=== PATIENT | male | born 1955 | race Caucasian/White ===

== ENCOUNTER → 2020-10-23 10:37 | Outpatient (BNVA) | payer MEDICARE, MEDICAID, SELFPAY | PROVIDERS: Family Provider Nurse Practitioner; PCP Nurse Practitioner; Visit Provider Internal Medicine Cardiovascular Disease | DX: I50.33 Acute on chronic diastolic (congestive) heart failure (principal); R06.00 Dyspnea, unspecified; R06.02 Shortness of breath; E78.5 Hyperlipidemia, unspecified; E78.2 Mixed hyperlipidemia | CPT/HCPCS: 80048; 80061; 80076; 83880 ==

== ENCOUNTER 2021-04-28 15:32 | Outpatient (CLI) | payer MEDICARE, MEDICAID, SELFPAY ==
--- NOTE | 2021-04-28 15:30 | CT_ITS ---
WS: [id number] CT CHEST WITHOUT INTRAVENOUS CONTRAST HISTORY: R91.1 - Solitary pulmonary nodule TECHNIQUE: Contiguous 5 mm axial imaging performed on the thorax. Coronal and sagittal reformats are submitted. All CT scans at [facility] use at least one of these dose optimization techniq ues: automated exposure control; mA and/or kV adjustment per patient size (includes targeted exams wh ere dose is matched to clinical indication); or iterative reconstruction. CONTRAST: None DLP: 1026.53 mGycm COMPARISON: 04/02/2019 Lungs and central airway: Moderate pulmonary expansion with changes of centrilobular emphysema. Stabl e tree-in-bud airspace disease in the superior segment RIGHT lower lobe posteriorly. Previously descr ibed nodule in the LEFT upper lobe is not identified today. Subsegmental atelectasis at the RIGHT barbara g base and at the lingula. Pleura: Normal. No pleural effusion. Heart and pericardium: Normal size heart. Coronary artery calcifications. No effusion. Mediastinum and chloe: No significant adenopathy identified. There is mild diffuse thickening of the e sophagus. There is fluid in the midesophagus which may be from reflux disease. Vessels: Moderate atherosclerosis thoracic aorta. Pulmonary artery size is enlarged and just greater than the aorta. Chest wall and lower neck: No soft tissue masses. Upper abdomen: Marked perinephric stranding around each kidney. Hyperdense nodules associated with th e periphery of each kidney. Cysts were seen on the prior examination these locations. These are proba victorina cysts with increased protein content or hemorrhage. No enlargement of these areas. Osseous structures: Osteopenia. No chronic compression fractures at T12 and L2. Additional mild anter ior wedging of T10, T5 and T6. Prior fixation with plate and screw proximal LEFT humerus. Advanced de generative changes at the LEFT glenohumeral joint. CT/CT chest wo con [id number] IMPRESSION: 1. Interval resolution of the previously described LEFT upper lobe nodule. 2. Stable chronic tree-in-bud airspace disease in the RIGHT lower lobe. 3. Moderate chronic emphysema. 4. Mild esophageal wall thickening with fluid probably due to reflux esophagit is. 5. Bilateral renal nodules. Some of these nodules are of decreased attenuation and some of increased attenuation. As compared to the contrast examination fro m 04/02/2019 has been no significant increase in size of these nodules. Probably proteinaceous or hemorrhagic cysts.
== END 2021-04-28 15:33 | disposition home or self-care (01) ==
PROVIDERS: PCP Nurse Practitioner; Visit Provider Nurse Practitioner
DX: R91.1 Solitary pulmonary nodule (principal); K21.00 Gastro-esophageal reflux disease with esophagitis, without bleeding; J43.9 Emphysema, unspecified
CPT/HCPCS: 71250

== ENCOUNTER → 2021-04-30 10:21 | Outpatient (BNVA) | payer MEDICARE, MEDICAID, SELFPAY | PROVIDERS: PCP Nurse Practitioner; Visit Provider Otolaryngology | DX: Z20.822 Contact with and (suspected) exposure to COVID-19 (principal) | CPT/HCPCS: 87635 ==

== ENCOUNTER 2021-05-05 06:21 | Day surgery (SDC) | payer MEDICARE, MEDICAID, SELFPAY ==
[2021-05-04 09:46] VITALS: BMI 27.3
[2021-05-05] VITALS (12 sets, daily range): BP systolic 123–174; BP diastolic 67–86; PULSE 59–83; RESP 14–22; TEMP 36.1–36.4; O2SAT 91–98
--- NOTE | 2021-05-05 06:39 | W.PM.OPSUD ---
Surgery/Procedure H&P Update DATE OF PROCEDURE: May 05, 2021 DATE H&P PERFORMED: 04/27/21 H&P UPDATE INFORMATION: I have reviewed H&P completed within last 30 days, I have examined patient prior to procedure and No changes to prior documentation PREOP DIAGNOSIS: Malignant lesion left upper lip at nostril PLANNED PROCEDURE: Operation Date: 05/05/21 07:50 Proposed Procedures p EXCISION MALIGNANT LESION LEFT UPPER LIP OR PERINASAL AREA 2.1 TO 3.0 and REPAIR LEFT UPPER LIP OR PERINASAL AREA 2.1 TO 3.0 30017 [id number] d49.0(Left) - Cecil Friend MD
[2021-05-05] MEDS: sodium chloride 0.9% 1,000 ML 30 ML IV (07:10)
--- NOTE | 2021-05-05 07:25 | ANES.PREANE2 ---
Pre-Anesthetic Assessment Pre-Anesthetic Assessment: Height/Weight: Height 1.73 m Weight 81.647 kg Temp Pulse Resp BP Pulse Ox 97.5 F L 59 L 16 131/76 93 05/05/21 06:34 05/05/21 06:34 05/05/21 06:34 05/05/21 06:34 05/05/21 06:34 Preop Diagnosis: Malignant lesion left upper lip at nostril Proposed Procedure: Operation Date: 05/05/21 07:50 Proposed Procedures p EXCISION MALIGNANT LESION LEFT UPPER LIP OR PERINASAL AREA 2.1 TO 3.0 and REPAIR LEFT UPPER LIP OR PERINASAL AREA 2.1 TO 3.0 [id number] 15828 d49.0(Left) - Cecil Friend MD Familial anesthetic complications: none Was Beta Anitha taken within 24 hours: Yes Was Clonidine taken within 24 hours: N/A Last intake: Intake Last Liquid Date 05/04/21 Last Liquid Time 21:00 Last Solid Date 05/04/21 Last Solid Time 14:00 Social: Social History: No alcohol Comment: former smoker Exam: Pre-Anes Outpt Exam: alert, oriented x 3, clear to auscultation bilaterally and regular rate & rhythm Airway: Cervical ROM: WNL MP: 3 Dentition: False Pulmonary: Pulmonary: COPD and LAU CV/HEM: CV/HEM: HTN and [place] Comments: Seen by Dr. Parra early April - nonspecific SOB thought to be related to COPD. No need for further work up at that time. Suggested follow up in 6 months ECHOCARDIOGRAPHY, COMPLETE 05/02/16 Normal left ventricular size and systolic function, EF 67 %. No regional wall motion abnormalities. I'll a dilated right atrium and right ventricle Normal right ventricular systolic function No significant stenotic or regurgitant lesions Technically difficult study because of the poor ultrasonic window There is no pericardial effusion. No previous study is available for comparison. LMM STRESS 05/02/16 1. No significant EKG changes with the LexiScan infusion 2. No LexiScan induced chest pain or cardiac arrhythmia 3. Normal blood pressure and heart rate response 4. Sestamibi/sestamibi perfusion scan pending; see separate report. 1. Myocardial perfusion imaging revealing a small area persistent decreased tracer uptake in the basal, mid and apical inferior wall region, suggestive of myocardial scarring versus attenuation artifacts. 2. Normal left ventricular ejection fraction of 78%. 3. Left ventricular wall motion analysis revealing no gross wall motion abnormality. 4. Normal left ventricular volume. 5. Slightly elevated TID ratio, may suggest endocardial ischemia; however, the positive predictive of this finding is limited. Clinical correlation is recommended. GI: GI: GERD Anesthetic Plan: ASA status: 4 Anesthesia: General Risk of > 500 ml blood loss (7ml/kg in children): No Meds/Allergies Current Medications: Current Medications Generic Name Dose Route Start Last Admin Trade Name Freq PRN Reason Stop Dose Admin Sodium Chloride 1,000 mls @ 30 ml s/hr 05/05/21 06:15 05/05/21 07:10 Sodium Chloride 0.9% IV 05/06/21 06:14 30 mls/hr .Q24H CONCEPCION Administration PFSH Anesthesia PFSH: Medical History (Updated 05/03/21 @ 11:38 by BERNARD Villa) Anemia ASHD (arteriosclerotic heart disease) Benign essential HTN Central spinal stenosis COPD (chronic obstructive pulmonary disease) LAU (dyspnea on exertion) Hx of leg amputation Right side Mixed hyperlipidemia Osteoporosis Surgical History H/O knee surgery H/O shoulder surgery History of abdominal surgery History of appendectomy History of hernia repair Family History Mother CAD (coronary artery disease) Father Cancer Family/Other Cancer Denies family history of Diabetes Clotting disorder Dementia Chronic kidney disease (CKD) Suicide Anesthesia complication Bleeding disorder Lung disease Stroke Social History Smoking and tobacco status: former smoker Quit status (tobacco): has quit using tobacco Year quit tobacco: 2020 Former quit date comment: 2 PPD X 45 YEARS Second hand smoke exposure: No Smoking risk assessment/counseling performed?: No Alcohol intake: never Desire information about alcohol rehabilitation?: No Counseling given: No Desire information about substance/drug rehabilitation?: No Counseling given: No Adopted: No Caregiver/support person: No Lives independently: Yes Household members: significant other Housing: House Marital status: Number of children: 2 service: No Current occupational status: retired Current occupational exposures/hazards: No Current gender identity: Male Data Anesthesia Cardiac Studies: No Data to Display
[2021-05-05] MEDS: neomycin-poly-bacitracin oint 28 gm 1 APPLIC TOPICAL (08:39)
--- NOTE | 2021-05-05 09:04 | P.OP_ITS ---
Operative Report Date of procedure: May 05, 2021 Pre-op Diagnosis: Malignant lesion left upper lip at nostril Post-op diagnosis: other Post-op Diagnosis: Malignant basal cell carcinoma with clear margins Post-op Findings: Used advancement flap for closure. Procedure Done: Excision of malignant basal cell carcinoma of the upper lip and repair with advancement flap reconstruction Specimens removed/disposition: Basal cell carcinoma lesion with margins to pathology for diagnosis and margins. Pathology: Lesion from left upper lip at nares. Frozen section revealed basal cell carcinoma with margins clear. Surgeon: Cecil Friend Anesthesia: General and Local Estimated blood loss (mL): 20 Complications: No complications noted. Findings: Greater than 1 cm mushroom-shaped lesion with raised edges and increased vascularity with ulcerative center consistent with basal cell carcinoma. This was raised approximately 1.3 cm off the surface of the upper lip skin. Extended just inside the nostril inferiorly. Condition: stable Disposition: PACU Brief History: 65-year-old male patient has had a lesion growing on his left upper lip for about a year. He did not seek medical attention while it was initially growing because he was stuck at home during the Covid pandemic crisis. Finally has sought attention from an ENT specialist. The lesion was highly suspicious for basal cell carcinoma or squamous cell carcinoma. He is being brought to the operating room at this time to undergo excision and repair. The repair will be attempted to be a flap advancement direct repair. The procedure its risks and complications were explained in detail to the patient and his in the office setting. These risks included bleeding infection numbness scarring swelling bruising cosmetic change recurrence need for additional treatment and more serious risk such as heart attack or stroke or not surviving the surgery. With these things understood informed consent was granted. Procedure: Description of procedure: The patient was placed on the operating table in the supine position. Adequate general endotracheal tube anesthesia was obtained. He was given Ancef IV for prophylaxis. He was repositioned into a semirecumbent position. Head was turned to his right. The area around the lesion was wiped with alcohol and then the upper lip was infiltrated around the lesion intranasally down the lip to the vermilion border and then across to the oral commissure. Injection was also carried out around the lateral alar region. Injection was also done vertically and laterally under the flap to control hemostasis. The patient was prepped and draped in usual fashion. A timeout was accomplished identifying the patient date of plan procedure allergies fire risk and medications given. With all in agreement the procedure continued. A marking pen was used to outline a circular excision approximately 5 mm in all directions around the slightly pedicled base. An incision was created following this marking pen guideline with a 15 blade carrying it down through the subcutaneous tissue and down to the layer of the vasculature of the upper lip. The specimen was resected and marked inferiorly and forwarded to pathology for frozen section. Pressure was applied during this time. Pathology returned as malignant basal cell carcinoma with margins clear. Therefore was able to proceed on with a design for closure. Bleeding was controlled with bipolar cautery. An incision was created along the alar bulb laterally in the nasolabial crease and then there was an incision created just where he wears his mustache. I did not take this down to the vermilion as I did not feel that it was necessary. The lateral incision was carried out to the nasolabial crease and dissection was carefully done to elevate the flap. Dissection was carried out lateral to that nasolabial fold as well. At this point it appeared as if t his flap was long enough to do the closure without significant tension. Therefore tacking sutures with 4-0 Vicryl suture occurred. These were then filled then along the entire edge of the flap to the surrounding normal skin. That appeared as if the flap was viable and good blood supply was occurring. The surface skin closure was then accomplished using a couple of interrupted 5-0 nylon sutures at the inner aspect of the alar region laterally. Then a running 5-0 nylon was used to close the skin. The area was then cleansed. Neosporin ointment was applied. The drapes were removed and the patient was returned to the anesthesiologist for wake-up and extubation. He tolerated the procedure well had an estimated blood loss of 20 mL and arrived in recovery in stable condition.
--- NOTE | 2021-05-05 09:26 | SUR.PHASEI ---
0924- ORAL AIRWAY REMOVED, SIMPLE MASK AT 6LPM SAT 98%
[2021-05-05] MEDS: oxyCODONE IR 30 mg Tablet PO (10:51)
--- NOTE | 2021-05-05 15:46 | ANE.PACU2 ---
Inpatient post-anesthesia follow up: Airway intact: Yes Vital signs: Temperature 97.3 F Pulse Rate 72 Respiratory Rate 18 Blood Pressure 156/70 Pulse Oximetry 92 Oxygen Delivery Me thod Room Air Oxygen Flow Rate 6 Fraction of Inspir ed Oxygen Hydration adequate: Yes Nausea and vomiting: No Pain level: 1 Mental status: Baseline
== END 2021-05-05 11:20 | disposition home or self-care (01) ==
PROVIDERS: PCP Nurse Practitioner; Visit Provider Otolaryngology
PROC: (CPT 11642; principal; 2021-05-05 07:40)
DX: C44.01 Basal cell carcinoma of skin of lip (principal); Z87.891 Personal history of nicotine dependence; J44.9 Chronic obstructive pulmonary disease, unspecified; I10 Essential (primary) hypertension; I25.2 Old myocardial infarction; E78.2 Mixed hyperlipidemia; M81.0 Age-related osteoporosis without current pathological fracture
CPT/HCPCS: 11642; 12051; 88304; 96365; J0690; J2370; J2405; J2704; J3010; J3490; J7030

== ENCOUNTER 2021-05-11 14:56 | Outpatient (CLI) | payer MEDICARE, MEDICAID, SELFPAY ==
--- NOTE | 2021-05-11 15:02 | XRR_ITS ---
PROCEDURE INFORMATION: Exam: XR Left Ankle Exam date and time: 05/11/2021 3:02 PM Age: 65 years old Clinical indication: Pain; Ankle; Left; Additional info: G89.29 - other chronic pain TECHNIQUE: Imaging protocol: XR Left ankle. Views: 3 or more views. COMPARISON: No previous relevant studies are available for comparison. FINDINGS: Bones/joints: No joint narrowing, dislocation, or effusion noted. No fracture or other acute osseous abnormality. Soft tissues: Mild soft tissue edema noted. XR/XR ankle LT min 3V* [id number] IMPRESSION: 1. Mild soft tissue edema noted. 2. No fracture or other acute osseous abnormality.
--- NOTE | 2021-05-11 15:02 | XRR_ITS ---
PROCEDURE INFORMATION: Exam: XR Left Hip Exam date and time: 05/11/2021 3:02 PM Age: 65 years old Clinical indication: Hip pain; Left hip; Additional info: G89.29 - other chronic pain TECHNIQUE: Imaging protocol: XR Left hip. Views: 2 or 3 views hip with pelvis when performed. COMPARISON: CR Hip 2-3v LEFT wwo Pelv* [id number] 01/08/2018 3:32 PM FINDINGS: Bones/joints: Mild narrowing and osteophyte formation of the left hip joint. No fracture or other acute osseous abnormality. Soft tissues: The soft tissues appear unremarkable. Vasculature: There are atherosclerotic calcifications demonstrated. XR/XR hip LT 2-3V wo/w pel* [id number] IMPRESSION: 1. Mild degenerative arthritis of the left hip. 2. No acute abnormality demonstrated. 3. There is no interval change from the prior examination.
--- NOTE | 2021-05-11 15:02 | XRR_ITS ---
PROCEDURE INFORMATION: Exam: XR Left Knee Exam date and time: 05/11/2021 3:02 PM Age: 65 years old Clinical indication: Pain; Knee; Left; Prior surgery; Additional info: G89.29 - other chronic pain TECHNIQUE: Imaging protocol: XR Left knee. Views: 3 views. COMPARISON: CR Knee 3 views, LEFT* [id number] 01/08/2018 3:32 PM FINDINGS: Bones/joints: Status post ORIF of the proximal tibia. The hardware appears intact. Old healed fracture of the proximal fibula. Distal femur and patella are unremarkable. There is mild medial and lateral joint space narrowing. No joint effusion demonstrated. No fracture or other acute osseous abnormality. Soft tissues: The soft tissues appear unremarkable. Vasculature: There are atherosclerotic calcifications demonstrated. XR/XR knee LT 3V* [id number] IMPRESSION: 1. Status post ORIF of the proximal tibia. The hardware appears intact. Old healed fracture of the proximal fibula. 2. Mild degenerative changes of the knee joint. 3. No acute abnormality demonstrated. 4. There is no interval change from the prior examination.
== END 2021-05-11 14:57 | disposition home or self-care (01) ==
PROVIDERS: PCP Nurse Practitioner; Visit Provider Nurse Practitioner
DX: M25.572 Pain in left ankle and joints of left foot (principal); M25.552 Pain in left hip; M25.562 Pain in left knee; M16.12 Unilateral primary osteoarthritis, left hip; R60.0 Localized edema
CPT/HCPCS: 73502; 73562; 73610

== ENCOUNTER → 2022-04-19 12:46 | Outpatient (BNVA) | payer MEDICARE, MEDICAID, SELFPAY | PROVIDERS: PCP Nurse Practitioner; Visit Provider Internal Medicine Cardiovascular Disease | DX: I25.10 Atherosclerotic heart disease of native coronary artery without angina pectoris (principal); Z89.619 Acquired absence of unspecified leg above knee; I10 Essential (primary) hypertension; Z87.891 Personal history of nicotine dependence | CPT/HCPCS: 99213 ==

== ENCOUNTER → 2022-07-11 10:27 | Outpatient (BNVA) | payer MEDICARE, MEDICAID, SELFPAY | PROVIDERS: PCP Nurse Practitioner; Visit Provider Nurse Practitioner | DX: I10 Essential (primary) hypertension (principal); R30.0 Dysuria; N39.0 Urinary tract infection, site not specified | CPT/HCPCS: 81000; 87086 ==

== ENCOUNTER 2022-10-21 16:39 | Emergency (ER) | payer MEDICARE, MEDICAID, SELFPAY ==
--- NOTE | 2022-10-21 17:12 | W.ED.URI ---
HPI - URI/Sore Throat General: Chief Complaint: COVID symptoms Stated Complaint: cough congestition Time Seen by Provider: 10/21/22 17:12 History of Present Illness: 67-year-old male patient comes in today with complaints of upper respiratory infection for about 1 week. Patient appears nontoxic. Patient does have a history of [id number] amputation to the right lower extremity due to infection from a surgical wound, coronary artery disease, colostomy. Patient appears nontoxic. Patient is alert and responds appropriate to questions. Patient does admit to feeling more confused than normal but is able to carry on conversation and responds appropriately. Associated symptoms: Deny chest pain or fever(s) Review of Systems Const: Denies: fever(s) Card: Denies: chest pain Resp: Reports: non-productive cough PFSH ED PFSH: Medical History Anemia ASHD (arteriosclerotic heart disease) Benign essential HTN Central spinal stenosis COPD (chronic obstructive pulmonary disease) LAU (dyspnea on exertion) Hx of leg amputation Right side Mixed hyperlipidemia Neuropathic pain Osteoarthritis of left hip Osteoporosis Surgical History H/O knee surgery H/O shoulder surgery History of abdominal surgery History of appendectomy History of hernia repair Family History Mother CAD (coronary artery disease) Father Cancer Family/Other Cancer Denies family history of Diabetes Clotting disorder Dementia Chronic kidney disease (CKD) Suicide Anesthesia complication Bleeding disorder Lung disease Stroke Social History Smoking and tobacco status: former smoker Quit status (tobacco): has quit using tobacco Year quit tobacco: 2020 Former quit date comment: 2 PPD X 45 YEARS Second hand smoke exposure: No Smoking risk assessment/counseling performed?: No Alcohol intake: never Desire information about alcohol rehabilitation?: No Counseling given: No Desire information about substance/drug rehabilitation?: No Counseling given: No Adopted: No Caregiver/support person: No Lives independently: Yes Household members: significant other Housing: House Marital status: Number of children: 2 service: No Current occupational status: retired Current occupational exposures/hazards: No Current gender identity: Male Physical Exam Const: COMMON NORMALS: alert HENMT: COMMON NORMALS: normocephalic HEAD & SCALP: normocephalic Neck/C-Spine: COMMON NORMALS: full ROM Resp: COMMON NORMALS: normal respiratory effort and clear to auscultation bilaterally AUSCULTATION: clear to auscultation bilaterally Cardio: COMMON NORMALS: regular rate and regular rhythm RATE: regular rate RHYTHM: regular rhythm GI: COMMON NORMALS: Soft to palpation and non-tender PALPATION: Yes Soft to palpation Extremity: COMMON NORMALS: normal to inspection Neuro: SENSORIUM/ORIENTATION: Yes alert Skin: COMMON NORMALS: turgor normal GENERAL SKIN EXAM: turgor normal Course Vital Signs: Vital signs: Vital Signs Temperature 97.6 F 10/21/22 17:20 Pulse Rate 52 L 10/21/22 18:23 Respiratory Rate 20 H 10/21/22 18:23 Blood Pressure 146/76 10/21/22 18:23 Pulse Oximetry 93 10/21/22 18:23 Oxygen Delivery Me thod 10/21/22 17:44 MDM - URI/Sore Throat Medical Decision Making 67-year-old male patient comes in today for concerns of cough and congestion and a positive COVID-19 test. On exam patient good air movement throughout lung boss. Abdomen soft with some scarring to the right lower quadrant with a colostomy. Patient has above-knee amputation of the right lower extremity. Vital signs are normal. Differential diagnosis includes pneumonia, COVID-19, CHF, post viral syndrome. Chest x-ray was unremarkable. No signs of severe illness was noted. Reviewed exam with patient with recommendations for treatment and follow-up. Patient and family both reported understanding. Lab Data Radiology Impressions Chest X-Ray 10/21/22 17:27 IMPRESSION: Left basilar scarring. No acute infiltrate. Discharge Plan Discharge Patient Disposition: Home Clinical Impression: COVID-19 Condition: Stable Prescriptions: No Action oxycodone 80 mg tablet extended release 12 hr PO oxycodone 30 mg tablet 30 mg PO Q6H PRN (Reason: Pain) (DME) E2622 : Skin protection wheelchair seat cushion, adjustable, width less than 22 inches, any depth. See Rx Instructions .Route .[facility] Qty: 1 0RF Rx Instructions: As directed (DME) K0822 Power wheelchair, group 2 standard, sling/solid See Rx Instructions .Route .[employer] Qty: 1 0RF Rx Instructions: As directed Lac-Hydrin Five 5 % lotion 1 applic topical BID Qty: 226 0RF tamsulosin [Flomax] 0.4 mg capsule 0.4 mg PO DAILY Qty: 90 0RF fluoxetine [Prozac] 20 mg capsule 20 mg PO BID Qty: 180 0RF Rx Instructions: administer in the morning and at noon/midday carvedilol 25 mg tablet 25 mg PO BID Qty: 180 3RF atorvastatin 80 mg tablet 80 mg PO DAILY Qty: 90 3RF amlodipine 10 mg tablet 10 mg PO DAILY Qty: 90 3RF clopidogrel 75 mg tablet 75 mg PO DAILY Qty: 90 3RF Discharge Orders: Discharge ED (Routine); Ordered 10/21/22 Ordered By: Aris Nolasco Referrals: Imtiaz Shields, [employer] [Primary Care Provider] - Discharge Diet: Usual diet Discharge Activity: Increase activity as tolerated Patient Instructions: COVID-19 (Coronavirus Disease 2019) (ED) Activity Restrictions/Additional Instructions: Home and rest. Continue routine medications. Drink plenty of fluids. Use acetaminophen or ibuprofen for discomfort or fever. Follow-up with primary care as needed. Return to ED for worsening symptoms such as increased shortness of breath, severe chest pain, or new concerns. Coding Level of Care Code ED Recruitment Director for Ephraim Badillo
[2022-10-21 17:20] VITALS: BP 141/75; PULSE 50; RESP 14; TEMP 36.4; O2SAT 90; BMI 27.8
--- NOTE | 2022-10-21 17:27 | XRR_ITS ---
PROCEDURE INFORMATION: Exam: XR Chest Exam date and time: 10/21/2022 5:37 PM Age: 67 years old Clinical indication: Cough; Additional info: Cough, congestion TECHNIQUE: Imaging protocol: Radiologic exam of the chest. Views: 1 view. COMPARISON: CT chest con [id number] 04/28/2021 3:46 PM FINDINGS: Lungs: There is some focal scarring or subsegmental atelectasis at the left lung base. This is unchanged from prior CT scan. No focal consolidation or acute appearing infiltrate is identified. Pleural spaces: Unremarkable. No pleural effusion. No pneumothorax. Heart/Mediastinum: Heart is within normal limits of size. Bones/joints: Postsurgical changes are seen in the proximal left shoulder. XR/XR chest 1V portable [id number] IMPRESSION: Left basilar scarring. No acute infiltrate.
[2022-10-21 17:44] VITALS: O2SAT 90
[2022-10-21 18:23] VITALS: BP 146/76; PULSE 52; RESP 20; O2SAT 93
[2022-10-21 20:05] LABS: Adenovirus Not Detected (NOT DETECT); Chlamydia Pneumoniae Not Detected (NOT DETECT); Coronavirus 229E,HKU1,NL63,OC4 Not Detected (NOT DETECT); Human Metapneumovirus Not Detected (NOT DETECT); Human Rhinovirus/Enterovirus Not Detected (NOT DETECT); Influenza A Not Detected (NOT DETECT); Influenza A H1 Not Detected (NOT DETECT); Influenza A H1-2009 Not Detected (NOT DETECT); Influenza A H3 Not Detected (NOT DETECT); Influenza B Not Detected (NOT DETECT); Mycoplasma Pneumoniae Not Detected (NOT DETECT); Parainfluenza Virus Type 1 Not Detected (NOT DETECT); Parainfluenza Virus Type 2 Not Detected (NOT DETECT); Parainfluenza Virus Type 3 Not Detected (NOT DETECT); Parainfluenza Virus Type 4 Not Detected (NOT DETECT); Respiratory Syncytial Virus A Not Detected (NOT DETECT); Respiratory Syncytial Virus B Not Detected (NOT DETECT); SARS-COV-2 Detected (NOT DETECT)
== END 2022-10-21 18:25 | disposition home or self-care (01) ==
PROVIDERS: Emergency Provider Nurse Practitioner Family; PCP Nurse Practitioner
DX: U07.1 COVID-19 (principal)
CPT/HCPCS: 71045; 87635; 99283

== ENCOUNTER 2023-04-04 10:00 | Outpatient (CLI) | payer MEDICARE, MEDICAID, SELFPAY ==
--- NOTE | 2023-04-04 11:00 | CT_ITS ---
WS: [id number] CT CHEST, ABDOMEN AND PELVIS WITHOUT CONTRAST HISTORY: R91.1 - Solitary pulmonary nodule TECHNIQUE: Contiguous 5 mm axial imaging performed through the chest, abdomen and pelvis with IV cont rast, oral contrast has been provided. Coronal and sagittal reformats chest. Coronal and sagittal ref ormats through the abdomen and pelvis. All CT scans at [facility] use at least one of these d ose optimization techniques: automated exposure control; mA and/or kV adjustment per patient size (in cludes targeted exams where dose is matched to clinical indication); or iterative reconstruction. CONTRAST: None DLP: 845.88 mGy.cm COMPARISON: 04/28/2021, 06/02/[address]: Mild pulmonary hyperexpansion. Very mild interstitial thickening in the RIGHT middle and RI GHT lower lobes. Near tree-in-bud airspace disease. Overall improved since the prior study. There is a small area of pneumonitis in the lingula. No pleural or pericardial effusions. Moderate atheroscler osis aorta. Normal size pulmonary artery. No adenopathy. Mild LEFT heart enlargement. Small hiatal he rnia. Abdomen CT: Normal size liver and spleen. Cholelithiasis without acute cholecystitis. Negative pancre as. No bile duct dilatation. No adrenal mass. Bilateral mixed attenuation cortical masses in each kid leslie. These were also present on prior examinations and thought to be related to proteinaceous cyst. T here is perinephric stranding. No renal obstruction. The number of high density nodules has increased . Cyst in the lower pole the RIGHT kidney has also increased in size. Moderate atherosclerosis aorta. Normal stomach. No small bowel obstruction. Subtotal colectomy. RIGHT lower quadrant ileostomy. No as cites or adenopathy. Pelvic CT: Well-distended urinary bladder. There is a fluid collection posterior to the urinary bladd er thought to be a bladder diverticulum which is similar to the prior studies. No stones within the b ladder diverticulum. RIGHT lower extremity below the hip replacement. Empty acetabulum at the RIGHT hip. Soft tissue defec t with loss of normal musculature involving the RIGHT pelvis. Prior fixation hardware proximal LEFT h umerus with LEFT humeral head deformity. Disc space narrowing and fusion thoracolumbar junction. 30% anterior compression fracture L2. CT/[place] [id number] IMPRESSION: 1. Mild interstitial thickening in the RIGHT middle and RIGHT lower lobes. Ove rall improved since 2020. No pneumonia. No mass or nodule. 2. Cholelithiasis without acute cholecystitis. 3. Subtotal colectomy. RIGHT lower quadrant ileostomy intact. No stenosis. 4. Large stable bladder diverticulum. 5. Bilateral renal masses of variable density. The number of slightly increase d since 2015. Size of one of the renal nodules in the lower pole of the RIGHT k idney has also increased in size and thought to be a cyst on the prior study. 6. 30% compression fracture at L2.
--- NOTE | 2023-04-04 11:23 | XRR_ITS ---
PROCEDURE INFORMATION: Exam: XR Pelvis Exam date and time: 04/04/2023 11:29 AM Age: 67 years old Clinical indication: Pelvic pain; Prior surgery; Surgery date: 6+ months; Surgery type: Not specified; Additional info: Vertebrogenic low back pain TECHNIQUE: Imaging protocol: Radiologic exam of the pelvis. Views: 1 or 2 view. COMPARISON: [place] [id number] 04/04/2023 11:08 AM FINDINGS: Bones/joints: A normal appearing right hip and acetabulum are not visible. This finding was seen on prior CT examination. Generalized osteopenia is seen. No acute fracture. Soft tissues: Contrast filled bowel loops seen in the lower quadrant of the abdomen. XR/XR pelvis 1-2V* [id number] IMPRESSION: 1. No acute findings. 2. Normal right hip and acetabulum are not visible 3. Contrast filled bowel loops are present in the lower quadrant
[2023-04-04] MEDS: iohexol 350 mg/mL 500 mL Btl (per mL) PO (11:32)
== END 2023-04-04 10:01 | disposition home or self-care (01) ==
PROVIDERS: PCP Nurse Practitioner; Visit Provider Nurse Practitioner
DX: M54.51 Vertebrogenic low back pain (principal); R91.1 Solitary pulmonary nodule; R19.8 Other specified symptoms and signs involving the digestive system and abdomen
CPT/HCPCS: 71250; 72170; 74176; Q9967

== ENCOUNTER → 2023-05-02 12:54 | Outpatient (BNVA) | payer MEDICARE, MEDICAID, SELFPAY | PROVIDERS: PCP Nurse Practitioner; Visit Provider Specialist | DX: E78.2 Mixed hyperlipidemia (principal); I25.10 Atherosclerotic heart disease of native coronary artery without angina pectoris; I10 Essential (primary) hypertension; Z87.891 Personal history of nicotine dependence | CPT/HCPCS: 99214 ==

== ENCOUNTER 2023-07-08 16:43 | Emergency (ER) | payer MEDICARE, MEDICAID, SELFPAY ==
[2023-07-08] VITALS (7 sets, daily range): BP systolic 142–169; BP diastolic 69–89; PULSE 57–72; RESP 15–26; TEMP 36.7; O2SAT 85–98; BMI 27.3
--- NOTE | 2023-07-08 18:03 | W.ED.EXTPRO ---
HPI - Extremity Problem General: Chief complaint: Extremity Injury, Lower Stated complaint: left leg lac Time Seen by Provider: 07/08/23 17:56 History of Present Illness: Patient presents to the ER with a left leg laceration on his left anterior head. Says working on his son's trike when he got his electric wheelchair and accidentally bumped the lever on it and it lurched forward and pinch his leg the in between the wheelchair and track. He has a large avulsion type laceration to the left anterior head bleeding is controlled with dressing. Patient is on Plavix. Review of Systems General: Reports: 10 or more systems reviewed and unremarkable except in HPI and below PFSH ED PFSH: Medical History Anemia ASHD (arteriosclerotic heart disease) Benign essential HTN Central spinal stenosis COPD (chronic obstructive pulmonary disease) LAU (dyspnea on exertion) Hx of leg amputation Right side Mixed hyperlipidemia Neuropathic pain Osteoarthritis of left hip Osteoporosis Surgical History H/O knee surgery H/O shoulder surgery History of abdominal surgery History of appendectomy History of hernia repair History of right lower limb amputation Family History Mother CAD (coronary artery disease) Father Cancer Family/Other Cancer Denies family history of Diabetes Clotting disorder Dementia Chronic kidney disease (CKD) Suicide Anesthesia complication Bleeding disorder Lung disease Stroke Social History Smoking and tobacco status: former smoker Quit status (tobacco): has quit using tobacco Year quit tobacco: 2020 Former quit date comment: 2 PPD X 45 YEARS Second hand smoke exposure: No Smoking risk assessment/counseling performed?: No Alcohol intake: never Desire information about alcohol rehabilitation?: No Counseling given: No Substance/Drug Use: never Desire information about substance/drug rehabilitation?: No Counseling given: No Adopted: No Caregiver/support person: No Lives independently: Yes Household members: significant other Housing: House Marital status: Number of children: 2 service: No Current occupational status: retired Current occupational exposures/hazards: No Do you think of yourself as: Straight/Heterosexual Current gender identity: Male Physical Exam Const: COMMON NORMALS: no acute distress, average body habitus, patient oriented x3, no limitations, healthy appearing, alert and well nourished HENMT: COMMON NORMALS: normocephalic, atraumatic, hearing grossly normal bilaterally, external ears normal, Normal external nose present and moist oral mucous membranes HEAD & SCALP: normocephalic and atraumatic NOSE: Normal external nose present EXTERNAL EAR: Yes external ears normal Neck/C-Spine: COMMON NORMALS: no JVD Chest: COMMONS NORMALS: normal inspection of the chest and normal palpation of entire chest wall Resp: COMMON NORMALS: normal respiratory effort, No retractions, No use of accessory muscles and clear to auscultation bilaterally AUSCULTATION: clear to auscultation bilaterally Cardio: COMMON NORMALS: no JVD, regular rate, regular rhythm, S1 normal heart sound present, S2 normal heart sound present, No gallops present (Cardio), No clicks present (Cardio), No murmurs present (Cardio) and No rub (Cardio) RATE: regular rate RHYTHM: regular rhythm HEART SOUNDS: S1 normal heart sound present and S2 normal heart sound present GI: COMMON NORMALS: Normal to inspection, nondistended, normoactive bowel sounds present, Soft to palpation, non-tender, No hepatosplenomegaly present and no masses PALPATION: Yes Soft to palpation and Yes No hepatosplenomegaly present Neuro: COMMON NORMALS: patient oriented x3 SENSORIUM/ORIENTATION: Yes alert Skin: NARRATIVE SKIN EXAM: Large stellate type skin avulsion laceration to left anterior head. Bleeding controlled. Course Vital Signs: Vital signs: Vital Signs Temperature 98.0 F 07/08/23 17:01 Pulse Rate 66 07/08/23 20:21 Respiratory Rate 15 07/08/23 20:21 Blood Pressure 145/69 07/08/23 19:42 Pulse Oximetry 85 L 07/08/23 21:23 Oxygen Delivery Me thod Nasal Cannula 07/08/23 20:21 Oxygen Flow Rate 3 07/08/23 21:23 MDM - Extremity (Nontraumatic) Medical Decision Making Presents to the ER with a skin laceration on his left anterior head. This is a large stellate type avulsion laceration. Will not come together very well patient's skin is superficial and will not hold sutures. Wound was closed and approximated with Tegaderm. Bleeding is controlled at this time. Patient will be referred to wound care for further evaluation and treatment as this wound will will probably take a long time to heal. Patient will be placed on Keflex antibiotics prophylactically. Patient will be discharged home. Patient desatted all the way down to 82% sitting in his bed. An ambulatory pulse ox test was performed by respiratory which he failed. Chest x-ray was done which showed coarse reticular nodular opacities in both lungs right greater than left which can be seen with infectious bronchiolitis. Patient will be prescribed home oxygen because of this and his hypoxia. Differential Diagnosis Unlikely herpes zoster, gout, cellulitis, superficial thrombophlebitis, deep venous thrombosis of upper extremity, lower extremity edema or deep vein thrombosis of lower extremity Medical Records I reviewed the patient's medical records. Lab Data I reviewed the patient's lab results. 07/08/23 21:35 07/08/23 21:35 Radiology Impressions Chest X-Ray 07/08/23 20:06 IMPRESSION: 1. Reticulonodular opacities in both lungs, right greater than left. This can be seen with infectious bronchiolitis. Laboratory Results WBC 8.46 10^3/uL (3.29-11.43) 07/08/23 21:35 RBC 4.61 10^6/uL (3.85-5.65) 07/08/23 21: Hgb 13.00 g/dL (11.27-16.99) 07/08/23 21:35 Hct 42.7 % (37-53) 07/08/23 21: MCV 92.6 fl (82-101) 07/08/23 21: MCH 28.2 pg (27-33) 07/08/23 21: MCHC 30.4 g/dL (30-55) 07/08/23 21: RDW 14.0 % (12.1-15.1) 07/08/23 21: Plt Count 148 10^3/cmm (157-399) L 07/08/23 21: MPV 8.5 fL (7.4-10.4) 07/08/23 21:35 Neut % (Auto) 64.6 % 07/08/23 21: Lymph % (Auto) 17.8 % 07/08/23 21: [place] % (Auto) 12.4 % 07/08/23 21:35 Eos % (Auto) 4.1 % 07/08/23 21:35 Baso % (Auto) 0.7 % 07/08/23 21:35 Neut # (Auto) 5.46 10^3/uL (1.8-7.7) 07/08/23 21:35 Lymph # (Auto) 1.5 10^3/uL (0.8-4.8) 07/08/23 21:35 [place] # (Auto) 1.1 10^3/uL (0.2-0.9) H 07/08/23 21:35 Eos # (Auto) 0.4 10^3/uL (0.0-0.8) 07/08/23 21:35 Baso # (Auto) 0.1 10^3/uL (0.0-0.1) 07/08/23 21:35 Nucleated RBC % (auto) 0 % 07/08/23 21:35 Nucleated RBCs # 0.0 /100WBC 07/08/23 21:35 Sodium 131 mmol/L (136-145) L 07/08/23 21:35 Potassium 4.6 mmol/L (3.5-5.1) 07/08/23 21:35 Chloride 94 mmol/L (98-107) L 07/08/23 21:35 Carbon Dioxide 34 mmol/L (22-29) H 07/08/23 21:35 Anion Gap 7.6 (5-19) 07/08/23 21:35 BUN 8 mg/dL (8-23) 07/08/23 21:35 Creatinine 1.0 mg/dL (0.7-1.2) 07/08/23 21:35 GFR Calculation 74.5 mL/min (90-130) L 07/08/23 21:35 Glucose 99 mg/dL (65-115) 07/08/23 21:35 Calculated Osmolality 270 mOsm/kg (285-295) L 07/08/23 21:35 Calcium 8.4 mg/dL (8.5-10.5) L 07/08/23 21:35 Total Bilirubin 0.5 mg/dL (0.15-1.2) 07/08/23 21:35 AST 21 U/L (0-40) 07/08/23 21:35 ALT 15 U/L (0-41) 07/08/23 21:35 Alkaline Phosphatase 89 U/L (40-130) 07/08/23 21:35 Total Protein 8.1 g/dL (6.6-8.7) 07/08/23 21:35 Albumin 2.9 g/dL (3.5-5.2) L 07/08/23 21:35 Globulin 5.2 g/dL (1.3-4.6) H 07/08/23 21:35 Discharge Plan Discharge Patient Disposition: Home Clinical Impression: Avulsion of skin of left lower leg, Hypoxia, Acute bronchiolitis due to other infectious organisms, Acute respiratory failure with hypoxia Condition: Stable Prescriptions: New cephalexin 500 mg capsule 500 mg PO Q6H 7 Days Qty: 28 0RF No Action oxycodone 80 mg tablet extended release 12 hr 80 mg PO .12 hours Patient Comments: Pain management oxycodone 30 mg tablet 30 mg PO Q6H PRN (Reason: Pain) Patient Comments: Pain Management (DME) [id number] : Skin protection wheelchair seat cushion, adjustable, width less than 22 inches, any depth. See Rx Instructions .Route .MEDSUPPLY Qty: 1 0RF Rx Instructions: As directed (DME) [id number] Power wheelchair, group 2 standard, sling/solid See Rx Instructions .Route .MEDSUPPLY Qty: 1 0RF Rx Instructions: As directed Lac-Hydrin Five 5 % lotion 1 applic topical BID Qty: 226 0RF tamsulosin [Flomax] 0.4 mg capsule 0.4 mg PO DAILY Qty: 90 1RF zonisamide 50 mg capsule 50 mg PO Q12H Qty: 60 5RF atorvastatin 80 mg tablet 80 mg PO DAILY Qty: 90 3RF amlodipine 10 mg tablet 10 mg PO DAILY Qty: 90 3RF clopidogrel 75 mg tablet 75 mg PO DAILY Qty: 90 3RF carvedilol 25 mg tablet 25 mg PO BID Qty: 180 3RF nitroglycerin 0.6 mg tablet, sublingual 0.6 mg sublingual Q5M PRN (Reason: chest pain) Qty: 30 2RF Rx Instructions: do not exceed 3 doses per episode Discharge Orders: Discharge ED (Routine); Ordered 07/08/23 Ordered By: Lenard Ramires Other Ambulatory Orders: DME: Oxygen (Order) Location: None Selected Ordered By: Lenard Ramires Referrals: Imtiaz Shields, LOG OPERATIONS COORDINATOR-C [Primary Care Provider] - 1 week Patient Instructions: Laceration (ED) Activity Restrictions/Additional Instructions: This management has been consulted they will refer you to wound care for further evaluation and treatment of your wound. Expect a call from them Monday if you have not heard from them by Monday please feel free to call us. Please keep your wound warm clean and dry. Please take antibiotics as directed. Coding Level of Care Code ED Second Helper for Ephraim Badillo
[2023-07-08] MEDS: lidocaine-epi 2% 20 mL INJ INJECTION (18:47)
[2023-07-08] MEDS: cephALEXin 500 mg Capsule PO (19:39)
--- NOTE | 2023-07-08 20:06 | XRR_ITS ---
PROCEDURE INFORMATION: Exam: XR Chest Exam date and time: 07/08/2023 8:12 PM Age: 68 years old Clinical indication: Shortness of breath; Additional info: Hypoxia TECHNIQUE: Imaging protocol: Radiologic exam of the chest. Views: 1 view. COMPARISON: [place] [id number] 04/04/2023 11:08 AM FINDINGS: Lungs: Coarse reticulonodular opacities throughout the right lung and in the left lung base. No consolidation. Changes of emphysema. Pleural spaces: Unremarkable. No pleural effusion. No pneumothorax. Heart/Mediastinum: Unremarkable. No cardiomegaly. Bones/joints: Unremarkable. XR/XR chest 1V portable [id number] IMPRESSION: 1. Reticulonodular opacities in both lungs, right greater than left. This can be seen with infectious bronchiolitis.
--- NOTE | 2023-07-08 20:17 | PC.NURSE ---
patient o2 wean attempted. start 3L at 97% spo2. 2L at 93% spo2. 1L 91% spo2. RA 80% spo2. 3L reapplied spo2 98%
[2023-07-08 21:42] LABS: Basophils # 0.1 10^3/uL (0.0-0.1); Basophils % 0.7 %; Eosinophils # 0.4 10^3/uL (0.0-0.8); Eosinophils % 4.1 %; Hematocrit 42.7 % (37-53); Lymphocytes # 1.5 10^3/uL (0.8-4.8); Lymphocytes % 17.8 %; Mean Corpuscular HGB Conc 30.4 g/dL (30-55); Mean Corpuscular Hemoglobin 28.2 pg (27-33); Mean Corpuscular Volume 92.6 fl (82-101); Mean Platelet Volume 8.5 fL (7.4-10.4); Monocytes # 1.1 10^3/uL (0.2-0.9); Monocytes % 12.4 %; Neutrophils # 5.46 10^3/uL (1.8-7.7); Neutrophils % 64.6 %; Nucleated Red Blood Cells % 0 %; Platelet Count 148 10^3/cmm (157-399); Red Blood Count 4.61 10^6/uL (3.85-5.65); White Blood Count 8.46 10^3/uL (3.29-11.43)
[2023-07-08 21:59] LABS: Alanine Aminotransferase 15 U/L (0-41); Albumin Level 2.9 g/dL (3.5-5.2); Alkaline Phosphatase 89 U/L (40-130); Anion Gap 7.6 (5-19); Aspartate Amino Transferase 21 U/L (0-40); Blood Urea Nitrogen 8 mg/dL (8-23); Calcium 8.4 mg/dL (8.5-10.5); Carbon Dioxide 34 mmol/L (22-29); Chloride 94 mmol/L (98-107); Globulin 5.2 g/dL (1.3-4.6); Glomerular Filtration Rate 74.5 mL/min (90-130); Glucose 99 mg/dL (65-115); Osmolality Calculated 270 mOsm/kg (285-295); Potassium 4.6 mmol/L (3.5-5.1); Sodium 131 mmol/L (136-145); Total Bilirubin 0.5 mg/dL (0.15-1.2); Total Protein 8.1 g/dL (6.6-8.7)
--- NOTE | 2023-07-10 10:51 | DCPLANNER ---
Addendum entered by Carolee Beckman 07/14/23 10:43: Patient did attend this appointment with wound care Addendum entered by Carolee Beckman 07/11/23 13:58: Patient has a follow up appointment scheduled for Monday, July 12, 2023 at 9:[address] Orlando at [facility]. Original Note: marketing services manager had message to schedule a follow up appointment for patient for [facility]. marketing services manager sent patients information to the front office staff at [facility]. Patients information will be printed and reviewed. Clinic will call patient with appointment information.
== END 2023-07-08 23:59 | disposition home or self-care (01) ==
PROVIDERS: Emergency Provider Emergency Medicine; PCP Nurse Practitioner
DX: S81.802A Unspecified open wound, left lower leg, initial encounter (principal); X58.XXXA Exposure to other specified factors, initial encounter; J21.8 Acute bronchiolitis due to other specified organisms; J96.01 Acute respiratory failure with hypoxia; Z87.891 Personal history of nicotine dependence
CPT/HCPCS: 36415; 71045; 80053; 85025; 99284

== ENCOUNTER → 2023-07-12 09:14 | Outpatient (BNVA) | payer MEDICARE, MEDICAID, SELFPAY | PROVIDERS: PCP Nurse Practitioner; Visit Provider Thoracic Surgery (Cardiothoracic Vascular Surgery) | DX: I96 Gangrene, not elsewhere classified (principal); S81.812A Laceration without foreign body, left lower leg, initial encounter; X58.XXXA Exposure to other specified factors, initial encounter | CPT/HCPCS: 97597; 97598; 99213; A6021 ==

== ENCOUNTER → 2023-07-19 14:36 | Outpatient (BNVA) | payer MEDICARE, MEDICAID, SELFPAY | PROVIDERS: PCP Nurse Practitioner; Visit Provider Thoracic Surgery (Cardiothoracic Vascular Surgery) | DX: I96 Gangrene, not elsewhere classified (principal); S81.812D Laceration without foreign body, left lower leg, subsequent encounter; X58.XXXD Exposure to other specified factors, subsequent encounter | CPT/HCPCS: 11042; 11045; A6252 ==

== ENCOUNTER → 2023-07-26 15:33 | Outpatient (BNVA) | payer MEDICARE, MEDICAID, SELFPAY | PROVIDERS: PCP Nurse Practitioner; Visit Provider Thoracic Surgery (Cardiothoracic Vascular Surgery) | DX: I96 Gangrene, not elsewhere classified (principal); S81.812D Laceration without foreign body, left lower leg, subsequent encounter; X58.XXXD Exposure to other specified factors, subsequent encounter | CPT/HCPCS: 97597; 97598; A6210 ==

== ENCOUNTER → 2023-08-02 15:23 | Outpatient (BNVA) | payer MEDICARE, MEDICAID, SELFPAY | PROVIDERS: PCP Nurse Practitioner; Visit Provider Nurse Practitioner Family | DX: I96 Gangrene, not elsewhere classified (principal); S81.812D Laceration without foreign body, left lower leg, subsequent encounter; X58.XXXD Exposure to other specified factors, subsequent encounter | CPT/HCPCS: 97597; A6210; A6219 ==

== ENCOUNTER → 2023-08-09 15:53 | Outpatient (BNVA) | payer MEDICARE, MEDICAID, SELFPAY | PROVIDERS: PCP Nurse Practitioner; Visit Provider Thoracic Surgery (Cardiothoracic Vascular Surgery) | DX: I96 Gangrene, not elsewhere classified (principal); L97.822 Non-pressure chronic ulcer of other part of left lower leg with fat layer exposed | CPT/HCPCS: 11042 ==

== ENCOUNTER → 2023-08-23 14:17 | Outpatient (BNVA) | payer MEDICARE, MEDICAID, SELFPAY | PROVIDERS: PCP Nurse Practitioner; Visit Provider Thoracic Surgery (Cardiothoracic Vascular Surgery) | DX: L97.822 Non-pressure chronic ulcer of other part of left lower leg with fat layer exposed (principal) | CPT/HCPCS: 97597; A6210 ==

== ENCOUNTER → 2023-08-30 13:48 | Outpatient (BNVA) | payer MEDICARE, MEDICAID, SELFPAY | PROVIDERS: PCP Nurse Practitioner; Visit Provider Thoracic Surgery (Cardiothoracic Vascular Surgery) | DX: I96 Gangrene, not elsewhere classified (principal); L97.822 Non-pressure chronic ulcer of other part of left lower leg with fat layer exposed | CPT/HCPCS: 97597; A6210 ==

== ENCOUNTER → 2023-09-06 14:51 | Outpatient (BNVA) | payer MEDICARE, MEDICAID, SELFPAY | PROVIDERS: PCP Nurse Practitioner; Visit Provider Nurse Practitioner Family | DX: L97.822 Non-pressure chronic ulcer of other part of left lower leg with fat layer exposed (principal) | CPT/HCPCS: 97597; A6210 ==

== ENCOUNTER → 2023-09-14 13:49 | Outpatient (BNVA) | payer MEDICARE, MEDICAID, SELFPAY | PROVIDERS: PCP Nurse Practitioner; Visit Provider Nurse Practitioner Family | DX: I96 Gangrene, not elsewhere classified (principal); L97.822 Non-pressure chronic ulcer of other part of left lower leg with fat layer exposed | CPT/HCPCS: 97597; A6210; A6212 ==

== ENCOUNTER → 2023-09-20 15:32 | Outpatient (BNVA) | payer MEDICARE, MEDICAID, SELFPAY | PROVIDERS: PCP Nurse Practitioner; Visit Provider Thoracic Surgery (Cardiothoracic Vascular Surgery) | DX: L97.822 Non-pressure chronic ulcer of other part of left lower leg with fat layer exposed (principal); L98.492 Non-pressure chronic ulcer of skin of other sites with fat layer exposed | CPT/HCPCS: 97597; A6210 ==

== ENCOUNTER → 2023-09-27 14:52 | Outpatient (BNVA) | payer MEDICARE, MEDICAID, SELFPAY | PROVIDERS: PCP Nurse Practitioner; Visit Provider Thoracic Surgery (Cardiothoracic Vascular Surgery) | DX: T81.31XD Disruption of external operation (surgical) wound, not elsewhere classified, subsequent encounter (principal); Y83.8 Other surgical procedures as the cause of abnormal reaction of the patient, or of later complication, without mention of misadventure at the time of the procedure; Z09 Encounter for follow-up examination after completed treatment for conditions other than malignant neoplasm | CPT/HCPCS: 97597; A6212; A6248 ==

== ENCOUNTER → 2023-10-11 14:56 | Outpatient (BNVA) | payer MEDICARE, MEDICAID, SELFPAY | PROVIDERS: PCP Nurse Practitioner; Visit Provider Nurse Practitioner Family | DX: I96 Gangrene, not elsewhere classified (principal); L98.492 Non-pressure chronic ulcer of skin of other sites with fat layer exposed | CPT/HCPCS: 97597; A6248 ==

== ENCOUNTER → 2023-10-18 15:27 | Outpatient (BNVA) | payer MEDICARE, MEDICAID, SELFPAY | PROVIDERS: PCP Nurse Practitioner; Visit Provider Thoracic Surgery (Cardiothoracic Vascular Surgery) | DX: I96 Gangrene, not elsewhere classified (principal); L89.893 Pressure ulcer of other site, stage 3 | CPT/HCPCS: 97597; A6021 ==

== ENCOUNTER → 2023-10-25 14:52 | Outpatient (BNVA) | payer MEDICARE, MEDICAID, SELFPAY | PROVIDERS: PCP Nurse Practitioner; Visit Provider Thoracic Surgery (Cardiothoracic Vascular Surgery) | DX: I96 Gangrene, not elsewhere classified (principal); T81.31XD Disruption of external operation (surgical) wound, not elsewhere classified, subsequent encounter; Y83.8 Other surgical procedures as the cause of abnormal reaction of the patient, or of later complication, without mention of misadventure at the time of the procedure | CPT/HCPCS: 97597; A6021; A6248 ==

== ENCOUNTER → 2023-11-01 15:09 | Outpatient (BNVA) | payer MEDICARE, MEDICAID, SELFPAY | PROVIDERS: PCP Nurse Practitioner; Visit Provider Thoracic Surgery (Cardiothoracic Vascular Surgery) | DX: I96 Gangrene, not elsewhere classified (principal); T81.31XD Disruption of external operation (surgical) wound, not elsewhere classified, subsequent encounter; Y83.8 Other surgical procedures as the cause of abnormal reaction of the patient, or of later complication, without mention of misadventure at the time of the procedure | CPT/HCPCS: 97597; A6021; A6219 ==

== ENCOUNTER → 2023-11-14 16:35 | Outpatient (BNVA) | payer MEDICARE, MEDICAID, SELFPAY | PROVIDERS: PCP Nurse Practitioner; Visit Provider Internal Medicine Cardiovascular Disease | DX: R06.02 Shortness of breath (principal) | CPT/HCPCS: 36415; 80048; 83880; 99214 ==

== ENCOUNTER → 2023-11-15 15:12 | Outpatient (BNVA) | payer MEDICARE, MEDICAID, SELFPAY | PROVIDERS: PCP Nurse Practitioner; Visit Provider Thoracic Surgery (Cardiothoracic Vascular Surgery) | DX: I96 Gangrene, not elsewhere classified (principal); T81.31XD Disruption of external operation (surgical) wound, not elsewhere classified, subsequent encounter; Y83.8 Other surgical procedures as the cause of abnormal reaction of the patient, or of later complication, without mention of misadventure at the time of the procedure | CPT/HCPCS: 97597 ==

== ENCOUNTER → 2023-11-22 15:28 | Outpatient (BNVA) | payer MEDICARE, MEDICAID, SELFPAY | PROVIDERS: PCP Nurse Practitioner; Visit Provider Thoracic Surgery (Cardiothoracic Vascular Surgery) | DX: I96 Gangrene, not elsewhere classified (principal); L89.893 Pressure ulcer of other site, stage 3 | CPT/HCPCS: 15271; Q4205 ==

== ENCOUNTER → 2023-12-01 13:52 | Outpatient (BNVA) | payer MEDICARE, MEDICAID, SELFPAY | PROVIDERS: PCP Nurse Practitioner; Visit Provider Thoracic Surgery (Cardiothoracic Vascular Surgery) | DX: I96 Gangrene, not elsewhere classified (principal); L89.893 Pressure ulcer of other site, stage 3 | CPT/HCPCS: 15271; A6206; A6220; A6250; Q4205 ==

== ENCOUNTER 2023-12-05 13:56 | Outpatient (CLI) | payer MEDICARE, MEDICAID, SELFPAY ==
--- NOTE | 2023-12-05 14:15 | USCV_ITS ---
Rocio Rivera Age: 68 Gender: M : 1955 Exam Date: 12/05/2023 14:17 Ordering Phys: Satish Parra MD ([email or web address]) Technologist: Exam Location: [facility] Indication: chest pain BP: 140 / 85 HR: 59 Rhythm: Sinus Technical Quality: Adequate MEASUREMENTS (Male / Female) Normal Values 2D ECHO LV Diastolic Diameter PLAX 3.8 cm 4.2 - 5.9 / 3.9 - 5.3 cm LV Systolic Diameter PLAX 2.4 cm IVS Diastolic Thickness 1.2 cm 0.6 - 1.0 / 0.6 - 0.9 cm IVS Systolic Thickness 1.5 cm LVPW Diastolic Thickness 1.4 cm 0.6 - 1.0 / 0.6 - 0.9 cm LVPW Systolic Thickness 1.7 cm LVOT Diameter 2.0 cm LV Ejection Fraction 2D Teich 66.3 % LV Ejection Fraction MOD 2C 54.9 % LV Ejection Fraction 2C AL 56.2 % LA Diameter 4.7 cm IVC Diameter 1.7 cm M-MODE Aortic Annulus Diameter 3.8 cm LA Ao Ratio MM 1.4 MV E Point Septal Separation 1.6 cm DOPPLER AV Peak Velocity 160.0 cm/s LVOT Peak Velocity 101.0 cm/s AV Area Cont Eq vti 2.1 cm squared AV Area Cont Eq pk 2.0 cm squared MV Area PHT 5.0 cm squared Mitral E to A Ratio 0.9 MV E' Velocity 37.5 cm/s Mitral E to MV E' Ratio 6.0 Mitral E to LV E' Lateral Ratio 5.7 Mitral E to LV E' Septal Ratio 6.5 TR Peak Velocity 183.0 cm/s TR Peak Gradient 13.4 mmHg FINDINGS Left Ventricle Normal left ventricular size and systolic function, EF 56 %. No regional wall motion abnormalities. Grade I/IV diastolic dysfunction (abnormal relaxation filling pattern), normal to mildly elevated filling pressures. Right Ventricle Mildly increased right ventricular size. Normal right ventricular systolic function. Right Atrium Mildly increased right atrial size. Left Atrium Normal left atrial size. Mitral Valve No gross abnormalities noted Aortic Valve No gross abnormalities noted Tricuspid Valve Trace tricuspid valve regurgitation. Pulmonic Valve Pulmonic valve not well visualized. Pericardium Normal pericardium without effusion. Aorta Normal ascending aorta dimension. IVC Normal inferior vena cava. CONCLUSIONS Normal left ventricular size and systolic function, EF 56 %. No regional wall motion abnormalities. Grade I/IV diastolic dysfunction (abnormal relaxation filling pattern), normal to mildly elevated filling . Mildly dilated right atrium and right ventricle with normal RV ejection fraction. No gross valvular abnormalities There is no pericardial effusion. There are no intracardiac masses Compared to the study from 05/02/2016, there may not be a significant change Dr Satish Parra MD FACC (Electronically Signed) Final Date: 08 December 2023 19:46 S
== END 2023-12-05 13:57 | disposition home or self-care (01) ==
LOC: RAD 13:58
PROVIDERS: PCP Nurse Practitioner; Visit Provider Internal Medicine Cardiovascular Disease
DX: R06.02 Shortness of breath; R07.9 Chest pain, unspecified; I51.89 Other ill-defined heart diseases; I51.7 Cardiomegaly; R60.9 Edema, unspecified
CPT/HCPCS: 93306

== ENCOUNTER 2023-12-07 14:58 | Outpatient (CLI) | payer MEDICARE, MEDICAID, SELFPAY ==
--- NOTE | 2023-12-07 15:05 | CT_ITS ---
WS: [id number] CT chest wo con [id number] HISTORY: SHORT OF BREATH/LUNG NODULE/COPD TECHNIQUE: Axial imaging performed through the thorax. Coronal and sagittal reformats are submitted. All CT scans at [facility] use at least one of these dose optimization techniques: automated exposure control; mA and/or kV adjustment per patient size (includes targeted exams where dose is mat ched to clinical indication); or iterative reconstruction. CONTRAST: None DLP: 543.08 mGy.cm COMPARISON: 04/04/2023 Lungs and central airway: Moderate pulmonary hyperinflation. Bilateral tree-in-bud airspace disease h as progressed slightly since the prior examination. There is tree-in-bud airspace disease in all lobe s. No focal pneumonia. No nodule. Very mild changes of bronchiectasis in the RIGHT lower lobe. Pleura: Normal. No pleural effusion. Heart and pericardium: Normal size heart with no pericardial effusion. Mediastinum and chloe: Small mediastinal and hilar lymph nodes. The lymph nodes has very slightly incr eased in size with the largest at 1.3 cm RIGHT paratracheal. Vessels: Moderate atherosclerotic plaque within the thoracic aorta extending into the great vessels. Pulmonary artery is dilated. Marked calcification throughout the coronary arteries. Chest wall and lower neck: No soft tissue masses. Upper abdomen: Small hiatal hernia. No adrenal mass. Shrunken cirrhotic appearance of the liver. The entire liver is not visualized and included on this exam. Cholelithiasis without acute cholecystitis. Reidentified are small cortical hyperdense nodules and low-attenuation masses in the superior pole o f each kidney. Suspect hemorrhagic cyst. Osseous structures: No destructive process. IMPRESSION: 1. Mild progression of tree-in-bud airspace disease since 04/04/2023. Suggesting superimposed acute b ronchiolitis on chronic emphysema. 2. No dense consolidation or pneumonia. 3. Very early changes of mild bronchiectasis in the RIGHT lower lobe. 4. Indeterminate RIGHT paratracheal lymph node. May be reactive due to the patient's acute episode o f bronchitis. 5. Extensive atherosclerosis thoracic aorta and coronary arteries. 6. Pulmonary hypertension. 7. Cholelithiasis. 8. Cirrhotic liver. 9. Hyperdense cortical nodules within each kidney are probably cysts containing increased protein co ntent.
== END 2023-12-07 14:59 | disposition home or self-care (01) ==
LOC: RAD 14:59
PROVIDERS: PCP Nurse Practitioner; Visit Provider Nurse Practitioner
DX: J44.9 Chronic obstructive pulmonary disease, unspecified (principal); R91.1 Solitary pulmonary nodule; J47.9 Bronchiectasis, uncomplicated; I25.10 Atherosclerotic heart disease of native coronary artery without angina pectoris; I70.0 Atherosclerosis of aorta; I27.20 Pulmonary hypertension, unspecified; R06.02 Shortness of breath
CPT/HCPCS: 71250; 80048; 83880

== ENCOUNTER 2023-12-07 15:00 | Outpatient (CLI) | payer MEDICARE, MEDICAID, SELFPAY ==
[2023-12-07 17:33] LABS: Anion Gap 10.8 (5-19); Blood Urea Nitrogen 17 mg/dL (8-23); Calcium 8.3 mg/dL (8.5-10.5); Carbon Dioxide 31 mmol/L (22-29); Chloride 98 mmol/L (98-107); Glomerular Filtration Rate 60.4 mL/min (90-130); Glucose 90 mg/dL (65-115); NT Pro B Type Natriuretic Pept 574 pg/mL (0-125); Osmolality Calculated 281 mOsm/kg (285-295); Potassium 4.8 mmol/L (3.5-5.1); Sodium 135 mmol/L (136-145)
== END 2023-12-07 15:01 | disposition home or self-care (01) ==
LOC: LAB 15:01
PROVIDERS: PCP Nurse Practitioner; Visit Provider Internal Medicine Cardiovascular Disease
DX: R06.02 Shortness of breath (principal)
CPT/HCPCS: 80048; 83880

== ENCOUNTER → 2023-12-08 14:48 | Outpatient (BNVA) | payer MEDICARE, MEDICAID, SELFPAY | PROVIDERS: PCP Nurse Practitioner; Visit Provider Thoracic Surgery (Cardiothoracic Vascular Surgery) | DX: I96 Gangrene, not elsewhere classified (principal); L89.893 Pressure ulcer of other site, stage 3 | CPT/HCPCS: 15271; A6206; A6219; A6250; A6446; Q4205 ==

== ENCOUNTER → 2023-12-13 15:17 | Outpatient (BNVA) | payer MEDICARE, MEDICAID, SELFPAY | PROVIDERS: PCP Nurse Practitioner; Visit Provider Thoracic Surgery (Cardiothoracic Vascular Surgery) | DX: I96 Gangrene, not elsewhere classified (principal); L89.892 Pressure ulcer of other site, stage 2 | CPT/HCPCS: 15271; A6250; Q4205 ==

== ENCOUNTER → 2023-12-20 14:13 | Outpatient (BNVA) | payer MEDICARE, MEDICAID, SELFPAY | PROVIDERS: PCP Nurse Practitioner; Visit Provider Thoracic Surgery (Cardiothoracic Vascular Surgery) | DX: I96 Gangrene, not elsewhere classified (principal); L89.893 Pressure ulcer of other site, stage 3 | CPT/HCPCS: 15271; A6206; A6250; Q4205 ==

== ENCOUNTER → 2023-12-27 13:36 | Outpatient (BNVA) | payer MEDICARE, MEDICAID, SELFPAY | PROVIDERS: PCP Nurse Practitioner; Visit Provider Thoracic Surgery (Cardiothoracic Vascular Surgery) | DX: L89.893 Pressure ulcer of other site, stage 3 (principal) | CPT/HCPCS: 99212 ==

== ENCOUNTER → 2024-01-03 13:37 | Outpatient (BNVA) | payer MEDICARE, MEDICAID, SELFPAY | PROVIDERS: PCP Nurse Practitioner; Visit Provider Thoracic Surgery (Cardiothoracic Vascular Surgery) | DX: L89.893 Pressure ulcer of other site, stage 3 (principal) | CPT/HCPCS: 15271; A6212; A6250; Q4205 ==

== ENCOUNTER → 2024-01-10 14:59 | Outpatient (BNVA) | payer MEDICARE, MEDICAID, SELFPAY | PROVIDERS: PCP Nurse Practitioner; Visit Provider Thoracic Surgery (Cardiothoracic Vascular Surgery) | DX: I96 Gangrene, not elsewhere classified (principal); L89.893 Pressure ulcer of other site, stage 3 | CPT/HCPCS: 15271; A6207; A6219; A6250; Q4205 ==

== ENCOUNTER → 2024-01-18 14:33 | Outpatient (BNVA) | payer MEDICARE, MEDICAID, SELFPAY | PROVIDERS: PCP Nurse Practitioner; Visit Provider Thoracic Surgery (Cardiothoracic Vascular Surgery) | DX: L89.893 Pressure ulcer of other site, stage 3 (principal) | CPT/HCPCS: 15271; A6206; A6250; Q4205 ==

== ENCOUNTER → 2024-01-24 13:08 | Outpatient (BNVA) | payer MEDICARE, MEDICAID, SELFPAY | PROVIDERS: PCP Nurse Practitioner; Visit Provider Thoracic Surgery (Cardiothoracic Vascular Surgery) | DX: L89.893 Pressure ulcer of other site, stage 3 (principal) | CPT/HCPCS: 15271; A6219; Q4205 ==

== ENCOUNTER → 2024-02-02 10:53 | Outpatient (BNVA) | payer MEDICARE, MEDICAID, SELFPAY | PROVIDERS: PCP Nurse Practitioner; Visit Provider Thoracic Surgery (Cardiothoracic Vascular Surgery) | DX: L89.893 Pressure ulcer of other site, stage 3 (principal) | CPT/HCPCS: 97597; A6021; A6212 ==

== ENCOUNTER → 2024-02-09 10:48 | Outpatient (BNVA) | payer MEDICARE, MEDICAID, SELFPAY | PROVIDERS: PCP Nurse Practitioner; Visit Provider Thoracic Surgery (Cardiothoracic Vascular Surgery) | DX: I96 Gangrene, not elsewhere classified (principal); L89.893 Pressure ulcer of other site, stage 3 | CPT/HCPCS: 97597; A6212 ==

== ENCOUNTER → 2024-02-15 15:29 | Outpatient (BNVA) | payer MEDICARE, MEDICAID, SELFPAY | PROVIDERS: PCP Nurse Practitioner; Visit Provider Thoracic Surgery (Cardiothoracic Vascular Surgery) | DX: I96 Gangrene, not elsewhere classified (principal); L89.893 Pressure ulcer of other site, stage 3 | CPT/HCPCS: 97597 ==

== ENCOUNTER → 2024-02-22 14:44 | Outpatient (BNVA) | payer MEDICARE, MEDICAID, SELFPAY | PROVIDERS: PCP Nurse Practitioner; Visit Provider Thoracic Surgery (Cardiothoracic Vascular Surgery) | DX: I96 Gangrene, not elsewhere classified (principal); L89.893 Pressure ulcer of other site, stage 3 | CPT/HCPCS: 97597; A6212 ==

== ENCOUNTER → 2024-03-07 14:07 | Outpatient (BNVA) | payer MEDICARE, MEDICAID, SELFPAY | PROVIDERS: PCP Nurse Practitioner; Visit Provider Thoracic Surgery (Cardiothoracic Vascular Surgery) | DX: I96 Gangrene, not elsewhere classified (principal); L89.893 Pressure ulcer of other site, stage 3 | CPT/HCPCS: 97597; A6212 ==

== ENCOUNTER → 2024-03-14 13:02 | Outpatient (BNVA) | payer MEDICARE, MEDICAID, SELFPAY | PROVIDERS: PCP Nurse Practitioner; Visit Provider Thoracic Surgery (Cardiothoracic Vascular Surgery) | DX: I96 Gangrene, not elsewhere classified (principal); L89.893 Pressure ulcer of other site, stage 3 | CPT/HCPCS: 97597; A6021; A6212; A6248 ==

== ENCOUNTER → 2024-03-19 17:02 | Outpatient (BNVA) | payer MEDICARE, MEDICAID, SELFPAY | PROVIDERS: PCP Nurse Practitioner; Visit Provider Internal Medicine Cardiovascular Disease | DX: I10 Essential (primary) hypertension (principal); I25.10 Atherosclerotic heart disease of native coronary artery without angina pectoris; R06.00 Dyspnea, unspecified; E78.2 Mixed hyperlipidemia | CPT/HCPCS: 36415; 80053; 80061; 82607; 83880; 84443; 85025; 99214 ==

== ENCOUNTER → 2024-03-21 13:39 | Outpatient (BNVA) | payer MEDICARE, MEDICAID, SELFPAY | PROVIDERS: PCP Nurse Practitioner; Visit Provider Thoracic Surgery (Cardiothoracic Vascular Surgery) | DX: I96 Gangrene, not elsewhere classified (principal); L89.893 Pressure ulcer of other site, stage 3 | CPT/HCPCS: 97597; A6021; A6248 ==

== ENCOUNTER 2024-03-25 09:05 | Outpatient (CLI) | payer MEDICARE, MEDICAID, SELFPAY ==
--- NOTE | 2024-03-25 | ECG_ITS ---
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 Interpretive Statements NAME OF STUDY: LEXISCAN SESTAMIBI STRESS TEST INDICATION: ASHD PROCEDURE: At the baseline, the EKG revealed sinus bradycardia with a normal ST Ts. The baseline heart was 48 bpm with a blood pressue of 154/73 mm of Hg Lexiscan was infused over a period of 20 seconds. A total of 0.4 milligrams of Lexiscan was infused. The stress phase was continued for a total of 5 minutes. Heart rate at the end of the stress phase was 58 bpm with a blood pressure 136/69 mm of Hg. The EKG at the peak infusion revealed frequent PVCs. Sestamibi was injected 20 seconds after the Lexiscan infusion. Heart rate at the end of the recovery phase was 51 bpm with a blood pressure of 136/69 mm of Hg. CONCLUSION: 1. No significant EKG changes with the LexiScan infusion 2. No LexiScan induced chest pain or cardiac arrhythmia 3. Normal blood pressure and heart rate response 4. Sestamibi/sestamibi perfusion scan pending; see separate report. Electronically Signed On 03-25-2024 18:13:01 CDT by Satish Parra M.D. [id number]
[2024-03-25 09:18] VITALS: BMI 28.1
--- NOTE | 2024-03-25 09:34 | NMCV_ITS ---
NM amaury perf SPECT r/s* [id number] Rocio Rivera Age: 68 Gender: M : 1955 Exam Date: 03/25/2024 10:27 Ordering Phys: Satish Parra MD ([email or web address]) Technologist: YOUSUF Moses Exam Location: [facility] Indications: CORONARY ANGIOPLASTY STATUS STRESS TEST [facility] IMAGE PROTOCOL Rest/Stress 1 Lexiscan Day Radiopharmaceutical Dose (mCi) Administration Site Administered by Rest: Tc-99m 10.7 IV YOUSUF Dobbs Sestamibi Stress:Tc-99m 33.0 IV YOUSUF Dobbs Sestamibi Rest: 25-Mar-2024 60 Discovery 630 Stress: 25-Mar-2024 30 Discovery 630 0.4mg Lexiscan. Supine position only as patient was unable to lay prone. SPECT RESULTS Technical Quality: Excellent Raw Data Analysis: Normal Image Corrections: No attenuation or motion correction applied Summed Stress Score: 5 Summed Rest Score: 9 Summed Difference Score: 1 PERFUSION FINDINGS Moderate area of moderately decreased aseptic involving the mid inferior, mid inferolateral and apical lateral regions. Some reversibility was noted in the mid inferior region. FUNCTIONAL RESULTS (calculated via Gated SPECT) Stress Image LV EF (%): 63 Stress EDV (mL):104 TID: 1 Stress ESV (mL):39 FUNCTIONAL FINDINGS: Segmental wall motion analysis revealing no gross wall motion normalities. IMPRESSIONS 1. Myocardial perfusion imaging revealing moderate area of moderately decreased tracer uptake involving the inferior, inferolateral and apical lateral regions with some reversibility, suggesting myocardial scarring in the distribution of the right coronary artery/circumflex artery with some ischemia in the right coronary artery territory. 2. Normal LV ejection fraction of 60%. 3. LV wall motion analysis revealing no gross wall motion abnormalities. 4. Normal LV volume No similar previous studies are available for comparison Dr Satish Parra MD FAC (Electronically Signed) Final Date: 26 Mar 2024 16:40 S
[2024-03-25] MEDS: regadenoson 0.4 Mg/5 ml Syringe 0.400000000000000022 MG IVP (11:10)
[2024-03-25 11:28] VITALS: BP 145/74; PULSE 74
== END 2024-03-25 09:06 | disposition home or self-care (01) ==
LOC: CDL 09:07
PROVIDERS: PCP Nurse Practitioner; Visit Provider Internal Medicine Cardiovascular Disease
DX: Z98.61 Coronary angioplasty status (principal)
CPT/HCPCS: 36415; 78452; 93017; 96374; A9500; J2785

== ENCOUNTER → 2024-03-28 12:59 | Outpatient (BNVA) | payer MEDICARE, MEDICAID, SELFPAY | PROVIDERS: PCP Nurse Practitioner; Visit Provider Thoracic Surgery (Cardiothoracic Vascular Surgery) | DX: I96 Gangrene, not elsewhere classified (principal); L98.493 Non-pressure chronic ulcer of skin of other sites with necrosis of muscle | CPT/HCPCS: 97597; A6021; A6212 ==

== ENCOUNTER → 2024-04-04 13:02 | Outpatient (BNVA) | payer MEDICARE, MEDICAID, SELFPAY | PROVIDERS: PCP Nurse Practitioner; Visit Provider Thoracic Surgery (Cardiothoracic Vascular Surgery) | DX: I96 Gangrene, not elsewhere classified (principal); L89.893 Pressure ulcer of other site, stage 3 | CPT/HCPCS: 97597 ==

== ENCOUNTER → 2024-04-11 13:06 | Outpatient (BNVA) | payer MEDICARE, MEDICAID, SELFPAY | PROVIDERS: PCP Nurse Practitioner; Visit Provider Thoracic Surgery (Cardiothoracic Vascular Surgery) | DX: I96 Gangrene, not elsewhere classified (principal); L89.893 Pressure ulcer of other site, stage 3 | CPT/HCPCS: 97597; A6021; A6212 ==

== ENCOUNTER → 2024-04-18 13:03 | Outpatient (BNVA) | payer MEDICARE, MEDICAID, SELFPAY | PROVIDERS: PCP Nurse Practitioner; Visit Provider Thoracic Surgery (Cardiothoracic Vascular Surgery) | DX: I96 Gangrene, not elsewhere classified (principal); L89.893 Pressure ulcer of other site, stage 3 | CPT/HCPCS: 97597; A6021 ==

== ENCOUNTER → 2024-04-25 13:03 | Outpatient (BNVA) | payer MEDICARE, MEDICAID, SELFPAY | PROVIDERS: PCP Nurse Practitioner; Visit Provider Thoracic Surgery (Cardiothoracic Vascular Surgery) | DX: L89.893 Pressure ulcer of other site, stage 3 (principal) | CPT/HCPCS: 97597; A6021 ==

== ENCOUNTER → 2024-05-02 13:34 | Outpatient (BNVA) | payer MEDICARE, MEDICAID, SELFPAY | PROVIDERS: PCP Nurse Practitioner; Visit Provider Thoracic Surgery (Cardiothoracic Vascular Surgery) | DX: L89.893 Pressure ulcer of other site, stage 3 (principal) | CPT/HCPCS: 97597; A6021; A6212; A6248 ==

== ENCOUNTER → 2024-05-14 15:41 | Outpatient (BNVA) | payer MEDICARE, MEDICAID, SELFPAY | PROVIDERS: PCP Nurse Practitioner; Visit Provider Thoracic Surgery (Cardiothoracic Vascular Surgery) | DX: L89.893 Pressure ulcer of other site, stage 3 (principal) | CPT/HCPCS: 97597; A6021 ==

== ENCOUNTER → 2024-05-27 10:17 | Outpatient (BNVA) | payer MEDICARE, MEDICAID, SELFPAY | PROVIDERS: PCP Nurse Practitioner; Visit Provider Nurse Practitioner Family | DX: I25.10 Atherosclerotic heart disease of native coronary artery without angina pectoris (principal); I10 Essential (primary) hypertension; Z87.891 Personal history of nicotine dependence | CPT/HCPCS: 99214 ==

== ENCOUNTER → 2024-05-29 14:26 | Outpatient (BNVA) | payer MEDICARE, MEDICAID, SELFPAY | PROVIDERS: PCP Nurse Practitioner; Visit Provider Thoracic Surgery (Cardiothoracic Vascular Surgery) | DX: L89.893 Pressure ulcer of other site, stage 3 (principal) | CPT/HCPCS: 97597 ==

== ENCOUNTER → 2024-06-06 12:53 | Outpatient (BNVA) | payer MEDICARE, MEDICAID, SELFPAY | PROVIDERS: PCP Nurse Practitioner; Visit Provider Thoracic Surgery (Cardiothoracic Vascular Surgery) | DX: L89.893 Pressure ulcer of other site, stage 3 (principal) | CPT/HCPCS: 15271 ==

== ENCOUNTER → 2024-06-18 15:20 | Outpatient (BNVA) | payer MEDICARE, MEDICAID, SELFPAY | PROVIDERS: PCP Nurse Practitioner; Visit Provider Thoracic Surgery (Cardiothoracic Vascular Surgery) | DX: L98.491 Non-pressure chronic ulcer of skin of other sites limited to breakdown of skin (principal) | CPT/HCPCS: 15271 ==

== ENCOUNTER → 2024-06-25 13:45 | Outpatient (BNVA) | payer MEDICARE, MEDICAID, SELFPAY | PROVIDERS: PCP Nurse Practitioner; Visit Provider Thoracic Surgery (Cardiothoracic Vascular Surgery) | DX: I96 Gangrene, not elsewhere classified (principal); L98.491 Non-pressure chronic ulcer of skin of other sites limited to breakdown of skin | CPT/HCPCS: 15271; A6207; A6250 ==

== ENCOUNTER → 2024-07-02 12:58 | Outpatient (BNVA) | payer MEDICARE, MEDICAID, SELFPAY | PROVIDERS: PCP Nurse Practitioner; Visit Provider Thoracic Surgery (Cardiothoracic Vascular Surgery) | DX: L98.491 Non-pressure chronic ulcer of skin of other sites limited to breakdown of skin (principal) | CPT/HCPCS: 15271; A6250 ==

== ENCOUNTER → 2024-07-09 13:00 | Outpatient (BNVA) | payer MEDICARE, MEDICAID, SELFPAY | PROVIDERS: PCP Nurse Practitioner; Visit Provider Thoracic Surgery (Cardiothoracic Vascular Surgery) | DX: I96 Gangrene, not elsewhere classified (principal); L98.491 Non-pressure chronic ulcer of skin of other sites limited to breakdown of skin | CPT/HCPCS: 97597 ==

== ENCOUNTER → 2024-07-16 14:12 | Outpatient (BNVA) | payer MEDICARE, MEDICAID, SELFPAY | PROVIDERS: PCP Nurse Practitioner; Visit Provider Thoracic Surgery (Cardiothoracic Vascular Surgery) | DX: I96 Gangrene, not elsewhere classified (principal); L98.491 Non-pressure chronic ulcer of skin of other sites limited to breakdown of skin | CPT/HCPCS: 97597 ==

== ENCOUNTER → 2024-07-30 13:03 | Outpatient (BNVA) | payer MEDICARE, MEDICAID, SELFPAY | PROVIDERS: PCP Nurse Practitioner; Visit Provider Thoracic Surgery (Cardiothoracic Vascular Surgery) | DX: Z09 Encounter for follow-up examination after completed treatment for conditions other than malignant neoplasm (principal); Z87.2 Personal history of diseases of the skin and subcutaneous tissue | CPT/HCPCS: A6248 ==

== ENCOUNTER → 2024-08-06 13:06 | Outpatient (BNVA) | payer MEDICARE, MEDICAID, SELFPAY | PROVIDERS: PCP Nurse Practitioner; Visit Provider Thoracic Surgery (Cardiothoracic Vascular Surgery) | DX: Z09 Encounter for follow-up examination after completed treatment for conditions other than malignant neoplasm (principal); Z87.2 Personal history of diseases of the skin and subcutaneous tissue | CPT/HCPCS: 99212 ==

== ENCOUNTER 2025-05-05 15:30 | Outpatient (CLI) | payer MEDICARE, MEDICAID, SELFPAY ==
--- NOTE | 2025-05-05 15:37 | CT_ITS ---
WS: [id number] CT chest wo con [id number] HISTORY: J43.1 - Panlobular emphysema TECHNIQUE: Axial imaging performed through the thorax. Coronal and sagittal reformats are submitted. All CT scans at [facility] use at least one of these dose optimization techniques: automated exposure control; mA and/or kV adjustment per patient size (includes targeted exams where dose is matched to clinical indication); or iterative reconstruction. CONTRAST: None DLP: 616.21 mGy.cm COMPARISON: 12/07/2023 Lungs and central airway: Hyperexpanded lungs. Mild soft tissue thickening along the fissures. Linear atelectasis in the RIGHT lower lobe. Mild interstitial thickening. Subsolid LEFT lower lobe opacification 2.1 cm. Mild tree-in-bud airspace disease bilateral in the lower lobes and RIGHT upper lobe. Pleura: Normal. No pleural effusion. Heart and pericardium: Mild cardiomegaly. No pericardial effusion. Coronary artery calcifications. Mediastinum and chloe: No pathologically enlarged lymph nodes. Vessels: Moderate atherosclerotic plaque within the thoracic aorta. No aneurysm. Calcification continues into the great vessels. Pulmonary artery is dilated. Chest wall and lower neck: No soft tissue masses. Upper abdomen: Small hiatal hernia. Cirrhotic liver. Small lymph nodes surround the celiac axis. These could be related to cirrhosis. No pathologically enlarged nodes are identified. Please see report of the abdomen performed on the same day. Osseous structures: Increase in thoracic kyphosis. Osteopenia. T12, T11 and T6 remote compression fractures. Prior orthopedic repair deformed LEFT shoulder. Deformity of the glenohumeral joint. CT/CT chest wo con [id number] IMPRESSION: 1. Pulmonary hyperexpanded with chronic interstitial lung disease. 2. New subsolid opacification measures 2.1 cm LEFT lower lobe. Consider follow -up CT evaluation in 6 to 12 months. 3. No mediastinal or hilar adenopathy. 4. Coronary artery calcifications and moderate atherosclerotic plaque thoracic aorta. 5. Pulmonary hypertension.
--- NOTE | 2025-05-05 15:37 | CT_ITS ---
WS: [id number] CT ABDOMEN AND PELVIS WITH CONTRAST HISTORY: R10.9 - Unspecified abdominal pain TECHNIQUE: Imaging performed of the abdomen and pelvis with IV contrast. Single phase imaging of the abdomen. Coronal and sagittal reformats are submitted. All CT scans at [facility] use at least one of these dose optimization techniques: automated exposure control; mA and/or kV adjustment per patient size (includes targeted exams where dose is matched to clinical indication); or iterative reconstruction. IV CONTRAST: Omnipaque 350; 100 mL IV. Oral contrast: Yes. DLP: 740.90 mGy.cm COMPARISON: 04/04/2023 Lower thorax: Nodule RIGHT lower lobe associated with the fissure measures 12 mm. Partial atelectasis RIGHT middle lobe. Slight atelectasis also in the lingula. Heart is normal size. No hiatal hernia. Liver/biliary system: Small liver. Liver surface appears cirrhotic. No mass. Normal portal vein. Gallbladder: Cholelithiasis without acute cholecystitis. Pancreas: Normal size pancreas and pancreatic duct. No adjacent inflammation. Spleen: Normal size spleen. No mass or infarct. Adrenal glands: Normal. Right kidney: Mild diffuse cortical thinning with numerous cystic masses throughout the kidney. These masses continue to increase in size and number as compared to 2016. Some of these cysts are hypodensities and some contain low- level echoes. They are all very similar in appearance. No renal obstruction. Mild perinephric stranding. Left kidney: Mild diffuse cortical thinning with perinephric stranding. Numerous cortical masses of low-attenuation scattered throughout the kidney. These masses continue to increase in size and number since 2016. No renal obstruction. Aorta: Moderate atherosclerosis with no aneurysm. Lymphadenopathy: Small central lymph nodes surrounding the celiac axis and isidro hepatis. Small lymph node in the pericardiac fat. No pathologically enlarged lymph nodes. Free fluid: None. GI tract: Normal stomach. No small bowel obstruction. Prior subtotal colectomy. Zachariah pouch formation and a RIGHT lower quadrant ileostomy. There is contrast extending into the ileostomy pouch. There is no stenosis or obstruction associated with the ileostomy. No colitis. Abdominal wall: There is a defect within the RIGHT lower abdominal wall musculature containing a loop of small bowel that is protruding through the defect. This hernia is closely associated with the superior most aspect of the inguinal canal. No fluid associated with the hernia sac. Pelvis: There is mild diffuse bladder wall thickening but no discrete area of thickening. There is a very large bladder diverticulum which has been previously described. Bladder diverticulum is filled with urine. This diverticulum measures 10.4 x 7.5 cm. Marked fatty atrophy RIGHT pelvic muscles and RIGHT psoas muscle. Patient is status post amputation RIGHT lower extremity. Bones: Marked osteopenia. Mild anterior wedging of T11. 50% compression fracture at T12 and L2. CT/CT abdomen pelvis w con* [id number] IMPRESSION: 1. Nodule associated with the RIGHT lower lobe fissure. This is probably fluid or atelectasis. Chest CT is being performed on the same date. Please refer to that report. 2. Cirrhotic liver. 3. Cholelithiasis without acute cholecystitis. 4. Innumerable bilateral renal masses which are increasing in size and number since 2016. Variable density within these masses. Some of these are probably a complex cyst. Renal cell neoplasm would be difficult to exclude. If further melissa luation is necessary consider follow-up MRI kidneys with and without contrast. 5. Large RIGHT lateral bladder diverticulum. 6. Cowlitz urinary bladder demonstrates diffuse wall thickening which may be du e to cystitis. There is no discrete mass. 7. RIGHT lower quadrant ileostomy with no obstruction. 8. RIGHT subtotal colectomy. 9. RIGHT inguinal hernia containing a loop of nondilated small bowel.
[2025-05-05 17:14] LABS: Basophils % 0.5 %; Eosinophils # 0.2 10^3/uL (0.0-0.8); Eosinophils % 2.9 %; Hematocrit 35.1 % (37-53); Lymphocytes # 1.5 10^3/uL (0.8-4.8); Lymphocytes % 18.4 %; Mean Corpuscular HGB Conc 30.2 g/dL (30-55); Mean Corpuscular Hemoglobin 28.2 pg (27-33); Mean Corpuscular Volume 93.4 fl (82-101); Mean Platelet Volume 9.3 fL (7.4-10.4); Monocytes # 0.9 10^3/uL (0.2-0.9); Monocytes % 10.8 %; Neutrophils # 5.41 10^3/uL (1.8-7.7); Neutrophils % 67.2 %; Nucleated Red Blood Cells % 0 %; Platelet Count 121 10^3/cmm (157-399); Red Blood Count 3.76 10^6/uL (3.85-5.65); Red Cell Distribution Width 13.3 % (12.1-15.1); White Blood Count 8.05 10^3/uL (3.29-11.43)
[2025-05-05 17:28] LABS: Blood Urea Nitrogen 14 mg/dL (8-23); Glomerular Filtration Rate 50.4 mL/min (90-130)
[2025-05-05] MEDS: iohexol 350 mg/mL 500 mL Btl (per mL) PO (17:50)
[2025-05-05] MEDS: iohexol 350 mg/mL 500 mL Btl (per mL) IV (17:51)
[2025-05-05 17:59] LABS: 25 Hydroxy Vitamin D 34 ng/mL (30-100); Alanine Aminotransferase 25 U/L (0-41); Albumin Level 3.5 g/dL (3.5-5.2); Alkaline Phosphatase 102 U/L (40-130); Anion Gap 13.7 (5-19); Aspartate Amino Transferase 32 U/L (0-40); Blood Urea Nitrogen 13 mg/dL (8-23); Calcium 8.8 mg/dL (8.5-10.5); Carbon Dioxide 28 mmol/L (22-29); Chloride 92 mmol/L (98-107); Chol HDL Ratio 1.52 mg/dL (1.0-5.00); Cholesterol 73 mg/dL (0-200); Globulin 4.6 g/dL (1.3-4.6); Glomerular Filtration Rate 54.9 mL/min (90-130); Glucose 107 mg/dL (65-115); HDL Cholesterol 48 mg/dL (60-100); LDL Cholesterol Calculated 15 mg/dL (50-129); Osmolality Calculated 269 mOsm/kg (285-295); Potassium 4.7 mmol/L (3.5-5.1); Sodium 129 mmol/L (136-145); Thyroid Stimulating Hormone 3.56 uIU/mL (0.27-4.20); Total Bilirubin 0.6 mg/dL (0.15-1.2); Total Protein 8.1 g/dL (6.6-8.7); Triglycerides 49 mg/dL (0-150); VLDL Cholestrol Calculation 10 mg/dL (0-30); Vitamin B12 1152 pg/mL (232-1245)
== END 2025-05-05 15:31 | disposition home or self-care (01) ==
LOC: RAD 15:33
PROVIDERS: PCP Nurse Practitioner; Visit Provider Nurse Practitioner
DX: R10.9 Unspecified abdominal pain (principal); J43.1 Panlobular emphysema; I10 Essential (primary) hypertension; E78.2 Mixed hyperlipidemia; E55.9 Vitamin D deficiency, unspecified; J98.4 Other disorders of lung; R91.8 Other nonspecific abnormal finding of lung field; I25.10 Atherosclerotic heart disease of native coronary artery without angina pectoris; I70.0 Atherosclerosis of aorta; I27.20 Pulmonary hypertension, unspecified; J98.11 Atelectasis; I51.7 Cardiomegaly; I70.90 Unspecified atherosclerosis; R93.89 Abnormal findings on diagnostic imaging of other specified body structures; K44.9 Diaphragmatic hernia without obstruction or gangrene; R93.2 Abnormal findings on diagnostic imaging of liver and biliary tract; R59.0 Localized enlarged lymph nodes; M40.294 Other kyphosis, thoracic region; M85.80 Other specified disorders of bone density and structure, unspecified site; M48.54XD Collapsed vertebra, not elsewhere classified, thoracic region, subsequent encounter for fracture with routine healing
CPT/HCPCS: 71250; 74177; 80053; 80061; 82306; 82565; 82607; 84443; 84520; 85025

== ENCOUNTER → 2025-05-13 12:42 | Outpatient (BNVA) | payer MEDICARE, MEDICAID, SELFPAY | PROVIDERS: PCP Nurse Practitioner; Visit Provider Nurse Practitioner | DX: N32.89 Other specified disorders of bladder (principal) | CPT/HCPCS: 81000 ==

== ENCOUNTER → 2025-06-16 14:27 | Outpatient (BNVA) | payer MEDICARE, MEDICAID, SELFPAY | PROVIDERS: PCP Nurse Practitioner; Visit Provider Internal Medicine Cardiovascular Disease | DX: I25.10 Atherosclerotic heart disease of native coronary artery without angina pectoris (principal); I10 Essential (primary) hypertension; E78.2 Mixed hyperlipidemia; R06.09 Other forms of dyspnea; Z79.02 Long term (current) use of antithrombotics/antiplatelets; Z87.891 Personal history of nicotine dependence; R07.9 Chest pain, unspecified | CPT/HCPCS: 93005; 99214 ==

== ENCOUNTER 2025-06-18 04:51 | Inpatient (IN) | payer MEDICARE, MEDICAID, SELFPAY ==
[2025-06-18] VITALS (161 sets, daily range): BP systolic 130–211; BP diastolic 69–100; PULSE 56–217; RESP 12–36; TEMP 36.1–36.8; O2SAT 91–98; BMI 30.1
--- OUTSIDE RECORDS SUMMARY | 2025-06-18 05:02 | XMS_ITS | Clinical Summary ---
Author Organization [facility] Address [address] [place] [address] Care Team Providers Care Clin Nurse Name Role Phone Unavailable Primary Care Provider Unavailabl e Allergies Active Allergy Reactions Criticality Noted Date Comments Gabapentin Other (See Comments) Medium 04/10/2015 Unable to speak Pregabalin Other (See Comments) Medium 04/10/2015 Unable to speak Nalbuphine 04/13/2015 Butorphanol Tartrate Other (See Comments) Medium 04/10 HALLUCINATIONS Ketorolac Other (See Comments) 03/26/2015 Hallucinations. Medications amLODIPine (NORVASC) 10 MG tablet Take 10 mg by mouth daily. 5 Active atorvastatin (LIPITOR) 80 MG tablet Take 80 mg by mouth daily. 5 Active carvedilol (COREG) 25 MG tablet Take 25 mg by mouth 2 (two) times a day with meals. 5 Active ciprofloxacin HCl (CIPRO) 500 MG tablet Take 500 mg by mouth 2 (two) times a day. 5 Active clonazePAM (KLONOPIN) 0.5 MG tablet Take 0.5 mg by mouth 3 (three) times a day as needed. 5 Active clopidogrel (PLAVIX) 75 mg tablet Take 75 mg by mouth daily. 5 Active LORazepam (ATIVAN) 0.5 MG tablet Take 0.5 mg by mouth 2 (two) times a day. 5 Active COLY-MYCIN S 3.3-3-10-0.5 mg/mL DrpS Apply 1 application topically daily. 5 Active triamcinolone (KENALOG) 0.1 % cream Apply 1 applicator topically 2 (two) times a day. 5 Active oxyCODONE (OXYCONTIN) 80 mg TR12 Ext. Release Take 2 tablets (160 mg total) by mouth every 12 (twelve) hours. DO NOT CRUSH OR CHEW. 30 tablet 04/22/2015 10:32 AM CDT 5 Active ondansetron (ZOFRAN-ODT) 4 MG disint tab Take 4 mg by mouth every 8 (eight) hours as needed. 5 Active Active Problems Problem Noted Date Diagnosed Date Post-op pain 04/15/2015 Chronic pain 04/15/2015 Encounter for palliative care 04/15/2015 Social History Tobacco Use Types Packs/Day Years Used Date Smoking Tobacco: Former Cigarettes Q uit: 04/13/2015 Smokeless Tobacco: Never Tobacco Cessation:Ready to Q uit: Yes Alcohol Use Standard Drinks/Week Comments No 0 (1 standard drink = 0.6 oz pur e alcohol) Sex and Gender Information Value Date Recorded Sex Assigned at Not on file Legal Sex Male 6:01 PM CDT Gender Identity Not on file Sexual Orientation Not on file Last Filed Vital Signs Vital Sign Reading Time Taken Comments Blood Pressure 91/58 04/30/2015 1:41 PM CDT Pulse 66 04/30/2015 1:41 PM CDT Temperature 36.4 C (97.6 F) 04/30/2015 1:41 PM CDT Respiratory Rate 20 04/30/2015 1:41 PM CDT Oxygen Saturation 90% 04/22/2015 11:24 AM CDT Inhaled Oxygen Concentration - - Weight 83 kg (183 lb) 04/30/2015 1:41 PM CDT Height 170.2 cm (5' 7 ) 04/30/2015 1:41 PM CDT Body Mass Index 28.66 04/30/2015 1:41 PM CDT Plan of Treatment Health Maintenance Due Date Last Done Comments Annual Wellness Exam [address] Colonography 1955 Colorectal Cancer Screening 1955 FIT DNA 1955 FIT 1955 Hepatitis C Screening 1955 SIGMOIDOSCOPY 1955 Depression Screening 1974 TDAP/DTaP/TD Vaccines (1 - Tdap) 1975 Lipid Panel 1996 Pneumococcal Vaccine 50+ (1 of 1 - PCV) 2006 Zoster Vaccine (1 of 2) 2006 Abdominal Aortic Aneurysm (A AA) Screening 2021 COVID-19 Vaccine (1 - 2023-2 5 season) 2024 Influenza Series (#1) 2025 Respiratory Syncytial Virus (RSV) Immunization - pts and pts aged 60 yrs+ (1 - 1-dose 75+ series) 2031 Hepatitis B Vaccine Aged Out No longe r eligible based on patient's age to complete this topic Meningococcal B Vaccine Aged Out No l onger eligible based on patient's age to complete this topic Medical Devices Implanted Type Area Product Development Ecologist Device Identifier Shelf Expiration Date Model / Serial / Lot Tissue Biologic Matrix [id number] [id number] - [id number] Implanted:Qty: 1 on 04/13/2015 by Schuyler Banegas MD at [facility] N/A: Abdomen [id number] (DO NOT USE) 04/12/2017 [id number] / / [id number] Insurance * Guarantor: Rocio Rivera Account Type Relation to Patient Date of Phone Billing Address Personal/Family Self 1955 [phone] x: nithya rivera (sister) (Work) [address] [place] [phone] MEDICARE PART A & B Advance Directives * Full Code (Latest Code Status on File) Date Activated Date Inactivated Comments 04/13/2015 4:01 PM 04/22/2015 10:55 PM * Full Code Date Activated Date Inactivated Comments 04/13/2015 7:16 AM 04/13/2015 4:01 PM
--- OUTSIDE RECORDS SUMMARY | 2025-06-18 05:02 | XMS_ITS | Clinical Summary ---
Author Organization [facility] Address [address] [facility] Attn: Epic Prelude ADT [place]RAHAM [address] Care Team Providers Care Instrumentation And Control Technician Name Role Phone Peter Cevallos DO Primary Care Provider Allergies Active Allergy Reactions Criticality Noted Date Comments Nalbuphine Hallucination High 05/29/2014 Active Problems Problem Noted Date Diagnosed Date Old myocardial infarction 05/20/2014 S/P exploratory laparotomy 03/16/2014 Wound dehiscence, surgical 03/16/2014 S/P laparoscopic hernia repair 03/16/2014 Hemorrhagic shock 03/05/2014 CAD (coronary artery disease) 02/26/2014 Overview (03/11/2021): 2013 - LOCATED WITHIN [facility] 03/06/2014 - ECHO: LEFT VENTRICLE: The cavity size was normal. Wall thickness was normal. Systolic function was hyperdynamic. The estimated ejection fraction was in the range of 70% to 75%. Images were inadequate for LV wall motion assessment. Cannot exclude hypokinesis of a small area of the apex. The study is not technically sufficient to allow evaluation of LV diastolic function. RIGHT VENTRICLE: The cavity size was normal. Systolic function was normal. Systolic pressure was not accurately estimated. LEFT ATRIUM: The atrium was mildly to moderately dilated. RIGHT ATRIUM: The atrium was normal in size. ATRIAL SEPTUM: Not well visualized. AORTIC VALVE: Mobility was not restricted. Doppler: There was no stenosis. No significant regurgitation. Peak velocity ratio of LVOT to aortic valve: 1.26. MITRAL VALVE: Mobility was not restricted. No echocardiographic evidence for prolapse. Doppler: There was no evidence for stenosis. No significant regurgitation. TRICUSPID VALVE: Mobility was not restricted. Doppler: There was no evidence for stenosis. Trivial regurgitation. PULMONIC VALVE: Not well visualized. Doppler: There was no evidence for stenosis. No significant regurgitation. PERICARDIUM: There was no pericardial effusion. AORTA: Aortic root: The aortic root was normal in size. SYSTEMIC VEINS: Inferior vena cava: Not well visualized. Small bowel obstruction 02/26/2014 Anxiety 02/26/2014 Hypertension 02/26/2014 Incisional hernia 02/26/2014 Resolved Problems Problem Noted Date Diagnosed Date Resolved Date Acute respiratory failure 03/05/2014 Parastomal Hernia 02/26/2014 02/26/2014 Immunizations Immunization Administration Dates Next Due Influenza Seasonal Unspecified Formulation IM Pneumococcal conjugate, unspecified formulation 08/13/2013 Family History Medical History Relation Name Comments Healthy Brother Healthy Daughter Lung Cancer Father Heart Disease Mother Healthy Sister 1 Healthy Sister 2 Healthy Sister 3 Respiratory Disease Sister 4 Healthy Sister 5 Heart Disease Son Relation Name Status Comments Brother Alive Daughter Alive Father Mother Sister 1 Alive Sister 2 Alive Sister 3 Alive Sister 4 Alive Sister 5 Alive Son Alive Social History Tobacco Use Types Packs/Day Years Used Date Smoking Tobacco: Some Days Cigarettes Smokeless Tobacco: Never Comments:Quit smoking: QUIT FOR 18 MONTHS, SMOKED 3 CIGARETTES TODAY Alcohol Use Standard Drinks/Week Comments No 0 (1 standard drink = 0.6 oz pur e alcohol) Sex and Gender Information Value Date Recorded Sex Assigned at Not on file Legal Sex Male 12:47 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 Gender Identity Not on file Sexual Orientation Not on file Plan of Treatment Health Maintenance Due Date Last Done Comments DTAP/TDAP/TD VACCINES (1 - Tdap) 1975 COLORECTAL SCREENING 2001 Colorectal Cancer Screening 2001 FIT-DNA Q 3 years 2001 FIT/FOBT Q 1 year 2001 Flex Sig/CT Colonography Q 5 years 2001 PNEUMOCOCCAL VACCINE 50+ YEARS (1 of 1 - PCV) 05/17/20 06 08/13/2013 ZOSTER VACCINE (1 of 2) 2006 INFLUENZA VACCINE (#1) 2025 08/13/2013 RSV VACCINE (60+ or ) (1 - 1-dose 75+ series) 2031 Medical Devices Implanted Type Area Chief Passenger Ship Steward/Stewardess Device Identifier Shelf Expiration Date Model / Serial / Lot Mesh Ventralight St 4x6in [id number] - Sna Implanted:Qty: 1 on 03/05/2014 by Dameon Ramírez MD Mesh N/A: Abdomen CR [employer] 01/12/2016 [id number] / [id number] / [id number] Mesh Ventralight [address] 6x8in [id number] - [id number] Implanted:Qty: 1 on 03/05/2014 by Dameon Ramírez MD Mesh N/A: Abdomen CR [employer] 01/12/2016 [id number] / / [id number] Care Teams Instrumentation And Control Technician Relationship Specialty Start Date End Date Peter Cevallos DO [address] [place] [address] PCP - General Family Practice 12/15/12
--- OUTSIDE RECORDS SUMMARY | 2025-06-18 05:02 | XMS_ITS | Patient Health Record ---
Author Organization [facility] Address [address] [place] [address] Care Team Providers Care Hunting And Fishing Guide Name Role Phone Imtiaz Shields APRN Primary Care Provider Sunnihussein Juliet Sparks [phone] Allergies No Known Allergies Reason For Referral No Information Medications Medication SIG (Take, Route, Frequency, Duration) Notes Start Date End Date Status Atorvastatin Calcium Active Citalopram Hydrobromide 20 MG Tablet Take tab(s) by mouth qd x 8 days, then one tab po qd Oral; Duration: 30 Citalopram Hydrobromide 20mg Tablet Take tab(s) by mouth qd x 8 days, then one tab po qd #30 (Thirty) tablet(s) 07/04/2008 Not-Taking Fosamax 70 MG Tablet Take 1 tablet(s) by mouth q week Oral; Duration: 30 Fosamax 70mg Tablet Take 1 tablet(s) by mouth q week #4 (Four) tablet(s) 07/04/2008 Not-Taking Tamsulosin HCl Activ e OxyCONTIN Active oxyCODONE HCl Active Clopidogrel & Aspirin Active amLODIPine-Valsarta n-HCTZ Active Social History Tobacco Use: Social History Observation Description Date Details (start date - stop date) Former Smoker NA - NA Social History Tobacco Use: Social Info Question Answer Notes xTobacco Use/Smoking Are you a former smoker Additional Details Category Social Info Options Details zzMigrated Social History Migrated Social History Occupation:Disabled Marital Status: Children: 2 children Section Notes: Smoking history from age 19- 66 Problems Problem Type SNOMED Code ICD Code Onset Dates Problem Status W/U Status Risk Notes Problem Obstructive uropathy (0997417) Other obstructive and reflux uropathy (N13.8) Active confirmed Problem Lower urinary tract symptoms due to benign prostatic hypertrophy (32958348503001 ) Benign prostatic hyperplasia with lower urinary tract symptoms (N40.1) Active confirmed Problem Disorder of kidney and/or ureter (722056056) Nodule of kidney (N28.89) Active confirmed Problem Renal mass (747232118) Renal mass (N28.89) Active confirmed Problem 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) 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) Active confirmed Problem Rheumatoid arthritis (55672921) Rheumatoid arthritis (714.0) 8 Active confirmed Epifanio-9859 11- Problem Generalized anxiety disorder (58231223) Anxiety, generalized (300.02) 8 Active confirmed Epifanio-9859 11- Problem Tobacco user (336999840) Cigarette smoking (305.1) 8 Problem resolved confirmed Epifanio-9859 11- Problem General examination of patient (876196670) Annual exam (V70.0) 8 Problem resolved confirmed Epifanio-9859 11- Plan Of Treatment Pending Test Test Name Order Date PSA Diagnostic--[id number] 04/24/2023 CT Abdomen, Pelvis w/ + w/o Contrast-741 78 04/24/2023 Insurance Providers Payer Name Payer Address Payer Phone Subscriber Number Group Number Insured Name Patient Relationship to Insured Coverage Start Date Coverage End Date [place] [address] [place] [phone] [id number] Rocio Gillespie Self - patient is the insured [place] Medicaid [address] [place] [address] [id number] Rocio Gillespie Self - patient is the insured Medical (General) History Medical History History ICD Code 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
--- OUTSIDE RECORDS SUMMARY | 2025-06-18 05:02 | XMS_ITS | Encounter Summary ---
Author Organization [facility] Address [address] [place] [address] Care Team Providers Care Straw Hat Brim Raiser Operator Name Role Phone Peter Cevallos DO Primary Care Provider [phone] Encounter Details Date Type Department Care Team (Latest Contact Info) Description 01/09/1999 Outpatient [facility] Oral and Maxillo Surgery[address] [place] [address] Jam Potter, PhD NO ADDRESS ON FILE Closed fracture of condylar process of mandible (CMS/HCC) (Primary Dx) Social History Tobacco Use Types Packs/Day Years Used Date Smoking Tobacco: Never Assessed Sex and Gender Information Value Date Recorded Sex Assigned at Not on file Legal 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
--- OUTSIDE RECORDS SUMMARY | 2025-06-18 05:02 | XMS_ITS | Encounter Summary ---
Author Organization 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
--- OUTSIDE RECORDS SUMMARY | 2025-06-18 05:02 | XMS_ITS | Clinical Summary ---
Author Organization [facility] Address [address] [place] [address] Phone Care Team Providers Care Gypsum Calciner Name Role Phone Peter Cevallos Primary Care Provider [phone] Allergies Active Allergy Reactions Criticality Noted Date Comments Nalbuphine Hallucination High 05/29/2014 Medications clopidogrel (PLAVIX) 75 mg Tablet Take 75 mg by mouth daily. Active aspirin (EDWARD CHEWABLE) 81 mg Tablet, Chewable Take 81 mg by mouth daily at bedtime. Active oxyCODONE CR (OXYCONTIN) 80 mg tablet Take 160 mg by mouth every 12 hours. Active ondansetron (ZOFRAN ODT) 4 mg Tablet, Rapid Dissolve Place 4 mg under tongue every 6 hours as needed. 12/13/2013 Active carvedilol (COREG) 12.5 mg tablet Take 1 Tab by mouth 2 times daily. 60 Tab 3 03/11/2014 Active nitroglycerin (NITROSTAT) 0.4 mg Tablet, Sublingual Place 1 Tab under tongue every 5 minutes as needed for Chest Pain. 25 Tab 2 03/11/2014 Active amLODIPine (NORVASC) 5 mg tablet Take 5 mg by mouth daily. 03/11/2014 Active ALPRAZolam (XANAX) 1 mg tablet Take 1 Tab by mouth every 6 hours. 50 Tab 0 03/17/2014 Active oxyCODONE (ROXICODONE) 30 mg tablet Take 1-2 Tabs by mouth every 4 hours as needed for Pain. 30 Tab 0 03/17/2014 Active atorvastatin (LIPITOR) 80 mg tablet Take 1 Tab by mouth daily. 30 Tab 2 04/04/2014 Active Active Problems Problem Noted Date Diagnosed Date Old myocardial infarction 05/20/2014 S/P laparoscopic hernia repair 03/16/2014 S/P exploratory laparotomy 03/16/2014 Wound dehiscence, surgical 03/16/2014 Hemorrhagic shock 03/05/2014 Small bowel obstruction 02/26/2014 Hypertension 02/26/2014 CAD (coronary artery disease) 02/26/2014 Overview (05/20/2014): 2013 - [facility] 03/06/2014 - ECHO: LEFT VENTRICLE: The cavity [...] VEINS: Inferior vena cava: Not well visualized. Anxiety 02/26/2014 Incisional hernia 02/26/2014 Resolved Problems Problem Noted Date Diagnosed Date Resolved Date Acute respiratory failure 03/05/2014 Parastomal Hernia 02/26/2014 02/26/2014 Immunizations Immunization Administration Dates Next Due Influenza Seasonal Unspecified Formulation IM Pneumococcal conjugate, unspecified formulation 08/13/2013 Family History Medical History Relation Name Comments Healthy Brother Healthy Daughter Lung Cancer Father Heart Disease Mother Healthy Sister 1 Healthy Sister 2 Healthy Sister 3 Healthy Sister 4 Respiratory Disease Sister 5 Heart Disease Son Relation Name Status Comments Brother Alive Daughter Alive Father Mother Sister 1 Alive Sister 2 Alive Sister 3 Alive Sister 4 Alive Sister 5 Alive Son Alive Social History Tobacco Use Types Packs/Day Years Used Date Smoking Tobacco: Some Days Cigarettes 0.5 30 Smokeless Tobacco: Never Comments: QUIT FOR 18 MONTHS , SMOKED 3 CIGARETTES TODAY Alcohol Use Standard Drinks/Week Comments No 0 (1 standard drink = 0.6 oz pur e alcohol) Sex and Gender Information Value Date Recorded Sex Assigned at Not on file 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 Gender Identity Not on file Sexual Orientation Not on file Occupation Industry Job Start Date Job End Date Not on file Not on file Not on file Not on file Last Filed Vital Signs Vital Sign Reading Time Taken Comments Blood Pressure 130/80 05/29/2014 10:57 AM CDT Pulse 60 05/29/2014 10:57 AM CDT Temperature 36.1 C (97 F) 03/17/2014 11:00 AM CDT Respiratory Rate 20 03/17/2014 11:00 AM CDT Oxygen Saturation 98% 03/17/2014 11:00 AM CDT Inhaled Oxygen Concentration - - Weight 80.7 kg (178 lb) 03/25/2014 10:55 AM CDT Height 170.2 cm (5' 7 ) 05/29/2014 10:57 AM CDT Body Mass Index 27.06 03/25/2014 10:55 AM CDT Plan of Treatment Health Maintenance Due Date Last Done Comments DTAP/TDAP/TD VACCINES (1 - Tdap) 1975 PNEUMOCOCCAL VACCINE 50+ YEARS (1 of 2 - PCV) 05/17/19 75 08/13/2013 COLORECTAL SCREENING 2001 Colorectal Cancer Screening 2001 FIT-DNA Q 3 years 2001 FIT/FOBT Q 1 year 2001 Flex Sig/CT Colonography Q 5 years 2001 ZOSTER VACCINE (1 of 2) 2006 RSV VACCINE (60+ or ) (1 - Risk 60-74 years 1-dose series) 2016 INFLUENZA VACCINE (#1) 2025 08/13/2013 Medical Devices Implanted Type Area Real Estate Asset Manager Device Identifier Shelf Expiration Date Model / Serial / Lot Mesh Ventralight St 6x8in [id number] - [id number] Implanted:Qty: 1 on 03/05/2014 by Dameon Ramírez MD at [facility] Mesh N/A: Abdomen CR [employer] 01/12/2016 [id number] / / [id number] 4x6in [id number] - [id number] Implanted:Qty: 1 on 03/05/2014 by Dameon Ramírez MD at [facility] Mesh N/A: Abdomen CR [employer] 01/12/2016 [id number] / NA / [id number] Insurance MEDICARE PART A AND B [place]ID [id number] Advance Directives For more information, please contact: [phone] * Full Code (Latest Code Status on File) Date Activated Date Inactivated Comments 03/05/2014 7:32 PM 03/11/2014 1:46 PM * Full Code Date Activated Date Inactivated Comments 03/05/2014 11:18 AM 03/05/2014 7:32 PM * Full Code Date Activated Date Inactivated Comments 03/04/2014 2:22 PM 03/05/2014 11:18 AM * Full Code Date Activated Date Inactivated Comments 02/26/2014 3:36 AM 02/27/2014 6:27 PM Care Teams Gypsum Calciner Relationship Specialty Start Date End Date Peter Cevallos DO [address] [place] [address] PCP - General Family Practice 12/15/12
--- OUTSIDE RECORDS SUMMARY | 2025-06-18 05:02 | XMS_ITS | Encounter Summary ---
Author Organization [facility] Address [address] [place] [address] Care Team Providers Care Pumper Head Name Role Phone Peter Cevallos DO Primary Care Provider Encounter Details Date Type Department Care Team (Latest Contact Info) Description 01/27/1999 Outpatient Historical [facility] Kirill Laguna MD NO ADDRESS ON FILE Closed fracture of lateral malleolus (Primary Dx); Orthopedic aftercare [facility] Social History Tobacco Use Types Packs/Day Years Used Date Smoking Tobacco: Never Assessed Sex and Gender Information Value Date Recorded Sex Assigned at Not on file 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
--- NOTE | 2025-06-18 05:05 | CTR_ITS ---
PROCEDURE INFORMATION: Exam: CT Abdomen And Pelvis With Contrast Exam date and time: 06/18/2025 5:51 AM Age: 70 years old Clinical indication: Abdominal pain; Acute; Prior surgery; Surgery date: 6+ months; Surgery type: Colon RT side pelvis hernia; Additional info: Concern for sbo TECHNIQUE: Imaging protocol: Computed tomography of the abdomen and pelvis with contrast. Radiation optimization: All CT scans at this facility use at least one of these dose optimization techniques: automated exposure control; mA and/or kV adjustment per patient size (includes targeted exams where dose is matched to clinical indication); or iterative reconstruction. Contrast material: OMNI 350; Contrast volume: 100 ml; Contrast route: INTRAVENOUS (IV); COMPARISON: CT abdomen pelvis w con* [id number] 05/05/2025 5:38 PM RADIATION DOSE METRICS: Total DLP (mGy-cm): 1026.75 FINDINGS: Limitations: Mild motion artifact. Streak artifact. Lungs: Chronic right basilar atelectasis or scarring. Coronary arteries: Coronary artery calcifications. Diaphragm: Minimal hiatal hernia. Liver: No acute abnormality. No mass. Gallbladder and biliary ducts: Tiny calcified gallstone or stones within nondistended gallbladder. No significant biliary ductal dilatation. Pancreas: No acute abnormality. No ductal dilation. Spleen: No acute abnormality. Adrenal glands: No significant or acute abnormality. Kidneys and ureters: Redemonstrated multiple incidental simple appearing bilateral renal cysts including 3.6 cm right renal cyst as well as multiple small hyperdense cysts. No hydronephrosis or hydroureter. Nonspecific bilateral perinephric fat stranding. 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 Small amount of fluid within relatively nondistended stomach. No disproportionate small bowel distention. Nondilated fluid-filled small bowel loops. Chronic relative narrowing of the distal ileum proximal to the ileostomy. Gas and fluid within the ileostomy bag. Appendix: No findings to suggest acute appendicitis. Intraperitoneal space: No significant fluid collection. No free air. Vasculature: Diffuse atherosclerotic vascular calcification. No aortic aneurysm. Lymph nodes: Small nonspecific periportal and upper abdominal lymph nodes. Urinary bladder: Chronically thickened urinary bladder with prominent 9.9 x 7.5 cm posterior rightward bladder Hutch diverticulum. Reproductive: Unremarkable as visualized. Bones/joints: Redemonstrated chronic T11, T12 and L2 vertebral body compression fractures. 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 Soft tissues: Anterior abdominal wall scarring. Slight bulging of small bowel into anterolateral right lower quadrant abdominal wall small Spigelian hernia. Atrophy and fatty infiltration of right gluteal and pelvic muscles. CT/CT abdomen pelvis w con* [id number] IMPRESSION: 1. Mild nonspecific ileus versus gastroenteritis versus partial small bowel obstruction. 2. 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 3. Slight bulging of small bowel into anterolateral right lower quadrant abdominal wall small Spigelian hernia. 4. Cholelithiasis. 5. Nonspecific bilateral perinephric fat stranding. Possible pyelonephritis/UTI should be considered. 6. Chronically thickened urinary bladder with prominent 9.9 x 7.5 cm posterior rightward bladder Hutch diverticulum. Consider chronic cystitis/UTI. 7. 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 8. Atherosclerotic vascular disease including coronary artery disease.
--- NOTE | 2025-06-18 05:07 | ED_ITS ---
Documented by User: Stewart Randhawa MD 06/18/25 05:34 HPI - Abdominal Pain 2 General: Chief Complaint: Abdominal Pain Stated Complaint: abdomen pain Time Seen by Provider: 06/18/25 05:02 History of Present Illness: Patient comes in with abdominal pain. States for the past 3 days he has had worsening abdominal pain which he describes as all over, cramping and sharp, associated with nausea. No vomiting. States that his ostomy has had decreased output recently. Patient was seen here for abdominal recently at which time he had a CT that showed a right inguinal hernia with nondilated loops of bowel. I am concerned for possible small bowel obstruction secondary to incarcerated hernia. On physical exam he has an ostomy in his right lower abdomen, he has generalized tenderness to palpation of his abdomen without distention. The patient received 100 mcg of fentanyl and 4 mg of IV Zofran en route by EMS. Will check labs, give IV fluids, check CT abdomen pelvis with IV contrast, and reassess. Associated Symptoms: Reports nausea Related Data Previous Rx's ?Medication ?Instructions ?Recorded E2622 : Skin protection #1 ea 04/26/21 wheelchair seat cushion, adjustable, width less than 22 inches, any depth. K0822 Power wheelchair, group 2 #1 ea 04/26/21 standard, sling/solid E0143 front wheeled walker #1 ea 04/23/24 wheelchair #1 ea 04/23/24 clopidogrel 75 mg tablet See Rx Instructions .Route 0 07/26/24 .COMPLEX #90 tabs albuterol sulfate 2.5 mg/3 mL 2.5 mg (3 mL) inhalation Q4H PRN 04/28/25 (0.083 %) solution for nebulization shortness of breat h or wheezing #300 mL budesonide 160 mcg-glycopyr 9 2 inh inhalation BID #10 .7 grams 04/28/25 mcg-formot 4.8 mcg/actuation HFA inhaler (Breztri Aerosphere) evolocumab 140 mg/mL subcutaneous 140 mg SUBCUT .every 14 days #2 mL 04/28/25 pen injector (Repatha SureClick) tamsulosin 0.4 mg capsule (Flomax) 0.4 mg PO DAILY #90 caps 04/28/25 amlodipine 5 mg tablet (Norvasc) 5 mg PO DAILY #90 tab s 05/02/25 atorvastatin 80 mg tablet See Rx Instructions .Route 0 05/02/25 .COMPLEX #90 tabs Oxygen concentrator and portable #1 ea 05/20/25 NC 2L carvedilol 12.5 mg tablet 12.5 mg PO BID #28 tabs 05/15 12/07 losartan 25 mg tablet 25 mg PO DAILY 14 days #14 t abs 06/12/25 isosorbide mononitrate 60 mg 60 mg PO DAILY #90 tabs 0 06/16/25 tablet,extended release 24 hr Allergies Allergy/AdvReac Type Severity Reaction Status Date / Time ketorolac (From Toradol) Allergy Unknown Verified 04/28/25 13:51 nalbuphine (From Nubain) Allergy Unknown Verified 04/28/25 13:51 tizanidine Allergy ADR-Halluci Verified 06/18/25 05:00 nating Review of Systems 2 GI: Reports: abdominal pain and nausea PFSH ED 2 PFSH: Medical History Supplemental oxygen dependent 3L NC since June,. Bladder distension Neuropathic pain Osteoarthritis of left hip LAU (dyspnea on exertion) Benign essential HTN Osteoporosis Anemia Central spinal stenosis Mixed hyperlipidemia COPD (chronic obstructive pulmonary disease) ASHD (arteriosclerotic heart disease) Surgical History Hx of leg amputation Right side History of right lower limb amputation History of abdominal surgery History of appendectomy History of hernia repair H/O shoulder surgery H/O knee surgery Family History Mother CAD (coronary artery disease) Father Cancer Family/Other Cancer Denies family history of Diabetes Clotting disorder Dementia Chronic kidney disease (CKD) Suicide Anesthesia complication Bleeding disorder Lung disease Stroke Social History Smoking and tobacco/nicotine status: former use of tobacco/nicotine Quit status (tobacco/nicotine): has quit using Year quit tobacco: 2020 Former quit date comment: 2 PPD X 45 YEARS Second hand smoke exposure: No Alcohol intake: never Substance/Drug Use: never Adopted: No Caregiver/support person: No Lives independently: Yes Household members: significant other Housing: House Marital status: Number of children: 2 service: No Current occupational status: retired Current occupational exposures/hazards: No Do you think of yourself as: Straight/Heterosexual Current gender identity: Male Physical Exam 2 Const: OTHER: Moderate distress from pain HENMT: COMMON NORMALS: normocephalic and atraumatic HEAD & SCALP: n ormocephalic and atraumatic Neck/C-Spine: COMMON NORMALS: full ROM and supple Resp: COMMON NORMALS: normal respiratory effort, No retractions and No use of accessory muscles Cardio: COMMON NORMALS: regular rate and regular rhythm RATE: regular rate RHYTHM: regular rhythm GI: OTHER: Abdomen is soft, nondistended, generalized tenderness to palpation worse in the right lower quadrant, ostomy in the right lower quadrant Extremity: OTHER: Complete amputation of the right lower extremity Course 2 Vital Signs: Vital signs: Vital Signs Temperature 97.9 F 06/18/25 12:00 Pulse Rate 80 06/18/25 14:00 Respiratory Rate 22 H 06/18/25 12:15 Blood Pressure 173/83 06/18/25 12:15 Pulse Oximetry 96 06/18/25 12:15 Oxygen Delivery Me thod Nasal Cannula 06/18/25 11:04 Oxygen Flow Rate 2.5 06/18/25 11:04 MDM - Abdominal Pain Medical Decision Making Awaiting test results. Will sign out to the oncoming physician. Lab Data 06/18/25 05:00 06/18/25 11:30 Labs/Radiology: Radiology Impressions Abdomen/Pelvis CT 06/18/25 05:05 IMPRESSION: 1. Mild nonspecific ileus versus gastroenteritis versus partial small bowel obstruction. 2. 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 3. Slight bulging of small bowel into anterolateral right lower quadrant abdominal wall small Spigelian hernia. 4. Cholelithiasis. 5. Nonspecific bilateral perinephric fat stranding. Possible pyelonephritis/UTI should be considered. 6. Chronically thickened urinary bladder with prominent 9.9 x 7.5 cm posterior rightward bladder Hutch diverticulum. Consider chronic cystitis/UTI. 7. 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 8. Atherosclerotic vascular disease including coronary artery disease. Laboratory Results WBC 12.14 10^3/uL (3.29-11.43) H 06/18/25 05:00 RBC 3.75 10^6/uL (3.85-5.65) L 06/18/25 05:00 Hgb 10.70 g/dL (11.27-16.99) L 06/18/25 05:00 Hct 33.1 % (37-53) L 06/18/25 05:00 MCV 88.3 fl (82-101) 06/18/25 05:00 MCH 28.5 pg (27-33) 06/18/25 05:00 MCHC 32.3 g/dL (30-55) 06/18/25 05:00 RDW 12.4 % (12.1-15.1) 06/18/25 05:00 Plt Count 162 10^3/cmm (157-399) 06/18/25 05:00 MPV 8.8 fL (7.4-10.4) 06/18/25 05:00 Neut % (Auto) 78.6 % 06/18/25 05:00 Lymph % (Auto) 12.2 % 06/18/25 05:00 [place] % (Auto) 6.8 % 06/18/25 05:00 Eos % (Auto) 1.6 % 06/18/25 05:00 Baso % (Auto) 0.3 % 06/18/25 05:00 Neut # (Auto) 9.54 10^3/uL (1.8-7.7) H 06/18/25 05:00 Lymph # (Auto) 1.5 10^3/uL (0.8-4.8) 06/18/25 05:00 [place] # (Auto) 0.8 10^3/uL (0.2-0.9) 06/18/25 05:00 Eos # (Auto) 0.2 10^3/uL (0.0-0.8) 06/18/25 05:00 Baso # (Auto) 0.0 10^3/uL (0.0-0.1) 06/18/25 05:00 Nucleated RBC % (auto) 0 % 06/18/25 05:00 Nucleated RBCs # 0.0 /100WBC 06/18/25 05:00 Sodium 119 mmol/L (136-145) L* 06/18/25 05:00 Potassium 4.3 mmol/L (3.5-5.1) 06/18/25 05:00 Chloride 85 mmol/L (98-107) L 06/18/25 05:00 Carbon Dioxide 25 mmol/L (22-29) 06/18/25 05:00 Anion Gap 13.3 (5-19) 06/18/25 05:00 BUN 11 mg/dL (8-23) 06/18/25 05:00 Creatinine 1.1 mg/dL (0.7-1.2) 06/18/25 05:00 GFR Calculation 66.4 mL/min (90-130) L 06/18/25 05:00 Glucose 115 mg/dL (65-115) 06/18/25 05:00 Calculated Osmolality 248 mOsm/kg (285-295) L 06/18/25 05:00 Lactic Acid 0.5 mmol/L (0.5-2.2) 06/18/25 05:00 Calcium 8.1 mg/dL (8.5-10.5) L 06/18/25 05:00 Magnesium 1.5 mg/dL (1.7-2.3) L 06/18/25 05:00 Total Bilirubin 0.5 mg/dL (0.15-1.2) 06/18/25 05:00 AST 21 U/L (0-40) 06/18/25 05:00 ALT 16 U/L (0-41) 06/18/25 05:00 Alkaline Phosphatase 81 U/L (40-130) 06/18/25 05:00 Total Protein 7.7 g/dL (6.6-8.7) 06/18/25 05:00 Albumin 2.8 g/dL (3.5-5.2) L 06/18/25 05:00 Globulin 4.9 g/dL (1.3-4.6) H 06/18/25 05:00 Lipase 54 U/L (13-60) 06/18/25 05:00 Urine Color Yellow (Yellow) 06/18/25 05:30 Urine Appearance Cloudy (CLEAR) A 06/18/25 05:30 Urine pH 6.5 (5-7) 06/18/25 05:30 Ur Specific [place] 1.014 (1.005-1.030) 06/18/25 05:30 Urine Protein 2+ (Negative) A 06/18/25 05:30 Urine Glucose (UA) Negative (Normal) 06/18/25 05:30 Urine Ketones Negative (Negative) 06/18/25 05:30 Urine Blood Non-haemolysed trace (Negative) 06/18/25 05:30 Urine Nitrate Positive (Negative) A 06/18/25 05:30 Urine Bilirubin Negative (Negative) 06/18/25 05:30 Urine Urobilinogen 0.2 mg/dL (Negative) 06/18/25 05:30 Ur Leukocyte Esterase 2+ (Negative) A 06/18/25 05:30 Urine RBC 11-20 /hpf (0-2) H 06/18/25 05:30 Urine WBC >100 /hpf (0-5) H 06/18/25 05:30 Ur Squamous Epith Cells 0-5 /hpf (0-5) 06/18/25 05:30 Amorphous Sediment Not Reportable 06/18/25 05:30 Urine Bacteria 4+ /hpf (NONE) H 06/18/25 05:30 Hyaline Casts 2.05 /lpf 06/18/25 05:30 Discharge Plan Discharge Patient Disposition: Admitted As Inpatient Admit Provider: Rafiq Esposito Clinical Impression: Acute pyelonephritis, Abdominal pain, Hyponatremia, Hx of leg amputation, COPD (chronic obstructive pulmonary disease), Ileus Condition: Stable Coding Level of Care Code ED Wood Filler for Chg Fwd Documented by User: Phan Layton DO 06/18/25 16:15 HPI - Abdominal Pain 2 General: Chief Complaint: Abdominal Pain Stated Complaint: abdomen pain Time Seen by Provider: 06/18/25 05:02 Related Data Previous Rx's ?Medication ?Instructions ?Recorded E2622 : Skin protection #1 ea 04/26/21 wheelchair seat cushion, adjustable, width less than 22 inches, any depth. K0822 Power wheelchair, group 2 #1 ea 04/26/21 standard, sling/solid E0143 front wheeled walker #1 ea 04/23/24 wheelchair #1 ea 04/23/24 clopidogrel 75 mg tablet See Rx Instructions .Route 0 07/26/24 .COMPLEX #90 tabs albuterol sulfate 2.5 mg/3 mL 2.5 mg (3 mL) inhalation Q4H PRN 04/28/25 (0.083 %) solution for nebulization shortness of breat h or wheezing #300 mL budesonide 160 mcg-glycopyr 9 2 inh inhalation BID #10 .7 grams 04/28/25 mcg-formot 4.8 mcg/actuation HFA inhaler (Breztri Aerosphere) evolocumab 140 mg/mL subcutaneous 140 mg SUBCUT .every 14 days #2 mL 04/28/25 pen injector (Repatha SureClick) tamsulosin 0.4 mg capsule (Flomax) 0.4 mg PO DAILY #90 caps 04/28/25 amlodipine 5 mg tablet (Norvasc) 5 mg PO DAILY #90 tab s 05/02/25 atorvastatin 80 mg tablet See Rx Instructions .Route 0 05/02/25 .COMPLEX #90 tabs Oxygen concentrator and portable #1 ea 05/20/25 NC 2L carvedilol 12.5 mg tablet 12.5 mg PO BID #28 tabs 05/15 12/07 losartan 25 mg tablet 25 mg PO DAILY 14 days #14 t abs 06/12/25 isosorbide mononitrate 60 mg 60 mg PO DAILY #90 tabs 0 06/16/25 tablet,extended release 24 hr Allergies Allergy/AdvReac Type Severity Reaction Status Date / Time ketorolac (From Toradol) Allergy Unknown Verified 04/28/25 13:51 nalbuphine (From Nubain) Allergy Unknown Verified 04/28/25 13:51 tizanidine Allergy ADR-Halluci Verified 06/18/25 05:00 karen [facility] ED 2 PFS: Medical History Supplemental oxygen dependent 3L NC since June,. Bladder distension Neuropathic pain Osteoarthritis of left hip LAU (dyspnea on exertion) Benign essential HTN Osteoporosis Anemia Central spinal stenosis Mixed hyperlipidemia COPD (chronic obstructive pulmonary disease) ASHD (arteriosclerotic heart disease) Surgical History Hx of leg amputation Right side History of right lower limb amputation History of abdominal surgery History of appendectomy History of hernia repair H/O shoulder surgery H/O knee surgery Family History Mother CAD (coronary artery disease) Father Cancer Family/Other Cancer Denies family history of Diabetes Clotting disorder Dementia Chronic kidney disease (CKD) Suicide Anesthesia complication Bleeding disorder Lung disease Stroke Social History Smoking and tobacco/nicotine status: former use of tobacco/nicotine Quit status (tobacco/nicotine): has quit using Year quit tobacco: 2020 Former quit date comment: 2 PPD X 45 YEARS Second hand smoke exposure: No Alcohol intake: never Substance/Drug Use: never Adopted: No Caregiver/support person: No Lives independently: Yes Household members: significant other Housing: House Marital status: Number of children: 2 service: No Current occupational status: retired Current occupational exposures/hazards: No Do you think of yourself as: Straight/Heterosexual Current gender identity: Male Course 2 Vital Signs: Vital signs: Vital Signs Temperature 97.9 F 06/18/25 12:00 Pulse Rate 80 06/18/25 14:00 Respiratory Rate 22 H 06/18/25 12:15 Blood Pressure 173/83 06/18/25 12:15 Pulse Oximetry 96 06/18/25 12:15 Oxygen Delivery Me thod Nasal Cannula 06/18/25 11:04 Oxygen Flow Rate 2.5 06/18/25 11:04 MDM - Abdominal Pain Medical Records I reviewed the patient's medical records. Lab Data I reviewed the patient's lab results. 06/18/25 05:00 06/18/25 11:30 Labs/Radiology: Radiology Impressions Abdomen/Pelvis CT 06/18/25 05:05 IMPRESSION: 1. Mild nonspecific ileus versus gastroenteritis versus partial small bowel obstruction. 2. 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 3. Slight bulging of small bowel into anterolateral right lower quadrant abdominal wall small Spigelian hernia. 4. Cholelithiasis. 5. Nonspecific bilateral perinephric fat stranding. Possible pyelonephritis/UTI should be considered. 6. Chronically thickened urinary bladder with prominent 9.9 x 7.5 cm posterior rightward bladder Hutch diverticulum. Consider chronic cystitis/UTI. 7. 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 8. Atherosclerotic vascular disease including coronary artery disease. Laboratory Results WBC 12.14 10^3/uL (3.29-11.43) H 06/18/25 05:00 RBC 3.75 10^6/uL (3.85-5.65) L 06/18/25 05:00 Hgb 10.70 g/dL (11.27-16.99) L 06/18/25 05:00 Hct 33.1 % (37-53) L 06/18/25 05:00 MCV 88.3 fl (82-101) 06/18/25 05:00 MCH 28.5 pg (27-33) 06/18/25 05:00 MCHC 32.3 g/dL (30-55) 06/18/25 05:00 RDW 12.4 % (12.1-15.1) 06/18/25 05:00 Plt Count 162 10^3/cmm (157-399) 06/18/25 05:00 MPV 8.8 fL (7.4-10.4) 06/18/25 05:00 Neut % (Auto) 78.6 % 06/18/25 05:00 Lymph % (Auto) 12.2 % 06/18/25 05:00 [place] % (Auto) 6.8 % 06/18/25 05:00 Eos % (Auto) 1.6 % 06/18/25 05:00 Baso % (Auto) 0.3 % 06/18/25 05:00 Neut # (Auto) 9.54 10^3/uL (1.8-7.7) H 06/18/25 05:00 Lymph # (Auto) 1.5 10^3/uL (0.8-4.8) 06/18/25 05:00 [place] # (Auto) 0.8 10^3/uL (0.2-0.9) 06/18/25 05:00 Eos # (Auto) 0.2 10^3/uL (0.0-0.8) 06/18/25 05:00 Baso # (Auto) 0.0 10^3/uL (0.0-0.1) 06/18/25 05:00 Nucleated RBC % (auto) 0 % 06/18/25 05:00 Nucleated RBCs # 0.0 /100WBC 06/18/25 05:00 Sodium 119 mmol/L (136-145) L* 06/18/25 05:00 Potassium 4.3 mmol/L (3.5-5.1) 06/18/25 05:00 Chloride 85 mmol/L (98-107) L 06/18/25 05:00 Carbon Dioxide 25 mmol/L (22-29) 06/18/25 05:00 Anion Gap 13.3 (5-19) 06/18/25 05:00 BUN 11 mg/dL (8-23) 06/18/25 05:00 Creatinine 1.1 mg/dL (0.7-1.2) 06/18/25 05:00 GFR Calculation 66.4 mL/min (90-130) L 06/18/25 05:00 Glucose 115 mg/dL (65-115) 06/18/25 05:00 Calculated Osmolality 248 mOsm/kg (285-295) L 06/18/25 05:00 Lactic Acid 0.5 mmol/L (0.5-2.2) 06/18/25 05:00 Calcium 8.1 mg/dL (8.5-10.5) L 06/18/25 05:00 Magnesium 1.5 mg/dL (1.7-2.3) L 06/18/25 05:00 Total Bilirubin 0.5 mg/dL (0.15-1.2) 06/18/25 05:00 AST 21 U/L (0-40) 06/18/25 05:00 ALT 16 U/L (0-41) 06/18/25 05:00 Alkaline Phosphatase 81 U/L (40-130) 06/18/25 05:00 Total Protein 7.7 g/dL (6.6-8.7) 06/18/25 05:00 Albumin 2.8 g/dL (3.5-5.2) L 06/18/25 05:00 Globulin 4.9 g/dL (1.3-4.6) H 06/18/25 05:00 Lipase 54 U/L (13-60) 06/18/25 05:00 Urine Color Yellow (Yellow) 06/18/25 05:30 Urine Appearance Cloudy (CLEAR) A 06/18/25 05:30 Urine pH 6.5 (5-7) 06/18/25 05:30 Ur Specific [place] 1.014 (1.005-1.030) 06/18/25 05:30 Urine Protein 2+ (Negative) A 06/18/25 05:30 Urine Glucose (UA) Negative (Normal) 06/18/25 05:30 Urine Ketones Negative (Negative) 06/18/25 05:30 Urine Blood Non-haemolysed trace (Negative) 06/18/25 05:30 Urine Nitrate Positive (Negative) A 06/18/25 05:30 Urine Bilirubin Negative (Negative) 06/18/25 05:30 Urine Urobilinogen 0.2 mg/dL (Negative) 06/18/25 05:30 Ur Leukocyte Esterase 2+ (Negative) A 06/18/25 05:30 Urine RBC 11-20 /hpf (0-2) H 06/18/25 05:30 Urine WBC >100 /hpf (0-5) H 06/18/25 05:30 Ur Squamous Epith Cells 0-5 /hpf (0-5) 06/18/25 05:30 Amorphous Sediment Not Reportable 06/18/25 05:30 Urine Bacteria 4+ /hpf (NONE) H 06/18/25 05:30 Hyaline Casts 2.05 /lpf 06/18/25 05:30 All radiology interpretation(s) finalized by discharge Discharge Plan Discharge Patient Disposition: Admitted As Inpatient Admit Provider: Rafiq Esposito Clinical Impression: Acute pyelonephritis, Abdominal pain, Hyponatremia, Hx of leg amputation, COPD (chronic obstructive pulmonary disease), Ileus Condition: Stable Coding Level of Care Code ED Wood Filler for Ephraim Badillo
[2025-06-18 05:19] LABS: Hematocrit 33.1 % (37-53); Hemoglobin 10.70 g/dL (11.27-16.99); Mean Corpuscular HGB Conc 32.3 g/dL (30-55); Mean Corpuscular Hemoglobin 28.5 pg (27-33); Mean Corpuscular Volume 88.3 fl (82-101); Nucleated Red Blood Cells % 0 %; Platelet Count 162 10^3/cmm (157-399); Red Blood Count 3.75 10^6/uL (3.85-5.65); White Blood Count 12.14 10^3/uL (3.29-11.43)
[2025-06-18] MEDS: ondansetron 2 mg/ML SDV 2 mL 4 MG IVP ×2 (05:20→11:36)
[2025-06-18 05:34] LABS: Alanine Aminotransferase 16 U/L (0-41); Albumin Level 2.8 g/dL (3.5-5.2); Alkaline Phosphatase 81 U/L (40-130); Anion Gap 13.3 (5-19); Aspartate Amino Transferase 21 U/L (0-40); Blood Urea Nitrogen 11 mg/dL (8-23); Calcium 8.1 mg/dL (8.5-10.5); Carbon Dioxide 25 mmol/L (22-29); Chloride 85 mmol/L (98-107); Creatinine Clr Calc Pharmacy 68.9959; Globulin 4.9 g/dL (1.3-4.6); Glucose 115 mg/dL (65-115); Lipase 54 U/L (13-60); Osmolality Calculated 248 mOsm/kg (285-295); Potassium 4.3 mmol/L (3.5-5.1); Total Protein 7.7 g/dL (6.6-8.7)
[2025-06-18 05:35] LABS: Lactic Sepsis W/Reflex 0.5 mmol/L (0.5-2.2)
[2025-06-18] MEDS: morphine 4 mg/mL SDV 1 mL IVP ×5 (05:38→20:01)
[2025-06-18 05:41] LABS: Sodium 119 mmol/L (136-145)
[2025-06-18 05:48] LABS: Glucose Urine UA Negative (Normal); Nitrate Urine Positive (Negative); Specific Gravity, Urine 1.014 (1.005-1.030)
[2025-06-18 05:53] LABS: Add Urine Microscopic? YES
[2025-06-18] MEDS: iohexol 350 mg/mL 500 mL Btl (per mL) IV (05:54)
--- NOTE | 2025-06-18 07:59 | PM.CONSULT ---
Providers/Reason For Consult Consulting Physician/Specialty*: Dr. Thompson general surgery Reason for Consult*: Ileus Primary Care Provider: BERNARD Villa History of Present Illness History of Present Illness Rocio Rivera is a 70 year old male who presented with a UTI. Patient has a complicated surgical history and has an end ileostomy. Also had a spigelian hernia. CT scan did not demonstrate a small bowel obstruction but rather changes consistent with an ileus. Ileostomy putting out gas and succus. Patient nauseated. Medications/Allergies Home Medications ?Medication ?Instructions ?Recorded ?Confirmed ?Last Taken ?Type E2622 : Skin protection #1 ea 04/26/21 06/18/25 Unknown Rx wheelchair seat cushion, adjustable, width less than 22 inches, any depth. K0822 Power wheelchair, group 2 #1 ea 04/26/21 06/18/25 Unknown Rx standard, sling/solid E0143 front wheeled walker #1 ea 04/23/24 06/18/25 Unknown Rx wheelchair #1 ea 04/23/24 06/18/25 Unknown Rx clopidogrel 75 mg tablet See Rx Instructions .Route 07/26/24 06/18/25 06/17/25 Rx .COMPLEX #90 tabs albuterol sulfate 2.5 mg/3 mL 2.5 mg (3 mL) inhalation Q4H PRN 04/28/25 06/18/25 06/17/25 Rx (0.083 %) solution for nebulization shortness of breath or wheezing #300 mL budesonide 160 mcg-glycopyr 9 2 inh inhalation BID #10.7 grams 04/28/25 06/18/25 Unknown Rx mcg-formot 4.8 mcg/actuation HFA inhaler (Breztri Aerosphere) evolocumab 140 mg/mL subcutaneous 140 mg SUBCUT .every 14 days #2 mL 04/28/25 06/18/25 06/13/25 Rx pen injector (Repatha SureArielick) tamsulosin 0.4 mg capsule (Flomax) 0.4 mg PO DAILY #90 caps 04/28/25 06/18/25 06/17/25 19:00 Rx amlodipine 5 mg tablet (Norvasc) 5 mg PO DAILY #90 tabs 05/02/25 06/18/25 06/17/25 Rx atorvastatin 80 mg tablet See Rx Instructions .Route 05/02/25 06/18/25 06/17/25 Rx .COMPLEX #90 tabs Oxygen concentrator and portable #1 ea 05/20/25 06/18/25 Unknown Rx [place] 2L carvedilol 12.5 mg tablet 12.5 mg PO BID #28 tabs 06/12/25 06/18/25 Unknown Rx losartan 25 mg tablet 25 mg PO DAILY 14 days #14 tabs 06/12/25 06/18/25 06/17/25 Rx isosorbide mononitrate 60 mg 60 mg PO DAILY #90 tabs 06/16/25 06/18/25 06/17/25 Rx tablet,extended release 24 hr Allergies Allergy/AdvReac Type Severity Reaction Status Date / Time ketorolac (From Toradol) Allergy Unknown Verified 04/28/25 13:51 nalbuphine (From Nubain) Allergy Unknown Verified 04/28/25 13:51 tizanidine Allergy ADR-Halluci Verified 06/18/25 05:00 nating PFSH Acute PFSH: Medical History (Updated 06/18/25 @ 16:15 by Phan Layton DO) Supplemental oxygen dependent 3L NC since June,. Bladder distension Neuropathic pain Osteoarthritis of left hip LAU (dyspnea on exertion) Benign essential HTN Osteoporosis Anemia Central spinal stenosis Mixed hyperlipidemia COPD (chronic obstructive pulmonary disease) ASHD (arteriosclerotic heart disease) Surgical History (Updated 06/18/25 @ 16:15 by Phan Layton DO) Hx of leg amputation Right side History of right lower limb amputation History of abdominal surgery History of appendectomy History of hernia repair H/O shoulder surgery H/O knee surgery Family History Mother CAD (coronary artery disease) Father Cancer Family/Other Cancer Denies family history of Diabetes Clotting disorder Dementia Chronic kidney disease (CKD) Suicide Anesthesia complication Bleeding disorder Lung disease Stroke Social History Smoking and tobacco/nicotine status: former use of tobacco/nicotine Quit status (tobacco/nicotine): has quit using Year quit tobacco: 2020 Former quit date comment: 2 PPD X 45 YEARS Second hand smoke exposure: No Alcohol intake: never Substance/Drug Use: never Adopted: No Caregiver/support person: No Lives independently: Yes Household members: significant other Housing: House Marital status: Number of children: 2 service: No Current occupational status: retired Current occupational exposures/hazards: No Do you think of yourself as: Straight/Heterosexual Current gender identity: Male Vitals/I&O/Wt Last Vital Signs Temp 97.7 F 06/18/25 04:53 Pulse 69 06/18/25 06:00 Resp 15 06/18/25 06:00 BP 146/91 06/18/25 06:00 Pulse Ox 96 06/18/25 06:00 O2 Del Method Room Air 06/18/25 06:00 Weight last 48 hrs Weight 198 lb Physical Exam Narrative: Chest: Unlabored breathing room air. No lymphadenopathy. Heart: Regular rate and rhythm. Abdomen: Soft, nontender, nondistended. No masses or lymphadenopathy. Ileostomy putting out succus and gas Data 06/19/25 02:40 06/19/25 10:41 A&P Assessment and plan 1. Ileus: Plan: 70-year-old male who presented with a UTI. Surgery consulted for complicated surgical history and due to an ileus. Keep on clears. If patient becomes nauseated transition to n.p.o. will follow. PDMP PDMP Reviewed: Not Reviewed Coding Level of Care Code 72922 Diagnoses Ileus K56.7
--- NOTE | 2025-06-18 07:59 | PM.MISC ---
Miscellaneous Note Note: Full consult note to follow up. Reviewed imaging. At this point very low suspicion for small bowel obstruction. Noted spigelian hernia which is an incidental finding. Will follow closely.
[2025-06-18] MEDS: cefTRIAXone 1,000 mg SDV 1000 MG IVP (08:02)
--- NOTE | 2025-06-18 08:08 | PC.PHAR ---
Pt states will return shortly. She can verify medications. 06/18/25 8:09am
--- NOTE | 2025-06-18 10:40 | P.HP_ITS ---
Providers/Chief Complaint 2 Admitting Physician: Rafiq Esposito Primary Care Provider: Imtiaz Shields, BERNARD Chief Complaint: abdomen pain History of Present Illness Rocio Rivera is a 70 year old gentleman with a history of hernia repair with mesh, chronic hip infection complicated by left lower-extremity amputation and hemipelvectomy, a permanent colostomy, chronic obstructive pulmonary disease (COPD) on home oxygen, prior Clostridioides difficile (C. diff) colitis, and chronic back pain who presents after several days of worsening abdominal discomfort. He reports scant, mostly liquid output from the colostomy and, overnight, an unexpected passage of a large amount of stool per rectum for the first time in 13 years. He describes associated back/flank pain and intermittent nausea with occasional vomiting; oral intake has been poor. Emergency department evaluation showed serum sodium 119 mEq/L and urinalysis with >100 white blood cells and 11?20 red blood cells per high-power field. Computed tomography (CT) of the abdomen and pelvis demonstrated no bowel obstruction but did note perinephric stranding suggestive of pyelonephritis. General surgery assessed him and found no evidence of an obstructed hernia. He performs intermittent self- catheterization at home and reports difficulty obtaining appropriately firm catheters. He denies current alcohol use and quit smoking four years ago. No medication allergies are reported. Review of Systems 2 Const: Reports: change in appetite; Denies: fever(s), chills, body aches or malaise ENMT: Denies: throat pain Card: Denies: chest pain, edema, pre-syncope or dyspnea on exertion Resp: Denies: dyspnea, productive cough, change in phlegm color or hemoptysis GI: Reports: abdominal pain, nausea, vomiting and other (Changes in output from colostomy); Denies: constipation, hematochezia or melena : Denies: flank pain, difficulty urinating, urinary frequency or hematuria Musc: Reports: back pain; Denies: joint swelling or joint redness Skin/Breast: Denies: rash or new lesions Neuro: Denies: headache(s) or confusion Medications/Allergies Home Medications ?Medication ?Instructions ?Recorded ?Confirmed ?Last Taken ?Type E2622 : Skin protection #1 ea 04/26/21 06/18/25 Unkn own Rx wheelchair seat cushion, adjustable, width less than 22 inches, any depth. K0822 Power wheelchair, group 2 #1 ea 04/26/21 5 Unknown Rx standard, sling/solid [id number] front wheeled walker #1 ea 04/23/24 06/18/25 Unk nown Rx wheelchair #1 ea 04/23/24 06/18/25 Unkn own Rx clopidogrel 75 mg tablet See Rx Instructions .Route 0 07/26/24 06/18/25 06/17/25 Rx .COMPLEX #90 tabs albuterol sulfate 2.5 mg/3 mL 2.5 mg (3 mL) inhalation Q4H PRN 04/28/25 06/18/25 06/17/25 Rx (0.083 %) solution for nebulization shortness of breat h or wheezing #300 mL budesonide 160 mcg-glycopyr 9 2 inh inhalation BID #10 .7 grams 04/28/25 06/18/25 Unknown Rx mcg-formot 4.8 mcg/actuation HFA inhaler ([employer]) evolocumab 140 mg/mL subcutaneous 140 mg SUBCUT .every 14 days #2 mL 04/28/25 06/18/25 06/13/25 Rx pen injector ([employer]) tamsulosin 0.4 mg capsule (Flomax) 0.4 mg PO DAILY #90 caps 04/28/25 06/18/25 06/17/25 19:00 Rx amlodipine 5 mg tablet (Norvasc) 5 mg PO DAILY #90 tab s 05/02/25 06/18/25 06/17/25 Rx atorvastatin 80 mg tablet See Rx Instructions .Route 0 05/02/25 06/18/25 06/17/25 Rx .COMPLEX #90 tabs Oxygen concentrator and portable #1 ea 05/20/25 Unknown Rx NC 2L carvedilol 12.5 mg tablet 12.5 mg PO BID #28 tabs 05/1506/18/25 Unknown Rx losartan 25 mg tablet 25 mg PO DAILY 14 days #14 t abs 06/12/25 06/18/25 06/17/25 Rx isosorbide mononitrate 60 mg 60 mg PO DAILY #90 tabs 0 06/16/25 06/18/25 06/17/25 Rx tablet,extended release 24 hr Allergies Allergy/AdvReac Type Severity Reaction Status Date / Time ketorolac (From Toradol) Allergy Unknown Verified 04/28/25 13:51 nalbuphine (From Nubain) Allergy Unknown Verified 04/28/25 13:51 tizanidine Allergy ADR-Halluci Verified 06/18/25 05:00 nating PFSH Acute 2 PFSH: Medical History Supplemental oxygen dependent 3L NC since June,. Bladder distension Neuropathic pain Osteoarthritis of left hip LAU (dyspnea on exertion) Benign essential HTN Osteoporosis Anemia Central spinal stenosis Mixed hyperlipidemia COPD (chronic obstructive pulmonary disease) ASHD (arteriosclerotic heart disease) Surgical History Hx of leg amputation Right side History of right lower limb amputation History of abdominal surgery History of appendectomy History of hernia repair H/O shoulder surgery H/O knee surgery Family History Mother CAD (coronary artery disease) Father Cancer Family/Other Cancer Denies family history of Diabetes Clotting disorder Dementia Chronic kidney disease (CKD) Suicide Anesthesia complication Bleeding disorder Lung disease Stroke Social History Smoking and tobacco/nicotine status: former use of tobacco/nicotine Quit status (tobacco/nicotine): has quit using Year quit tobacco: 2020 Former quit date comment: 2 PPD X 45 YEARS Second hand smoke exposure: No Alcohol intake: never Substance/Drug Use: never Adopted: No Caregiver/support person: No Lives independently: Yes Household members: significant other Housing: House Marital status: Number of children: 2 service: No Current occupational status: retired Current occupational exposures/hazards: No Do you think of yourself as: Straight/Heterosexual Current gender identity: Male Vitals/I&O/Wt Last Vital Signs Temp 97.7 F 06/18/25 04:53 Pulse 65 06/18/25 10:25 Resp 15 06/18/25 08:06 BP 191/79 06/18/25 10:25 Pulse Ox 96 06/18/25 10:25 O2 Del Method Nasal Cannula 06/18/25 08:06 O2 Flow Rate 2.5 06/18/25 08:06 Weight last 48 hrs Weight 89.811 kg Physical Exam 2 Narrative: Accompanied by his and son. Const: COMMON NORMALS: patient oriented x3 and alert GENERAL APPEARANCE: c ooperative ORIENTATION/CONSCIOUSNESS: Yes awake HENMT: COMMON NORMALS: oropharynx normal Neck/C-Spine: COMMON NORMALS: no JVD Resp: COMMON NORMALS: normal respiratory effort and clear to auscultation bilaterally AUSCULTATION: clear to auscultation bilaterally Cardio: COMMON NORMALS: no JVD, regular rhythm, S1 normal heart sound present, S2 normal heart sound present and No murmurs present (Cardio) RHYTHM: regular rhythm HEART SOUNDS: S1 normal heart sound present and S2 normal heart sound present GI: COMMON NORMALS: Normal to inspection, nondistended, normoactive bowel sounds present, Soft to palpation and non-tender PALPATION: Yes Soft to palpation OTHER: Right lower colostomy with herniation Extremity: COMMON NORMALS: no joint enlargement and no pedal edema N ARRATIVE EXTREMITY EXAM: 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 Neuro: COMMON NORMALS: patient oriented x3 and moves all extremities S ENSORIUM/ORIENTATION: Yes alert Skin: COMMON NORMALS: no rashes or lesions noted GENERAL SKIN EXAM: no rashes or lesions noted Data 06/18/25 05:00 06/18/25 05:00 A&P Assessment and plan 1. Abdominal pain: Several-day history of severe abdominal pain in the setting of complex surgical anatomy. General surgery evaluation and CT imaging revealed no bowel obstruction or incarcerated hernia; pain may be referred from concurrent pyelonephritis or related to ostomy function. He has had some changes in the stool output from the colostomy over the last several days and reports producing stool in rectally which she had not had previously. Discussed with the surgeon. Reviewed vitals CBC CMP lipase UA CT abdomen pelvis ED provider note, discussed with ED provider. He does have history of C. difficile in the past. Will check C. difficile from both colostomy colitis and rectal output. Antiemetic as needed. Trial of clear liquids. 2. Pyelonephritis: Urinalysis with >100 WBC and 11?20 RBC; CT showing perinephric stranding. Risk factors include chronic self-catheterization. - Give intravenous antibiotic for treatment of pyelonephritis - Follow up urine culture 3. HTN (hypertension): Uncontrolled hypertension blood pressure 200/79. At home normally takes losartan, Imdur, amlodipine. Carvedilol in the past. 10 mg IV hydralazine requested. Continue to monitor blood pressure. Resume oral home medications as long as he is able to tolerate oral intake. 4. Hyponatremia: Serum sodium 119 mEq/L likely multifactorial, potentially related to poor oral intake and ongoing gastrointestinal losses. Severe hyponatremia likely hypovolemic with poor oral intake. Received NS bolus in the ED. Initial admission to intensive care unit with risk of further hyponatremia and complications versus overly rapid correction. Recheck sodium level and adjust fluid depending on follow-up. 5. Change in stool: History of subtotal colectomy. Change in output from colostomy as well as anorectal output which she had not previously had. As above. Plan: Chronic bladder outlet obstruction, new bladder: He normally self catheterizes at home 3-4 times during the day and additional 3-4 times at night. Continue Flomax. Chronically thickened urinary bladder with prominent 9.9 x 7.5 cm posterior rightward bladder Hutch diverticulum. Consider chronic cystitis/UTI. 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 History of COPD on chronic oxygen at home of 2 L by nasal cannula. Does not appear in exacerbation currently. Chronic back pain has lost ability to follow-up in pain clinic after his provider moved. Incidentally noted cholelithiasis. PDMP PDMP Reviewed: Not Reviewed Attestations 2 Medical Necessity Statement*: Admission over 2 midnights anticipated for assessment management of nonobstructive pyelonephritis, severe hyponatremia, uncontrolled hypertension further assessment of abdominal pain and change in bowel pattern/colostomy output. Coding Level of Care Code Critical Care >/= 30 minutes Critical care time (in minutes): 35 The high probability of a clinically significant, sudden or life threatening deterioration, as referenced in this documentation, required my full and direct attention, intervention and personal management. The critical care time shown is in addition to time spent performing any reported separately billable procedures and includes the following: [x] Data and vital sign review and interpretation [x ] Patient assessment, examination and intervention [x] Medication orders and management [x] Patient/Family updates as able [x] Care Coordination and Documentation. Diagnoses Abdominal pain R10.9 Pyelonephritis N12 HTN (hypertension) I10 Hyponatremia E87.1 Change in stool R19.5
[2025-06-18] MEDS: hyDRALAzine 20 mg/mL INJ 1 mL 10 MG IVP (10:50)
[2025-06-18 11:09] LABS: Magnesium 1.5 mg/dL (1.7-2.3)
[2025-06-18] MEDS: magnesium sulfate premix 2 GM/50 ML PIGGYBACK IV (11:28)
[2025-06-18 11:49] LABS: C.Diff PCR (Lab) NEGATIVE (Negative)
[2025-06-18 11:53] LABS: Sodium 123 mmol/L (136-145)
[2025-06-18 16:44] LABS: Sodium 119 mmol/L (136-145)
--- NOTE | 2025-06-18 17:44 | PC.NURSE ---
patient continues to have pain 7/10 despite IV morphine. Telephone order per Dr. Esposito for oxycodone
[2025-06-18] MEDS: oxyCODONE-APAP 5-325 mg Tablet 1 TAB PO (17:49)
[2025-06-18 18:37] LABS: Sodium 125 mmol/L (136-145)
--- NOTE | 2025-06-18 20:35 | PC.NURSE ---
Sodium level Latest sodium level resulted to be 125, up from 119. Called Dr. Abbott to report these changes and received verbal order to hold Normal Saline fluid at this time; updated in JAN to reflect orders.
[2025-06-19] VITALS (77 sets, daily range): BP systolic 115–180; BP diastolic 61–107; PULSE 62–97; RESP 13–25; TEMP 36.2–36.9; O2SAT 94–97
[2025-06-19 00:07] LABS: Sodium 125 mmol/L (136-145)
[2025-06-19] MEDS: morphine 4 mg/mL SDV 1 mL IVP ×6 (00:07→20:45)
--- NOTE | 2025-06-19 01:48 | ECG_ITS ---
[facility] Test Date: 2025-06-19 Pat Name: Rocio Rivera Department: Room: [facility] Gender: Male [employer]: : 1955 Requested By: Deion Abbott Order Number: [id number] Birdie MD: Satish Parra M.D. Measurements Intervals [place] Rate: 70 P: 69 NC: 172 QRS: 68 QRSD: 84 T: 80 QT: 421 QTc: 455 Interpretive Statements SINUS RHYTHM Compared to ECG 06/16/2025 14:33:33 ST (T wave) deviation no longer present Electronically Signed On 06-20-2025 13:54:21 CDT by Satish Parra M.D. [id number]
--- NOTE | 2025-06-19 02:16 | PC.NURSE ---
Noted possible ST elevation in cardiac monitoring, EKG obtained, pt denied any chest pain, tightness, shortness of breath, etc. Dr. Abbott made aware and EKG transmitted. New order received for Trop and ekg series.
[2025-06-19 02:49] LABS: Hematocrit 33.3 % (37-53); Hemoglobin 10.60 g/dL (11.27-16.99); Mean Corpuscular HGB Conc 31.8 g/dL (30-55); Mean Corpuscular Hemoglobin 28.6 pg (27-33); Mean Corpuscular Volume 90.0 fl (82-101); Nucleated Red Blood Cells % 0 %; Platelet Count 177 10^3/cmm (157-399); Red Blood Count 3.70 10^6/uL (3.85-5.65); White Blood Count 14.07 10^3/uL (3.29-11.43)
[2025-06-19 03:08] LABS: Troponin(5th) Baseline 22 ng/L (0-15)
[2025-06-19 03:10] LABS: Anion Gap 13.7 (5-19); Blood Urea Nitrogen 9 mg/dL (8-23); Calcium 8.4 mg/dL (8.5-10.5); Carbon Dioxide 26 mmol/L (22-29); Chloride 91 mmol/L (98-107); Creatinine Clr Calc Pharmacy 86.9128; Glucose 93 mg/dL (65-115); Osmolality Calculated 260 mOsm/kg (285-295); Potassium 4.7 mmol/L (3.5-5.1); Sodium 126 mmol/L (136-145)
[2025-06-19 03:16] LABS: Sodium 126 mmol/L (136-145)
[2025-06-19] MEDS: oxyCODONE-APAP 5-325 mg Tablet 1 TAB PO ×2 (03:17→22:23)
--- NOTE | 2025-06-19 03:41 | PC.NURSE ---
updated sodium levels Called Dr Abbott with updated sodium levels, received verbal orders at this time to keep fluids paused; KATHRYN reflected to show orders.
--- NOTE | 2025-06-19 04:05 | ECG_ITS ---
[facility]: [facility] Pat Name: Rocio Rivera Department: Room: [facility] Gender: Male [employer]: : 1955 Requested By: Deion Abbott Order Number: [id number] Reading MD: MARCUS DE LA GARZA Measurements Intervals [place] Rate: 67 P: 40 AL: 192 QRS: 7 QRSD: 85 T: 48 QT: 414 QTc: 439 Interpretive Statements SINUS RHYTHM WITH OCCASIONAL VENTRICULAR PREMATURE COMPLEXES Compared to ECG 06/19/2025 01:52:17 Ventricular premature complex(es) now present Electronically Signed On 06-24-2025 20:01:18 CDT by MARCUS DE LA GARZA [id number] [id number]
[2025-06-19 05:21] LABS: Troponin 5 2HR 24.02 ng/L (0-15); Troponin 5 2HR Delta 2.02 ABS# (0-10)
[2025-06-19] MEDS: cefTRIAXone 1,000 mg SDV 1000 MG IVP (06:13)
--- NOTE | 2025-06-19 08:05 | ECG_ITS ---
[facility] Date: 2025-06-19 Pat Name: Rocio Rivera Department: Room: [facility] Gender: Male Physician Underwriter: : 1955 Requested By: Deion Abbott Order Number: [id number] Reading MD: MARCUS DE LA GARZA Measurements Intervals [place] Rate: 71 P: 76 WI: 192 QRS: 16 QRSD: 81 T: 59 QT: 411 QTc: 447 Interpretive Statements SINUS RHYTHM Compared to ECG 06/19/2025 04:24:24 Ventricular premature complex(es) no longer present Electronically Signed On 06-24-2025 19:03:38 CDT by MARCUS DE LA GARZA [id number]
--- NOTE | 2025-06-19 08:09 | P.PN_ITS ---
Subjective 2 Subjective: He got somewhat worried this morning after having some pain in the left lower quadrant. But otherwise has not had recurrence of nausea or vomiting. So far without recurrence of rectal discharge. Some gas was burped from the colostomy this morning. Vitals/I&O/Wt Last Vital Signs Temp 97.6 F 06/18/25 20:30 Pulse 90 06/19/25 07:58 Resp 20 H 06/19/25 04:23 BP 115/61 06/19/25 04:10 Pulse Ox 95 06/19/25 07:58 O2 Del Method Nasal Cannula 06/19/25 07:58 O2 Flow Rate 2.5 06/19/25 07:58 06/18/25 06/19/25 06/19/25 22:59 06:59 14:59 Intake Total 712.5 / 1262.5 Output Total 2024 475 / 2500 Balance -1312.5 / -762.5 -475 / -1237.5 Weight last 48 hrs Weight 93.894 kg Weight 95.708 kg Weight 89.811 kg Physical Exam 2 Const: COMMON NORMALS: patient oriented x3 and alert GENERAL APPEARANCE: c ooperative ORIENTATION/CONSCIOUSNESS: Yes awake HENMT: COMMON NORMALS: oropharynx normal Neck/C-Spine: COMMON NORMALS: no JVD Resp: COMMON NORMALS: normal respiratory effort and clear to auscultation bilaterally AUSCULTATION: clear to auscultation bilaterally Cardio: COMMON NORMALS: no JVD, regular rhythm, S1 normal heart sound present, S2 normal heart sound present and No murmurs present (Cardio) RHYTHM: regular rhythm HEART SOUNDS: S1 normal heart sound present and S2 normal heart sound present GI: COMMON NORMALS: Soft to palpation and non-tender AUSCULTATION: Yes Hypoactive bowel sounds present PALPATION: Yes Soft to palpation OTHER: Right lower colostomy with spigelian hernia Extremity: COMMON NORMALS: no joint enlargement and no pedal edema N ARRATIVE EXTREMITY EXAM: 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 Neuro: COMMON NORMALS: patient oriented x3 and moves all extremities S ENSORIUM/ORIENTATION: Yes alert Skin: COMMON NORMALS: no rashes or lesions noted GENERAL SKIN EXAM: no rashes or lesions noted Urinary Catheter Management: Abbasi: Cath Placed During This Visit: yes Reason for Continuing Indwelling Catheter: Other Urinary Catheter Date of Insertion: 06/18/25 Urinary Catheter Time of Insertion: 11:10 Data 06/19/25 02:40 06/19/25 10:41 A&P Assessment and plan 1. Abdominal pain: Ileus with abdominal pain, poor oral intake over the last several days, nausea vomiting at home. Discussed with him reducing opioid as much as possible with oxycodone. So far has not had sign of bennett obstruction. Had been made n.p.o. yesterday after poor tolerance of clear liquid trial. Continue n.p.o. for now. Has complained of some left lower quadrant pain today. Pending surgery reassessment. Discussed with the surgeon. Continue bowel rest for now. Avoid oxycodone unless absolutely needed. Will add lidocaine patch. Reviewed vitals, CBC, BMP. Reviewed C. difficile, noted negative. Requested C. difficile from rectal discharge, although so far has not had any more. Collect if recurs. Continue to treat pyelonephritis. Several-day history of severe abdominal pain in the setting of complex surgical anatomy. General surgery evaluation and CT imaging revealed no bowel obstruction or incarcerated hernia; pain may be referred from concurrent pyelonephritis or related to ostomy function. He has had some changes in the stool output from the colostomy over the last several days and reports producing stool in rectally which she had not had previously. Discussed with the surgeon. He does have history of C. difficile in the past. Antiemetic as needed. Discussed with nursing, case worker. 2. Pyelonephritis: Reviewed CBC, persistent leukocytosis of 14. Reviewed urine culture, noted gram-negative rods growing more than 100,000. Follow-up urine culture CT showing perinephric stranding. Risk factors include chronic self- catheterization. - Give intravenous antibiotic for treatment of pyelonephritis 3. Hyponatremia: Gradually improving. Sodium this morning noted 126. Repeat reviewed 127. Resume NS infusion. Reassess sodium. Monitor for risk of fluid overload, worsening hyponatremia or overly rapid sodium rise. Recheck sodium level. Duration unknown, possibly chronic hyponatremia. On admission for her hyponatremia serum sodium 119 mEq/L likely multifactorial, potentially related to poor oral intake and ongoing gastrointestinal losses. Severe hyponatremia likely hypovolemic with poor oral intake. Received NS bolus in the ED. Initial admission to intensive care unit with risk of further hyponatremia and complications versus overly rapid correction. Recheck sodium level and adjust fluid depending on follow-up. 4. HTN (hypertension): Blood pressure with improvement. Continue losartan, Imdur, amlodipine. Carvedilol in the past. Continue to monitor blood pressure. 5. Change in stool: History of subtotal colectomy. Change in output from colostomy as well as anorectal output which she had not previously had. As above. C. difficile from colostomy negative. Requested C. difficile from rectal discharge if produces anymore. Plan: Chronic bladder outlet obstruction, new bladder: He normally self catheterizes at home 3-4 times during the day and additional 3-4 times at night. Abbasi catheter placed for now. Continue Flomax. Chronically thickened urinary bladder with prominent 9.9 x 7.5 cm posterior rightward bladder Hutch diverticulum. Consider chronic cystitis/UTI. 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 History of COPD on chronic oxygen at home of 2 L by nasal cannula. Does not appear in exacerbation currently. Chronic back pain has lost ability to follow-up in pain clinic after his provider moved. Incidentally noted cholelithiasis. PDMP PDMP Reviewed: Not Reviewed Attestations 2 Medical Necessity Statement*: Continue admission for assessment management of complicated UTI with pyelonephritis, ileus, assessment for possible C. difficile, management of possibly chronic severe hyponatremia. and High MDM includes amount and/or complexity of data reviewed/ordered [ resulted lab(s)/test(s), ordered lab(s)/test(s) and other healthcare professional discussion] and described risk of complication, morbidity or mortality of management as documented Diagnoses Abdominal pain R10.9 Pyelonephritis N12 Hyponatremia E87.1 HTN (hypertension) I10 Change in stool R19.5
[2025-06-19 08:52] LABS: Troponin 5 6HR 22.21 ng/L (0-15); Troponin 5 6HR Delta 0.21 ng/L (0-12)
[2025-06-19 08:55] LABS: Sodium 127 mmol/L (136-145)
--- NOTE | 2025-06-19 09:22 | PC.NURSE ---
Na level 127, normal saline restarted at 75mL /hr per Dr. Jasso order.
[2025-06-19 11:07] LABS: Sodium 123 mmol/L (136-145)
[2025-06-19 15:33] LABS: Sodium 126 mmol/L (136-145)
[2025-06-20] VITALS (29 sets, daily range): BP systolic 129–181; BP diastolic 66–86; PULSE 73–100; RESP 14–29; TEMP 36.7–37.9; O2SAT 91–99
[2025-06-20] MEDS: morphine 4 mg/mL SDV 1 mL IVP ×6 (01:10→22:01)
[2025-06-20] MEDS: oxyCODONE-APAP 5-325 mg Tablet 1 TAB PO ×2 (04:25→16:06)
[2025-06-20 04:43] LABS: Hematocrit 32.7 % (37-53); Hemoglobin 10.40 g/dL (11.27-16.99); Mean Corpuscular HGB Conc 31.8 g/dL (30-55); Mean Corpuscular Hemoglobin 29.2 pg (27-33); Mean Corpuscular Volume 91.9 fl (82-101); Nucleated Red Blood Cells % 0 %; Platelet Count 149 10^3/cmm (157-399); Red Blood Count 3.56 10^6/uL (3.85-5.65); White Blood Count 12.81 10^3/uL (3.29-11.43)
[2025-06-20 05:12] LABS: Anion Gap 12.4 (5-19); Blood Urea Nitrogen 11 mg/dL (8-23); Calcium 8.3 mg/dL (8.5-10.5); Carbon Dioxide 26 mmol/L (22-29); Chloride 99 mmol/L (98-107); Creatinine Clr Calc Pharmacy 86.1177; Glucose 80 mg/dL (65-115); Osmolality Calculated 274 mOsm/kg (285-295); Potassium 4.4 mmol/L (3.5-5.1); Sodium 133 mmol/L (136-145)
[2025-06-20] MEDS: cefTRIAXone 1,000 mg SDV 1000 MG IVP (06:03)
--- NOTE | 2025-06-20 08:39 | P.PN_ITS ---
Subjective 2 Subjective: Abundant succus and gas in ileostomy bag Abdomen soft and benign Vitals/I&O/Wt Last Vital Signs Temp 98.3 F 06/20/25 08:00 Pulse 73 06/20/25 08:00 Resp 20 H 06/20/25 08:00 BP 166/73 06/20/25 08:32 Pulse Ox 95 06/20/25 08:00 O2 Del Method Nasal Cannula 06/20/25 08:00 O2 Flow Rate 3 06/20/25 08:00 06/19/25 06/20/25 06/20/25 22:59 06:59 14:59 Intake Total 120 / 466.25 1018.75 / 1485.00 Output Total 975 / 975 1000 / 1975 Balance -855 / -508.75 18.75 / -490.00 Weight last 48 hrs Weight 197 lb Weight 207 lb Weight 211 lb Physical Exam 2 Narrative: Chest: Unlabored breathing room air. No lymphadenopathy. Heart: Regular rate and rhythm. Abdomen: Soft, nontender, nondistended. No masses or lymphadenopathy. Ileostomy viable and putting out abundant succus and gas Urinary Catheter Management: Abbasi: Cath Placed During This Visit: yes Reason for Continuing Indwelling Catheter: Accurate Measurement of Urinary Output in Critically Ill Patients Urinary Catheter Date of Insertion: 06/18/25 Urinary Catheter Time of Insertion: 11:10 Data 06/20/25 04:10 06/20/25 04:10 Micro: Microbiology 06/18/25 05:30 Urine Culture - Preliminary Urine,Clean Catch Gram Negative Rods A&P Assessment and plan 1. Ileus: Plan: 70-year-old male with an ileus. Treat UTI. Okay for clears. PDMP PDMP Reviewed: Not Reviewed Attestations 2 Medical Necessity Statement*: N/A Coding Level of Care Code 74158 Diagnoses Ileus K56.7
--- NOTE | 2025-06-20 15:08 | PC.SOCIAL ---
IMM UPDATED IMM dated and initialed, copy given to patient and copy placed in chart.
--- NOTE | 2025-06-20 17:51 | P.PN_ITS ---
Vitals/I&O/Wt Last Vital Signs Temp 98.4 F 06/20/25 16:00 Pulse 85 06/20/25 16:00 Resp 17 06/20/25 16:06 BP 146/75 06/20/25 16:00 Pulse Ox 91 06/20/25 16:00 O2 Del Method Nasal Cannula 06/20/25 16:00 O2 Flow Rate 3 06/20/25 16:00 06/20/25 06/20/25 06/20/25 06:59 14:59 22:59 Intake Total 1018.75 / 1485.00 200 / 200 1390 / 1590 Output Total 999 / 1974 1250 / 1250 Balance 18.75 / -490.00 200 / 200 140 / 340 Weight last 48 hrs Weight 89.358 kg Weight 93.894 kg Physical Exam 2 Const: COMMON NORMALS: patient oriented x3 and alert GENERAL APPEARANCE: c ooperative ORIENTATION/CONSCIOUSNESS: Yes awake HENMT: COMMON NORMALS: oropharynx normal Neck/C-Spine: COMMON NORMALS: no JVD Resp: COMMON NORMALS: normal respiratory effort and clear to auscultation bilaterally AUSCULTATION: clear to auscultation bilaterally Cardio: COMMON NORMALS: no JVD, regular rhythm, S1 normal heart sound present, S2 normal heart sound present and No murmurs present (Cardio) RHYTHM: regular rhythm HEART SOUNDS: S1 normal heart sound present and S2 normal heart sound present GI: COMMON NORMALS: Normal to inspection, nondistended, normoactive bowel sounds present, Soft to palpation and non-tender AUSCULTATION: Yes Hypoactive bowel sounds present PALPATION: Yes Soft to palpation OTHER: Right lower colostomy with spigelian hernia Extremity: COMMON NORMALS: no joint enlargement and no pedal edema N ARRATIVE EXTREMITY EXAM: 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 Neuro: COMMON NORMALS: patient oriented x3 and moves all extremities S ENSORIUM/ORIENTATION: Yes alert Skin: COMMON NORMALS: no rashes or lesions noted GENERAL SKIN EXAM: no rashes or lesions noted Urinary Catheter Management: Abbasi: Cath Placed During This Visit: yes Reason for Continuing Indwelling Catheter: Accurate Measurement of Urinary Output in Critically Ill Patients Urinary Catheter Date of Insertion: 06/18/25 Urinary Catheter Time of Insertion: 11:10 Data 06/20/25 04:10 06/20/25 04:10 Micro: Microbiology 08/06/25 05:30 Urine Culture - Final Urine,Clean Catch Enterobacter aerogenes A&P Assessment and plan 1. Abdominal pain: Showing gradual improvement. Gas and stool contents in the colostomy bag today per discussion with surgery, trial of clear liquids. Reviewed vitals, CBC, BMP. IV fluids have been stopped so far. Reassess chemistry. Monitor volume status. Today he is complaining of scrotal pain, requested scrotal ultrasound. Encouraged to stay away from opioids, but he still has been requiring pain medication including IV morphine. Requested C. difficile from rectal discharge, although so far has not had any more. Collect if recurs. Continue to treat pyelonephritis. Several-day history of severe abdominal pain in the setting of complex surgical anatomy. General surgery evaluation and CT imaging revealed no bowel obstruction or incarcerated hernia; pain may be referred from concurrent pyelonephritis or related to ostomy function. He has had some changes in the stool output from the colostomy over the last several days and reports producing stool in rectally which she had not had previously. Discussed with the surgeon. He does have history of C. difficile in the past. Antiemetic as needed. Discussed with nursing, window caser. 2. Pyelonephritis: Reviewed CBC, improving leukocytosis, down to 12.8. Reviewed urine culture, noted and bacteria intermediate sensitive to ceftriaxone. Stop ceftriaxone, start ciprofloxacin. CT showing perinephric stranding. Risk factors include chronic self- catheterization. Abbasi has been placed while in the hospital. - Give intravenous antibiotic for treatment of pyelonephritis 3. Hyponatremia: Gradually improving. Reviewed 1, up to 133. NS has been discontinued. Duration unknown, possibly chronic hyponatremia. Severe hyponatremia likely hypovolemic with poor oral intake on presentation. Patient has been transferred to medical surgical floor, overflow in ICU currently. 4. HTN (hypertension): Blood pressure with improvement. Continue losartan, Imdur, amlodipine. Carvedilol in the past. Continue to monitor blood pressure. 5. Change in stool: History of subtotal colectomy. Change in output from colostomy as well as anorectal output which she had not previously had. As above. C. difficile from colostomy negative. Requested C. difficile from rectal discharge if produces anymore. Plan: Scrotal pain: Reporting scrotal pain this evening to the nurse. Requested scrotal ultrasound. Chronic bladder outlet obstruction, new bladder: He normally self catheterizes at home 3-4 times during the day and additional 3-4 times at night. Abbasi catheter placed for now. Continue Flomax. Chronically thickened urinary bladder with prominent 9.9 x 7.5 cm posterior rightward bladder Hutch diverticulum. Consider chronic cystitis/UTI. 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 History of COPD on chronic oxygen at home of 2 L by nasal cannula. Does not appear in exacerbation currently. Chronic back pain has lost ability to follow-up in pain clinic after his provider moved. Incidentally noted cholelithiasis. PDMP PDMP Reviewed: Not Reviewed Attestations 2 Medical Necessity Statement*: Continue admission for assessment management of ileus in the setting of pyelonephritis, hyponatremia. and High MDM includes amount and/or complexity of data reviewed/ordered [ resulted lab(s)/test(s), ordered lab(s)/test(s) and other healthcare professional discussion] and described risk of complication, morbidity or mortality of management as documented Diagnoses Abdominal pain R10.9 Pyelonephritis N12 Hyponatremia E87.1 HTN (hypertension) I10 Change in stool R19.5
--- NOTE | 2025-06-20 17:58 | USR_ITS ---
PROCEDURE INFORMATION: Exam: US Scrotum and US Duplex Artery and Vein, Scrotum, Complete Exam date and time: 06/20/2025 7:25 PM Age: 70 years old Clinical indication: Scrotum pain; Additional info: Scrotal pain TECHNIQUE: Imaging protocol: Real-time ultrasound of the scrotum. Real-time duplex ultrasound scan of the arterial and venous flow of the scrotum with B-mode, color Doppler flow and spectral waveform analysis. Complete exam. Duplex exam was performed to evaluate for torsion and other vascular conditions. COMPARISON: CT abdomen pelvis w con* 06/18/2025 5:51 AM FINDINGS: Right testicle: Slightly heterogeneous, but otherwise unremarkable. No mass. Normal arterial and venous waveforms on Doppler. No torsion. Measures 2.6 x 2.0 x 2.5 cm. Left testicle: Slightly heterogeneous, but otherwise unremarkable No mass. Normal arterial and venous waveforms on Doppler. No torsion. Measures 2.4 x 2.1 x 2.6 cm. Epididymides: Right epididymis appears enlarged and hypervascular. Small 5 x 3 x 8 mm cyst in the left epididymis. Left epididymis is otherwise unremarkable. Extratesticular spaces: Small right hydrocele. Scrotum/soft tissues: Normal. US/US scrotum 32221 IMPRESSION: 1. Right epididymis appears enlarged and hypervascular. Suspect epididymitis. 2. Small right hydrocele. 3. No significant testicular abnormality identified.
--- NOTE | 2025-06-20 17:58 | PC.NURSE ---
Patient reports scrotal pain and states I feel like my intestines are in my scrotum . Notified Dr. Esposito, Scrotal ultrasound ordered. Notified Dr. Wiggins.
[2025-06-21] VITALS (38 sets, daily range): BP systolic 123–177; BP diastolic 66–98; PULSE 71–103; RESP 14–26; TEMP 36.6–37.1; O2SAT 88–97
[2025-06-21] MEDS: morphine 4 mg/mL SDV 1 mL IVP ×5 (04:12→20:23)
[2025-06-21 05:56] LABS: Blood Urea Nitrogen 7 mg/dL (8-23); Calcium 8.5 mg/dL (8.5-10.5); Carbon Dioxide 25 mmol/L (22-29); Chloride 99 mmol/L (98-107); Creatinine Clr Calc Pharmacy 76.1641; Glucose 98 mg/dL (65-115); Osmolality Calculated 272 mOsm/kg (285-295); Sodium 132 mmol/L (136-145)
[2025-06-21 05:58] LABS: Anion Gap 12.3 (5-19); Potassium 4.3 mmol/L (3.5-5.1)
[2025-06-21] MEDS: oxyCODONE-APAP 5-325 mg Tablet 1 TAB PO ×2 (06:44→18:46)
[2025-06-21 08:58] LABS: Hematocrit 33.9 % (37-53); Hemoglobin 10.80 g/dL (11.27-16.99); Mean Corpuscular HGB Conc 31.9 g/dL (30-55); Mean Corpuscular Hemoglobin 29.4 pg (27-33); Mean Corpuscular Volume 92.4 fl (82-101); Nucleated Red Blood Cells % 0 %; Platelet Count 147 10^3/cmm (157-399); Red Blood Count 3.67 10^6/uL (3.85-5.65); White Blood Count 13.43 10^3/uL (3.29-11.43)
--- NOTE | 2025-06-21 10:15 | P.PN_ITS ---
Subjective 2 Subjective: Ostomy is functional Vitals/I&O/Wt Last Vital Signs Temp 98.8 F 06/21/25 04:00 Pulse 71 06/21/25 07:47 Resp 21 H 06/21/25 08:27 BP 153/67 06/21/25 04:00 Pulse Ox 92 06/21/25 08:27 O2 Del Method Nasal Cannula 06/21/25 07:47 O2 Flow Rate 2.5 06/21/25 07:47 06/20/25 06/21/25 06/21/25 22:59 06:59 14:59 Intake Total 1590 / 1790 1447.5 / 3237.5 200 / 200 Output Total 2300 / 2300 650 / 2950 Balance -710 / -510 797.5 / 287.5 200 / 200 Weight last 48 hrs Weight 199 lb 8 oz Weight 197 lb Physical Exam 2 Narrative: Chest: Unlabored breathing room air. No lymphadenopathy. Heart: Regular rate and rhythm. Abdomen: Soft, nontender, nondistended. No masses or lymphadenopathy. Ostomy bag with succus and gas Urinary Catheter Management: Abbasi: Cath Placed During This Visit: yes Reason for Continuing Indwelling Catheter: Accurate Measurement of Urinary Output in Critically Ill Patients Urinary Catheter Date of Insertion: 06/18/25 Urinary Catheter Time of Insertion: 11:10 Data 06/21/25 08:41 06/21/25 05:01 Micro: Microbiology 06/18/25 05:30 Urine Culture - Final Urine,Clean Catch Enterobacter aerogenes A&P Assessment and plan 1. Ileus: Plan: 70-year-old male with an ileus. Ileus resolved. Advance diet as tolerated. PDMP PDMP Reviewed: Not Reviewed Attestations 2 Medical Necessity Statement*: N/A Coding Level of Care Code 75704 Diagnoses Ileus K56.7
[2025-06-21] MEDS: metroNIDAZOLE IV 500 MG/100 ML PREMIX 100 MG IV ×2 (10:39→18:03)
[2025-06-21 13:39] LABS: Glucose Urine UA Negative (Normal); Nitrate Urine Negative (Negative); Specific Gravity, Urine 1.007 (1.005-1.030)
[2025-06-21 13:43] LABS: Add Urine Microscopic? YES; Universal Test for UA Present (0)
[2025-06-21] MEDS: levofloxacin-dextrose 5 % 750 MG/150 ML PREMIX 100 MG IV (14:09)
--- NOTE | 2025-06-21 17:01 | P.PN_ITS ---
Subjective 2 Subjective: Patient having right testicular pain and ultrasound showed possible right epididymitis.UA showed possibility of UTI. The patient was also having abdominal pain mild to moderate range after having fluids. The patient however not nauseous or having actively diarrhea or any blood in the stools. [facility] Colostomy bag is working adequately. Vitals/I&O/Wt Last Vital Signs Temp 97.9 F 06/21/25 12:00 Pulse 87 06/21/25 16:00 Resp 20 H 06/21/25 16:20 BP 127/77 06/21/25 16:00 Pulse Ox 93 06/21/25 16:20 O2 Del Method Nasal Cannula 06/21/25 16:00 O2 Flow Rate 3 06/21/25 16:00 06/21/25 06/21/25 06/21/25 06:59 14:59 22:59 Intake Total 1447.5 / 3237.5 900 / 900 150 / 1050 Output Total 650 / 2950 Balance 797.5 / 287.5 900 / 900 150 / 1050 Weight last 48 hrs Weight 90.492 kg Weight 89.358 kg Physical Exam 2 Narrative: General: Alert oriented x3, patient seen in mild distress due to mild abdominal pain and right testicular pain HEENT: Normocephalic, atraumatic, EOMI, breathing at room air comfortably Cardio: Regular rate rhythm, normal S1-S2, no murmurs rubs gallops, JVD normal Respiratory: Good bilateral air entry, no wheezes no rhonchi appreciated GI: Abdomen soft, mildly distended with scar hector of surgery and colostomy working. Normal active bowel sounds no organomegaly appreciated : Patient examined in the presence of production mechanic tin cans/assigned nurse Ms. echeverria. Patient having right testicular swelling tender to touch and with redness. With scrotal edema, on Abbasi's catheter Neuro: No focal deficits Behavior: Appropriate and cooperative Extremities: Pulses 2+, no edema, no cyanosis Skin: Unremarkable Urinary Catheter Management: Abbasi: Cath Placed During This Visit: yes Reason for Continuing Indwelling Catheter: Accurate Measurement of Urinary Output in Critically Ill Patients Urinary Catheter Date of Insertion: 06/18/25 Urinary Catheter Time of Insertion: 11:10 Data 06/21/25 08:41 06/21/25 05:01 Micro: Microbiology 06/18/25 05:30 Urine Culture - Final Urine,Clean Catch Enterobacter aerogenes A&P Assessment and plan 1. Colitis: 2. Acute epididymitis: 3. Acute pyelonephritis: 4. Hyponatremia: 5. HTN (hypertension): Blood pressure with improvement. Continue losartan, Imdur, amlodipine. Carvedilol in the past. Continue to monitor blood pressure. Plan: Rocio Rivera is a 70 year old gentleman with a history of hernia repair with mesh, chronic hip infection complicated by left lower-extremity amputation and hemipelvectomy, a permanent colostomy, chronic obstructive pulmonary disease (COPD) on home oxygen, prior Clostridioides difficile (C. diff) colitis, and chronic back pain who presents after several days of worsening abdominal discomfort. Patient performs self catheterization intermittently. Further workup showed UA with possibility of UTI and CT scan was done showed possibility of complicated pyelonephritis and colitis. Patient had right testicular pain and ultrasound showed features of acute epididymitis -Surgery on board for colitis and considering patient past surgical history are evaluating and to proceed with diet as tolerated -Broad-spectrum antibiotic coverage for colitis and UTI with levofloxacin admitted to the metronidazole to continue (sensitivity results available for urine cultures) -To advance diet as tolerated -Monitor for any diarrhea, if significant then stool workup with ova and parasites, fecal leukocytes and C. difficile considering the patient has past medical history of C. difficile colitis -Adequate hydration due to poor oral intake -Monitor for hyponatremia with adequate hydration -Adequate analgesia for chronic back pain -Avoid excessive use of opioids analgesics that can aggravate constipation - Continue home medication amlodipine, isosorbide nitrate and losartan for hypertension. -Atherosclerotic disease of the heart, history of chest pain continue with oral nitrates and clopidogrel as per the documentation from the cardiology in retrospective documentation. - VTE: Enoxaparin PDMP PDMP Reviewed: Not Reviewed Attestations 2 Medical Necessity Statement*: The patient will stay more than 2 midnights for his management for colitis and epididymitis Time Spent in Patient Care: Greater than 35 minutes (>than 50% of time spent in counselling and/or direct pt care on unit) . Critical Care Time: The high probability of a clinically significant, sudden or life threatening deterioration, as referenced in this documentation, required my full and direct attention, intervention and personal management. The critical care time shown is in addition to time spent performing any reported separately billable procedures and includes the following: [x] Data and vital sign review and interpretation [x ] Patient assessment, examination and intervention [x] Medication orders and management [x] Patient/Family updates as able [x] Care Coordination and Documentation. Critical Care Time (min): 40 Other Attestations: Patient condition has been discussed at length with the patient/family, I have independently reviewed the chart labs imaging and diagnostics and EKG. The patient/family has been informed about the current condition and further plan of care. Agreed with the plan of care and understood without any language barrier. This documentation was created by [employer] welding machine assembler software. Every effort was made to ensure accuracy of welding machine assembler. Any obvious errors or omissions should be clarified with the author of the document. Coding Level of Care Code Critical Care >/= 30 minutes Diagnoses Colitis K52.9 Acute epididymitis N45.1 Acute pyelonephritis N10 Hyponatremia E87.1 HTN (hypertension) I10 Time Spent (min) 40
[2025-06-21] MEDS: piperacillin-tazobactam 3.375 GM in sodium chloride 0.9% (plus) 50 ML IV (19:44)
--- NOTE | 2025-06-21 23:43 | PC.NURSE ---
Called report Liliana AIKEN RN. Gathered all patients belongings, confirmed with patient he had phone, tank charger, and all personal items.
--- NOTE | 2025-06-21 23:58 | PC.NURSE ---
Received patient from ICU. Vitals taken, assessment done, and patient inquiring about pain medication.
[2025-06-22] VITALS (19 sets, daily range): BP systolic 127–180; BP diastolic 69–79; PULSE 58–109; RESP 15–97; TEMP 36.4–37.1; O2SAT 24–97
[2025-06-22] MEDS: morphine 4 mg/mL SDV 1 mL IVP ×5 (00:41→21:23)
[2025-06-22] MEDS: piperacillin-tazobactam 3.375 GM in sodium chloride 0.9% (plus) 50 ML IV ×3 (02:01→18:06)
[2025-06-22 02:34] LABS: Hematocrit 35.2 % (37-53); Hemoglobin 11.00 g/dL (11.27-16.99); Mean Corpuscular HGB Conc 31.3 g/dL (30-55); Mean Corpuscular Hemoglobin 28.8 pg (27-33); Mean Corpuscular Volume 92.1 fl (82-101); Nucleated Red Blood Cells % 0 %; Platelet Count 135 10^3/cmm (157-399); Red Blood Count 3.82 10^6/uL (3.85-5.65); White Blood Count 13.29 10^3/uL (3.29-11.43)
[2025-06-22] MEDS: oxyCODONE-APAP 5-325 mg Tablet 1 TAB PO ×4 (02:52→18:08)
[2025-06-22 02:55] LABS: Alanine Aminotransferase 16 U/L (0-41); Albumin Level 3.1 g/dL (3.5-5.2); Alkaline Phosphatase 82 U/L (40-130); Anion Gap 13.1 (5-19); Aspartate Amino Transferase 19 U/L (0-40); Blood Urea Nitrogen 5 mg/dL (8-23); Calcium 7.9 mg/dL (8.5-10.5); Carbon Dioxide 26 mmol/L (22-29); Chloride 103 mmol/L (98-107); Creatinine Clr Calc Pharmacy 84.6267; Globulin 4.0 g/dL (1.3-4.6); Glucose 100 mg/dL (65-115); Osmolality Calculated 283 mOsm/kg (285-295); Potassium 4.1 mmol/L (3.5-5.1); Sodium 138 mmol/L (136-145); Total Protein 7.1 g/dL (6.6-8.7)
--- NOTE | 2025-06-22 07:40 | PC.NURSE ---
Around 0200 patient BP was in the 170 systolic, Received orders from Dr. Abbott to recheck BP in 30 minutes. BP after 30 mins was 180/79. Received orders for hydralazine 10mg PO once.
--- NOTE | 2025-06-22 08:00 | PC.NURSE ---
Pain Pt is frustrated because he could not get his pain medications on time this morning. Nurse explained to him that he could have Morphine at 9-9:30 Am, upon rounding, pt was asleep. Pt called around 10 AM and stated to nurse that I did not came in to bring his pain medication. Nurse was apologetic and explained to pt that their is a patient who is having an active chest pain on the floor. Nurse did bring his morphine and gave to pt. Pt stated to nurse that he does not want to be addictive to pain medications, he tell me that he takes pain med at home, upon talking to his Elma, stated he has been seeing a pain doctor in [facility] for palliative care pain mgt and prescribed pt 20 mg of Oxycodone 3 and 1/tabs a day. Med rec updated.
--- NOTE | 2025-06-22 08:17 | PM.PN ---
Subjective Subjective: Patient seen in the morning, was having abdominal pain on and off however better than yesterday. He is on chronic pain medications therefore due to pain he could not sleep overnight. Osteotomy site is working, right testicle is relatively less painful and the patient feels better He is able to tolerate cleared liquid diet and no nausea or vomiting. He is alert and oriented no lethargy or no fatigability. Vitals/I&O/Wt Last Vital Signs Temp 98.7 F 06/22/25 07:42 Pulse 82 06/22/25 07:42 Resp 18 06/22/25 07:42 BP 178/76 06/22/25 07:42 Pulse Ox 96 06/22/25 07:42 O2 Del Method Nasal Cannula 06/22/25 07:42 O2 Flow Rate 2 06/22/25 07:42 06/21/25 06/22/25 06/22/25 22:59 06:59 14:59 Intake Total 1610 / 2510 200 / 2710 Output Total 1850 / 1850 1600 / 3450 Balance -240 / 660 -1400 / -740 Weight last 48 hrs Weight 70.67 kg Weight 90.492 kg Physical Exam Narrative: General: Alert oriented x3, patient seen in mild distress due to generalized chronic pain, right testicular pain has improved HEENT: Normocephalic, atraumatic, EOMI, breathing at room air comfortably Cardio: Regular rate rhythm, normal S1-S2, no murmurs rubs gallops, JVD normal Respiratory: Good bilateral air entry, no wheezes no rhonchi appreciated GI: Abdomen soft, mildly distended with scar hector of surgery and colostomy working. Normal active bowel sounds no organomegaly appreciated : Patient examined in the presence of suppository molding machine operator/assigned nurse Ms. Ventura. Patient having right testicular swelling with redness and tenderness has subsided, the size has reduced relative to yesterday. Scrotal edema is improving, on Abbasi's catheter Neuro: No focal deficits Behavior: Appropriate and cooperative Extremities: Pulses 2+, no edema, no cyanosis Skin: Unremarkable Urinary Catheter Management: Abbasi: Cath Placed During This Visit: yes Reason for Continuing Indwelling Catheter: Accurate Measurement of Urinary Output in Critically Ill Patients Urinary Catheter Date of Insertion: 06/18/25 Urinary Catheter Time of Insertion: 11:10 Data 06/22/25 02:01 06/22/25 02:01 A&P Assessment and plan 1. Colitis: 2. Acute epididymitis: 3. Acute pyelonephritis: 4. Hyponatremia: 5. HTN (hypertension): Blood pressure with improvement. Continue losartan, Imdur, amlodipine. Carvedilol in the past. Continue to monitor blood pressure. 6. Neuropathic pain: 7. Malnourished: Plan: Rocio Rivera is a 70 year old gentleman with a history of hernia repair with mesh, chronic hip infection complicated by left lower-extremity amputation and hemipelvectomy, a permanent colostomy, chronic obstructive pulmonary disease (COPD) on home oxygen, prior Clostridioides difficile (C. diff) colitis, and chronic back pain who presents after several days of worsening abdominal discomfort. Patient performs self catheterization intermittently. Further workup showed UA with possibility of UTI and CT scan was done showed possibility of complicated pyelonephritis and colitis. Patient had right testicular pain and ultrasound showed features of acute epididymitis -Surgery on board for management of ileus, resolved and to proceed with diet as tolerated -Broad-spectrum antibiotic coverage for colitis, acute epidydimitis, with zosyn,( urine culture shows Enterobacter erogenous sensitive to Zosyn) - Currently with no diarrheal episodes or increase stool output from the ostomy ,monitor for any diarrhea, if significant then stool workup with ova and parasites, fecal leukocytes and C. difficile considering the patient has past medical history of C. difficile colitis -Continue on Oxygen through nasal cannula 2 to 3 L/min and saturation in the normal range -Monitor for hyponatremia currently resolved with adequate hydration -Adequate analgesia for chronic back pain with regular tylenol, oxycodein ( pt preference and to hold if constipation), gabapentin added 100mg at nightly for neuropathic pain. - Continue home medication amlodipine, isosorbide nitrate and losartan for hypertension. -Atherosclerotic disease of the heart, history of chest pain continue with oral nitrates, statins and clopidogrel as per the documentation from the cardiology in retrospective documentation. - ot/pt evaluation and bed to chair mobility since the patient ambulates using walker and wheelchair at home. -Avoid excessive use of opioids analgesics that can aggravate constipation. - dietitian consult considering low alb, physical deconditioning and concerns of malnourishment - VTE: Enoxaparin PDMP PDMP Reviewed: Not Reviewed Attestations Medical Necessity Statement*: Rocio Rivera's hospital stay will require greater than 2 midnights for management of colitis, acute epidydimitis and UTI Time Spent in Patient Care: Greater than 35 minutes (>than 50% of time spent in counselling and/or direct pt care on unit). 40 Critical Care Time: The high probability of a clinically significant, sudden or life threatening deterioration, as referenced in this documentation, required my full and direct attention, intervention and personal management. The critical care time shown is in addition to time spent performing any reported separately billable procedures and includes the following: [x] Data and vital sign review and interpretation [x] Patient assessment, examination and intervention [x] Medication orders and management [x] Patient/Family updates as able [x] Care Coordination and Documentation. Critical Care Time (min): 45 Other Attestations: Patient condition has been discussed at length with the patient/family, I have independently reviewed the chart labs imaging and diagnostics and EKG. The patient/family has been informed about the current condition and further plan of care. Agreed with the plan of care and understood without any language barrier. This documentation was created by [employer] centrifugal casting machine tender software. Every effort was made to ensure accuracy of centrifugal casting machine tender. Any obvious errors or omissions should be clarified with the author of the document. Coding Level of Care Code 84988 Diagnoses Colitis K52.9 Acute epididymitis N45.1 Acute pyelonephritis N10 Hyponatremia E87.1 HTN (hypertension) I10 Neuropathic pain M79.2 Malnourished E46
--- NOTE | 2025-06-22 11:58 | PC.NURSE ---
noted pt has intermittent coughing non productive. Observe that he started to have pain when he push down to cough. Educated pt to place pillow and gold belly to help splint the area when he coughs. Pt stated, it does not help. Educated pt on side effects of Morphine and other pain medication.
--- NOTE | 2025-06-22 17:26 | P.PN_ITS ---
Subjective 2 Subjective: Tolerating clears Ostomy functional Vitals/I&O/Wt Last Vital Signs Temp 97.5 F L 06/22/25 16:00 Pulse 109 H 06/22/25 16:00 Resp 16 06/22/25 17:05 BP 145/70 06/22/25 16:00 Pulse Ox 92 06/22/25 17:05 O2 Del Method Nasal Cannula 06/22/25 16:00 O2 Flow Rate 2 06/22/25 16:00 06/22/25 06/22/25 06/22/25 06:59 14:59 22:59 Intake Total 200 / 2710 1890 / 1890 Output Total 1600 / 3450 Balance -1400 / -740 1890 / 1890 Weight last 48 hrs Weight 155 lb 12.8 oz Weight 199 lb 8 oz Physical Exam 2 Narrative: Chest: Unlabored breathing room air. No lymphadenopathy. Heart: Regular rate and rhythm. Abdomen: Soft, nontender, nondistended. No masses or lymphadenopathy. Ostomy functional Urinary Catheter Management: Abbasi: Cath Placed During This Visit: yes Reason for Continuing Indwelling Catheter: Accurate Measurement of Urinary Output in Critically Ill Patients Urinary Catheter Date of Insertion: 06/18/25 Urinary Catheter Time of Insertion: 11:10 Data 06/22/25 02:01 06/22/25 02:01 Micro: Microbiology 06/21/25 13:20 Urine Culture - Preliminary Urine,Clean Catch 06/22/25 07:35 Occult Blood (FIT) - Final Stool - Stool Aspirate A&P Assessment and plan 1. Ileus: Plan: 70-year-old male admitted with an ileus. Tolerating clears. Advance diet as tolerated. Rest of care per hospitalist PDMP PDMP Reviewed: Not Reviewed Attestations 2 Medical Necessity Statement*: N/A Coding Level of Care Code 23480 Diagnoses Ileus K56.7
[2025-06-23] VITALS (19 sets, daily range): BP systolic 100–156; BP diastolic 59–77; PULSE 58–80; RESP 16–23; TEMP 36.5–36.8; O2SAT 92–97; BMI 29.9
[2025-06-23] MEDS: oxyCODONE-APAP 5-325 mg Tablet 1 TAB PO ×4 (01:34→19:40)
[2025-06-23] MEDS: piperacillin-tazobactam 3.375 GM in sodium chloride 0.9% (plus) 50 ML IV ×3 (01:35→17:53)
[2025-06-23 03:10] LABS: Hematocrit 34.5 % (37-53); Hemoglobin 10.60 g/dL (11.27-16.99); Mean Corpuscular HGB Conc 30.7 g/dL (30-55); Mean Corpuscular Hemoglobin 28.3 pg (27-33); Mean Corpuscular Volume 92.2 fl (82-101); Nucleated Red Blood Cells % 0 %; Platelet Count 136 10^3/cmm (157-399); Red Blood Count 3.74 10^6/uL (3.85-5.65); White Blood Count 9.12 10^3/uL (3.29-11.43)
[2025-06-23 03:36] LABS: Alanine Aminotransferase 13 U/L (0-41); Albumin Level 2.9 g/dL (3.5-5.2); Alkaline Phosphatase 80 U/L (40-130); Anion Gap 12.2 (5-19); Aspartate Amino Transferase 19 U/L (0-40); Blood Urea Nitrogen 4 mg/dL (8-23); Calcium 8.1 mg/dL (8.5-10.5); Carbon Dioxide 25 mmol/L (22-29); Chloride 102 mmol/L (98-107); Creatinine Clr Calc Pharmacy 75.9393; Globulin 4.0 g/dL (1.3-4.6); Glucose 94 mg/dL (65-115); Osmolality Calculated 277 mOsm/kg (285-295); Potassium 4.2 mmol/L (3.5-5.1); Sodium 135 mmol/L (136-145); Total Protein 6.9 g/dL (6.6-8.7)
--- NOTE | 2025-06-23 07:56 | PC.NURSE ---
This FARE ENFORCEMENT OFFICER asked pt if he was hurting and where. pt stated i am but it doesnt matter. No one cares, you dont care. this FARE ENFORCEMENT OFFICER said i care i need to know so i can tell my nurse. he stated the nurses dont care they never give me pain meds or cared. This servicing rep reported it to pts nurse about his pain.
--- NOTE | 2025-06-23 09:13 | P.DS_ITS ---
Discharge Providers Date of Admission: 06/18/25 07:56 Date of Discharge: June 23, 2025 Attending Provider at Admission: Rafiq Esposito Attending Provider at Discharge: Faith Biswas MD Primary Care Provider: BERNARD Villa Diagnoses at Discharge Discharge Diagnosis 1. Ileus: Reason for Visit Reason for Visit: abdomen pain Brief History: Rocio Rivera is a 70 year old gentleman with a history of hernia repair with mesh, chronic hip infection complicated by left lower-extremity amputation and hemipelvectomy, a permanent colostomy, chronic obstructive pulmonary disease (COPD) on home oxygen, prior Clostridioides difficile (C. diff) colitis, and chronic back pain who presents after several days of worsening abdominal discomfort. He reports scant, mostly liquid output from the colostomy and, overnight, an unexpected passage of a large amount of stool per rectum for the first time in 13 years. He describes associated back/flank pain and intermittent nausea with occasional vomiting; oral intake has been poor. Emergency department evaluation showed serum sodium 119 mEq/L and urinalysis with >100 white blood cells and 11?20 red blood cells per high-power field. Computed tomography (CT) of the abdomen and pelvis demonstrated no bowel obstruction but did note perinephric stranding suggestive of pyelonephritis. General surgery assessed him and found no evidence of an obstructed hernia. He performs intermittent self- catheterization at home and reports difficulty obtaining appropriately firm catheters. He denies current alcohol use and quit smoking four years ago. No medication allergies are reported. Hospital Course Hospital Course The patient was found to have leukocytosis and investigation of workup showed possibility of acute pyelonephritis, colitis. Urine cultures were sent and were remarkable for Enterobacter erogenous. The patient was started on adequate antibiotic according to sensitivity. The patient also had right testicular pain ultrasound showed features of acute epididymitis. The patient antibiotics were escalated to piperacillin tazobactam and his WBCs improved significantly. He was managed with adequate analgesia for his neuropathic pain. He was also provided OT PT evaluation. The patient diet was proceeded as per surgery evaluation and he was able to tolerate diet as advanced from clear fluids to pur?e. The patient had at baseline neuropathic pain for which he takes strong analgesics requiring codeine and morphine. And adequate analgesia was provided after discussing with the patient of benefits and also counseled that excessive use of opiate analgesics can lead us to constipation and obstruction which she understood. His hospital course was uncomplicated. The patient condition was stabilized and he was back to his baseline before discharge. All the management throughout has been discussed with the patient with the risk and benefit without any language barrier and he agreed with the plan of care. Physical Exam Narrative: General: Alert oriented x3, patient seen comfortably in the bed without any distress HEENT: Normocephalic, atraumatic, EOMI, breathing at room air comfortably Cardio: Regular rate rhythm, normal S1-S2, no murmurs rubs gallops, JVD normal Respiratory: Good bilateral air entry, no wheezes no rhonchi appreciated GI: Abdomen soft, mildly distended with scar hector of surgery and colostomy working. Normal active bowel sounds no organomegaly appreciated : Patient examined in the presence of janitorial supervisor/assigned nurse Iza Pamelashandra. With mild redness and tenderness has been subsided. the size has reduced relative to yesterday. Scrotal edema is improving, on Abbasi's catheter Neuro: No focal deficits Behavior: Appropriate and cooperative Extremities: Pulses 2+, no edema, no cyanosis Skin: Unremarkable Urinary Catheter Management: Abbasi: Cath Placed During This Visit: yes Reason for Continuing Indwelling Catheter: Accurate Measurement of Urinary Output in Critically Ill Patients Urinary Catheter Date of Insertion: 06/18/25 Urinary Catheter Time of Insertion: 11:10 Discharge Data Studies Completed and Pending Completed Studies During Hospitalization Category Date Time Status CT abdomen pelvis w con* [id number] Stat Cat Scan 06/18/25 05:05 Completed US scrotum [id number] Routine Ultrasound 06/20/25 17:58 Completed Pending at discharge Category Date Time Status C.Diff PCR (Lab) Routine Lab 06/19/25 07:20 Uncollected Urine Culture Stat Lab 06/21/25 13:20 Results Radiology Impressions Abdomen/Pelvis CT 06/18/25 05:05 IMPRESSION: 1. Mild nonspecific ileus versus gastroenteritis versus partial small bowel obstruction. 2. 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 3. Slight bulging of small bowel into anterolateral right lower quadrant abdominal wall small Spigelian hernia. 4. Cholelithiasis. 5. Nonspecific bilateral perinephric fat stranding. Possible pyelonephritis/UTI should be considered. 6. Chronically thickened urinary bladder with prominent 9.9 x 7.5 cm posterior rightward bladder Hutch diverticulum. Consider chronic cystitis/UTI. 7. 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 8. Atherosclerotic vascular disease including coronary artery disease. Scrotum Ultrasound 06/20/25 17:58 IMPRESSION: 1. Right epididymis appears enlarged and hypervascular. Suspect epididymitis. 2. Small right hydrocele. 3. No significant testicular abnormality identified. Laboratory Results WBC 9.12 10^3/uL (3.29-11.43) 06/23/25 02:14 Corrected WBC Cancelled 06/21/25 07:39 RBC 3.74 10^6/uL (3.85-5.65) L 06/23/25 02:14 Hgb 10.60 g/dL (11.27-16.99) L 06/23/25 02:14 Hct 34.5 % (37-53) L 06/23/25 02:14 MCV 92.2 fl (82-101) 06/23/25 02:14 MCH 28.3 pg (27-33) 06/23/25 02:14 MCHC 30.7 g/dL (30-55) 06/23/25 02:14 RDW 13.5 % (12.1-15.1) 06/23/25 02:14 Plt Count 136 10^3/cmm (157-399) L 06/23/25 02:14 MPV 9.0 fL (7.4-10.4) 06/23/25 02:14 Gran % Cancelled 06/21/25 07:39 Neut % (Auto) 75.0 % 06/23/25 02:14 Lymph % (Auto) 11.4 % 06/23/25 02:14 [place] % (Auto) 9.3 % 06/23/25 02:14 Eos % (Auto) 3.7 % 06/23/25 02:14 Baso % (Auto) 0.4 % 06/23/25 02:14 Neut # (Auto) 6.83 10^3/uL (1.8-7.7) 06/23/25 02:14 Lymph # (Auto) 1.0 10^3/uL (0.8-4.8) 06/23/25 02:14 [place] # (Auto) 0.9 10^3/uL (0.2-0.9) 06/23/25 02:14 Eos # (Auto) 0.3 10^3/uL (0.0-0.8) 06/23/25 02:14 Baso # (Auto) 0.0 10^3/uL (0.0-0.1) 06/23/25 02:14 Absolute Gran (auto) Cancelled 06/21/25 07:39 Nucleated RBC % (auto) 0 % 06/23/25 02:14 Nucleated RBCs # 0.0 /100WBC 06/23/25 02:14 Sodium 135 mmol/L (136-145) L 06/23/25 02:14 Potassium 4.2 mmol/L (3.5-5.1) 06/23/25 02:14 Chloride 102 mmol/L (98-107) 06/23/25 02:14 Carbon Dioxide 25 mmol/L (22-29) 06/23/25 02:14 Anion Gap 12.2 (5-19) 06/23/25 02:14 BUN 4 mg/dL (8-23) L 06/23/25 02:14 Creatinine 0.9 mg/dL (0.7-1.2) 06/23/25 02:14 GFR Calculation 83.7 mL/min (90-130) L 06/23/25 02:14 Glucose 94 mg/dL (65-115) 06/23/25 02:14 Calculated Osmolality 277 mOsm/kg (285-295) L 06/23/25 02:14 Lactic Acid 0.5 mmol/L (0.5-2.2) 06/18/25 05:00 Calcium 8.1 mg/dL (8.5-10.5) L 06/23/25 02:14 Magnesium 1.5 mg/dL (1.7-2.3) L 06/18/25 05:00 Total Bilirubin 0.4 mg/dL (0.15-1.2) 06/23/25 02:14 AST 19 U/L (0-40) 06/23/25 02:14 ALT 13 U/L (0-41) 06/23/25 02:14 Alkaline Phosphatase 80 U/L (40-130) 06/23/25 02:14 Troponin T Baseline 22 ng/L (0-15) H 06/19/25 02:40 Troponin T 120 Minute 24.02 ng/L (0-15) H 06/19/25 04:45 Delta Troponin T 2.02 ABS# (0-10) 06/19/25 04:45 Troponin T Hi Sens 6Hr 22.21 ng/L (0-15) H 06/19/25 08:28 Troponin T Hi Sens 6Hr Delta 0.21 ng/L (0-12) 06/19/25 08:28 Total Protein 6.9 g/dL (6.6-8.7) 06/23/25 02:14 Albumin 2.9 g/dL (3.5-5.2) L 06/23/25 02:14 Globulin 4.0 g/dL (1.3-4.6) 06/23/25 02:14 Lipase 54 U/L (13-60) 06/18/25 05:00 Urine Color Yellow (Yellow) 06/21/25 13:20 Urine Appearance Clear (CLEAR) 06/21/25 13:20 Urine pH 7.5 (5-7) 06/21/25 13:20 Ur Specific Baxter 1.007 (1.005-1.030) 06/21/25 13:20 Urine Protein 1+ (Negative) A 06/21/25 13:20 Urine Glucose (UA) Negative (Normal) 06/21/25 13:20 Urine Ketones Negative (Negative) 06/21/25 13:20 Urine Blood Trace (Negative) A 06/21/25 13:20 Urine Nitrate Negative (Negative) 06/21/25 13:20 Urine Bilirubin Negative (Negative) 06/21/25 13:20 Urine Urobilinogen 0.2 mg/dL (Negative) 06/21/25 13:20 Ur Leukocyte Esterase 2+ (Negative) A 06/21/25 13:20 Urine RBC 0-2 /hpf (0-2) 06/21/25 13:20 Urine WBC 21-50 /hpf (0-5) H 06/21/25 13:20 Ur Squamous Epith Cells 0-5 /hpf (0-5) 06/21/25 13:20 Amorphous Sediment Not Reportable 06/21/25 13:20 Urine Bacteria None seen /hpf (NONE) 06/21/25 13:20 Hyaline Casts 14.06 /lpf 06/21/25 13:20 C. difficile (PCR) Negative (Negative) 06/18/25 10:45 Vitals Last Vital Signs Temp 98.1 F 06/23/25 07:53 Pulse 69 06/23/25 08:51 Resp 18 06/23/25 08:51 BP 156/77 06/23/25 07:53 Pulse Ox 94 06/23/25 08:51 O2 Del Method Nasal Cannula 06/23/25 08:51 O2 Flow Rate 3 06/23/25 08:51 Discharge Plan Discharge Patient Disposition: Home Health Service Condition: Stable Prescriptions: New ciprofloxacin HCl [Cipro] 500 mg tablet 500 mg PO BID Qty: 12 0RF metronidazole 500 mg tablet 500 mg PO Q8H 12 Days Qty: 36 0RF Continued (DME) [id number] : Skin protection wheelchair seat cushion, adjustable, width less than 22 inches, any depth. See Rx Instructions .Route .MEDSUPPLY Qty: 1 0RF Rx Instructions: As directed (DME) [id number] Power wheelchair, group 2 standard, sling/solid See Rx Instructions .Route .MEDSUPPLY Qty: 1 0RF Rx Instructions: As directed (DME) wheelchair See Rx Instructions .Route .MEDSUPPLY Qty: 1 0RF Rx Instructions: As directed (DME) [id number] front wheeled walker See Rx Instructions .Route .MEDSUPPLY Qty: 1 0RF Rx Instructions: As directed Nanoference 160-9-4.8 mcg/actuation HFA aerosol inhaler 2 inh inhalation BID Qty: 10.7 5RF Repatha SureClick 140 mg/mL pen injector 140 mg SUBCUT .every 14 days Qty: 2 5RF tamsulosin [Flomax] 0.4 mg capsule 0.4 mg PO DAILY Qty: 90 1RF albuterol sulfate 2.5 mg /3 mL (0.083 %) solution for nebulization 2.5 mg inhalation Q4H PRN (Reason: shortness of breath or wheezing) Qty: 300 5RF isosorbide mononitrate 60 mg tablet extended release 24 hr 60 mg PO DAILY Qty: 90 3RF clopidogrel 75 mg tablet See Rx Instructions .ROUTE .COMPLEX Qty: 90 3RF Dose Instruction: TAKE ONE TABLET BY MOUTH DAILY Rx Instructions: TAKE ONE TABLET BY MOUTH DAILY atorvastatin 80 mg tablet See Rx Instructions .ROUTE .COMPLEX Qty: 90 3RF Dose Instruction: TAKE ONE TABLET BY MOUTH ONCE DAILY Rx Instructions: TAKE ONE TABLET BY MOUTH ONCE DAILY amlodipine [Norvasc] 5 mg tablet 5 mg PO DAILY Qty: 90 3RF (DME) Oxygen concentrator and portable NC 2L See Rx Instructions .ROUTE .MEDSUPPLY Qty: 1 0RF Rx Instructions: Use 3L NC 24 hours for 99 months losartan 25 mg tablet 25 mg PO DAILY 14 Days Qty: 14 0RF Rx Instructions: FOR 14 DAYS carvedilol 12.5 mg tablet 12.5 mg PO BID Qty: 28 0RF Rx Instructions: Decrease due to heart rate in 50's oxycodone 20 mg Tablet 20 mg PO Q6H PRN (Reason: Pain) Rx Instructions: Take 3 and a half tablets a day. Referrals: [facility] [Outside] Imtiaz Shields FNP-C [Primary Care Provider, Family Practice] - 06/30/25 2:00 pm Discharge Diet: Advance as tolerated Discharge Activity: Resume usual activity, Limit activity as instructed and Use walker/crutches as instructed Patient Instructions: Opioid Safety, Patient Portal & Agnes Instructions Discharge Attestations Time Spent in Discharge Care*: greater than 30 min Specific Discharge Activities: educating patient, educating and/or supporting family/caregiver, discussing with pcp/other providers, discussing with case management assistant/social workers/dc planners, documenting/other paperwork and evaluating patient/reviewing data Status at Discharge: Cognitive status at discharge: cognitively intact , Behavioral status at discharge: cooperative , Functional status at discharge: other assisted ambulation , Overall status at discharge: patient is back to baseline Quality Metrics Clinical Quality Measures [ No reported AMI, CVA or VTE this stay] Coding Level of Care Code 34383 Diagnoses Ileus K56.7
[2025-06-23] MEDS: morphine 4 mg/mL SDV 1 mL IVP ×2 (09:15→20:22)
--- NOTE | 2025-06-23 09:42 | PC.SOCIAL ---
IMM Update Updated pt on IMM. No questions voiced. Provided pt a copy. Initialed, dated, & timed copy in chart.
--- NOTE | 2025-06-23 11:17 | PC.NURSE ---
pt stated he is still in pain but more mild. Pt stated, I will have pain all the time forever. Pt requested to speak again to hospitalist Dr Biswas before plan on discharge.
--- NOTE | 2025-06-23 13:43 | PM.PN ---
Subjective Subjective: Tolerating clears and advance to pur?ed diet, tolerating without any abdominal discomfort Ostomy functional Vitals/I&O/Wt Last Vital Signs Temp 98.1 F 06/23/25 07:53 Pulse 80 06/23/25 12:00 Resp 23 H 06/23/25 12:00 BP 141/61 06/23/25 12:00 Pulse Ox 95 06/23/25 12:00 O2 Del Method Nasal Cannula 06/23/25 11:24 O2 Flow Rate 3 06/23/25 11:24 06/22/25 06/23/25 06/23/25 22:59 06:59 14:59 Intake Total 360 / 2250 778.75 / 3028.75 600 / 600 Output Total 800 / 1750 2400 / 4150 450 / 450 Balance -440 / 500 -1621.25 / -1121.25 150 / 150 Weight last 48 hrs Weight 89.443 kg Weight 70.67 kg Physical Exam Narrative: General: Alert oriented x3, patient seen comfortably in the bed without any distress HEENT: Normocephalic, atraumatic, EOMI, breathing at room air comfortably Cardio: Regular rate rhythm, normal S1-S2, no murmurs rubs gallops, JVD normal Respiratory: Good bilateral air entry, no wheezes no rhonchi appreciated GI: Abdomen soft, mildly distended with scar hector of surgery and colostomy working. Normal active bowel sounds no organomegaly appreciated : Patient examined in the presence of tacking machine operator/assigned nurse Ms. Ventura. With mild redness and tenderness has been subsided. the size has reduced relative to yesterday. Scrotal edema is improving, on Abbasi's catheter Neuro: No focal deficits Behavior: Appropriate and cooperative Extremities: Pulses 2+, no edema, no cyanosis Skin: Unremarkable Urinary Catheter Management: Abbasi: Cath Placed During This Visit: yes Reason for Continuing Indwelling Catheter: Accurate Measurement of Urinary Output in Critically Ill Patients Urinary Catheter Date of Insertion: 06/18/25 Urinary Catheter Time of Insertion: 11:10 Data 06/23/25 02:14 06/23/25 02:14 Micro: Microbiology 06/21/25 13:20 Urine Culture - Final Urine,Clean Catch A&P Assessment and plan 1. Ileus: Plan: Rocio Rivera is a 70 year old gentleman with a history of hernia repair with mesh, chronic hip infection complicated by left lower-extremity amputation and hemipelvectomy, a permanent colostomy, chronic obstructive pulmonary disease (COPD) on home oxygen, prior Clostridioides difficile (C. diff) colitis, and chronic back pain who presents after several days of worsening abdominal discomfort. Patient performs self catheterization intermittently. Further workup showed UA with possibility of UTI and CT scan was done showed possibility of complicated pyelonephritis and colitis. Patient had right testicular pain and ultrasound showed features of acute epididymitis -Surgery on board for management of ileus, resolved and to proceed with diet as tolerated -Broad-spectrum antibiotic coverage for colitis, acute epidydimitis, with zosyn,( urine culture shows Enterobacter erogenous sensitive to Zosyn) and to discharge on ciprofloxacin and metronidazole for total 10 to 14 days at home - No diarrhea episodes and no abdominal bloating or distention or any blood in the output -Continue on Oxygen through nasal cannula 2 to 3 L/min and saturation in the normal range which is patient's baseline -Adequate analgesia for chronic back pain with regular tylenol, oxycodein ( pt preference and to hold if constipation), gabapentin added 100mg at nightly for neuropathic pain. - Continue home medication amlodipine, isosorbide nitrate and losartan for hypertension. -Atherosclerotic disease of the heart, history of chest pain continue with oral nitrates, statins and clopidogrel as per the documentation from the cardiology in retrospective documentation. - ot/pt evaluation and bed to chair mobility since the patient ambulates using walker and wheelchair at home. -Avoid excessive use of opioids analgesics that can aggravate constipation. - dietitian consult considering low alb, physical deconditioning and concerns of malnourishment - VTE: Enoxaparin PDMP PDMP Reviewed: Not Reviewed Attestations Medical Necessity Statement*: Rocio Rivera's hospital stay will be less than 2 midnights for management of colitis/UTI and epididymitis Time Spent in Patient Care: 16 - 35 minutes (>than 50% of time spent in counselling and/or direct pt care on unit). Other Attestations: Patient condition has been discussed at length with the patient/family, I have independently reviewed the chart labs imaging and diagnostics and EKG. I have discussed the goals of care and code status with the patient/family/NOK/legal field support representative, and documented accordingly. The patient/family has been informed about the current condition and further plan of care. Agreed with the plan of care and understood without any language barrier. This documentation was created by [employer] senior integration architect software. Every effort was made to ensure accuracy of senior integration architect. Any obvious errors or omissions should be clarified with the author of the document. Coding Level of Care Code 79805 Diagnoses Ileus K56.7
--- NOTE | 2025-06-23 13:43 | PC.NURSE ---
pt stated he is tolerating the pureed diet. no nausea or vomiting, emptied his ostomy bag w/450 mls stool amt. pt still has pain but he said this is chronic for him.
--- NOTE | 2025-06-23 13:44 | PC.NURSE ---
received order from dr Biswas to advance diet to gi soft. notified that he is tolerating his pureed diet for lunch.
--- NOTE | 2025-06-23 14:00 | PC.NURSE ---
Patient was checked in his room, talking on the phone. looked comfortable. Pt moved in the bed and he started to complain of pain. he said it is hard to move in this bed. He stated he removed his lidocaine patch himself and put it is on his knee due to pain he said.
--- NOTE | 2025-06-23 20:24 | PC.NURSE ---
Patient was notified that he is going to be transferred up to [facility] after he received his pain medication. Patient became very aggravated stating I am not leaving this room. If I had my other leg I would walk out of here. I feel like a piece of trash getting tossed around. Educated patient that he had [facility] orders originally but do to staffing and lack of beds he came to [facility]. Per APPRENTICE PAINTER HAND patient mentioned that he had a medical scientific officer and would hector for us moving him. Again educated patient he would received the same care and treatment just on a different floor. Report given to Taylor CUNNINGHAM.
[2025-06-24] VITALS (11 sets, daily range): BP systolic 154–180; BP diastolic 70–80; PULSE 63–77; RESP 16–18; TEMP 36.6–36.8; O2SAT 3–95
[2025-06-24] MEDS: morphine 4 mg/mL SDV 1 mL IVP ×2 (00:40→11:30)
[2025-06-24] MEDS: oxyCODONE-APAP 5-325 mg Tablet 1 TAB PO ×2 (01:04→06:54)
[2025-06-24] MEDS: piperacillin-tazobactam 3.375 GM in sodium chloride 0.9% (plus) 50 ML IV ×2 (02:49→10:56)
[2025-06-24 05:04] LABS: Hematocrit 33.7 % (37-53); Hemoglobin 10.30 g/dL (11.27-16.99); Mean Corpuscular HGB Conc 30.6 g/dL (30-55); Mean Corpuscular Hemoglobin 28.2 pg (27-33); Mean Corpuscular Volume 92.3 fl (82-101); Nucleated Red Blood Cells % 0 %; Platelet Count 150 10^3/cmm (157-399); Red Blood Count 3.65 10^6/uL (3.85-5.65); White Blood Count 7.76 10^3/uL (3.29-11.43)
[2025-06-24 05:24] LABS: Alanine Aminotransferase 13 U/L (0-41); Albumin Level 2.7 g/dL (3.5-5.2); Alkaline Phosphatase 79 U/L (40-130); Anion Gap 11.0 (5-19); Aspartate Amino Transferase 20 U/L (0-40); Blood Urea Nitrogen 8 mg/dL (8-23); Calcium 8.1 mg/dL (8.5-10.5); Carbon Dioxide 24 mmol/L (22-29); Chloride 101 mmol/L (98-107); Creatinine Clr Calc Pharmacy 75.3768; Globulin 4.7 g/dL (1.3-4.6); Glucose 127 mg/dL (65-115); Osmolality Calculated 274 mOsm/kg (285-295); Potassium 4.0 mmol/L (3.5-5.1); Sodium 132 mmol/L (136-145); Total Protein 7.4 g/dL (6.6-8.7)
--- NOTE | 2025-06-24 12:42 | PM.DCS ---
Discharge Providers Date of Admission: 06/18/25 07:56 Date of Discharge: June 24, 2025 Attending Provider at Admission: Rafiq Esposito Attending Provider at Discharge: Michelle Kwong MD Primary Care Provider: BERNARD Villa Diagnoses at Discharge Discharge Diagnosis 1. Ileus: Details from hospital stay: Other discharge diagnosis 2 pyelonephritis 3 acute colitis Reason for Visit Reason for Visit: abdomen pain Hospital Course Hospital Course The patient was found to have leukocytosis and investigation of workup showed possibility of acute pyelonephritis, colitis. Urine cultures were sent and were remarkable for Enterobacter erogenous. The patient was started on adequate antibiotic according to sensitivity. The patient also had right testicular pain ultrasound showed features of acute epididymitis. The patient antibiotics were escalated to piperacillin tazobactam and his WBCs improved significantly. He was managed with adequate analgesia for his neuropathic pain. He was also provided OT PT evaluation. The patient diet was proceeded as per surgery evaluation and he was able to tolerate diet as advanced from clear fluids to pur?e. The patient had at baseline neuropathic pain for which he takes strong analgesics requiring codeine and morphine. And adequate analgesia was provided after discussing with the patient of benefits and also counseled that excessive use of opiate analgesics can lead us to constipation and obstruction which she understood. His hospital course was uncomplicated. The patient condition was stabilized and he was back to his baseline before discharge. All the management throughout has been discussed with the patient with the risk and benefit without any language barrier and he agreed with the plan of care. Patient was treated for pyelonephritis and acute colitis on antibiotics going home following IV antibiotics in house. Physical Exam Narrative: Generally patient looks good and feels good and ready to go home. is coming to slat pickler the patient to go today. HEENT normocephalic atraumatic neck neck is supple cardiovascular heart rate is regular lungs are pretty much clear abdomen soft nontender nondistended unremarkable extremities are intact no edema has good pulses neurology has no focality lab studies lab studies reviewed and noted. Urinary Catheter Management: Abbasi: Cath Placed During This Visit: yes Reason for Continuing Indwelling Catheter: Acute Urinary Retention or Obstruction Urinary Catheter Date of Insertion: 06/18/25 Urinary Catheter Time of Insertion: 11:10 Discharge Data Studies Completed and Pending Completed Studies During Hospitalization Category Date Time Status CT abdomen pelvis w con* [id number] Stat Cat Scan 06/18/25 05:05 Completed US scrotum [id number] Routine Ultrasound 06/20/25 17:58 Completed Pending at discharge Category Date Time Status C.Diff PCR (Lab) Routine Lab 06/19/25 07:20 Uncollected Radiology Impressions Abdomen/Pelvis CT 06/18/25 05:05 IMPRESSION: 1. Mild nonspecific ileus versus gastroenteritis versus partial small bowel obstruction. 2. 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 3. Slight bulging of small bowel into anterolateral right lower quadrant abdominal wall small Spigelian hernia. 4. Cholelithiasis. 5. Nonspecific bilateral perinephric fat stranding. Possible pyelonephritis/UTI should be considered. 6. Chronically thickened urinary bladder with prominent 9.9 x 7.5 cm posterior rightward bladder Hutch diverticulum. Consider chronic cystitis/UTI. 7. 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 8. Atherosclerotic vascular disease including coronary artery disease. Scrotum Ultrasound 06/20/25 17:58 IMPRESSION: 1. Right epididymis appears enlarged and hypervascular. Suspect epididymitis. 2. Small right hydrocele. 3. No significant testicular abnormality identified. Laboratory Results WBC 7.76 10^3/uL (3.29-11.43) 06/24/25 04:20 Corrected WBC Cancelled 06/21/25 07:39 RBC 3.65 10^6/uL (3.85-5.65) L 06/24/25 04:20 Hgb 10.30 g/dL (11.27-16.99) L 06/24/25 04:20 Hct 33.7 % (37-53) L 06/24/25 04:20 MCV 92.3 fl (82-101) 06/24/25 04:20 MCH 28.2 pg (27-33) 06/24/25 04:20 MCHC 30.6 g/dL (30-55) 06/24/25 04:20 RDW 13.3 % (12.1-15.1) 06/24/25 04:20 Plt Count 150 10^3/cmm (157-399) L 06/24/25 04:20 MPV 9.1 fL (7.4-10.4) 06/24/25 04:20 Gran % Cancelled 06/21/25 07:39 Neut % (Auto) 76.5 % 06/24/25 04:20 Lymph % (Auto) 12.0 % 06/24/25 04:20 [place] % (Auto) 8.1 % 06/24/25 04:20 Eos % (Auto) 2.6 % 06/24/25 04:20 Baso % (Auto) 0.5 % 06/24/25 04:20 Neut # (Auto) 5.94 10^3/uL (1.8-7.7) 06/24/25 04:20 Lymph # (Auto) 0.9 10^3/uL (0.8-4.8) 06/24/25 04:20 [place] # (Auto) 0.6 10^3/uL (0.2-0.9) 06/24/25 04:20 Eos # (Auto) 0.2 10^3/uL (0.0-0.8) 06/24/25 04:20 Baso # (Auto) 0.0 10^3/uL (0.0-0.1) 06/24/25 04:20 Absolute Gran (auto) Cancelled 06/21/25 07:39 Nucleated RBC % (auto) 0 % 06/24/25 04:20 Nucleated RBCs # 0.0 /100WBC 06/24/25 04:20 Sodium 132 mmol/L (136-145) L 06/24/25 04:20 Potassium 4.0 mmol/L (3.5-5.1) 06/24/25 04:20 Chloride 101 mmol/L (98-107) 06/24/25 04:20 Carbon Dioxide 24 mmol/L (22-29) 06/24/25 04:20 Anion Gap 11.0 (5-19) 06/24/25 04:20 BUN 8 mg/dL (8-23) 06/24/25 04:20 Creatinine 1.0 mg/dL (0.7-1.2) 06/24/25 04:20 GFR Calculation 74.1 mL/min (90-130) L 06/24/25 04:20 Glucose 127 mg/dL (65-115) H 06/24/25 04:20 Calculated Osmolality 274 mOsm/kg (285-295) L 06/24/25 04:20 Lactic Acid 0.5 mmol/L (0.5-2.2) 06/18/25 05:00 Calcium 8.1 mg/dL (8.5-10.5) L 06/24/25 04:20 Magnesium 1.5 mg/dL (1.7-2.3) L 06/18/25 05:00 Total Bilirubin 0.3 mg/dL (0.15-1.2) 06/24/25 04:20 AST 20 U/L (0-40) 06/24/25 04:20 ALT 13 U/L (0-41) 06/24/25 04:20 Alkaline Phosphatase 79 U/L (40-130) 06/24/25 04:20 Troponin T Baseline 22 ng/L (0-15) H 06/19/25 02:40 Troponin T 120 Minute 24.02 ng/L (0-15) H 06/19/25 04:45 Delta Troponin T 2.02 ABS# (0-10) 06/19/25 04:45 Troponin T Hi Sens 6Hr 22.21 ng/L (0-15) H 06/19/25 08:28 Troponin T Hi Sens 6Hr Delta 0.21 ng/L (0-12) 06/19/25 08:28 Total Protein 7.4 g/dL (6.6-8.7) 06/24/25 04:20 Albumin 2.7 g/dL (3.5-5.2) L 06/24/25 04:20 Globulin 4.7 g/dL (1.3-4.6) H 06/24/25 04:20 Lipase 54 U/L (13-60) 06/18/25 05:00 Urine Color Yellow (Yellow) 06/21/25 13:20 Urine Appearance Clear (CLEAR) 06/21/25 13:20 Urine pH 7.5 (5-7) 06/21/25 13:20 Ur Specific [place] 1.007 (1.005-1.030) 06/21/25 13:20 Urine Protein 1+ (Negative) A 06/21/25 13:20 Urine Glucose (UA) Negative (Normal) 06/21/25 13:20 Urine Ketones Negative (Negative) 06/21/25 13:20 Urine Blood Trace (Negative) A 06/21/25 13:20 Urine Nitrate Negative (Negative) 06/21/25 13:20 Urine Bilirubin Negative (Negative) 06/21/25 13:20 Urine Urobilinogen 0.2 mg/dL (Negative) 06/21/25 13:20 Ur Leukocyte Esterase 2+ (Negative) A 06/21/25 13:20 Urine RBC 0-2 /hpf (0-2) 06/21/25 13:20 Urine WBC 21-50 /hpf (0-5) H 06/21/25 13:20 Ur Squamous Epith Cells 0-5 /hpf (0-5) 06/21/25 13:20 Amorphous Sediment Not Reportable 06/21/25 13:20 Urine Bacteria None seen /hpf (NONE) 06/21/25 13:20 Hyaline Casts 14.06 /lpf 06/21/25 13:20 C. difficile (PCR) Negative (Negative) 06/18/25 10:45 Vitals Last Vital Signs Temp 98.0 F 06/24/25 11:08 Pulse 77 06/24/25 11:08 Resp 18 06/24/25 11:30 BP 180/70 06/24/25 11:08 Pulse Ox 94 06/24/25 11:30 O2 Del Method Nasal Cannula 06/24/25 11:08 O2 Flow Rate 3 06/24/25 11:08 Discharge Plan Discharge Patient Disposition: Home Health Service Condition: Stable Prescriptions: New ciprofloxacin HCl [Cipro] 500 mg tablet 500 mg PO BID Qty: 12 0RF metronidazole 500 mg tablet 500 mg PO Q8H 12 Days Qty: 36 0RF Continued (DME) E2622 : Skin protection wheelchair seat cushion, adjustable, width less than 22 inches, any depth. See Rx Instructions .Route .MEDSUPPLY Qty: 1 0RF Rx Instructions: As directed (DME) K0822 Power wheelchair, group 2 standard, sling/solid See Rx Instructions .Route .MEDSUPPLY Qty: 1 0RF Rx Instructions: As directed (DME) wheelchair See Rx Instructions .Route .MEDSUPPLY Qty: 1 0RF Rx Instructions: As directed (DME) E0143 front wheeled walker See Rx Instructions .Route .MEDSUPPLY Qty: 1 0RF Rx Instructions: As directed [employer] 160-9-4.8 mcg/actuation HFA aerosol inhaler 2 inh inhalation BID Qty: 10.7 5RF Repatha SureClick 140 mg/mL pen injector 140 mg SUBCUT .every 14 days Qty: 2 5RF tamsulosin [Flomax] 0.4 mg capsule 0.4 mg PO DAILY Qty: 90 1RF albuterol sulfate 2.5 mg /3 mL (0.083 %) solution for nebulization 2.5 mg inhalation Q4H PRN (Reason: shortness of breath or wheezing) Qty: 300 5RF isosorbide mononitrate 60 mg tablet extended release 24 hr 60 mg PO DAILY Qty: 90 3RF clopidogrel 75 mg tablet See Rx Instructions .ROUTE .COMPLEX Qty: 90 3RF Dose Instruction: TAKE ONE TABLET BY MOUTH DAILY Rx Instructions: TAKE ONE TABLET BY MOUTH DAILY atorvastatin 80 mg tablet See Rx Instructions .ROUTE .COMPLEX Qty: 90 3RF Dose Instruction: TAKE ONE TABLET BY MOUTH ONCE DAILY Rx Instructions: TAKE ONE TABLET BY MOUTH ONCE DAILY amlodipine [Norvasc] 5 mg tablet 5 mg PO DAILY Qty: 90 3RF (DME) Oxygen concentrator and portable NC 2L See Rx Instructions .ROUTE .MEDSUPPLY Qty: 1 0RF Rx Instructions: Use 3L NC 24 hours for 99 months losartan 25 mg tablet 25 mg PO DAILY 14 Days Qty: 14 0RF Rx Instructions: FOR 14 DAYS carvedilol 12.5 mg tablet 12.5 mg PO BID Qty: 28 0RF Rx Instructions: Decrease due to heart rate in 50's oxycodone 20 mg Tablet 20 mg PO Q6H PRN (Reason: Pain) Rx Instructions: Take 3 and a half tablets a day. Shop Lead OK for DC: Hospitalist Discharge Order = DC NOW: Discharge Order (Routine); Ordered 06/24/25 Ordered By: Michelle Kwong Referrals: [facility] [Outside] Imtiaz Shields, INTERNAL MEDICINE VETERINARY TECHNICIAN-C [Primary Care Provider, Family Practice] - 06/30/25 2:00 pm Discharge Diet: Advance as tolerated Discharge Activity: Resume usual activity, Limit activity as instructed and Use walker/crutches as instructed Patient Instructions: Ciprofloxacin (By mouth), Metronidazole (By mouth), Colitis (ED), Opioid Safety, Patient Portal & Agnes Instructions Discharge Attestations Time Spent in Discharge Care*: less than 30 min Status at Discharge: Cognitive status at discharge: cognitively intact, Behavioral status at discharge: cooperative, Functional status at discharge: other assisted ambulation, Overall status at discharge: patient is back to baseline Quality Metrics Clinical Quality Measures [ No reported AMI, CVA or VTE this stay] Coding Level of Care Code 04979 Diagnoses Ileus K56.7 Time Spent (min) 30
--- NOTE | 2025-06-24 14:51 | PC.NURSE ---
Discussed discharge with patinet and spouse. went over all medications, with discharge instructions. All questions answered. Patient verbalized understanding.
== END 2025-06-24 13:18 | disposition home health service (06) | DRG 389 ==
LOC: ER 06:19 → MEDSURG 09:15 → ICU 09:36 → CSU 06-21 23:37 → MEDSURG 06-23 20:46
PROVIDERS: Emergency Medicine; Family Medicine; Student in an Organized Health Care Education/Training Program; Admitting Provider Internal Medicine; Emergency Provider Family Medicine; PCP Nurse Practitioner; Visit Provider Internal Medicine
DX: K56.7 Ileus, unspecified (principal); E87.1 Hypo-osmolality and hyponatremia; N10 Acute pyelonephritis; N13.8 Other obstructive and reflux uropathy; K52.9 Noninfective gastroenteritis and colitis, unspecified; N45.1 Epididymitis; B96.89 Other specified bacterial agents as the cause of diseases classified elsewhere; G62.9 Polyneuropathy, unspecified; J44.9 Chronic obstructive pulmonary disease, unspecified; G89.29 Other chronic pain; M54.9 Dorsalgia, unspecified; I10 Essential (primary) hypertension; I25.10 Atherosclerotic heart disease of native coronary artery without angina pectoris; K43.9 Ventral hernia without obstruction or gangrene; Z93.3 Colostomy status; Z89.622 Acquired absence of left hip joint; Z99.81 Dependence on supplemental oxygen; Z86.19 Personal history of other infectious and parasitic diseases; Z87.891 Personal history of nicotine dependence; Z79.02 Long term (current) use of antithrombotics/antiplatelets
CPT/HCPCS: 36415; 51702; 74177; 76870; 80048; 80053; 81001; 82274; 83605; 83690; 83735; 84295; 84484; 85025; 87077; 87086; 87186; 87493; 93005; 94640; 96372; 96374; 96375; 96376; 97161; 97530; 99214; 99285; J0360; J0696; J0744; J1650; J1956; J2270; J2405; J2543; J3475; J3490; J7030; J7040; J7626; J9999

== ENCOUNTER 2025-07-09 17:39 | Inpatient (IN) | payer MEDICARE, MEDICAID, SELFPAY ==
[2025-07-09] VITALS (11 sets, daily range): BP systolic 88–141; BP diastolic 52–94; PULSE 113–150; RESP 18–25; TEMP 36.5; O2SAT 93–98; BMI 28.2
--- OUTSIDE RECORDS SUMMARY | 2025-07-09 17:44 | XMS_ITS | Patient Health Record ---
Author Organization [facility] Address [address] [place] [address] Care Team Providers Care Motivational Speaker Name Role Phone Imtiaz Shields APRN Primary Care Provider Sunnihussein Juliet Sparks [phone] Allergies No Known Allergies Reason For Referral [...] W/U Status Risk Notes Problem Obstructive uropathy (7043274) Other obstructive and reflux uropathy (N13.8) Active confirmed Problem Lower urinary tract symptoms due to benign prostatic hypertrophy (00591439046247 ) Benign prostatic hyperplasia with lower urinary tract symptoms (N40.1) Active confirmed Problem Disorder of kidney and/or ureter (123175686) Nodule of kidney (N28.89) Active confirmed Problem Renal mass (203176852) Renal mass (N28.89) Active confirmed Problem 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 confirmed Problem Rheumatoid arthritis (69321938) Rheumatoid arthritis (714.0) 8 Active confirmed Epifanio-9859 11- Problem Generalized anxiety disorder (97241023) Anxiety, generalized (300.02) 8 Active confirmed Epifanio-9859 11- Problem Tobacco user (007579398) Cigarette smoking (305.1) 8 Problem resolved confirmed Epifanio-9859 11- Problem General examination of patient (590453144) Annual exam (V70.0) 8 Problem resolved confirmed Epifanio-9859 11- Plan Of Treatment Pending Test Test Name Order Date PSA Diagnostic--[id number] 04/24/2023 CT Abdomen, Pelvis w/ + w/o Contrast-[id number] 78 04/24/2023 Insurance Providers Payer Name Payer Address Payer Phone Subscriber Number Group Number Insured Name Patient Relationship to Insured Coverage Start Date Coverage End Date [place] Medicare [address] [facility] [phone] [id number] Rocio Gillespie Self - patient is the insured [place] Medicaid [address] [place] [address] [id number] Rocio Gillespie Self - patient is the insured Medical (General) History Medical History History ICD Code Juvenile Rheumatoid Arthritis: since 12 + year; BPH w/LUTS HBP high cholesterol chronic back pain Neurogenic bladder Surgical History Surgery Date(Month/Year) excision of the large intestine colostomy hernia repair R leg amputation due to infection from h ip replacement broken Back 2003;; Hip Replacement: [id number]; Joint Replacement: ,Fracture(s):Fracture(s) Positive forCataract Removal, broken Dannie k 2003;; Hospitalization History Reason Date(Month/Year) sepsis above surgeries
--- OUTSIDE RECORDS SUMMARY | 2025-07-09 17:45 | XMS_ITS | Patient Health Record ---
Author Organization [facility] Address [address] [place] [address] Care Team Providers Care Scullion Chief Name Role Phone Imtiaz Shields APRN Primary Care Provider Unav ROSE MARIE Elliott Unavailable [phone] Allergies No Known Allergies Reason For Referral No Information Medications Medication SIG (Take, Route, Frequency, Duration) Notes Start Date End Date Status OxyCONTIN *Pick strength-form from Medispan for eRX* Active Clopidogrel & Aspirin *Reorder from Medispan for eRx and Interaction Alerts* Active oxyCODONE HCl *Pick strength-form from Medispan for eRX* Active Citalopram Hydrobromide 20 MG Take tab(s) by mouth qd x 8 days, then one tab po qd Oral; Duration: 30 Citalopram Hydrobromide 20mg Tablet Take tab(s) by mouth qd x 8 days, then one tab po qd #30 (Thirty) tablet(s) 07/04/2008 Not-Taking amLODIPine-Valsarta n-HCTZ *Reorder from Medispan for eRx and Interaction Alerts* Active Tamsulosin HCl *Pick strength-form from Medispan for eRX* Active Fosamax 70 MG Take 1 tablet(s) by mouth q week Oral; Duration: 30 Fosamax 70mg Tablet Take 1 tablet(s) by mouth q week #4 (Four) tablet(s) 07/04/2008 Not-Taking Atorvastatin Calcium *Pick strength-form from Medispan for eRX* Active Problems Problem Type SNOMED Code ICD Code Onset Dates Problem Status W/U Status Risk Notes Problem Obstructive uropathy (6284498) Other obstructive and reflux uropathy (N13.8) Active confirmed Problem Lower urinary tract symptoms due to benign prostatic hypertrophy (89786316689665 ) Benign prostatic hyperplasia with lower urinary tract symptoms (N40.1) Active confirmed Problem Disorder of kidney and/or ureter (956843257) Nodule of kidney (N28.89) Active confirmed Problem Renal mass (210307241) Renal mass (N28.89) Active confirmed Problem Hypotonic bladder (809153455) 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) Active confirmed Problem Rheumatoid arthritis (00295017) Rheumatoid arthritis (714.0) 8 Active confirmed Epifanio-9859 11- Problem Generalized anxiety disorder (65506216) Anxiety, generalized (300.02) 8 Active confirmed Epifanio-9859 11- Problem Tobacco user (934622732) Cigarette smoking (305.1) 8 Problem resolved confirmed Epifanio-9859 11- Problem General examination of patient (776826253) Annual exam (V70.0) 8 Problem resolved confirmed Epifanio-9859 11- Plan Of Treatment Pending Test Test Name Order Date UA Without Micro-Auto [id number] 04/24/2023 PSA Diagnostic--[id number] 04/24/2023 CT Abdomen, Pelvis w/ + w/o Contrast-741 78 04/24/2023 Insurance Providers Payer Name Payer Address Payer Phone Subscriber Number Group Number Insured Name Patient Relationship to Insured Coverage Start Date Coverage End Date [place] Medicare [address] [place] [id number] [phone] [id number] Rocio Gillespie Self - patient is the insured [place] Medicaid [address] [place], [place] [id number] Rocio Gillespie Self - patient is the [...]
--- OUTSIDE RECORDS SUMMARY | 2025-07-09 17:45 | XMS_ITS | Clinical Summary ---
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 Gender Identity Not on file Sexual Orientation [...] 2025 08/13/2013 Medical Devices Implanted Type Area Cadd Drafter Device Identifier Shelf Expiration Date Model / Serial / Lot Mesh Ventralight St 6x8in [id number] - [id number] Implanted:Qty: 1 on 03/05/2014 by Dameon Ramírez MD at [facility] Mesh N/A: Abdomen CR [employer]ARD[employer] 01/12/2016 [id number] / / [id number] 4x6in [id number] - Sna Implanted:Qty: 1 on 03/05/2014 by Dameon Ramírez MD at [facility] Mesh N/A: Abdomen CR [employer] 01/12/2016 [id number] / NA / [id number] Insurance MEDICARE PART A AND B MEDICAID [place] Advance Directives For more information, please contact: [phone] * Full Code (Latest Code Status on File) Date Activated Date Inactivated Comments 03/05/2014 7:32 PM 03/11/2014 1:46 PM * Full Code Date Activated Date Inactivated Comments 03/05/2014 11:18 AM 03/05/2014 7:32 PM * Full Code Date Activated Date Inactivated Comments 03/04/2014 2:22 PM 03/05/2014 11:18 AM * Full Code Date Activated Date Inactivated Comments 02/26/2014 3:36 AM 02/27/2014 6:27 PM Care Teams High School Agriculture Teacher Relationship Specialty Start Date End Date Peter Cevallos DO [address] [place] [address] PCP - General Family Practice 12/15/12
--- OUTSIDE RECORDS SUMMARY | 2025-07-09 17:45 | XMS_ITS | Encounter Summary ---
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
--- OUTSIDE RECORDS SUMMARY | 2025-07-09 17:45 | XMS_ITS | Encounter Summary ---
Author Organization [facility] Address [address] [place] [address] Care Team Providers Care Contact Center Professional Name Role Phone Peter Cevallos DO Primary Care Provider [phone] Encounter Details Date Type Department Care Team (Latest Contact Info) Description 01/09/1999 Outpatient [facility] Oral and Maxillo Surgery[address] [place] [address] Jam Potter, PhD NO ADDRESS ON FILE Closed fracture of condylar process of mandible (CMS/HCC) (Primary Dx) Social History Tobacco Use Types Packs/Day Years Used Date Smoking Tobacco: Never Assessed Sex and Gender Information Value Date Recorded Sex Assigned at Not on file 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
--- OUTSIDE RECORDS SUMMARY | 2025-07-09 17:45 | XMS_ITS | Encounter Summary ---
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
--- OUTSIDE RECORDS SUMMARY | 2025-07-09 17:45 | XMS_ITS | Clinical Summary ---
Author Organization [facility] Address [address] [facility] Attn: Epic Prelude ADT [place] [address] Care Team Providers Care Benefit Specialist Name Role Phone Peter Cevallos DO Primary Care Provider Allergies Active Allergy Reactions Criticality Noted Date Comments Nalbuphine Hallucination High 05/29/2014 Active Problems Problem Noted Date Diagnosed Date Old myocardial infarction 05/20/2014 S/P exploratory laparotomy 03/16/2014 Wound dehiscence, surgical 03/16/2014 S/P laparoscopic hernia repair 03/16/2014 Hemorrhagic shock 03/05/2014 CAD (coronary artery disease) 02/26/2014 Overview (03/11/2021): 2013 - [facility] 03/06/2014 - ECHO: LEFT VENTRICLE: The [...] on file 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 Gender Identity Not on file Sexual Orientation [...] series) 2031 Medical Devices Implanted Type Area Director Of Database Marketing Device Identifier Shelf Expiration Date Model / Serial / Lot Mesh Ventralight St 4x6in [id number] - Sna Implanted:Qty: 1 on 03/05/2014 by Dameon Ramírez MD Mesh N/A: Abdomen CR [employer] 01/12/2016 [id number] / NA / [id number] 6x8in [id number] - [id number] Implanted:Qty: 1 on 03/05/2014 by Dameon Ramírez MD Mesh N/A: Abdomen CR [employer] 01/12/2016 [id number] / / [id number] Care Teams Benefit Specialist Relationship Specialty Start Date End Date Peter Cevallos DO [address] [place] [address] PCP - General Family Practice 12/15/12
--- OUTSIDE RECORDS SUMMARY | 2025-07-09 17:45 | XMS_ITS | Clinical Summary ---
Author Organization [facility] Address [address] [place] [address] Care Team Providers Care Associate Brand Manager Name Role Phone Unavailable Primary Care Provider [...] this topic Medical Devices Implanted Type Area Plant Controls Specialist Device Identifier Shelf Expiration Date Model / Serial / Lot Tissue Biologic Matrix Xcm 48x70ac - [id number] Implanted:Qty: 1 on 04/13/2015 by Schuyler Banegas MD at [facility] N/A: Abdomen [id number] (DO NOT USE) 04/12/2017 [id number] / / [id number] Insurance * Guarantor: Rocio Rivera Account Type Relation to Patient Date of Phone Billing Address Personal/Family Self 1955 [phone] x: nithya rivera (sister) (Work) [address] [place] [id number] MEDICARE PART A & B Advance Directives * Full Code (Latest Code Status on File) Date Activated Date Inactivated Comments 04/13/2015 4:01 PM 04/22/2015 10:55 PM * Full Code Date Activated Date Inactivated Comments 04/13/2015 7:16 AM 04/13/2015 4:01 PM
--- NOTE | 2025-07-09 17:51 | ECG_ITS ---
[facility] Test Date: 2025-07-09 Pat Name: Rocio Rivera Department: Room: Gender: Male Education Nurse: : 1955 Requested By: Liza Torres Order Number: [id number] Birdie MD: Jm Adam M.D. Measurements Intervals [place] Rate: 129 P: 0 [place]: 0 QRS: 32 QRSD: 97 T: 69 QT: 307 QTc: 450 Interpretive Statements ATRIAL FIBRILLATION WITH RAPID VENTRICULAR RESPONSE ABNORMAL RHYTHM ECG Compared to ECG 06/19/2025 07:35:17 Sinus rhythm no longer present Electronically Signed On 07-09-2025 22:08:13 CDT by Jm Adam M.D. [email or web address] [id number]
--- NOTE | 2025-07-09 18:11 | XRR_ITS ---
PROCEDURE INFORMATION: Exam: XR Chest Exam date and time: 07/09/2025 6:30 PM Age: 70 years old Clinical indication: Shortness of breath TECHNIQUE: Imaging protocol: Radiologic exam of the chest. Views: 1 view. COMPARISON: CT chest [facility] [id number] 05/05/2025 5:34 PM FINDINGS: Lungs: Unremarkable. No consolidation. Pleural spaces: Unremarkable. No pleural effusion. No pneumothorax. Heart/Mediastinum: Aortic atherosclerosis. Otherwise Unremarkable. No cardiomegaly. Bones/joints: Mild degenerative changes of the AC joint. Postsurgical changes of the left humerus. Otherwise Unremarkable. XR/XR chest 1V portable [id number] IMPRESSION: No acute findings.
--- NOTE | 2025-07-09 18:12 | ED_ITS ---
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 Congestion. Sore throat. He said some mild abdominal pain. Related Data Home Medications ?Medication ?Instructions ?Recorded ?Confirmed oxycodone 20 mg tablet 20 mg PO Q6H PRN Pain 07/01/25 Previous Rx's ?Medication ?Instructions ?Recorded E2622 : Skin protection #1 ea 04/26/21 wheelchair seat cushion, adjustable, width less than 22 inches, any depth. K0822 Power wheelchair, group 2 #1 ea 04/26/21 standard, sling/solid E0143 front wheeled walker #1 ea 04/23/24 wheelchair #1 ea 04/23/24 albuterol sulfate 2.5 mg/3 mL 2.5 mg (3 mL) inhalation Q4H PRN 04/28/25 (0.083 %) solution for nebulization shortness of breat h or wheezing #300 mL budesonide 160 mcg-glycopyr 9 2 inh inhalation BID #10 .7 grams 04/28/25 mcg-formot 4.8 mcg/actuation HFA inhaler (Breztri Aerosphere) evolocumab 140 mg/mL subcutaneous 140 mg SUBCUT .every 14 days #2 mL 04/28/25 pen injector (Repatha [employer]Click) tamsulosin 0.4 mg capsule (Flomax) 0.4 mg PO DAILY #90 caps 04/28/25 Oxygen concentrator and portable #1 ea 05/20/25 NC 2L isosorbide mononitrate 60 mg 60 mg PO DAILY #90 tabs 0 06/16/25 tablet,extended release 24 hr ciprofloxacin HCl 500 mg tablet 500 mg PO BID #12 tabs 06/23/25 (Cipro) amlodipine 5 mg tablet (Norvasc) 5 mg PO DAILY #90 tab s 08/15/25 atorvastatin 80 mg tablet See Rx Instructions .Route 0 06/27/25 .COMPLEX #90 tabs carvedilol 12.5 mg tablet 12.5 mg PO BID #90 tabs 06/13 04/06 clopidogrel 75 mg tablet See Rx Instructions .Route 0 06/27/25 .COMPLEX #90 tabs losartan 25 mg tablet 25 mg PO DAILY #90 tabs 06/13 04/06 Allergies Allergy/AdvReac Type Severity Reaction Status Date / Time ketorolac (From Toradol) Allergy Unknown Verified 07/01/25 10:11 nalbuphine (From Nubain) Allergy Unknown Verified 07/01/25 10:11 tizanidine Allergy ADR-Halluci Verified 07/01/25 10:11 nating Review of Systems 2 Narrative: Constitutional symptoms: Negative except as documented in HPI. Skin symptoms: Negative except as documented in HPI. Eye symptoms: Negative except as documented in HPI. ENMT symptoms: Negative except as documented in HPI. Respiratory symptoms: Negative except as documented in HPI. Cardiovascular symptoms: Negative except as documented in HPI. Gastrointestinal symptoms: Negative except as documented in HPI. Genitourinary symptoms: Negative except as documented in HPI. Musculoskeletal symptoms: Negative except as documented in HPI. Neurologic symptoms: Negative except as documented in HPI. Psychiatric symptoms: Negative except as documented in HPI. Endocrine symptoms: Negative except as documented in HPI. PFSH ED 2 PFSH: Medical History (Updated 07/09/25 @ 20:54 by Liza Mahmood MD) Supplemental oxygen dependent 3L NC since June,. Bladder distension Neuropathic pain Osteoarthritis of left hip LAU (dyspnea on exertion) Benign essential HTN Osteoporosis Anemia Central spinal stenosis Mixed hyperlipidemia COPD (chronic obstructive pulmonary disease) ASHD (arteriosclerotic heart disease) Surgical History Hx of leg amputation Right side History of right lower limb amputation History of abdominal surgery History of appendectomy History of hernia repair H/O shoulder surgery H/O knee surgery Family History Mother CAD (coronary artery disease) Father Cancer Family/Other Cancer Denies family history of Diabetes Clotting disorder Dementia Chronic kidney disease (CKD) Suicide Anesthesia complication Bleeding disorder Lung disease Stroke Social History Smoking and tobacco/nicotine status: former use of tobacco/nicotine Quit status (tobacco/nicotine): has quit using Year quit tobacco: 2020 Former quit date comment: 2 PPD X 45 YEARS Second hand smoke exposure: No Alcohol intake: never Substance/Drug Use: never Adopted: No Caregiver/support person: No Lives independently: Yes Household members: significant other Housing: House Marital status: Number of children: 2 service: No Current occupational status: retired Current occupational exposures/hazards: No Do you think of yourself as: Straight/Heterosexual Current gender identity: Male Course 2 Vital Signs: Vital signs: Vital Signs Temperature 97.7 F 07/09/25 17:42 Pulse Rate 120 H 07/09/25 18:43 Respiratory Rate 18 07/09/25 18:20 Blood Pressure 123/56 07/09/25 18:43 Pulse Oximetry 96 07/09/25 18:43 Oxygen Delivery Me thod Nasal Cannula 07/09/25 18:43 Oxygen Flow Rate 3 07/09/25 18:43 MDM - Weakness Medical Decision Making Differential diagnosis for patient with shortness of breath includes but is not limited to and based on the above HPI, review of systems and physical exam: Pneumonia. Bronchitis. Asthma or COPD with acute exacerbation. Acute coronary syndrome / [place]. Pulmonary embolism. Anxiety. Congestive heart failure. Viral infections including influenza and Covid-19. Atrial fibrillation. Anxiety. Pleural effusion. Pneumothorax. Orders placed to evaluate differential diagnosis based on the above differential, HPI and physical exam EKG: Time 2027. Rate 124. Atrial fibrillation with rapid ventricular response, No ST-T changes, no ectopy, This was reviewed and interpreted by myself the ER physician at 2031. Lab Review: Laboratory results were reviewed and interpreted by myself the emergency room physician. No leukocytosis. No anemia. Slight increase in renal function from around 1- 1.3. Urinalysis is nitrate +6-10 whites. No bacteria seen. Chest x-ray: No acute process. No infiltrate. No pneumothorax. This was reviewed and interpreted by myself the emergency room physician. I also reviewed the radiology report. I reviewed the patient's medical record. 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 Patient has mild tenderness in his testicle. May have some recurrent epididymitis. No evidence of torsion or any pathology such as that. Minimally painful. Stable oxygen requirement from his home oxygen at 3 L nasal cannula. Consultation: I spoke with Dr. Kwong who is on-call for the hospitalist service who agrees to admission. Assessment and plan: New onset A-fib with RVR Upper respiratory infection Possible recurrent epididymitis Acute renal insufficiency Chronic hypoxemic respiratory failure ?proBNP is quite elevated over patient's baseline but his blood pressure has been fairly labile and he has some infectious sources so I am giving 1 L of fluid at this point. Perhaps his worsening proBNP is from his A-fib and so hopefully some fluids will help slow this down. ?Amiodarone push and drip. Patient's blood pressure has been quite soft. I do not want to do something that we will lower his blood pressure. So no beta- jose and no calcium channel jose. ?Cipro and Flagyl should cover urinary source and epididymitis as well as if he has some respiratory infections will cover this some. Will I think he likely has something viral ?Patient is stable on his home 2 L nasal cannula. -I discussed the patient with the hospitalist on-call who is admitting the patient. - Discussed findings and plan with patient. Answered any questions. - All laboratory values were reviewed and interpreted personally by myself, the ER physician - All imaging was reviewed and interpreted personally by myself, the ER physician. - Evaluation and treatment of this problem were appropriate in the emergency setting Critical Care: -I spent a total of >35 minutes of critical care time managing the patient, independent of any other practitioner. -The time involved in the performance of separately reportable procedures was not counted towards critical care time. Lab Data 07/09/25 18:11 07/09/25 18:11 Radiology Impressions Chest X-Ray 07/09/25 18:11 IMPRESSION: No acute findings. Laboratory Results WBC 5.16 10^3/uL (3.29-11.43) 07/09/25 18:11 RBC 4.53 10^6/uL (3.85-5.65) 07/09/25 18:11 Hgb 12.80 g/dL (11.27-16.99) 07/09/25 18:11 Hct 42.3 % (37-53) 07/09/25 18:11 MCV 93.4 fl (82-101) 07/09/25 18:11 MCH 28.3 pg (27-33) 07/09/25 18:11 MCHC 30.3 g/dL (30-55) 07/09/25 18:11 RDW 14.4 % (12.1-15.1) 07/09/25 18:11 Plt Count 146 10^3/cmm (157-399) L 07/09/25 18:11 MPV 9.3 fL (7.4-10.4) 07/09/25 18:11 Neut % (Auto) 71.1 % 07/09/25 18:11 Lymph % (Auto) 15.7 % 07/09/25 18:11 [place] % (Auto) 11.8 % 07/09/25 18:11 Eos % (Auto) 0.4 % 07/09/25 18:11 Baso % (Auto) 0.6 % 07/09/25 18:11 Neut # (Auto) 3.67 10^3/uL (1.8-7.7) 07/09/25 18:11 Lymph # (Auto) 0.8 10^3/uL (0.8-4.8) 07/09/25 18:11 [place] # (Auto) 0.6 10^3/uL (0.2-0.9) 07/09/25 18:11 Eos # (Auto) 0.0 10^3/uL (0.0-0.8) 07/09/25 18:11 Baso # (Auto) 0.0 10^3/uL (0.0-0.1) 07/09/25 18:11 Nucleated RBC % (auto) 0 % 07/09/25 18:11 Nucleated RBCs # 0.0 /100WBC 07/09/25 18:11 Specimen Type Arterial 07/09/25 18:19 Sample Site Brachial, right 07/09/25 18:19 ABG pH 7.35 (7.35-7.45) 07/09/25 18:19 ABG pCO2 46.9 mmHg (35-45) H 07/09/25 18:19 ABG pO2 90.1 mmHg (80.0-100.0) 07/09/25 18:19 ABG PO2/FiO2 Ratio 281 07/09/25 18:19 ABG HCO3 25.9 mmol/L (22-26) 07/09/25 18:19 ABG O2 Saturation 97.7 07/09/25 18:19 ABG Base Excess -0.2 mmol/L (-2.0-2.0) 07/09/25 18:19 Robin Test N/a 07/09/25 18:19 A-a O2 Gradient 10.5 mmHg (5-10) H 07/09/25 18:19 Hematocrit 38.0 % (42-52) L 07/09/25 18:19 Hgb O2 Saturation 95.7 % (95-100) 07/09/25 18:19 Carboxyhemoglobin 1.3 %THgb (0.4-20.1) 07/09/25 18:19 Methemoglobin 0.8 % (0.4-1.5) 07/09/25 18:19 Total Hemoglobin 12.4 g/dL (14-18) L 07/09/25 18:19 Sodium 131.0 mmol/L (131-143) 07/09/25 18:19 Potassium 4.2 mmol/L (3.5-5.0) 07/09/25 18:19 Glucose 150.0 mg/dL (70-115) H 07/09/25 18:19 Ionized Calcium 1.2 mmol/L (1.1-1.4) 07/09/25 18:19 O2 Delivery Device Nc 07/09/25 18:19 O2 Liters/Min 3.0 % 07/09/25 18:19 FiO2 32.0 % 07/09/25 18:19 Sanitary Landfill Supervisor ID Amh 07/09/25 18:19 Sodium 129 mmol/L (136-145) L 07/09/25 18:11 Potassium 4.0 mmol/L (3.5-5.1) 07/09/25 18:11 Chloride 96 mmol/L (98-107) L 07/09/25 18:11 Carbon Dioxide 25 mmol/L (22-29) 07/09/25 18:11 Anion Gap 12.0 (5-19) 07/09/25 18:11 BUN 11 mg/dL (8-23) 07/09/25 18:11 Creatinine 1.3 mg/dL (0.7-1.2) H 07/09/25 18:11 GFR Calculation 54.7 mL/min (90-130) L 07/09/25 18:11 Glucose 156 mg/dL (65-115) H 07/09/25 18:11 Calculated Osmolality 271 mOsm/kg (285-295) L 07/09/25 18:11 Lactic Acid 2.2 mmol/L (0.5-2.2) 07/09/25 18:11 Calcium 8.6 mg/dL (8.5-10.5) 07/09/25 18:11 Total Bilirubin 0.4 mg/dL (0.15-1.2) 07/09/25 18:11 AST 30 U/L (0-40) 07/09/25 18:11 ALT 17 U/L (0-41) 07/09/25 18:11 Alkaline Phosphatase 68 U/L (40-130) 07/09/25 18:11 Troponin T Baseline 31 ng/L (0-15) H 07/09/25 18:11 Troponin T 120 Minute 31.73 ng/L (0-15) H 07/09/25 20:09 Delta Troponin T 0.73 ABS# (0-10) 07/09/25 20:09 C-Reactive Protein 3.3 mg/L (0.0-4.9) 07/09/25 18:11 NT-Pro-B Natriuret Pep 2367 pg/mL (0-125) H 07/09/25 18:11 Total Protein 8.2 g/dL (6.6-8.7) 07/09/25 18:11 Albumin 3.4 g/dL (3.5-5.2) L 07/09/25 18:11 Globulin 4.8 g/dL (1.3-4.6) H 07/09/25 18:11 Urine Color Dark yellow (Yellow) A 07/09/25 20:04 Urine Appearance Clear (CLEAR) 07/09/25 20:04 Urine pH 6.0 (5-7) 07/09/25 20:04 Ur Specific [place] 1.017 (1.005-1.030) 07/09/25 20:04 Urine Protein 2+ (Negative) A 07/09/25 20:04 Urine Glucose (UA) Negative (Normal) 07/09/25 20:04 Urine Ketones Trace (Negative) 07/09/25 20:04 Urine Blood Negative (Negative) 07/09/25 20:04 Urine Nitrate Positive (Negative) A 07/09/25 20:04 Urine Bilirubin 1+ (Negative) H 07/09/25 20:04 Urine Urobilinogen 1.0 mg/dL (Negative) 07/09/25 20:04 Ur Leukocyte Esterase 1+ (Negative) A 07/09/25 20:04 Urine RBC 0-2 /hpf (0-2) 07/09/25 20:04 Urine WBC 6-10 /hpf (0-5) 07/09/25 20:04 Ur Squamous Epith Cells 6-10 /hpf (0-5) 07/09/25 20:04 Amorphous Sediment Not Reportable 07/09/25 20:04 Urine Bacteria None seen /hpf (NONE) 07/09/25 20:04 Hyaline Casts 15.28 /lpf 07/09/25 20:04 Influenza A (PCR) Negative (Negative) 07/09/25 18:14 Influenza Type B (PCR) Negative (Negative) 07/09/25 18:14 RSV (PCR) Negative (Negative) 07/09/25 18:14 SARS-CoV-2 (PCR) Negative (Negative) 07/09/25 18:14 All radiology interpretation(s) finalized by discharge Discharge Plan Discharge Patient Disposition: Admitted As Inpatient Clinical Impression: Atrial fibrillation with rapid ventricular response, Acute upper respiratory infection, Epididymitis Condition: Stable Coding Level of Care Code ED Battery Tester Field for Ephraim Badillo
[2025-07-09 18:30] LABS: ABG PCO2 46.9 mmHg (35-45); ABG PH Result 7.35 (7.35-7.45); Alveolar-Arterial Oxygen Gradi 10.5 mmHg (5-10); Arterial Blood Gas Hematocrit 38.0 % (42-52); Blood Gas LPM 3.0 %; Blood Gas Operator Identificat AMH; Blood Gas Sample Site Brachial, right; Blood Gas Sample Type Arterial; Carboxyhemoglobin 1.3 %THgb (0.4-20.1); Glucose Level-ABG 150.0 mg/dL (70-115); HCO3 ABG 25.9 mmol/L (22-26); Ionized Calcium Level - ABG 1.2 mmol/L (1.1-1.4); Methemoglobin 0.8 % (0.4-1.5); Oxygen Saturation ABG 97.7; PO2 ABG 90.1 mmHg (80.0-100.0); PO2 FiO2 Ratio Arterial Blood 281; Potassium Level - ABG 4.2 mmol/L (3.5-5.0); Sodium Level - ABG 131.0 mmol/L (131-143)
[2025-07-09 18:40] LABS: Hematocrit 42.3 % (37-53); Hemoglobin 12.80 g/dL (11.27-16.99); Mean Corpuscular HGB Conc 30.3 g/dL (30-55); Mean Corpuscular Hemoglobin 28.3 pg (27-33); Mean Corpuscular Volume 93.4 fl (82-101); Nucleated Red Blood Cells % 0 %; Platelet Count 146 10^3/cmm (157-399); Red Blood Count 4.53 10^6/uL (3.85-5.65); White Blood Count 5.16 10^3/uL (3.29-11.43)
[2025-07-09 19:01] LABS: Lactic Sepsis W/Reflex 2.2 mmol/L (0.5-2.2)
[2025-07-09 19:10] LABS: Alanine Aminotransferase 17 U/L (0-41); Albumin Level 3.4 g/dL (3.5-5.2); Alkaline Phosphatase 68 U/L (40-130); Anion Gap 12.0 (5-19); Aspartate Amino Transferase 30 U/L (0-40); Blood Urea Nitrogen 11 mg/dL (8-23); Calcium 8.6 mg/dL (8.5-10.5); Carbon Dioxide 25 mmol/L (22-29); Chloride 96 mmol/L (98-107); Globulin 4.8 g/dL (1.3-4.6); Glucose 156 mg/dL (65-115); NT Pro B Type Natriuretic Pept 2367 pg/mL (0-125); Osmolality Calculated 271 mOsm/kg (285-295); Potassium 4.0 mmol/L (3.5-5.1); Sodium 129 mmol/L (136-145); Total Protein 8.2 g/dL (6.6-8.7)
[2025-07-09 19:19] LABS: Respiratory Syncytial Virus Ce NEGATIVE (Negative); SARS-CoV-2 PCR NEGATIVE (Negative)
[2025-07-09 19:55] LABS: Troponin(5th) Baseline 31 ng/L (0-15)
[2025-07-09 20:15] LABS: Glucose Urine UA Negative (Normal); Nitrate Urine Positive (Negative); Specific Gravity, Urine 1.017 (1.005-1.030)
[2025-07-09 20:23] LABS: Reflex Lactate Order REFLEX LACTIC ORDERD
--- NOTE | 2025-07-09 20:30 | PC.NURSE ---
DR VILLATORO CONSULTED REGARDING AMIODARONE IVP. VERBAL ORDER GIVEN TO CHANGE TO AMIODARONE BOLUS OVER 15 MINUTES.
[2025-07-09 20:32] LABS: UA Slide Review UA Slide Review Perf
[2025-07-09 20:36] LABS: Troponin 5 2HR 31.73 ng/L (0-15); Troponin 5 2HR Delta 0.73 ABS# (0-10)
[2025-07-09] MEDS: amiodarone 150 MG/100 ML PREMIX 400 MG IV (20:41)
--- NOTE | 2025-07-09 21:18 | ECG_ITS ---
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 Measurements Intervals [place] Rate: 124 P: 0 MT: 0 QRS: 33 QRSD: 92 T: 70 QT: 304 QTc: 438 Interpretive Statements ATRIAL FIBRILLATION WITH RAPID VENTRICULAR RESPONSE ABNORMAL RHYTHM ECG Compared to ECG 07/09/2025 17:51:41 No significant changes Electronically Signed On 07-09-2025 22:33:12 CDT by Jm Adam M.D. [email or web address] [id number]
[2025-07-09] MEDS: metroNIDAZOLE IV 500 MG/100 ML PREMIX 100 MG IV (21:50)
[2025-07-09 22:10] LABS: Lactic Acid level (Lactate) 0.9 mmol/L (0.5-2.2)
[2025-07-09] MEDS: heparin 5,000 unit/mL INJ 1 mL 5000 UNIT SUBCUT (23:13)
--- NOTE | 2025-07-09 23:15 | PM.HP ---
Providers/Chief Complaint Admitting Physician: Michelle Kwong MD--seen and evaluated before midnight Primary Care Provider: BERNARD Villa Chief Complaint: Weakness Cold Sweats Dizzy Coughing History of Present Illness Rocio Rivera is a 70 year old male with medical history significant for diabetes type 2, hypertension, hyperlipidemia presented with cough that have very intractable and reactive that deep breathing stimulates coughing fits. Aside from this patient had been having pain in the scrotal area area same right and mildly tender and this started within 24 hours. Patient had had this before and got treated for it. In the emergency room patient received Cipro and Flagyl. This patient was treated and discharged 10 days ago after being treated for colitis. Patient is with hemipelvectomy that had been done years ago. With these underlining infection patient had now presented with a new onset of atrial fibrillation in the 130s with soft blood pressure. Patient also had acute renal failure baseline creatinine had been 1 today it was 1.3. Patient denies any chest pain denies any shortness of breath patient was initiated on amiodarone and was admitted to stepdown unit. As infection is being treated I believe patient will convert back to normal sinus. It does not warrant anticoagulation at this time but again I will leave this in the hands of the attending physician for the day. C-reactive protein is elevated at 3.3 normal is 0-4.9 Patient at this morning had a faulty IV that will require patient getting a PICC line this morning. Patient needs IV antibiotics as ordered with the Cipro and amiodarone. I have at this time start giving patient oral Cardizem 60 mg orally Q6 as we wait to get a PICC line in place. Review of Systems Narrative: Patient is not ill-appearing but seem to be in more pain for the scrotal region patient had had this issue before and got treated. System review is significant for the system and respiratory system of congested cough with no pneumonia Medications/Allergies Home Medications ?Medication ?Instructions ?Recorded ?Confirmed ?Last Taken ?Type E2622 : Skin protection #1 04/26/21 07/10/25 Unknown Rx wheelchair seat cushion, adjustable, width less than 22 inches, any depth. K0822 Power wheelchair, group 2 #1 04/26/21 07/10/25 Unknown Rx standard, sling/solid E0143 front wheeled walker #1 ea 04/23/24 07/10/25 Unknown Rx wheelchair #1 ea 04/23/24 07/10/25 Unknown Rx albuterol sulfate 2.5 mg/3 mL 2.5 mg (3 mL) inhalation Q4H PRN 04/28/25 07/10/25 06/17/25 Rx (0.083 %) solution for nebulization shortness of breath or wheezing #300 mL budesonide 160 mcg-glycopyr 9 2 inh inhalation BID #10.7 grams 04/28/25 07/10/25 Unknown Rx mcg-formot 4.8 mcg/actuation HFA inhaler ([employer]ns[employer]ventsphere) evolocumab 140 mg/mL subcutaneous 140 mg SUBCUT .every 14 days #2 mL 04/28/25 07/10/25 06/08/25 15:03 Rx pen injector (Repatha [employer]) tamsulosin 0.4 mg capsule (Flomax) 0.4 mg PO DAILY #90 caps 04/28/25 07/10/25 07/09/25 Rx Oxygen concentrator and portable #1 ea 05/20/25 07/10/25 Unknown Rx NC 2L isosorbide mononitrate 60 mg 60 mg PO DAILY #90 tabs 06/16/25 07/09/25 07/09/25 08:00 Rx tablet,extended release 24 hr ciprofloxacin HCl 500 mg tablet 500 mg PO BID #12 tabs 06/23/25 07/10/25 Unknown Rx (Cipro) oxycodone 20 mg tablet 20 mg PO Q8H PRN Pain 06/23/25 07/09/25 Unknown History amlodipine 5 mg tablet (Norvasc) 5 mg PO DAILY #90 tabs 06/27/25 07/10/25 07/09/25 08:00 Rx atorvastatin 80 mg tablet See Rx Instructions .Route 06/27/25 07/10/25 Unknown Rx .COMPLEX #90 tabs carvedilol 12.5 mg tablet 12.5 mg PO BID #90 tabs 06/27/25 07/10/25 Unknown Rx clopidogrel 75 mg tablet See Rx Instructions .Route 06/27/25 07/10/25 07/09/25 Rx .COMPLEX #90 tabs losartan 25 mg tablet 25 mg PO DAILY #90 tabs 06/27/25 07/10/25 07/09/25 Rx Allergies Allergy/AdvReac Type Severity Reaction Status Date / Time ketorolac (From Toradol) Allergy Unknown Verified 07/01/25 10:11 nalbuphine (From Nubain) Allergy Unknown Verified 07/01/25 10:11 tizanidine Allergy ADR-Halluci Verified 07/01/25 10:11 nating PFSH Acute PFSH: Medical History Supplemental oxygen dependent 3L NC since June,. Bladder distension Neuropathic pain Osteoarthritis of left hip LAU (dyspnea on exertion) Benign essential HTN Osteoporosis Anemia Central spinal stenosis Mixed hyperlipidemia COPD (chronic obstructive pulmonary disease) ASHD (arteriosclerotic heart disease) Surgical History Hx of leg amputation Right side History of right lower limb amputation History of abdominal surgery History of appendectomy History of hernia repair H/O shoulder surgery H/O knee surgery Family History Mother CAD (coronary artery disease) Father Cancer Family/Other Cancer Denies family history of Diabetes Clotting disorder Dementia Chronic kidney disease (CKD) Suicide Anesthesia complication Bleeding disorder Lung disease Stroke Social History Smoking and tobacco/nicotine status: former use of tobacco/nicotine Quit status (tobacco/nicotine): has quit using Year quit tobacco: 2020 Former quit date comment: 2 PPD X 45 YEARS Second hand smoke exposure: No Alcohol intake: never Substance/Drug Use: never Adopted: No Caregiver/support person: No Lives independently: Yes Household members: significant other Housing: House Marital status: Number of children: 2 service: No Current occupational status: retired Current occupational exposures/hazards: No Do you think of yourself as: Straight/Heterosexual Current gender identity: Male Vitals/I&O/Wt Last Vital Signs Temp 97.7 F 07/09/25 17:42 Pulse 118 H 07/09/25 22:42 Resp 25 H 07/09/25 22:42 BP 132/69 07/09/25 22:42 Pulse Ox 95 07/09/25 22:25 O2 Del Method Room Air 08/27/25 22:42 O2 Flow Rate 3 07/09/25 18:43 07/09/25 07/09/25 07/10/25 14:59 22:59 06:59 Intake Total 1100 / 1100 300 / 1400 Balance 1100 / 1100 300 / 1400 Weight last 48 hrs Weight 86.636 kg Physical Exam Narrative: Generally patient is doing well in no much apparent distress complains of back pain at the time of my evaluation in the ED and verbalized that this is because of the bed in the ED aggravating the back otherwise doing okay aside for scrotal area with pain due to epididymitis. Patient had no white count no fever. HEENT normocephalic/atraumatic neck neck is supple cardiovascular heart rate is regular lungs are clear abdomen soft nontender nondistended unremarkable extremities are intact no edema has good pulses neurology has no focality lab studies lab studies reviewed and noted. Data 07/10/25 00:49 07/10/25 00:49 Micro: Microbiology 07/09/25 18:32 Blood Culture - Preliminary Blood SPECIMEN COLLECTED 07/09/25 18:24 Blood Culture - Preliminary Blood SPECIMEN COLLECTED A&P Assessment and plan 1. Atrial fibrillation with rapid ventricular response: 2. Acute upper respiratory infection: 3. Acute epididymitis: 4. Dehydration: 5. Acute renal failure: Plan: New onset atrial fibrillation - Secondary to underlining infection such as epididymitis, patient had no white count no elevated lactate - Amiodarone IV with protocol was initiated patient lost the IV, difficult attempts to get 1 in - Oral Cardizem of 60 mg every [address] a plan to get PICC line on this patient. - Must continue to monitor and treat Epididymitis - IV ciprofloxacin and Flagyl initiated - Continue with this once IV site is established with PICC line at this time. Upper respiratory tract infection - He has no pneumonia and he has no white count patient is with cough and reactive airway - Initiate Tessalon Perle - May have Levaquin and Flagyl to be inclusive and treated and respiratory infection meaning Levaquin for Respiratory infection Dehydration - Gentle hydration in place Acute renal failure - Mental hydration and treating the infection we will optimize care GI and DVT prophylaxis in place PDMP PDMP Reviewed: Not Reviewed Attestations Medical Necessity Statement*: Patient with upper respiratory tract infection, acute renal failure, epididymitis requiring IV antibiotics misticriteria of if patient for at least 2 midnight stay for optimization of care Coding Level of Care Code 87093 Diagnoses Atrial fibrillation with rapid ventricular response I48.91 Acute upper respiratory infection J06.9 Acute epididymitis N45.1 Dehydration E86.0 Acute renal failure N17.9 Time Spent (min) 70
[2025-07-10] VITALS (14 sets, daily range): BP systolic 108–153; BP diastolic 69–94; PULSE 75–125; RESP 18–25; TEMP 35.8–36.8; O2SAT 93–97
[2025-07-10 01:13] LABS: Hematocrit 39.9 % (37-53); Hemoglobin 11.80 g/dL (11.27-16.99); Mean Corpuscular HGB Conc 29.6 g/dL (30-55); Mean Corpuscular Hemoglobin 28.6 pg (27-33); Mean Corpuscular Volume 96.6 fl (82-101); Nucleated Red Blood Cells % 0 %; Platelet Count 128 10^3/cmm (157-399); Red Blood Count 4.13 10^6/uL (3.85-5.65); White Blood Count 5.58 10^3/uL (3.29-11.43)
--- NOTE | 2025-07-10 01:18 | ECG_ITS ---
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 Measurements Intervals [place] Rate: 110 P: 0 IA: 0 QRS: 53 QRSD: 104 T: 72 QT: 332 QTc: 450 Interpretive Statements ATRIAL FIBRILLATION WITH RAPID VENTRICULAR RESPONSE Compared to ECG 07/09/2025 20:28:04 No significant changes Electronically Signed On 07-11-2025 22:56:02 CDT by Mayo Ortega M.D. [id number]
[2025-07-10 01:34] LABS: Troponin 5 6HR 28.48 ng/L (0-15)
[2025-07-10 01:39] LABS: Alanine Aminotransferase 18 U/L (0-41); Albumin Level 3.0 g/dL (3.5-5.2); Alkaline Phosphatase 75 U/L (40-130); Aspartate Amino Transferase 35 U/L (0-40); Blood Urea Nitrogen 10 mg/dL (8-23); Calcium 8.1 mg/dL (8.5-10.5); Carbon Dioxide 20 mmol/L (22-29); Chloride 100 mmol/L (98-107); Creatinine Clr Calc Pharmacy 69.0945; Globulin 4.7 g/dL (1.3-4.6); Glucose 110 mg/dL (65-115); Magnesium 1.8 mg/dL (1.7-2.3); Osmolality Calculated 270 mOsm/kg (285-295); Sodium 130 mmol/L (136-145); Total Protein 7.7 g/dL (6.6-8.7)
[2025-07-10 01:46] LABS: Troponin 5 6HR Delta -2.52 ng/L (0-12)
[2025-07-10 01:47] LABS: Anion Gap 14.2 (5-19); Potassium 4.2 mmol/L (3.5-5.1)
--- NOTE | 2025-07-10 05:00 | PC.NURSE ---
Patient arrived from the ED with a ultrasound guided right AC IV that appeared to be infiltrated, after he got settled I removed the IV, the patient also had a ALEM ultrasound guided IV that was still good. The site was swollen and red around the size of a baseball when I removed the AC IV, and the swelling reached the bottom of the good IV. Those were all ER could get and at that point the patient has been stuck numerous times in ER with the ultrasound machine. The infiltrated IV had Normal saline and Amiodarone running through it. I asked household appliance assembler Ayla to come and look for another ultrasound guided IV to run antibiotics through, she made multiple at least 4-5 attempts to insert an IV with the ultrasound with no luck. This was at around 2330. I changed J-loops and the dressing on the right upper arm IV at around 0230 because the pumps kept beeping saying that just the amiodarone was occluded and not the fluids. The IV once readjusted flushed beautifully with no pain and the medications were re-attached to the new j-loop. This was done around 0315, and I had Jennifer CUNNINGHAM come look ath the IV with me to make sure it looked okay. The patient stated soon after that his arm was becoming more swollen where the RAC IV had went bad, and it was a little more puffy, Jennifer CUNNINGHAM came with me to check patency, the ALEM IV still flushed easily with no pain, the site was marked for additional swelling, patient was still worried that the IV was infiltrated. I monitored frequently until around 0345 am when the patient hit his call light and asked for me. I entered the patients room to find that the swelling had increased, I shut off the amiodarone and fluids and contacted Dr. Jimenez and told her about the situation. She ordered oral cardizem 60mg PO q6, and for an order for a PICC line to attempt to be made. Oral Cardizem was given, and the PICC order was placed and education was given to the patient.
--- NOTE | 2025-07-10 09:30 | PC.NURSE ---
Provider is updated that patient lost IV access overnight and waiting to have a PICC line placed. Also, showed provider is shown patients right upper arm where the old IV was.
[2025-07-10] MEDS: heparin 5,000 unit/mL INJ 1 mL 5000 UNIT SUBCUT ×2 (10:30→23:48)
--- NOTE | 2025-07-10 12:25 | PC.NURSE ---
Provider is called and updated that a PICC line will not advance, asked if a midline would be okay. Provider okay'd the mid-line. Provider also confirmed that she wanted the amio drip restarted when the mid-line is in.
--- NOTE | 2025-07-10 13:51 | P.PN_ITS ---
Subjective 2 Subjective: Patient does not have IV access therefore IV amiodarone not running at this time. IV infiltrated left upper arm does have area of redness tenderness. States he felt weak when he first came in however now is feeling slightly better. Reports intermittent dizziness nausea shortness of breath pain in her left chest area. Takes Flomax at home Vitals/I&O/Wt Last Vital Signs Temp 98.3 F 07/10/25 07:52 Pulse 125 H 07/10/25 11:48 Resp 23 H 07/10/25 11:48 BP 117/69 07/10/25 11:48 Pulse Ox 97 07/10/25 11:48 O2 Del Method Nasal Cannula 07/10/25 04:00 O2 Flow Rate 3 07/10/25 04:00 07/09/25 07/10/25 07/10/25 22:59 06:59 14:59 Intake Total 1100 / 1100 2014 240 / 240 Output Total 75 / 75 Balance 1100 / 1100 2014 165 / 165 Weight last 48 hrs Weight 88.314 kg Weight 88.314 kg Weight 86.636 kg Physical Exam 2 Narrative: General: Alert oriented x3, patient seen at sitting up in bed. On 3 L nasal cannula at this time. HEENT: Normocephalic, atraumatic, EOMI, breathing comfortably Cardio: Irregularly irregular, tachycardic normal S1-S2, Respiratory: Clear to auscultation bilaterally no wheezes or rhonchi GI: Abdomen soft, nontender, bowel sounds + Behavior: Appropriate and cooperative Extremities: No edema bilateral lower extremities Data 07/10/25 00:49 07/10/25 00:49 Micro: Microbiology 07/09/25 18:32 Blood Culture - Preliminary Blood SPECIMEN COLLECTED 07/09/25 18:24 Blood Culture - Preliminary Blood SPECIMEN COLLECTED A&P Assessment and plan 1. Atrial fibrillation with rapid ventricular response: 2. Acute upper respiratory infection: 3. Acute epididymitis: 4. Dehydration: 5. Acute renal failure: Plan: New onset atrial fibrillation - Secondary to underlining infection such as epididymitis, patient had no white count no elevated lactate - Amiodarone IV with protocol was initiated patient lost the IV, difficult attempts to get 1 in - Oral Cardizem of 60 mg every [address] a plan to get PICC line on this patient. - Must continue to monitor and treat Epididymitis - IV ciprofloxacin and Flagyl initiated - Continue with this once IV site is established with PICC line at this time. Upper respiratory tract infection - He has no pneumonia and he has no white count patient is with cough and reactive airway - Initiate Tessalon Perle - May have Levaquin and Flagyl to be inclusive and treated and respiratory infection meaning Levaquin for Respiratory infection Dehydration - Gentle hydration in place Acute renal failure - Mental hydration and treating the infection we will optimize care GI and DVT prophylaxis in place 07/10/2025 Patient was recently treated for epididymitis at previous hospitalization however he complained of scrotal pain to overnight physician. He was started on ciprofloxacin and Flagyl. I will repeat scrotal ultrasound to evaluate this. Continue IV amiodarone for atrial fibrillation. Consult cardiology to assist with management of atrial fibrillation. Continue on Coreg 12.5 twice daily. Continue on Imdur [address] patient on Zosyn to treat for epididymitis. Patient has a history of COPD and may be having a COPD exacerbation at this time. I will place on Solu-Medrol 40 IV daily and add azithromycin for anti- inflammatory effect. There is no evidence of pneumonia on chest x-ray. Check respiratory viral panel Continue on tamsulosin 0.4 daily. Continue Plavix PDMP PDMP Reviewed: Not Reviewed Attestations 2 Medical Necessity Statement*: COPD flare, atrial fibrillation with RVR, possible epididymitis Diagnoses Atrial fibrillation with rapid ventricular response I48.91 Acute upper respiratory infection J06.9 Acute epididymitis N45.1 Dehydration E86.0 Acute renal failure N17.9
[2025-07-10] MEDS: metroNIDAZOLE IV 250 MG in empty flexible container 1 EACH 50 MG IV (13:57)
--- NOTE | 2025-07-10 14:07 | P.CONIM_ITS ---
<Statement entered by Remedios Prado MD - 07/10/25 20:01> Patient was evaluated and cared for in conjunction with an advanced practice practitioner. I personally examined the patient and reviewed the chart and all pertinent data including imaging, telemetry, and laboratory results. I discussed the patient in detail with the advanced practice practitioner. Please see their note for complete H&P testing result and agreed upon plan of care for the patient. Providers/Reason For Consult 2 Consulting Physician/Specialty*: Dr Dave Prado, interventional cardiology Reason for Consult*: Chest pain, atrial fibrillation with RVR Requesting Physician: Olimpia Phelps MD Attending Physician: Olimpia Phelps MD Primary Care Provider: BERNARD Villa History of Present Illness History of Present Illness Rocio Rivera is a 70 year old male with past medical history of CAD, hypertension, dyslipidemia, right leg mdvkg-kmj-ogah amputation, COPD, history of subtotal colectomy with ileostomy, recent treatment for epididymitis presented to the emergency room yesterday with complaints of weakness, dizziness, chills, shortness of breath, cough. He was found to be in atrial fibrillation with RVR which is new onset. He was felt to be dehydrated, sepsis screen negative, provided gentle IV hydration. BNP at that time 2367, higher than his usual 400s range. Liver enzymes normal, CBC unremarkable, hyponatremic at 129, creatinine initially 1.3, improved to normal 1.1 with hydration. Troponin series: 31-> 31-> 28. Chest x-ray normal with no signs of vascular congestion. Found to have a UTI as well, being treated with antibiotics for UTI/epididymitis/URI. He was started on amiodarone infusion after bolus for the atrial fibrillation, rate control inadequate with ventricular rates consistently between 100 and 140 bpm yesterday, intermittently in the 70s to 80s a few times since midnight. IV access was lost during the night last night. Amiodarone infusion was interrupted, restarted around 1PM this afternoon when PICC line placed. Most recent echocardiogram last year revealed LVEF 56% with no significant valvular abnormalities, mild right atrium dilation. Consult requested for management of atrial fibrillation with RVR, report of chest pain. He had seen Dr. Parra in the office 06/16/2025 to evaluate chest pain, Lexiscan stress test was abnormal with moderate area of moderately decreased tracer uptake with some reversibility suggesting ischemia in the distribution of the RCA/circumflex territory. However at that time it was felt due to the risk of contrast-induced nephropathy, shared decision making was to defer coronary angiogram. Now he has an additional location of chest pain, previously just the left side, now the right side as well at the midclavicular line under the breast. It is described as an ache, nonexertional. He has just self cathed for 850mL urine. Review of Systems 2 Card: Reports: chest pain (aching, left side and now right, under the breast) and irregular heart rhythm; Denies: lightheadedness, syncope, pre-syncope, orthopnea or leg pain with exertion Resp: Reports: dyspnea; Denies: productive cough or wheezing GI: Denies: hematochezia : Denies: hematuria Logan/Lymph: Denies: easy bleeding Medications/Allergies Home Medications ?Medication ?Instructions ?Recorded ?Confirmed ?Last Taken ?Type E2622 : Skin protection #1 04/26/21 07/10/25 Unkn own Rx wheelchair seat cushion, adjustable, width less than 22 inches, any depth. [id number] Power wheelchair, group 2 #1 ea 04/26/21 5 Unknown Rx standard, sling/solid [id number] front wheeled walker #1 ea 04/23/24 07/10/25 Unk nown Rx wheelchair #1 04/23/24 07/10/25 Unkn own Rx albuterol sulfate 2.5 mg/3 mL 2.5 mg (3 mL) inhalation Q4H PRN 04/28/25 07/10/25 06/17/25 Rx (0.083 %) solution for nebulization shortness of breat h or wheezing #300 mL budesonide 160 mcg-glycopyr 9 2 inh inhalation BID #10 .7 grams 04/28/25 07/10/25 Unknown Rx mcg-formot 4.8 mcg/actuation HFA inhaler (Breztri Aerosphere) evolocumab 140 mg/mL subcutaneous 140 mg SUBCUT .every 14 days #2 mL 04/28/25 07/10/25 06/08/25 15:03 Rx pen injector (Repatha SureClick) tamsulosin 0.4 mg capsule (Flomax) 0.4 mg PO DAILY #90 caps 04/28/25 07/10/25 07/09/25 Rx Oxygen concentrator and portable #1 ea 05/20/25 Unknown Rx NC 2L isosorbide mononitrate 60 mg 60 mg PO DAILY #90 tabs 0 06/16/25 07/09/25 07/09/25 08:00 Rx tablet,extended release 24 hr ciprofloxacin HCl 500 mg tablet 500 mg PO BID #12 tabs 06/23/25 07/10/25 Unknown Rx (Cipro) oxycodone 20 mg tablet 20 mg PO Q8H PRN Pain 07/09/25 Unknown History amlodipine 5 mg tablet (Norvasc) 5 mg PO DAILY #90 tab s 06/27/25 07/10/25 07/09/25 08:00 Rx atorvastatin 80 mg tablet See Rx Instructions .Route 0 06/27/25 07/10/25 Unknown Rx .COMPLEX #90 tabs carvedilol 12.5 mg tablet 12.5 mg PO BID #90 tabs 06/1307/10/25 Unknown Rx clopidogrel 75 mg tablet See Rx Instructions .Route 0 06/27/25 07/10/25 07/09/25 Rx .COMPLEX #90 tabs losartan 25 mg tablet 25 mg PO DAILY #90 tabs 06/1307/10/25 07/09/25 Rx Allergies Allergy/AdvReac Type Severity Reaction Status Date / Time ketorolac (From Toradol) Allergy Unknown Verified 07/01/25 10:11 nalbuphine (From Nubain) Allergy Unknown Verified 07/01/25 10:11 tizanidine Allergy ADR-Halluci Verified 07/01/25 10:11 nating Current Medications Generic Name Dose Route Start Last Admin Trade Name Freq PRN Reason Stop Dose Admin Diltiazem HCl 60 mg 07/10/25 04:15 07/10/25 10:30 Diltiazem 60 Mg Tablet PO 60 mg Q6H CONCEPCION Administration Docusate Sodium 100 mg 07/10/25 09:00 07/10/25 09:07 Docusate Sodium 100 Mg Capsule PO 100 mg BID CONCEPCION Administration Heparin Sodium (Porcine) 5,000 unit 07/09/25 23:00 07/10/25 10:30 Heparin 5,000 Unit/Ml Inj 1 Ml SUBCUT 5,000 unit Q12H CONCEPCION Administration Amiodarone HCl/Dextrose 360 mg in 200 mls @ 0 mls/hr 07/09/25 20:23 07/10/25 12:38 Nexterone IV 0.01 mg/min .Q0M CONCEPCION 0.5 mls/hr Protocol Administration Per Protocol Oxycodone HCl 20 mg 07/09/25 22:23 07/10/25 09:07 Oxycodone Ir 30 Mg Tablet PO 20 mg Q8H PRN Administration SEVERE PAIN Pantoprazole Sodium 40 mg 07/10/25 09:00 07/10/25 09:[address] 40 Mg Tablet PO 40 mg DAILY CONCEPCION Administration PFSH Acute 2 PFSH: Medical History Supplemental oxygen dependent 3L NC since June,. Bladder distension Neuropathic pain Osteoarthritis of left hip LAU (dyspnea on exertion) Benign essential HTN Osteoporosis Anemia Central spinal stenosis Mixed hyperlipidemia COPD (chronic obstructive pulmonary disease) ASHD (arteriosclerotic heart disease) Surgical History Hx of leg amputation Right side History of right lower limb amputation History of abdominal surgery History of appendectomy History of hernia repair H/O shoulder surgery H/O knee surgery Family History Mother CAD (coronary artery disease) Father Cancer Family/Other Cancer Denies family history of Diabetes Clotting disorder Dementia Chronic kidney disease (CKD) Suicide Anesthesia complication Bleeding disorder Lung disease Stroke Social History Smoking and tobacco/nicotine status: former use of tobacco/nicotine Quit status (tobacco/nicotine): has quit using Year quit tobacco: 2020 Former quit date comment: 2 PPD X 45 YEARS Second hand smoke exposure: No Alcohol intake: never Substance/Drug Use: never Adopted: No Caregiver/support person: No Lives independently: Yes Household members: significant other Housing: House Marital status: Number of children: 2 service: No Current occupational status: retired Current occupational exposures/hazards: No Do you think of yourself as: Straight/Heterosexual Current gender identity: Male Vitals/I&O/Wt Last Vital Signs Temp 98.3 F 07/10/25 07:52 Pulse 125 H 07/10/25 11:48 Resp 23 H 07/10/25 11:48 BP 117/69 07/10/25 11:48 Pulse Ox 97 07/10/25 11:48 O2 Del Method Nasal Cannula 07/10/25 04:00 O2 Flow Rate 3 07/10/25 04:00 07/09/25 07/10/25 07/10/25 22:59 06:59 14:59 Intake Total 1099 690 / 690 Output Total 75 / 75 Balance 1099 615 / 615 Weight last 48 hrs Weight 194 lb 11.2 oz Weight 194 lb 11.2 oz Weight 191 lb Physical Exam 2 Const: COMMON NORMALS: no acute distress and patient oriented x3 Chest: COMMONS NORMALS: normal inspection of the chest and normal palpation of entire chest wall CHEST: Yes Symmetrical chest wall rise Resp: COMMON NORMALS: normal respiratory effort, No retractions, No use of accessory muscles and clear to auscultation bilaterally (coarse but no crackles) EFFORT & INSPECTION: Yes symmetric chest movement AUSCULTATION: clear to auscultation bilaterally (coarse but no crackles) Cardio: COMMON NORMALS: regular rate, S1 normal heart sound present, S2 normal heart sound present, No gallops present (Cardio), No clicks present (Cardio), No murmurs present (Cardio) and No rub (Cardio) RATE: regular rate RHYTHM: a bnormal rhythm (some sinus beats occasionally) irregularly irregular HEART SOUNDS: S1 normal heart sound present and S2 normal heart sound present P ERIPHERAL PULSES: radial pulses present, posterior tibial pulses present and dorsalis pedis present Extremity: GENERAL: No edema (left leg, right AKA) Neuro: COMMON NORMALS: patient oriented x3 and moves all extremities Psych: COMMON NORMALS: mental status grossly normal and cooperative Data 07/10/25 00:49 07/10/25 00:49 Micro: Microbiology 07/09/25 18:32 Blood Culture - Preliminary Blood SPECIMEN COLLECTED 07/09/25 18:24 Blood Culture - Preliminary Blood SPECIMEN COLLECTED A&P Assessment and plan 1. ASHD (arteriosclerotic heart disease): 2. Atrial fibrillation with rapid ventricular response: 3. HTN (hypertension): 4. Benign essential HTN: 5. Mixed hyperlipidemia: 6. Dehydration: 7. Epididymitis: Plan: He lost IV access for period of time during the night at which amiodarone infusion was interrupted. During my exam he had several sinus beats and rate control is much improved, in the 70 to 80/min range. He may cardiovert on his own with amiodarone. If not we can consider FABIAN guided cardioversion tomorrow, with the input of anesthesia in regards to his COPD condition. In respect to the chest pain and abnormal stress test, will wait to see if he cardioverts with amiodarone, and reassess the chest pain symptoms. If it is still present, will plan on coronary angiogram given the abnormal stress test finding. PDMP PDMP Reviewed: Not Reviewed Coding Level of Care Code Acute Code for g Fwd Diagnoses ASHD (arteriosclerotic heart disease) I25.10 Atrial fibrillation with rapid ventricular response I48.91 HTN (hypertension) I10 Benign essential HTN I10 Mixed hyperlipidemia E78.2 Dehydration E86.0 Epididymitis N45.1
--- NOTE | 2025-07-10 14:07 | US_ITS ---
WS: [id number] TESTICULAR ULTRASOUND HISTORY: epididymitis COMPARISON: 06/20/2025 TECHNIQUE: Real-time and color Doppler imaging utilized to perform a testicular ultrasound. Right testicle: 3.6 cm x 1.9 cm x 2.1 cm. Heterogeneous appearance of the RIGHT testicle. Normal vascularity within the RIGHT testicle. Color Doppler has improved in the RIGHT testicle. No significant hydrocele. Right epididymis: Enlarged heterogeneous hypervascular epididymis. There continues to be acute RIGHT epididymitis. Scrotal wall thickening. Left testicle: 2.0 cm x 2.7 cm x 1.9 cm. Normal size and echogenicity. No mass or torsion. Normal color Doppler is present throughout. Systolic and diastolic velocities are both present. No significant hydrocele. Left epididymis: Normal epididymis with no increased vascularity. US/US scrotum [id number] IMPRESSION: 1. Persistent acute RIGHT epididymitis. New mild scrotal wall thickening. 2. Resolved RIGHT orchitis. 3. No left-sided epididymitis or orchitis.
--- NOTE | 2025-07-10 14:32 | ECG_ITS ---
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 Measurements Intervals [place] Rate: 73 P: 0 ID: 0 QRS: 49 QRSD: 91 T: 64 QT: 381 QTc: 421 Interpretive Statements ATRIAL FIBRILLATION WITH ABERRANT CONDUCTION OR VENTRICULAR PREMATURE COMPLEXES Compared to ECG 07/10/2025 01:16:41 Ventricular premature complex(es) now present Aberrant conduction of supraventricular beat(s) now present Electronically Signed On 07-11-2025 22:41:55 CDT by Mayo Ortega M.D. [id number] [id number]
[2025-07-10] MEDS: methylPREDNISolone sod succ 40 mg/mL INJ IVP (14:49)
[2025-07-10] MEDS: morphine 4 mg/mL SDV 1 mL IVP ×2 (14:55→21:58)
[2025-07-10 16:06] LABS: Troponin(5th) Baseline 24 ng/L (0-15)
--- NOTE | 2025-07-10 16:08 | ECG_ITS ---
[facility] Date: 2025-07-10 Pat Name: Rocio Rivera Department: Room: 101 Gender: Male Progress Man: : 1955 Requested By: Olimpia Phelps Order Number: [id number] Birdie MD: Mayo Ortega M.D. Measurements Intervals [place] Rate: 93 P: 0 RI: 0 QRS: 47 QRSD: 82 T: 73 QT: 334 QTc: 416 Interpretive Statements ATRIAL FIBRILLATION Compared to ECG 07/10/2025 14:32:41 Ventricular premature complex(es) no longer present Aberrant conduction of supraventricular beat(s) no longer present Electronically Signed On 07-11-2025 22:53:39 CDT by Mayo Ortega M.D. [id number]
--- NOTE | 2025-07-10 16:42 | PC.NURSE ---
Provider is notified that patient just urinated.
[2025-07-10 17:31] LABS: Coronavirus 229E,HKU1,NL63,OC4 Not Detected (NOT DETECT); Parainfluenza Virus Type 1 Not Detected (NOT DETECT); Parainfluenza Virus Type 2 Not Detected (NOT DETECT); Parainfluenza Virus Type 3 Not Detected (NOT DETECT); Parainfluenza Virus Type 4 Not Detected (NOT DETECT); SARS-COV-2 Not Detected (NOT DETECT)
[2025-07-10 18:32] LABS: Troponin 5 2HR 20.90 ng/L (0-15)
[2025-07-10 18:37] LABS: Troponin 5 2HR Delta -3.10 ABS# (0-10)
--- NOTE | 2025-07-10 21:13 | ECG_ITS ---
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 Measurements Intervals [place] Rate: 94 P: 0 CA: 0 QRS: 40 QRSD: 90 T: 73 QT: 357 QTc: 448 Interpretive Statements ATRIAL FIBRILLATION LOW QRS VOLTAGE IN PRECORDIAL LEADS [QRS DEFLECTION < 1.0 mV IN CHEST LEADS] Compared to ECG 07/10/2025 16:03:11 Low QRS voltage now present Atrial flutter no longer present Electronically Signed On 07-11-2025 22:52:06 CDT by Mayo Ortega M.D. [id number]
[2025-07-10 22:23] LABS: Troponin 5 6HR 18.42 ng/L (0-15)
[2025-07-10 22:34] LABS: Troponin 5 6HR Delta -5.58 ng/L (0-12)
[2025-07-11] VITALS (18 sets, daily range): BP systolic 116–163; BP diastolic 56–101; PULSE 57–110; RESP 13–24; TEMP 36.3–37.1; O2SAT 91–98; BMI 29.0
[2025-07-11] MEDS: methylPREDNISolone sod succ 40 mg/mL INJ IVP ×2 (03:02→15:34)
[2025-07-11 04:18] LABS: Hematocrit 37.4 % (37-53); Hemoglobin 11.30 g/dL (11.27-16.99); Mean Corpuscular HGB Conc 30.2 g/dL (30-55); Mean Corpuscular Hemoglobin 28.5 pg (27-33); Mean Corpuscular Volume 94.2 fl (82-101); Nucleated Red Blood Cells % 0 %; Platelet Count 111 10^3/cmm (157-399); Red Blood Count 3.97 10^6/uL (3.85-5.65); White Blood Count 3.30 10^3/uL (3.29-11.43)
[2025-07-11 04:54] LABS: Blood Urea Nitrogen 11 mg/dL (8-23); Calcium 8.3 mg/dL (8.5-10.5); Carbon Dioxide 22 mmol/L (22-29); Chloride 100 mmol/L (98-107); Creatinine Clr Calc Pharmacy 63.8882; Glucose 149 mg/dL (65-115); Magnesium 1.8 mg/dL (1.7-2.3); Osmolality Calculated 276 mOsm/kg (285-295); Sodium 132 mmol/L (136-145)
[2025-07-11 04:58] LABS: Anion Gap 14.6 (5-19); Potassium 4.6 mmol/L (3.5-5.1)
--- NOTE | 2025-07-11 09:14 | PM.PN ---
Vitals/I&O/Wt Last Vital Signs Temp 97.4 F L 07/11/25 07:46 Pulse 101 H 07/11/25 08:15 Resp 18 07/11/25 08:15 BP 128/101 07/11/25 07:46 Pulse Ox 95 07/11/25 08:15 O2 Del Method Nasal Cannula 07/11/25 08:15 O2 Flow Rate 3 07/11/25 08:15 07/10/25 07/11/25 07/11/25 22:59 06:59 14:59 Intake Total 452.5 / 1148.6 6.1 / 1148.6 120 / 120 Output Total 850 / 1925 1000 / 1925 1999 / 1999 Balance -397.5 / -776.4 -993.9 / -776.4 -1880 / -1880 Weight last 48 hrs Weight 196 lb 3 oz Weight 194 lb 11.2 oz Weight 194 lb 11.2 oz Weight 191 lb Data 07/11/25 03:34 07/11/25 03:34 Micro: Microbiology 07/09/25 18:32 Blood Culture - Preliminary Blood NEGATIVE TO DATE 07/09/25 18:24 Blood Culture - Preliminary Blood NEGATIVE TO DATE A&P PDMP PDMP Reviewed: Not Reviewed Coding Level of Care Code Acute Code for Chg Fwd
--- NOTE | 2025-07-11 09:33 | P.PN_ITS ---
<Statement entered by Remedios Prado MD - 07/11/25 19:05> Patient was evaluated and cared for in conjunction with an advanced practice practitioner. I personally examined the patient and reviewed the chart and all pertinent data including imaging, telemetry, and laboratory results. I discussed the patient in detail with the advanced practice practitioner. Please see their note for complete H&P testing result and agreed upon plan of care for the patient. Status post FABIAN guided cardioversion no thrombus was noted in the left atrium. Patient converted back to sinus rhythm GENERAL: Patient is alert, awake and oriented x3. HEART: Regular S1 and S2. No murmur, rub or gallop. LUNGS: Clear to auscultate bilaterally. CENTRAL NERVOUS SYSTEM: Grossly nonfocal. Assessment and plan Atrial fibrillation COPD hypertension Hyperlipidemia Patient converted back to sinus rhythm after FABIAN guided cardioversion Add amiodarone 400 mg twice daily Continue beta-jose Switch patient to Xarelto or Eliquis Subjective 2 Subjective: He remains in atrial fibrillation with better rate control. No significant chest pain this morning. Vitals/I&O/Wt Last Vital Signs Temp 97.4 F L 07/11/25 07:46 Pulse 101 H 07/11/25 08:15 Resp 18 07/11/25 08:15 BP 128/101 07/11/25 07:46 Pulse Ox 95 07/11/25 08:15 O2 Del Method Nasal Cannula 07/11/25 08:15 O2 Flow Rate 3 07/11/25 08:15 07/10/25 07/11/25 07/11/25 22:59 06:59 14:59 Intake Total 452.5 / 1148.6 6.1 / 1148.6 120 / 120 Output Total 850 / 1925 1000 / 1925 1999 / 1999 Balance -397.5 / -776.4 -993.9 / -776.4 -1880 / -1880 Weight last 48 hrs Weight 196 lb 3 oz Weight 194 lb 11.2 oz Weight 194 lb 11.2 oz Weight 191 lb Physical Exam 2 Const: COMMON NORMALS: no acute distress and patient oriented x3 Chest: COMMONS NORMALS: normal inspection of the chest and normal palpation of entire chest wall CHEST: Yes Symmetrical chest wall rise Resp: COMMON NORMALS: normal respiratory effort, No retractions, No use of accessory muscles and clear to auscultation bilaterally EFFORT & INSPECTION: Yes symmetric chest movement AUSCULTATION: clear to auscultation bilaterally Cardio: COMMON NORMALS: S1 normal heart sound present, S2 normal heart sound present, No gallops present (Cardio), No clicks present (Cardio), No murmurs present (Cardio) and No rub (Cardio) RHYTHM: abnormal rhythm irregularly irregular HEART SOUNDS: S1 normal heart sound present and S2 normal heart sound present PERIPHERAL PULSES: radial pulses present, posterior tibial pulses present and dorsalis pedis present Neuro: COMMON NORMALS: patient oriented x3 Psych: COMMON NORMALS: mental status grossly normal and cooperative Data 07/11/25 03:34 07/11/25 03:34 Micro: Microbiology 07/09/25 20:04 Urine Culture - Final Urine,Clean Catch 07/09/25 18:32 Blood Culture - Preliminary Blood NEGATIVE TO DATE 07/09/25 18:24 Blood Culture - Preliminary Blood NEGATIVE TO DATE A&P Assessment and plan 1. Atrial fibrillation with rapid ventricular response: 2. HTN (hypertension): 3. ASHD (arteriosclerotic heart disease): 4. Other chest pain: 5. Benign essential HTN: 6. COPD (chronic obstructive pulmonary disease): 7. Supplemental oxygen dependent: Plan: Since the atrial fibrillation is new onset and he does not have significant valvular abnormality or atrial dilation, he would be best served attempting to restore sinus rhythm. Will plan for FABIAN guided cardioversion at noon today. He will also be started on heparin infusion since he has not previously been anticoagulated. Remain NPO. This has been discussed with the patient in detail and questions answered. After cardioversion we can reassess for presence of chest pain. Continue amiodarone infusion, carvedilol, atorvastatin, Imdur. Blood pressure controlled without hypotension. PDMP PDMP Reviewed: Not Reviewed Attestations 2 Medical Necessity Statement*: Cardioversion Coding Level of Care Code Acute Code for [facility] Fwd Diagnoses Atrial fibrillation with rapid ventricular response I48.91 HTN (hypertension) I10 ASHD (arteriosclerotic heart disease) I25.10 Other chest pain R07.89 Chest pain type: other chest pain Benign essential HTN I10 COPD (chronic obstructive pulmonary disease) J44.9 Supplemental oxygen dependent Z99.81
--- NOTE | 2025-07-11 09:35 | USCV_ITS ---
Rocio Rivera Age: 70 Gender: M : 1955 Exam Date: 07/11/2025 12:08 Ordering Phys: Yoli Garcia Technologist: Exam Location: [facility] [place] Indication: card conversion BP: / HR: Rhythm: Sinus Technical Quality: Adequate MEASUREMENTS (Male / Female) Normal Values Medications Patient given IV sedation by anesthesia service, for details please refer to the anesthesia report. Complications None. Proc. Components The patient was brought to the FABIAN examination room in a fasting state after obtaining an informed consent. The FABIAN probe was passed into the posterior pharynx , mid-esophagus, distal esophagus, and gastric fundus. FABIAN was performed at multiple levels. The patient tolerated the procedure well and there were no complications. FINDINGS Left Ventricle Normal left ventricular size, systolic function and wall thickness, with no regional wall motion abnormalities. Left ventricular ejection fraction is estimated at 55 %. Right Ventricle The right ventricle is normal in size and function. Right Atrium The right atrium is normal in size. Left Atrium The left atrium is normal in size. LA Appendage The LA appendage is normal. No thrombus visualized in the left atrial appendage. Normal flow velocities in the left atrial appendage. IA Septum The interatrial septum is normal. Mitral Valve Mildly thickened mitral valve. No mitral valve stenosis. Trace mitral valve regurgitation. Aortic Valve Mild aortic valve calcification. Aortic valve sclerosis. Trace aortic valve regurgitation. Tricuspid Valve Structurally normal tricuspid valve without significant stenosis or regurgitation. Pulmonary artery systolic pressure is normal. Pulmonic Valve Structurally normal pulmonic valve without significant stenosis. There is no pulmonic regurgitation. Pericardium Normal pericardium without effusion. Aorta Normal ascending aorta dimension. CONCLUSIONS Normal left ventricular size, systolic function and wall thickness, with no regional wall motion abnormalities. Left ventricular ejection fraction is estimated at 55 %. The LA appendage is normal. No thrombus visualized in the left atrial appendage. Normal flow velocities in the left atrial appendage. Mild aortic valve calcification. Aortic valve sclerosis. Trace aortic valve regurgitation. There is no pericardial effusion. Remedios Prado MD (Electronically Signed) Final Date: 13 July 2025 17:58 S
[2025-07-11] MEDS: heparin 5,000 unit/mL INJ 1 mL 5000 UNIT SUBCUT (10:35)
--- NOTE | 2025-07-11 10:51 | ANES.PREANE2 ---
Pre-Anesthetic Assessment Height/Weight: Height 5 ft 9 in Weight 196 lb 3 oz Temp Pulse Resp BP Pulse Ox O2 Del Method O2 Flow Rate 97.4 F L 101 H 18 128/101 95 Nasal Cannula 3 07/11/25 07:46 07/11/25 08:15 07/11/25 08:15 07/11/25 07:46 07/11/25 08:15 07/11/25 08:15 07/11/25 08:15 Preop Diagnosis: A fib with RVR Was Beta Anitha taken within 24 hours: Yes Was Clonidine taken within 24 hours: N/A Social No alcohol and No tobacco Exam alert, oriented x 3 and clear to auscultation bilaterally Airway Submandibular: within normal limits Cervical ROM: within normal limits Mallampati: Class III Anesthetic Plan ASA status: 3 Anesthesia: MAC Other: No prior issues with anesthesia Patient admitted on 07/09/2025 for new onset A-fib with RVR Patient has been receiving antibiotics for acute epididymitis History of COPD Hypertension on carvedilol and losartan at home EKG showing A-fib Plan for MAC anesthesia Medications/Allergies Home Medications ?Medication ?Instructions ?Recorded ?Confirmed ?Last Taken ?Type [id number] : Skin protection #1 ea 04/26/21 07/10/25 Unknown Rx wheelchair seat cushion, adjustable, width less than 22 inches, any depth. [id number] Power wheelchair, group 2 #1 ea 04/26/21 07/10/25 Unknown Rx standard, sling/solid [id number] front wheeled walker #1 ea 04/23/24 07/10/25 Unknown Rx wheelchair #1 ea 04/23/24 07/10/25 Unknown Rx albuterol sulfate 2.5 mg/3 mL 2.5 mg (3 mL) inhalation Q4H PRN 04/28/25 07/10/25 06/17/25 Rx (0.083 %) solution for nebulization shortness of breath or wheezing #300 mL budesonide 160 mcg-glycopyr 9 2 inh inhalation BID #10.7 grams 04/28/25 07/10/25 Unknown Rx mcg-formot 4.8 mcg/actuation HFA inhaler (Breztri Aerosphere) evolocumab 140 mg/mL subcutaneous 140 mg SUBCUT .every 14 days #2 mL 04/28/25 07/10/25 06/08/25 15:03 Rx pen injector (Miguel Brown) tamsulosin 0.4 mg capsule (Flomax) 0.4 mg PO DAILY #90 caps 04/28/25 07/10/25 07/09/25 Rx Oxygen concentrator and portable #1 ea 05/20/25 07/10/25 Unknown Rx NC 2L isosorbide mononitrate 60 mg 60 mg PO DAILY #90 tabs 06/16/25 07/09/25 07/09/25 08:00 Rx tablet,extended release 24 hr ciprofloxacin HCl 500 mg tablet 500 mg PO BID #12 tabs 06/23/25 07/10/25 Unknown Rx (Cipro) oxycodone 20 mg tablet 20 mg PO Q8H PRN Pain 06/23/25 07/09/25 Unknown History amlodipine 5 mg tablet (Norvasc) 5 mg PO DAILY #90 tabs 06/27/25 07/10/25 07/09/25 08:00 Rx atorvastatin 80 mg tablet See Rx Instructions .Route 06/27/25 07/10/25 Unknown Rx .COMPLEX #90 tabs carvedilol 12.5 mg tablet 12.5 mg PO BID #90 tabs 06/27/25 07/10/25 Unknown Rx clopidogrel 75 mg tablet See Rx Instructions .Route 06/27/25 07/10/25 07/09/25 Rx .COMPLEX #90 tabs losartan 25 mg tablet 25 mg PO DAILY #90 tabs 06/27/25 07/10/25 07/09/25 Rx Allergies Allergy/AdvReac Type Severity Reaction Status Date / Time ketorolac (From Toradol) Allergy Unknown Verified 07/01/25 10:11 nalbuphine (From Nubain) Allergy Unknown Verified 07/01/25 10:11 tizanidine Allergy ADR-Halluci Verified 07/01/25 10:11 nating Current Medications Generic Name Dose Route Start Last Admin Trade Name Freq PRN Reason Stop Dose Admin Albuterol/Ipratropium 3 ml 07/10/25 20:00 07/11/25 08:15 Ipratropium-Albuterol 3 Ml Neb INHALATION 3 ml Q6H.RESP CONCEPCION Administration Atorvastatin Calcium 80 mg 07/11/25 09:00 07/11/25 07:27 Atorvastatin 40 Mg Tablet PO 80 mg DAILY CONCEPCION Administration Azithromycin 500 mg 07/11/25 09:00 07/11/25 07:28 Azithromycin 250 Mg Tablet PO 500 mg DAILY CONCEPCION Administration Protocol Carvedilol 12.5 mg 07/10/25 18:00 07/11/25 07:28 Carvedilol 12.5 Mg Tablet PO 12.5 mg BID CONCEPCION Administration Clopidogrel Bisulfate 75 mg 07/11/25 09:00 07/11/25 07:29 Clopidogrel 75 Mg Tablet PO 75 mg DAILY CONCEPCION Administration Docusate Sodium 100 mg 07/10/25 09:00 07/11/25 07:28 Docusate Sodium 100 Mg Capsule PO 100 mg BID CONCEPCION Administration Guaifenesin 600 mg 07/11/25 09:00 07/11/25 07:28 Guaifenesin 600 Mg Tablet PO 600 mg BID CONCEPCION Administration Heparin Sodium (Porcine) 5,000 unit 07/09/25 23:00 07/11/25 10:35 Heparin 5,000 Unit/Ml Inj 1 Ml SUBCUT 5,000 unit Q12H CONCEPCION Administration Amiodarone HCl/Dextrose 360 mg in 200 mls @ 0 mls/hr 07/09/25 20:23 07/11/25 00:50 Nexterone IV 0.01 mg/min .Q0M CONCEPCION 0.5 mls/hr Protocol Administration Per Protocol Isosorbide Mononitrate 60 mg 07/11/25 09:00 07/11/25 07:28 Isosorbide Mononitrate Er 60 Mg Tablet PO 60 mg DAILY CONCEPCION Administration Methylprednisolone Sodium Succinate 40 mg 07/10/25 14:15 07/11/25 03:02 Methylprednisolone Sod Succ 40 Mg/Ml Inj IVP 40 mg Q12H CONCEPCION Administration Morphine Sulfate 4 mg 07/09/25 22:47 07/10/25 21:58 Morphine 4 Mg/Ml Sdv 1 Ml IVP 4 mg Q4H PRN Administration SEVERE PAIN Oxycodone HCl 20 mg 07/09/25 22:23 07/11/25 07:06 Oxycodone Ir 30 Mg Tablet PO 20 mg Q8H PRN Administration SEVERE PAIN Pantoprazole Sodium 40 mg 07/10/25 09:00 07/11/25 07:[address] 40 Mg Tablet PO 40 mg DAILY CONCEPCION Administration Tamsulosin HCl 0.4 mg 07/11/25 09:00 07/11/25 07:28 Tamsulosin 0.4 Mg Capsule PO 0.4 mg DAILY CONCEPCION Administration PFSH Anesthesia Medical History Supplemental oxygen dependent 3L NC since June,. Bladder distension Neuropathic pain Osteoarthritis of left hip LAU (dyspnea on exertion) Benign essential HTN Osteoporosis Anemia Central spinal stenosis Mixed hyperlipidemia COPD (chronic obstructive pulmonary disease) ASHD (arteriosclerotic heart disease) Surgical History Hx of leg amputation Right side History of right lower limb amputation History of abdominal surgery History of appendectomy History of hernia repair H/O shoulder surgery H/O knee surgery Family History Mother CAD (coronary artery disease) Father Cancer Family/Other Cancer Denies family history of Diabetes Clotting disorder Dementia Chronic kidney disease (CKD) Suicide Anesthesia complication Bleeding disorder Lung disease Stroke Social History Smoking and tobacco/nicotine status: former use of tobacco/nicotine Quit status (tobacco/nicotine): has quit using Year quit tobacco: 2020 Former quit date comment: 2 PPD X 45 YEARS Second hand smoke exposure: No Alcohol intake: never Substance/Drug Use: never Adopted: No Caregiver/support person: No Lives independently: Yes Household members: significant other Housing: House Marital status: Number of children: 2 service: No Current occupational status: retired Current occupational exposures/hazards: No Do you think of yourself as: Straight/Heterosexual Current gender identity: Male Data Anesthesia 07/11/25 03:34 07/11/25 03:34 Short CBC 07/09/25 07/10/25 07/11/25 Range/Units 18:11 00:49 03:34 WBC 5.16 5.58 3.30 (3.29-11.43) 10^3/uL Hgb 12.80 11.80 11.30 (11.27-16.99) g/dL Hct 42.3 39.9 37.4 (37-53) % MCV 93.4 96.6 94.2 (82-101) fl Plt Count 146 L 128 L 111 L (157-399) 10^3/cmm Neut % (Auto) 71.1 66.6 70.6 % Neut # (Auto) 3.67 3.72 2.33 (1.8-7.7) 10^3/uL BMP 07/09/25 07/10/25 07/11/25 18:11 00:49 03:34 Sodium 129 L 130 L 132 L Potassium 4.0 4.2 4.6 Chloride 96 L 100 100 Carbon Dioxide 25 20 L 22 BUN 11 10 11 Creatinine 1.3 H 1.1 1.2 Glucose 156 H 110 149 H Calcium 8.6 8.1 L 8.3 L Cardiac Enzymes 07/09/25 07/09/25 07/10/25 Range/Units 18:11 20:09 00:49 Troponin T Baseline 31 H (0-15) ng/L Troponin T 120 Minute 31.73 H (0-15) ng/L Delta Troponin T 0.73 (0-10) ABS# Troponin T Hi Sens 6Hr 28.48 H (0-15) ng/L Troponin T Hi Sens 6Hr Delta -2.52 L (0-12) ng/L NT-Pro-B Natriuret Pep 2367 H (0-125) pg/mL 07/10/25 07/10/25 07/10/25 Range/Units 15:05 17:59 21:25 Troponin T Baseline 24 H (0-15) ng/L Troponin T 120 Minute 20.90 H (0-15) ng/L Delta Troponin T -3.10 L (0-10) ABS# Troponin T Hi Sens 6Hr 18.42 H (0-15) ng/L Troponin T Hi Sens 6Hr Delta -5.58 L (0-12) ng/L NT-Pro-B Natriuret Pep (0-125) pg/mL Liver Function 07/09/25 07/10/25 Range/Units 18:11 00:49 Total Bilirubin 0.4 0.4 (0.15-1.2) mg/dL AST 30 35 (0-40) U/L ALT 17 18 (0-41) U/L Alkaline Phosphatase 68 75 (40-130) U/L Albumin 3.4 L 3.0 L (3.5-5.2) g/dL Urine 07/09/25 Range/Units 20:04 Urine Color Dark yellow A (Yellow) Urine Appearance Clear (CLEAR) Urine pH 6.0 (5-7) Ur Specific [place] 1.017 (1.005-1.030) Urine Protein 2+ A (Negative) Urine Glucose (UA) Negative (Normal) Urine Ketones Trace (Negative) Urine Nitrate Positive A (Negative) Urine Bilirubin 1+ H (Negative) Ur Leukocyte Esterase 1+ A (Negative) Urine RBC 0-2 (0-2) /hpf Urine WBC 6-10 (0-5) /hpf COVID Results 07/09/25 07/10/25 18:14 14:45 Coronavirus 229E (PCR) Not detected SARS-CoV-2 (PCR) Negative Not detected Coags 07/09/25 18:11 C-Reactive Protein 3.3 ABG 07/09/25 18:19 Specimen Type Arterial Sample Site Brachial, right ABG pH 7.35 ABG pCO2 46.9 H ABG pO2 90.1 ABG PO2/FiO2 Ratio 281 ABG HCO3 25.9 ABG O2 Saturation 97.7 ABG Base Excess -0.2 A-a O2 Gradient 10.5 H O2 Delivery Device Nc O2 Liters/Min 3.0 FiO2 32.0 Microbiology 07/09/25 20:04 Urine Culture - Final Urine,Clean Catch 07/09/25 18:32 Blood Culture - Preliminary Blood NEGATIVE TO DATE 07/09/25 18:24 Blood Culture - Preliminary Blood NEGATIVE TO DATE Cardiac Studies: Echocardiogram 12/05/23 Sestamibi Stress Test (Cardiology) 03/25/24
[2025-07-11] MEDS: heparin drip 25,000 UNIT/500 ML PREMIX 25 UNIT IV (11:32)
[2025-07-11] MEDS: morphine 4 mg/mL SDV 1 mL IVP ×2 (11:38→18:51)
--- NOTE | 2025-07-11 12:00 | PC.NURSE ---
Informed Yoli Garcia NP about patient receiving subq heparin. Received instruction to not give initial bolus and to start heparin drip per protocol.
--- NOTE | 2025-07-11 12:06 | P.PN_ITS ---
Vitals/I&O/Wt Last Vital Signs Temp 97.8 F 07/11/25 11:47 Pulse 81 07/11/25 11:47 Resp 13 07/11/25 11:47 BP 116/63 07/11/25 11:47 Pulse Ox 95 07/11/25 08:15 O2 Del Method Nasal Cannula 07/11/25 08:15 O2 Flow Rate 3 07/11/25 08:15 07/10/25 07/11/25 07/11/25 22:59 06:59 14:59 Intake Total 452.5 / 1142.5 6.1 / 1148.6 320 / 320 Output Total 850 / 925 1000 / 1925 1999 / 1999 Balance -397.5 / 217.5 -993.9 / -776.4 -1680 / -1680 Weight last 48 hrs Weight 88.989 kg Weight 88.314 kg Weight 88.314 kg Weight 86.636 kg Physical Exam 2 Narrative: General: Alert oriented x3, patient seen at sitting up in bed. On 3 L nasal cannula at this time. HEENT: Normocephalic, atraumatic, EOMI, Cardio: Irregularly irregular, tachycardic normal S1-S2, Respiratory: Clear to auscultation bilaterally no wheezes or rhonchi GI: Abdomen soft, nontender, bowel sounds + Behavior: Appropriate and cooperative Extremities: No edema bilateral lower extremities Data 07/11/25 03:34 07/11/25 03:34 Micro: Microbiology 07/09/25 20:04 Urine Culture - Final Urine,Clean Catch 07/09/25 18:32 Blood Culture - Preliminary Blood NEGATIVE TO DATE 07/09/25 18:24 Blood Culture - Preliminary Blood NEGATIVE TO DATE A&P Assessment and plan 1. Atrial fibrillation with rapid ventricular response: 2. Acute upper respiratory infection: 3. Acute epididymitis: 4. Dehydration: 5. Acute renal failure: Plan: New onset atrial fibrillation - Secondary to underlining infection such as epididymitis, patient had no white count no elevated lactate - Amiodarone IV with protocol was initiated patient lost the IV, difficult attempts to get 1 in - Oral Cardizem of 60 mg every [address] a plan to get PICC line on this patient. - Must continue to monitor and treat Epididymitis - IV ciprofloxacin and Flagyl initiated - Continue with this once IV site is established with PICC line at this time. Upper respiratory tract infection - He has no pneumonia and he has no white count patient is with cough and reactive airway - Initiate Tessalon Perle - May have Levaquin and Flagyl to be inclusive and treated and respiratory infection meaning Levaquin for Respiratory infection Dehydration - Gentle hydration in place Acute renal failure - Mental hydration and treating the infection we will optimize care GI and DVT prophylaxis in place 07/10/2025 Patient was recently treated for epididymitis at previous hospitalization however he complained of scrotal pain to overnight physician. He was started on ciprofloxacin and Flagyl. I will repeat scrotal ultrasound to evaluate this. Continue IV amiodarone for atrial fibrillation. Consult cardiology to assist with management of atrial fibrillation. Continue on Coreg 12.5 twice daily. Continue on Imdur [address] patient on Zosyn to treat for epididymitis. Patient has a history of COPD and may be having a COPD exacerbation at this time. I will place on Solu-Medrol 40 IV daily and add azithromycin for anti- inflammatory effect. There is no evidence of pneumonia on chest x-ray. Check respiratory viral panel Continue on tamsulosin 0.4 daily. Continue Plavix 07/11/2025 continue iv zosyn, scrotal swelling improving, redness improving continue on IV amiodarone cardiology plans on cardioversion today, pt npo since midnight switch solumedrol to 40 IV daily for COPD exacerbation continue azithromycin viral panel neg continue plavix and tamsulosin daily continue home coreg, imdur, losartan PDMP PDMP Reviewed: Not Reviewed Attestations 2 Medical Necessity Statement*: afib rvr, on amio gtt, plan for cardioversion today epididymitis Diagnoses Atrial fibrillation with rapid ventricular response I48.91 Acute upper respiratory infection J06.9 Acute epididymitis N45.1 Dehydration E86.0 Acute renal failure N17.9
--- NOTE | 2025-07-11 13:42 | PC.NURSE ---
At ~1215, patient prepped for FABIAN with cardioversion. Suction available. US Stacey and Dr Prado present. Patient sedated and FABIAN performed. No abnormalities observed. Proceeded with cardioverision. Patient shocked once with 120j and did convert to normal sinus rythym. Patient currently aaox4. Patient c/o only of being starving . Meal ordered.
[2025-07-11 22:13] LABS: Partial Thromboplastin Time 190.5 SECONDS (23.9-36.7)
[2025-07-12] VITALS (10 sets, daily range): BP systolic 130–148; BP diastolic 67–70; PULSE 54–60; RESP 18–21; TEMP 36.6; O2SAT 92–98
[2025-07-12] MEDS: morphine 4 mg/mL SDV 1 mL IVP (00:39)
[2025-07-12] MEDS: methylPREDNISolone sod succ 40 mg/mL INJ IVP (02:04)
[2025-07-12 02:25] LABS: Hematocrit 31.8 % (37-53); Hemoglobin 9.70 g/dL (11.27-16.99); Mean Corpuscular HGB Conc 30.5 g/dL (30-55); Mean Corpuscular Hemoglobin 28.6 pg (27-33); Mean Corpuscular Volume 93.8 fl (82-101); Nucleated Red Blood Cells % 0 %; Platelet Count 99 10^3/cmm (157-399); Red Blood Count 3.39 10^6/uL (3.85-5.65); White Blood Count 8.92 10^3/uL (3.29-11.43)
[2025-07-12 03:02] LABS: Partial Thromboplastin Time 27.2 SECONDS (23.9-36.7)
[2025-07-12 03:11] LABS: Anion Gap 12.2 (5-19); Blood Urea Nitrogen 20 mg/dL (8-23); Calcium 8.2 mg/dL (8.5-10.5); Carbon Dioxide 24 mmol/L (22-29); Chloride 100 mmol/L (98-107); Creatinine Clr Calc Pharmacy 59.1785; Glucose 172 mg/dL (65-115); Magnesium 1.8 mg/dL (1.7-2.3); Osmolality Calculated 281 mOsm/kg (285-295); Potassium 4.2 mmol/L (3.5-5.1); Sodium 132 mmol/L (136-145)
[2025-07-12 09:45] LABS: Partial Thromboplastin Time 112.4 SECONDS (23.9-36.7)
--- NOTE | 2025-07-12 09:59 | PM.DCS ---
Discharge Providers Date of Admission: 07/09/25 20:52 Date of Discharge: July 12, 2025 Attending Provider at Admission: Michelle Kwong MD Attending Provider at Discharge: Olimpia Phelps MD Primary Care Provider: BERNARD Villa Diagnoses at Discharge Discharge Diagnosis 1. Atrial fibrillation with rapid ventricular response: 2. Acute upper respiratory infection: 3. Acute epididymitis: 4. Dehydration: 5. Acute renal failure: Reason for Visit Reason for Visit: Weakness Cold Sweats Dizzy Coughing Hospital Course Hospital Course Patient admitted for A-fib with RVR and also noted to have a COPD exacerbation along with epididymitis. Previous hospitalization he was treated for orchitis and epididymitis. Orchitis has resolved however epididymitis is still present. He complained of scrotal pain and swelling. He was treated with IV Zosyn and transition to oral ciprofloxacin at time of discharge for an additional 7 days. He will be referred to urology at discharge. He was cardioverted during hospitalization and placed on amiodarone and Eliquis. Patient remained in sinus rhythm thereafter. He was treated for COPD exacerbation with steroids and azithromycin. Patient will be sent in stable condition at this time. He is on baseline oxygen. Patient feeling better and doing well. Event monitor requested at discharge. Physical Exam Narrative: General: Alert oriented x3, patient seen at sitting up in bed. On 3 L nasal cannula at this time. HEENT: Normocephalic, atraumatic, EOMI, Cardio: Irregularly irregular, tachycardic normal S1-S2, Respiratory: Clear to auscultation bilaterally no wheezes or rhonchi GI: Abdomen soft, nontender, bowel sounds + Behavior: Appropriate and cooperative Extremities: No edema bilateral lower extremities Discharge Data Studies Completed and Pending Completed Studies During Hospitalization Category Date Time Status XR chest 1V portable [id number] Stat Exams 07/09/25 18:11 Completed US scrotum [id number] Stat Ultrasound 07/10/25 14:07 Completed Pending at discharge Category Date Time Status Blood Culture Stat Lab 07/09/25 18:32 Results Platelet Count Q2D Lab 07/13/25 04:00 Ordered Platelet Count Q2D Lab 07/15/25 04:00 [place] [id number] Routine Ultrasound 07/11/25 09:35 Taken Radiology Impressions Chest X-Ray 07/09/25 18:11 IMPRESSION: No acute findings. Scrotum Ultrasound 07/10/25 14:07 IMPRESSION: 1. Persistent acute RIGHT epididymitis. New mild scrotal wall thickening. 2. Resolved RIGHT orchitis. 3. No left-sided epididymitis or orchitis. Laboratory Results WBC 8.92 10^3/uL (3.29-11.43) 07/12/25 02:01 RBC 3.39 10^6/uL (3.85-5.65) L 07/12/25 02:01 Hgb 9.70 g/dL (11.27-16.99) L 07/12/25 02:01 Hct 31.8 % (37-53) L 07/12/25 02:01 MCV 93.8 fl (82-101) 07/12/25 02:01 MCH 28.6 pg (27-33) 07/12/25 02:01 MCHC 30.5 g/dL (30-55) 07/12/25 02:01 RDW 14.2 % (12.1-15.1) 07/12/25 02:01 Plt Count 99 10^3/cmm (157-399) L 07/12/25 02:01 MPV 9.9 fL (7.4-10.4) 07/12/25 02:01 Neut % (Auto) 84.3 % 07/12/25 02:01 Lymph % (Auto) 9.1 % 07/12/25 02:01 [place] % (Auto) 6.2 % 07/12/25 02:01 Eos % (Auto) 0.0 % 07/12/25 02:01 Baso % (Auto) 0.1 % 07/12/25 02:01 Neut # (Auto) 7.52 10^3/uL (1.8-7.7) 07/12/25 02:01 Lymph # (Auto) 0.8 10^3/uL (0.8-4.8) 07/12/25 02:01 [place] # (Auto) 0.6 10^3/uL (0.2-0.9) 07/12/25 02:01 Eos # (Auto) 0.0 10^3/uL (0.0-0.8) 07/12/25 02:01 Baso # (Auto) 0.0 10^3/uL (0.0-0.1) 07/12/25 02:01 Nucleated RBC % (auto) 0 % 07/12/25 02:01 Nucleated RBCs # 0.0 /100WBC 07/12/25 02:01 APTT 112.4 SECONDS (23.9-36.7) H D 07/12/25 09:18 Specimen Type Arterial 07/09/25 18:19 Sample Site Brachial, right 07/09/25 18:19 ABG pH 7.35 (7.35-7.45) 07/09/25 18:19 ABG pCO2 46.9 mmHg (35-45) H 07/09/25 18:19 ABG pO2 90.1 mmHg (80.0-100.0) 07/09/25 18:19 ABG PO2/FiO2 Ratio 281 07/09/25 18:19 ABG HCO3 25.9 mmol/L (22-26) 07/09/25 18:19 ABG O2 Saturation 97.7 07/09/25 18:19 ABG Base Excess -0.2 mmol/L (-2.0-2.0) 07/09/25 18:19 Robin Test N/a 07/09/25 18:19 A-a O2 Gradient 10.5 mmHg (5-10) H 07/09/25 18:19 Hematocrit 38.0 % (42-52) L 07/09/25 18:19 Hgb O2 Saturation 95.7 % (95-100) 07/09/25 18:19 Carboxyhemoglobin 1.3 %THgb (0.4-20.1) 07/09/25 18:19 Methemoglobin 0.8 % (0.4-1.5) 07/09/25 18:19 Total Hemoglobin 12.4 g/dL (14-18) L 07/09/25 18:19 Sodium 131.0 mmol/L (131-143) 07/09/25 18:19 Potassium 4.2 mmol/L (3.5-5.0) 07/09/25 18:19 Glucose 150.0 mg/dL (70-115) H 07/09/25 18:19 Ionized Calcium 1.2 mmol/L (1.1-1.4) 07/09/25 18:19 O2 Delivery Device Nc 07/09/25 18:19 O2 Liters/Min 3.0 % 07/09/25 18:19 FiO2 32.0 % 07/09/25 18:19 Application Development Liaison ID [facility] 07/09/25 18:19 Sodium 132 mmol/L (136-145) L 07/12/25 02:01 Potassium 4.2 mmol/L (3.5-5.1) 07/12/25 02:01 Chloride 100 mmol/L (98-107) 07/12/25 02:01 Carbon Dioxide 24 mmol/L (22-29) 07/12/25 02:01 Anion Gap 12.2 (5-19) 07/12/25 02:01 BUN 20 mg/dL (8-23) 07/12/25 02:01 Creatinine 1.3 mg/dL (0.7-1.2) H 07/12/25 02:01 GFR Calculation 54.7 mL/min (90-130) L 07/12/25 02:01 Glucose 172 mg/dL (65-115) H 07/12/25 02:01 Calculated Osmolality 281 mOsm/kg (285-295) L 07/12/25 02:01 Lactic Acid 2.2 mmol/L (0.5-2.2) 07/09/25 18:11 Lactic Acid (Sepsis) 0.9 mmol/L (0.5-2.2) 07/09/25 21:45 Calcium 8.2 mg/dL (8.5-10.5) L 07/12/25 02:01 Phosphorus 2.1 mg/dL (2.5-4.5) L 07/10/25 00:49 Magnesium 1.8 mg/dL (1.7-2.3) 07/12/25 02:01 Total Bilirubin 0.4 mg/dL (0.15-1.2) 07/10/25 00:49 AST 35 U/L (0-40) 07/10/25 00:49 ALT 18 U/L (0-41) 07/10/25 00:49 Alkaline Phosphatase 75 U/L (40-130) 07/10/25 00:49 Troponin T Baseline 24 ng/L (0-15) H 07/10/25 15:05 Troponin T 120 Minute 20.90 ng/L (0-15) H 07/10/25 17:59 Delta Troponin T -3.10 ABS# (0-10) L 07/10/25 17:59 Troponin T Hi Sens 6Hr 18.42 ng/L (0-15) H 07/10/25 21:25 Troponin T Hi Sens 6Hr Delta -5.58 ng/L (0-12) L 07/10/25 21:25 C-Reactive Protein 3.3 mg/L (0.0-4.9) 07/09/25 18:11 NT-Pro-B Natriuret Pep 2367 pg/mL (0-125) H 07/09/25 18:11 Total Protein 7.7 g/dL (6.6-8.7) 07/10/25 00:49 Albumin 3.0 g/dL (3.5-5.2) L 07/10/25 00:49 Globulin 4.7 g/dL (1.3-4.6) H 07/10/25 00:49 Urine Color Dark yellow (Yellow) A 07/09/25 20:04 Urine Appearance Clear (CLEAR) 07/09/25 20:04 Urine pH 6.0 (5-7) 07/09/25 20:04 Ur Specific [place] 1.017 (1.005-1.030) 07/09/25 20:04 Urine Protein 2+ (Negative) A 07/09/25 20: Urine Glucose (UA) Negative (Normal) 07/09/25 20:04 Urine Ketones Trace (Negative) 07/09/25 20:04 Urine Blood Negative (Negative) 07/09/25 20: Urine Nitrate Positive (Negative) A 07/09/25 20: Urine Bilirubin 1+ (Negative) H 07/09/25 20:04 Urine Urobilinogen 1.0 mg/dL (Negative) 07/09/25 20:04 Ur Leukocyte Esterase 1+ (Negative) A 07/09/25 20:04 Urine RBC 0-2 /hpf (0-2) 07/09/25 20:04 Urine WBC 6-10 /hpf (0-5) 07/09/25 20:04 Ur Squamous Epith Cells 6-10 /hpf (0-5) 07/09/25 20:04 Amorphous Sediment Not Reportable 07/09/25 20:04 Urine Bacteria None seen /hpf (NONE) 07/09/25 20:04 Hyaline Casts 15.28 /lpf 07/09/25 20:04 Adenovirus (PCR) Not detected (NOT DETECT) 07/10/25 14:45 C. pneumoniae DNA (PCR) Not detected (NOT DETECT) 07/10/25 14:45 Coronavirus 229E (PCR) Not detected (NOT DETECT) 07/10/25 14:45 Human Metapneumovir PCR Not detected (NOT DETECT) 07/10/25 14:45 Influenza A (H1) PCR Not detected (NOT DETECT) 07/10/25 14:45 Influenza A (PCR) Negative (Negative) 07/09/25 18:14 Influ A (H1/09) PCR Not detected (NOT DETECT) 07/10/25 14:45 Influenza A (H3) PCR Not detected (NOT DETECT) 07/10/25 14:45 Influenza Type A (PCR) Not detected (NOT DETECT) 07/10/25 14:45 Influenza Type B (PCR) Not detected (NOT DETECT) 07/10/25 14:45 M. pneumoniae (PCR) Not detected (NOT DETECT) 07/10/25 14:45 Parainfluenza 1 (PCR) Not detected (NOT DETECT) 07/10/25 14:45 Parainfluenza 2 (PCR) Not detected (NOT DETECT) 07/10/25 14:45 Parainfluenza 3 (PCR) Not detected (NOT DETECT) 07/10/25 14:45 Parainfluenza 4 (PCR) Not detected (NOT DETECT) 07/10/25 14:45 RSV (PCR) Negative (Negative) 07/09/25 18:14 RSV Type A (PCR) Not detected (NOT DETECT) 07/10/25 14:45 RSV Type B (PCR) Not detected (NOT DETECT) 07/10/25 14:45 Entero/Rhino (PCR) Not detected (NOT DETECT) 07/10/25 14:45 SARS-CoV-2 (PCR) Not detected (NOT DETECT) 07/10/25 14:45 Vitals Last Vital Signs Temp 97.9 F 07/12/25 07:21 Pulse 55 L 07/12/25 08:54 Resp 20 H 07/12/25 08:47 BP 148/70 07/12/25 07:21 Pulse Ox 95 07/12/25 08:47 O2 Del Method Nasal Cannula 07/12/25 08:47 O2 Flow Rate 3 07/12/25 08:47 Discharge Plan Discharge Patient Disposition: Home Condition: Stable Prescriptions: New azithromycin 250 mg Tablet 500 mg PO DAILY Qty: 6 0RF amiodarone [Pacerone] 200 mg Tablet See Rx Instructions .ROUTE .COMPLEX Qty: 60 0RF Rx Instructions: 200 mg BID x 7 days then 200 mg daily thereafter prednisone 20 mg tablet 20 mg PO BID Qty: 6 0RF Eliquis 5 mg tablet 5 mg PO BID Qty: 60 0RF Continued (DME) [id number] : Skin protection wheelchair seat cushion, adjustable, width less than 22 inches, any depth. See Rx Instructions .Route .MEDSUPPLY Qty: 1 0RF Rx Instructions: [place] [place], group 2 standard, sling/solid See Rx Instructions .Route .MEDSUPPLY Qty: 1 0RF Rx Instructions: As directed (DME) wheelchair See Rx Instructions .Route .MEDSUPPLY Qty: 1 0RF Rx Instructions: [place] [place] E0143 front wheeled walker See Rx Instructions .Route .MEDSUPPLY Qty: 1 0RF Rx Instructions: As directed [employer] Aerosphere 160-9-4.8 mcg/actuation HFA aerosol inhaler 2 inh inhalation BID Qty: 10.7 5RF Repatha SureClick 140 mg/mL pen injector 140 mg SUBCUT .every 14 days Qty: 2 5RF tamsulosin [Flomax] 0.4 mg capsule 0.4 mg PO DAILY Qty: 90 1RF albuterol sulfate 2.5 mg /3 mL (0.083 %) solution for nebulization 2.5 mg inhalation Q4H PRN (Reason: shortness of breath or wheezing) Qty: 300 5RF isosorbide mononitrate 60 mg tablet extended release 24 hr 60 mg PO DAILY Qty: 90 3RF (DME) Oxygen concentrator and portable NC 2L See Rx Instructions .ROUTE .MEDSUPPLY Qty: 1 0RF Rx Instructions: Use 3L NC 24 hours for 99 months losartan 25 mg tablet 25 mg PO DAILY Qty: 90 3RF Rx Instructions: FOR 14 DAYS carvedilol 12.5 mg tablet 12.5 mg PO BID Qty: 90 0RF Rx Instructions: Decrease due to heart rate in 50's atorvastatin 80 mg tablet See Rx Instructions .ROUTE .COMPLEX Qty: 90 3RF Dose Instruction: TAKE ONE TABLET BY MOUTH ONCE DAILY Rx Instructions: TAKE ONE TABLET BY MOUTH ONCE DAILY clopidogrel 75 mg tablet See Rx Instructions .ROUTE .COMPLEX Qty: 90 3RF Dose Instruction: TAKE ONE TABLET BY MOUTH DAILY Rx Instructions: TAKE ONE TABLET BY MOUTH DAILY oxycodone 20 mg Tablet 20 mg PO Q8H PRN (Reason: Pain) Rx Instructions: Take 3 and a half tablets a day. ciprofloxacin HCl [Cipro] 500 mg tablet 500 mg PO BID 7 Days Qty: 14 0RF Discontinued amlodipine [Norvasc] 5 mg tablet 5 mg PO DAILY Qty: 90 3RF Discharge Order = DC NOW: Discharge Order (Routine); Ordered 07/12/25 Ordered By: Olimpia Phelps Other Ambulatory Orders: MCT/Event Monitor 21 Days (Routine) Timeframe: 1 Day Facility: [facility] - Location: Radiology Ordered By: Olimpia Phelps Referrals: Constantin Fang [Referring, Urology] - 1 week Referral Note: Primary care will have to refer to urology Imtiaz Shields FNP-C [Primary Care Provider, Family Practice] - 07/21/25 2:20 pm Remedios Prado MD [Physician, Cardiology] - 1 month Referral Note: We have notified your physician's clinic of the need for a follow-up appointment to be scheduled. If you have not heard from them within the next 2 business days, please call them directly. Yoli Garcia FNP [Nurse Practitioner, Cardiology] - 7-10 days Referral Note: We have notified your physician's clinic of the need for a follow-up appointment to be scheduled. If you have not heard from them within the next 2 business days, please call them directly. PT will also get 21 day event monitor at this appt Discharge Diet: Cardiac Discharge Activity: Resume usual activity Patient Instructions: Dehydration - Adult, Prednisone (By mouth), Amiodarone (By mouth), Azithromycin (By mouth), Apixaban (By mouth), Epididymitis, Acute Kidney Injury (DC), Opioid Safety, Patient Portal & Agnes Instructions Discharge Attestations Time Spent in Discharge Care*: greater than 30 min Status at Discharge: Cognitive status at discharge: cognitively intact, Behavioral status at discharge: cooperative, Quality Metrics Clinical Quality Measures [ No reported AMI, CVA or VTE this stay] Coding Level of Care Code Acute Code for Chg Fwd Diagnoses Atrial fibrillation with rapid ventricular response I48.91 Acute upper respiratory infection J06.9 Acute epididymitis N45.1 Dehydration E86.0 Acute renal failure N17.9
--- NOTE | 2025-07-12 13:36 | PC.NURSE ---
patient discharged to home. Instruction provided regarding follow up appointments, new medications with changes and need for 21 day event monitor. Patient and family all verbalized complete understanding. Midline IV removed. Held pressure to site for 10min. Patient remains in NSR. Patient denies pain and feels ready to go home. Patient's Inogen at bedside. patient taken by wheelchair to private vehicle. No distress observed.
--- OUTSIDE RECORDS SUMMARY | 2025-08-24 19:00 | XMS_ITS | Clinical Summary ---
Author Organization Unknown Care Team Providers Care Business Area Director Name Role Phone NALINI HOU APRN Unavailable Unavailnabeel WORTHINGTON RN, JUAN J Unavailable Unavailable Payers Payer Name Policy Type Policy Number Effective Date Expira tion Date MEDICARE - S - PD [id number] Problems Condition Name Condition Details Condition Category Status Onset Date Resolution Date Last Treatment Date Treating Clinician Comments TUBULO-INTER STITIAL NEPHRITIS, NOT SPCF ACUTE OR CHRONIC Active 06-27 00:00: 00 CHRONIC OBSTRUCTIVE PULMONARY DISEASE, UNSPECIFIED Active 11-13 00:00: 00 ATHSCL HEART DISEASE OF [place] CORONARY ARTERY W/O ANG PCTRS Active 11-13 00:00: 00 ESSENTIAL (PRIMARY) HYPERTENSION Active 11-13 00:00: 00 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 Active 11-13 00:00: 00 HYPO-OSMOLAL ITY AND HYPONATREMIA Active 11-13 00:00: 00 OTHER CHRONIC PAIN Active 11-13 00:00: 00 DORSALGIA, UNSPECIFIED Active 11-13 00:00: 00 DEPENDENCE ON SUPPLEMENTAL OXYGEN Active 11-13 00:00: 00 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 Active 11-13 00:00: 00 LONGTERM (CURRENT) USE OF ANTITHROMBOT ICS/ANTIPLAT ELETS Active 11-13 00:00: 00 LONGTERM (CURRENT) USE OF OPIATE ANALGESIC Active 11-13 00:00: 00 ENCOUNTER FOR FITTING AND ADJUSTMENT OF URINARY DEVICE Active 11-13 00:00: 00 PERSONAL HISTORY OF NICOTINE DEPENDENCE Active 11-13 00:00: 00 Allergies, Adverse Reactions, Alerts Allergy Name Allergy Type Status Severity Reaction(s) Onset Date Inactive Date Treating Clinician Comments KETOROLAC Propensity to adverse reactions Active 06-30 08:03: 51 NALBUPHINE Propensity to adverse reactions Active 06-30 08:04: 00 TIZANIDINE Propensity to adverse reactions Active 06-30 08:04: 15 Medications Ordered Medication Name Filled Medication Name Start Date Stop Date Current Medication? Ordering Clinician Indication Dosage Frequency Signature (SIG) Comments Components acetaminoph en 500 mg tablet 06-27 00:00: 00 Yes [id number] 2 tablet DAILY 2 tablet DAILY (route: oral) Med Classific ation: Analgesic , Anti-infl ammatory or Antipyret ic amlodipine 5 mg tablet 06-27 00:00: 00 Yes [id number] 1 tablet DAILY 1 tablet DAILY (route: oral) Med Classific ation: Cardiovas cular Therapy Agents atorvastati n 80 mg tablet 06-27 00:00: 00 Yes [id number] 1 tablet DAILY 1 tablet DAILY (route: oral) Med Classific ation: Cardiovas cular Therapy Agents carvedilol 12.5 mg tablet 06-27 00:00: 00 Yes [id number] 1 tablet 2 TIMES DAILY 1 tablet 2 TIMES DAILY (route: oral) Med Classific ation: Cardiovas cular Therapy Agents ciprofloxac in 500 mg tablet 06-27 00:00: 00 07-03 23:59 :00 No [id number] 1 tablet 2 TIMES DAILY 1 tablet 2 TIMES DAILY (route: oral) Med Classific ation: Anti-Infe ctive Agents clopidogrel 75 mg tablet 06-27 00:00: 00 Yes [id number] 1 tablet DAILY 1 tablet DAILY (route: oral) Med Classific ation: Hematolog ical Agents isosorbide mononitrate ER 60 mg tablet,exte nded release 24 hr 06-27 00:00: 00 Yes [id number] 1 tablet DAILY 1 tablet DAILY (route: oral) Med Classific ation: Cardiovas cular Therapy Agents losartan 25 mg tablet 06-27 00:00: 00 Yes [id number] 1 tablet DAILY 1 tablet DAILY (route: oral) Med Classific ation: Cardiovas cular Therapy Agents metronidazo le 500 mg tablet 06-27 00:00: 00 07-07 23:59 :00 No [id number] 1 tablet EVERY 8 HOURS 1 tablet EVERY 8 HOURS (route: oral) Med Classific ation: Anti-Infe ctive Agents oxycodone 20 mg tablet 06-27 00:00: 00 Yes [id number] 1 tablet 3 TIMES DAILY 1 tablet 3 TIMES DAILY (route: oral) Med Classific ation: Analgesic , Anti-infl ammatory or Antipyret ic tamsulosin 0.4 mg capsule 06-27 00:00: 00 Yes [id number] 1 capsule DAILY 1 capsule DAILY (route: oral) Med Classific ation: Genitouri nary Therapy albuterol sulfate 2.5 mg/3 mL (0.083 %) solution for nebulizatio n 06-27 00:00: 00 Yes [id number] 3 mL DAILY 3 mL CHELLY Y (route: inhalation ) Med Classific ation: Respirato ry Therapy Agents Breztri Aerosphere 160 mcg-9mcg-4. 8mcg/actuat ion HFA aerosol inhaler 06-27 00:00: 00 Yes [id number] 2 puff 2 TIMES DAILY 2 puff 2 TIMES DAILY (route: inhalation ) Med Classific ation: Respirato ry Therapy Agents budesonide 0.5 mg/2 mL suspension for nebulizatio n 06-27 00:00: 00 Yes [id number] 2 mL DAILY 2 mL CHELLY Y (route: inhalation ) Med Classific ation: Respirato ry Therapy Agents formoterol fumarate 20 mcg/2 mL solution for nebulizatio n 06-27 00:00: 00 Yes [id number] 2 mL 2 TIMES DAILY 2 mL 2 TIMES DAILY (route: inhalation ) Med Classific ation: Respirato ry Therapy Agents Repatha SureClick 140 mg/mL subcutaneou s pen injector 06-27 00:00: 00 Yes [id number] 140 mg DIRECTED 140 mg DIRECTED (route: subcutaneo us) Med Classific ation: Cardiovas cular Therapy Agents Yupelri 175 mcg/3 mL solution for nebulizatio n 06-27 00:00: 00 Yes [id number] 3 mL DAILY 3 mL CHELLY Y (route: inhalation ) Med Classific ation: Respirato ry Therapy Agents oxygen gas for inhalation 07-01 00:00: 00 Yes [id number] 3 Liter O2 - CONTINUOUS 3 Liter O2 - CONTINUOUS (route: inhalation ) Med Classific ation: Medical Supplies and Durable Medical Equipment (DME) Vital Signs Vital Name Observation Time Observation Value Commen ts Temperature 2025-07-03 14:48:00.000 97.4 [degF] Temperature 2025-07-02 17:35:00.000 97.5 [degF] Temperature 2025-06-27 13:02:00.000 97.6 [degF] BMI (%) 2025-06-27 13:02:00.000 25 kg/m2 Height 2025-06-27 13:02:00.000 69 [in_us] Pulse 2025-07-03 14:48:00.000 65 /min Pulse 2025-07-02 17:35:00.000 63 /min Pulse 2025-06-27 13:02:00.000 78 /min O2 Saturation (%) 2025-07-03 14:48:00.000 96 % O2 Saturation (%) 2025-07-02 17:35:00.000 93 % O2 Saturation (%) 2025-06-27 13:02:00.000 98 % Respirations 2025-07-03 14:48:00.000 18 /min Respirations 2025-07-02 17:35:00.000 16 /min Respirations 2025-06-27 13:02:00.000 18 /min Weight (lbs) 2025-06-27 13:02:00.000 175 [lb_av] Systolic Blood Pressure 2025-07-03 14:48:00.000 146 mm [Hg] Systolic Blood Pressure 2025-07-02 17:35:00.000 119 mm [Hg] Systolic Blood Pressure 2025-06-27 13:02:00.000 160 mm [Hg] Diastolic Blood Pressure 2025-07-03 14:48:00.000 62 mm [Hg] Diastolic Blood Pressure 2025-07-02 17:35:00.000 85 mm [Hg] Diastolic Blood Pressure 2025-06-27 13:02:00.000 82 mm [Hg] Plan of Treatment Planned Activity Planned Date Details Comments Future Scheduled Test SKILLED NU RSE TO EVALUATE PATIENT, IDENTIFY PRIMARY AND CO-MORBID CONDITIONS CODED PER CODING GUIDELINES INCLUDING TUBULO-INTERSTITIAL NEPHRITIS, NOT SPCF ACUTE OR CHRONIC, CHRONIC OBSTRUCTIVE PULMONARY DISEASE, UNSPECIFIED, ATHSCL HEART DISEASE OF [place] CORONARY ARTERY W/O ANG PCTRS, ESSENTIAL (PRIMARY) HYPERTENSION, OTHER ALLERGIC AND DIETETIC GASTROENTERITIS AND COLITIS, HYPO-OSMOLALITY AND HYPONATREMIA, AND DEVELOP PATIENT SPECIFIC PLAN OF CARE THAT INCLUDES PATIENT GOAL FOR HOME HEALTH. [code = SKILLED NURSE TO EVALUATE PATIENT, IDENTIFY PRIMARY AND CO-MORBID CONDITIONS CODED PER CODING GUIDELINES INCLUDING TUBULO-INTERSTITIAL NEPHRITIS, NOT SPCF ACUTE OR CHRONIC, CHRONIC OBSTRUCTIVE PULMONARY DISEASE, UNSPECIFIED, ATHSCL HEART DISEASE OF [place] CORONARY ARTERY W/O ANG PCTRS, ESSENTIAL (PRIMARY) HYPERTENSION, OTHER ALLERGIC AND DIETETIC GASTROENTERITIS AND COLITIS, HYPO-OSMOLALITY AND HYPONATREMIA, AND DEVELOP PATIENT SPECIFIC PLAN OF CARE THAT INCLUDES PATIENT GOAL FOR HOME HEALTH.] Future Scheduled Test [facility] MAY ACCEPT ORDERS FROM THE FOLLOWING PHYSICIANS: ALL PROVIDERS INVOLVED IN CARE [code = HOME HEALTH AGENCY MAY ACCEPT ORDERS FROM THE FOLLOWING PHYSICIANS: ALL PROVIDERS INVOLVED IN CARE ] Future Scheduled Test OXYGEN VIA NASAL CANNULA @ 3 LITERS CONTINUOUS. SKILLED NURSE FOR O/A AND SKILLED TEACHING OF SAFE OXYGEN USE IN THE HOME. [code = OXYGEN VIA NASAL CANNULA @ 3 LITERS CONTINUOUS. SKILLED NURSE FOR O/A AND SKILLED TEACHING OF SAFE OXYGEN USE IN THE HOME.] Future Scheduled Test SKILLED NU RSE FOR O/A AND SKILLED TEACHING RELATED TO SIGNS AND SYMPTOMS OF INFECTION AND INFECTION CONTROL MEASURES. [code = SKILLED NURSE FOR O/A AND SKILLED TEACHING RELATED TO SIGNS AND SYMPTOMS OF INFECTION AND INFECTION CONTROL MEASURES.] Future Scheduled Test SKILLED NU RSE TO INSTRUCT PATIENT/CAREGIVER ON COPD TO INCLUDE TEACHING AND SELF-MANAGEMENT RELATED TO COPD DISEASE PROCESS, SIGNS AND SYMPTOMS, AND COMPLICATIONS. [code = SKILLED NURSE TO INSTRUCT PATIENT/CAREGIVER ON COPD TO INCLUDE TEACHING AND SELF-MANAGEMENT RELATED TO COPD DISEASE PROCESS, SIGNS AND SYMPTOMS, AND COMPLICATIONS.] Future Scheduled Test VIRTUAL SIT FREQUENCY: 12 PRN VIRTUAL VISITS MAY BE PERFORMED UTILIZING [employer] SYSTEM TO OPTIMIZE SKILLED SERVICES FURNISHED ON THE PLAN OF CARE. SKILLED NURSE TO ESTABLISH SUPPORT MEASURES TO MINIMIZE RISK OF REHOSPITALIZATION, AND INSTRUCT PATIENT/CAREGIVER ON METHODS TO REDUCE AVOIDABLE HOSPITALIZATION. [code = VIRTUAL VISIT FREQUENCY: 12 PRN VIRTUAL VISITS MAY BE PERFORMED UTILIZING [employer] SYSTEM TO OPTIMIZE SKILLED SERVICES FURNISHED ON THE PLAN OF CARE. SKILLED NURSE TO ESTABLISH SUPPORT MEASURES TO MINIMIZE RISK OF REHOSPITALIZATION, AND INSTRUCT PATIENT/CAREGIVER ON METHODS TO REDUCE AVOIDABLE HOSPITALIZATION.] Future Scheduled Test PATIENT SHARPE S A RISK OF HOSPITALIZATION AND ED USE. SKILLED NURSE TO ESTABLISH SUPPORT MEASURES TO MINIMIZE RISK OF HOSPITALIZATION AND ED USE, AND INSTRUCT PATIENT/CAREGIVER ON METHODS TO REDUCE AVOIDABLE HOSPITALIZATION AND ED USE. [code = PATIENT HAS A RISK OF HOSPITALIZATION AND ED USE. SKILLED NURSE TO ESTABLISH SUPPORT MEASURES TO MINIMIZE RISK OF HOSPITALIZATION AND ED USE, AND INSTRUCT PATIENT/CAREGIVER ON METHODS TO REDUCE AVOIDABLE HOSPITALIZATION AND ED USE.] Future Scheduled Test SKILLED NU RSE TO PROVIDE INSTRUCTION TO PATIENT/CAREGIVER RELATED TO DISCHARGE PLANNING. [code = SKILLED NURSE TO PROVIDE INSTRUCTION TO PATIENT/CAREGIVER RELATED TO DISCHARGE PLANNING.] Future Scheduled Test SKILLED NU RSE TO PERFORM ENVIRONMENTAL SAFETY RISK ASSESSMENT AND FALL RISK ASSESSMENT AND PROVIDE INSTRUCTION TO IMPLEMENT ENVIRONMENTAL SAFETY AND FALL PREVENTION STRATEGIES THROUGHOUT THE CERTIFICATION PERIOD. SKILLED NURSE WILL MAINTAIN SITUATIONAL AWARENESS AND WILL NOTIFY CLINICAL HEALTH INFORMATION MANAGER AND PHYSICIAN/PROVIDER WITH ANY CHANGE IN CONDITION. [code = SKILLED NURSE TO PERFORM ENVIRONMENTAL SAFETY RISK ASSESSMENT AND FALL RISK ASSESSMENT AND PROVIDE INSTRUCTION TO IMPLEMENT ENVIRONMENTAL SAFETY AND FALL PREVENTION STRATEGIES THROUGHOUT THE CERTIFICATION PERIOD. SKILLED NURSE WILL MAINTAIN SITUATIONAL AWARENESS AND WILL NOTIFY CLINICAL HEALTH INFORMATION MANAGER AND PHYSICIAN/PROVIDER WITH ANY CHANGE IN CONDITION.] Future Scheduled Test SKILLED NU RSE FOR OBSERVATION AND ASSESSMENT OF PATIENTS PAIN LEVEL AND EFFECTIVENESS OF PAIN MANAGEMENT REGIMEN. SKILLED NURSE TO INSTRUCT PATIENT/CAREGIVER REGARDING PHARMACOLOGIC AND NON-PHARMACOLOGIC PAIN CONTROL MEASURES. SKILLED NURSE TO REPORT TO PHYSICIAN IF PAIN LEVEL IS OUTSIDE OF ESTABLISHED PARAMETERS. [code = SKILLED NURSE FOR OBSERVATION AND ASSESSMENT OF PATIENTS PAIN LEVEL AND EFFECTIVENESS OF PAIN MANAGEMENT REGIMEN. SKILLED NURSE TO INSTRUCT PATIENT/CAREGIVER REGARDING PHARMACOLOGIC AND NON-PHARMACOLOGIC PAIN CONTROL MEASURES. SKILLED NURSE TO REPORT TO PHYSICIAN IF PAIN LEVEL IS OUTSIDE OF ESTABLISHED PARAMETERS.] Future Scheduled Test SKILLED NU RSE TO ASSESS PATIENT'S SKIN INTEGRITY AND INSTRUCT PATIENT/CAREGIVER ON MEASURES TO PREVENT PRESSURE ULCERS. [code = SKILLED NURSE TO ASSESS PATIENT'S SKIN INTEGRITY AND INSTRUCT PATIENT/CAREGIVER ON MEASURES TO PREVENT PRESSURE ULCERS.] Future Scheduled Test SN TO INST RUCT PATIENT/CAREGIVER ON SEPSIS MANAGEMENT UTILIZING THE SEPSIS SPECIALTY PROGRAM. [code = SN TO INSTRUCT PATIENT/CAREGIVER ON SEPSIS MANAGEMENT UTILIZING THE SEPSIS SPECIALTY PROGRAM.] Future Scheduled Test SKILLED NU RSE TO INSTRUCT PATIENT/CAREGIVER ON INTERMITTENT/STRAIGHT CATHETER PROCEDURE. SKILLED NURSE OR TRAINED PATIENT/CAREGIVER TO PERFORM INTERMITTENT/STRAIGHT CATHETERIZATION VIA STERILE TECHNIQUE NEEDED DAILY [code = SKILLED NURSE TO INSTRUCT PATIENT/CAREGIVER ON INTERMITTENT/STRAIGHT CATHETER PROCEDURE. SKILLED NURSE OR TRAINED PATIENT/CAREGIVER TO PERFORM INTERMITTENT/STRAIGHT CATHETERIZATION VIA STERILE TECHNIQUE NEEDED DAILY] Future Scheduled Test SKILLED NU RSE TO REVIEW PATIENT MEDICATIONS (PRESCRIPTION/OTC). INSTRUCT PATIENT/CAREGIVER ON ALL MEDICATIONS INCLUDING PURPOSE, WHEN TO TAKE, IMPORTANCE OF MEDICATION ADHERENCE, MONITORING OF EFFECTIVENESS, ADVERSE DRUG REACTIONS, POSSIBLE SIDE EFFECTS, AND WHEN TO NOTIFY AGENCY OR PHYSICIAN/PROVIDER OF ANY CONCERNS. [code = SKILLED NURSE TO REVIEW PATIENT MEDICATIONS (PRESCRIPTION/OTC). INSTRUCT PATIENT/CAREGIVER ON ALL MEDICATIONS INCLUDING PURPOSE, WHEN TO TAKE, IMPORTANCE OF MEDICATION ADHERENCE, MONITORING OF EFFECTIVENESS, ADVERSE DRUG REACTIONS, POSSIBLE SIDE EFFECTS, AND WHEN TO NOTIFY AGENCY OR PHYSICIAN/PROVIDER OF ANY CONCERNS.] Future Scheduled Test SKILLED NU RSE FOR O/A, TEACHING AND MANAGEMENT OF URINARY TRACT INFECTION. [code = SKILLED NURSE FOR O/A, TEACHING AND MANAGEMENT OF URINARY TRACT INFECTION.] Future Scheduled Test PHYSICAL T HERAPIST TO EVALUATE PATIENT SECONDARY TO FUNCTIONAL DEFICITS/SAFETY CONCERNS. PHYSICAL THERAPY TO ESTABLISH /UPGRADE/DOWNGRADE THERAPEUTIC EXERCISE PROGRAM AND INSTRUCT PATIENT/CAREGIVER ON EXERCISE PRECAUTIONS WITH WRITTEN HOME PROGRAM. MAY INCLUDE PROM, AAROM, AROM, RROM APPROPRIATE TO IMPROVE FUNCTIONAL STRENGTH AND RANGE OF MOTION. PHYSICAL THERAPY TO INSTRUCT PATIENT/CAREGIVER ON SAFE TRANSFER TECHNIQUES USING PROPER BODY MECHANICS AND EQUIPMENT. PHYSICAL THERAPY TO INSTRUCT PATIENT/CAREGIVER ON GAIT TRAINING TECHNIQUES USING APPROPRIATE ASSISTIVE DEVICE, PROPER BODY MECHANICS TO IMPROVE MOBILITY, AND PREVENT INJURY OF PATIENT AND/OR CAREGIVER. PHYSICAL THERAPY TO INSTRUCT PATIENT/CAREGIVER ON BALANCE AND BALANCE STRATEGIES TO IMPROVE SAFE MOBILITY AND REDUCE RISK FOR FALL AND INJURY [code = PHYSICAL THERAPIST TO EVALUATE PATIENT SECONDARY TO FUNCTIONAL DEFICITS/SAFETY CONCERNS. PHYSICAL THERAPY TO ESTABLISH /UPGRADE/DOWNGRADE THERAPEUTIC EXERCISE PROGRAM AND INSTRUCT PATIENT/CAREGIVER ON EXERCISE PRECAUTIONS WITH WRITTEN HOME PROGRAM. MAY INCLUDE PROM, AAROM, AROM, RROM APPROPRIATE TO IMPROVE FUNCTIONAL STRENGTH AND RANGE OF MOTION. PHYSICAL THERAPY TO INSTRUCT PATIENT/CAREGIVER ON SAFE TRANSFER TECHNIQUES USING PROPER BODY MECHANICS AND EQUIPMENT. PHYSICAL THERAPY TO INSTRUCT PATIENT/CAREGIVER ON GAIT TRAINING TECHNIQUES USING APPROPRIATE ASSISTIVE DEVICE, PROPER BODY MECHANICS TO IMPROVE MOBILITY, AND PREVENT INJURY OF PATIENT AND/OR CAREGIVER. PHYSICAL THERAPY TO INSTRUCT PATIENT/CAREGIVER ON BALANCE AND BALANCE STRATEGIES TO IMPROVE SAFE MOBILITY AND REDUCE RISK FOR FALL AND INJURY] Goal Patient Goal - GET STRONGER Goal Provider Goal - A PLAN OF CARE WILL BE ESTABLISHED THAT MEETS PATIENT'S NURSING HOME NEEDS AND INCLUDES PATIENT GOAL FOR HOME HEALTH. Goal Provider Goal - ADDITIONAL ORDERS WILL BE RECEIVED FROM ALTERNATE PHYSICIAN IN A TIMELY MANNER THROUGHOUT THE CERTIFICATION PERIOD. Goal Provider Goal - PATIENT/CAREGIVER WILL VERBALIZE/DEMONSTRATE UNDERSTANDING OF SAFE OXYGEN USE IN THE HOME THROUGHOUT THE EPISODE. Goal Provider Goal - PATIENT/CAREGIVER WILL VERBALIZE/DEMONSTRATE UNDERSTANDING OF S/S OF INFECTION AND INFECTION CONTROL MEASURES. SIGNS AND SYMPTOMS OF INFECTION WILL BE IDENTIFIED AND PHYSICIAN NOTIFIED FOR PROMPT INTERVENTION THROUGHOUT THE CERTIFICATION PERIOD. Goal Provider Goal - PATIENT/CAREGIVER WILL VERBALIZE/DEMONSTRATE KNOWLEDGE AND MANAGEMENT OF COPD BY END OF EPISODE. Goal Provider Goal - PATIENT/CAREGIVER WILL UTILIZE VIRTUAL VISITS TO ACHIEVE GOALS OUTLINED ON THE PLAN OF CARE. PATIENT WILL HAVE SUPPORT MEASURES ESTABLISHED TO PREVENT HOSPITALIZATION AND PATIENT/CAREGIVER WILL VERBALIZE/DEMONSTRATE METHODS TO REDUCE AVOIDABLE HOSPITALIZATION THROUGHOUT THE CERTIFICATION PERIOD. Goal Provider Goal - PATIENT WILL HAVE SUPPORT MEASURES ESTABLISHED TO PREVENT HOSPITALIZATION AND ED USE AND PATIENT/CAREGIVER WILL VERBALIZE/DEMONSTRATE METHODS TO REDUCE AVOIDABLE HOSPITALIZATION AND ED USE BY END OF EPISODE. Goal Provider Goal - PATIENT/CAREGIVER WILL VERBALIZE UNDERSTANDING OF DISCHARGE PLANNING INSTRUCTIONS BY DATE OF DISCHARGE. Goal Provider Goal - PATIENT/CAREGIVER WILL VERBALIZE/DEMONSTRATE EFFECTIVE ENVIRONMENTAL SAFETY AND FALL PREVENTION STRATEGIES, WILL REMAIN SAFE IN THE COMMUNITY, AND WILL BE FREE OF DANGER TO SELF AND OTHERS THROUGHOUT THE CERTIFICATION PERIOD. Goal Provider Goal - PATIENT/CAREGIVER WILL DEMONSTRATE UNDERSTANDING OF PHARMACOLOGIC AND NONPHARMACOLOGIC PAIN CONTROL MEASURES AND PATIENT WILL HAVE IMPROVEMENT IN PAIN INTERFERING WITH ACTIVITY EVIDENCED BY PAIN AT A LEVEL THAT IS ACCEPTABLE TO THE PATIENT AND PAIN LEVEL WITHIN ESTABLISHED PARAMETERS BY END OF CERTIFICATION PERIOD. Goal Provider Goal - PATIENT/CAREGIVER WILL VERBALIZE UNDERSTANDING OF PRESSURE ULCER PREVENTION BY END OF THE EPISODE. Goal Provider Goal - PATIENT/CAREGIVER WILL DEMONSTRATE MANAGEMENT OF SEPSIS A RESULT OF PARTICIPATION IN SEPSIS SPECIALTY PROGRAM. Goal Provider Goal - PATIENT/CAREGIVER WILL VERBALIZE TOLERANCE TO AND DEMONSTRATE KNOWLEDGE/UNDERSTANDING OF INTERMITTENT/STRAIGHT CATHETER PROCEDURE THROUGHOUT THE CERTIFICATION PERIOD. Goal Provider Goal - PATIENT/CAREGIVER WILL VERBALIZE UNDERSTANDING OF EDUCATION PROVIDED ON MEDICATIONS BY THE END OF THE CERTIFICATION PERIOD. Goal Provider Goal - PATIENT/CAREGIVER WILL VERBALIZE UNDERSTANDING OF URINARY TRACT INFECTION DISEASE PROCESS AND MANAGEMENT. PATIENT WILL BE FREE OF S/S OF UTI UPON COMPLETION OF TREATMENT OF UTI. Goal Provider Goal - PHYSICAL THERAPY EVALUATION TO BE COMPLETED WITH RECOMMENDATIONS AND/OR WRITTEN TREATMENT PLAN OF CARE ESTABLISHED FOR THE PHYSICIANS SIGNATURE PATIENT/CAREGIVER WILL PERFORM THERAPEUTIC EXERCISE/S AND DEMONSTRATE PARTICIPATION IN A HOME PROGRAM. PATIENT/CAREGIVER WILL DEMONSTRATE SAFE TRANSFERS USING APPROPRIATE ASSISTIVE DEVICE, BODY MECHANICS AND EQUIPMENT. PATIENT/CAREGIVER WILL DEMONSTRATE IMPROVED GAIT TECHNIQUES TO MINIMIZE RISK OF INJURY. PATIENT/CAREGIVER WILL DEMONSTRATE IMPROVED BALANCE AND REDUCE THE RISK OF FALLS AND INJURY. Progress Notes Progress Notes <paragraph>[Visit Date: 2024 by JUAN J WORTHINGTON RN]:</paragraph><paragraph>PATIENT HAS A MEDICAL HISTORY SIGNIFICANT FOR NEPHRITIS, CHRONIC OBSTRUCTIVE PULMONARY DISEASE, HEART DISEASE, HYPERTENSION, AND CHRONIC PAIN. ON TODAY'S VISIT, PATIENT DENIES COMPLICATIONS AT THIS TIME. PATIENT REPORTS VOIDING WITHOUT DIFFICULTY AND DESCRIBES URINE CLEAR IN APPEARANCE, WITH NO SEDIMENT OR SIGNS OF INFECTION NOTED. PATIENT WAS PROVIDED EDUCATION ON PROPER TECHNIQUE FOR SELF CATHETERIZATION, WITH EMPHASIS ON MAINTAINING CLEANLINESS TO REDUCE RISK OF URINARY TRACT INFECTION. PATIENT DEMONSTRATED UNDERSTANDING THROUGH VERBAL FEEDBACK. NO ADDITIONAL NEEDS IDENTIFIED AT THIS TIME. PATIENT LEFT IN SELF-CARE. ...</paragraph> Encounters Start Date/Time End Date/Time Encounter Type Admission Type Attending [facility] Care Facility Care Department Encounter ID Discharge Date Discharge Status Discharge Condition Discharge Reason Percent Goals Met 2025-06-27 00:00:00 2025-08-25 00:00:00 Outpatient NEW ADMISSION [facility] [id number]
--- OUTSIDE RECORDS SUMMARY | 2025-08-24 19:00 | XMS_ITS | Clinical Summary ---
Author Organization Unknown Care Team Providers Care Mammography Tech Name Role Phone NALINI HOU APRN Unavailable Unavailnabeel WORTHINGTON RN, JUAN J Unavailable Unavailable Payers Payer Name Policy Type Policy Number Effective Date Expira tion Date MEDICARE - S - PD [id number] Problems Condition Name Condition Details Condition Category Status Onset Date Resolution Date Last Treatment Date Treating Clinician Comments TUBULO-INTER STITIAL NEPHRITIS, NOT SPCF ACUTE OR CHRONIC Active 06-27 00:00: 00 CHRONIC OBSTRUCTIVE PULMONARY DISEASE, UNSPECIFIED Active 11-13 00:00: 00 ATHSCL HEART DISEASE OF [place] CORONARY ARTERY W/O ANG PCTRS Active 11-13 00:00: 00 ESSENTIAL (PRIMARY) HYPERTENSION Active 11-13 00:00: 00 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 Active 11-13 00:00: 00 HYPO-OSMOLAL ITY AND HYPONATREMIA Active 11-13 00:00: 00 OTHER CHRONIC PAIN Active 11-13 00:00: 00 DORSALGIA, UNSPECIFIED Active 11-13 00:00: 00 DEPENDENCE ON SUPPLEMENTAL OXYGEN Active 11-13 00:00: 00 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 Active 11-13 00:00: 00 PENITENTIARY (CURRENT) USE OF ANTITHROMBOT ICS/ANTIPLAT ELETS Active 11-13 00:00: 00 PENITENTIARY (CURRENT) USE OF OPIATE ANALGESIC Active 11-13 [...] 500 mg tablet 06-27 00:00: 00 Yes [id number] 2 tablet DAILY 2 tablet DAILY (route: oral) Med Classific ation: Analgesic , Anti-infl ammatory or Antipyret ic amlodipine 5 mg tablet 06-27 00:00: 00 Yes [id number] 1 tablet DAILY 1 tablet DAILY (route: oral) Med Classific ation: Cardiovas cular Therapy Agents atorvastati n 80 mg tablet 06-27 00:00: 00 Yes [id number] 1 tablet DAILY 1 tablet DAILY (route: oral) Med Classific ation: Cardiovas cular Therapy Agents carvedilol 12.5 mg tablet 06-27 00:00: 00 Yes [id number] 1 tablet 2 TIMES DAILY 1 tablet 2 TIMES DAILY (route: oral) Med Classific ation: Cardiovas cular Therapy Agents ciprofloxac in 500 mg tablet 06-27 00:00: 00 07-03 23:59 :00 No [id number] 1 tablet 2 TIMES DAILY 1 tablet 2 TIMES DAILY (route: oral) Med Classific ation: Anti-Infe ctive Agents clopidogrel 75 mg tablet 06-27 00:00: 00 Yes [id number] 1 tablet DAILY 1 tablet DAILY (route: oral) Med Classific ation: Hematolog ical Agents isosorbide mononitrate ER 60 mg tablet,exte nded release 24 hr 06-27 00:00: 00 Yes [id number] 1 tablet DAILY 1 tablet DAILY (route: oral) Med Classific ation: Cardiovas cular Therapy Agents losartan 25 mg tablet 06-27 00:00: 00 Yes [id number] 1 tablet DAILY 1 tablet DAILY (route: oral) Med Classific ation: Cardiovas cular Therapy Agents metronidazo le 500 mg tablet 06-27 00:00: 00 07-07 23:59 :00 No [id number] 1 tablet EVERY 8 HOURS 1 tablet EVERY 8 HOURS (route: oral) Med Classific ation: Anti-Infe ctive Agents oxycodone 20 mg tablet 06-27 00:00: 00 Yes [id number] 1 tablet 3 TIMES DAILY 1 tablet 3 TIMES DAILY (route: oral) Med Classific ation: Analgesic , Anti-infl ammatory or Antipyret ic tamsulosin 0.4 mg capsule 06-27 00:00: 00 Yes [id number] 1 capsule DAILY 1 capsule DAILY (route: oral) Med Classific ation: Genitouri nary Therapy albuterol sulfate 2.5 mg/3 mL (0.083 %) solution for nebulizatio n 06-27 00:00: 00 Yes [id number] 3 mL DAILY 3 mL CHELLY Y (route: inhalation ) Med Classific ation: Respirato ry Therapy Agents Breztri Aerosphere 160 mcg-9mcg-4. 8mcg/actuat ion HFA aerosol inhaler 06-27 00:00: 00 Yes [id number] 2 puff 2 TIMES DAILY 2 puff 2 TIMES DAILY (route: inhalation ) Med Classific ation: Respirato ry Therapy Agents budesonide 0.5 mg/2 mL suspension for nebulizatio n 06-27 00:00: 00 Yes [id number] 2 mL DAILY 2 mL CHELLY Y (route: inhalation ) Med Classific ation: Respirato ry Therapy Agents formoterol fumarate 20 mcg/2 mL solution for nebulizatio n 06-27 00:00: 00 Yes [id number] 2 mL 2 TIMES DAILY 2 mL 2 TIMES DAILY (route: inhalation ) Med Classific ation: Respirato ry Therapy Agents Repatha SureClick 140 mg/mL subcutaneou s pen injector 06-27 00:00: 00 Yes [id number] 140 mg DIRECTED 140 mg DIRECTED (route: subcutaneo us) Med Classific ation: Cardiovas cular Therapy Agents Yupelri 175 mcg/3 mL solution for nebulizatio n 06-27 00:00: 00 Yes [id number] 3 mL DAILY 3 mL CHELLY Y (route: inhalation ) Med Classific ation: Respirato ry Therapy Agents oxygen gas for inhalation 07-01 00:00: 00 Yes [id number] 3 Liter O2 - CONTINUOUS 3 Liter [...] PULMONARY DISEASE, UNSPECIFIED, ATHSCL HEART DISEASE OF [place] CORONARY ARTERY W/O ANG PCTRS, ESSENTIAL (PRIMARY) [...] PULMONARY DISEASE, UNSPECIFIED, ATHSCL HEART DISEASE OF [place] CORONARY ARTERY W/O ANG PCTRS, ESSENTIAL (PRIMARY) [...] PRN VIRTUAL VISITS MAY BE PERFORMED UTILIZING [employer] SYSTEM TO OPTIMIZE SKILLED SERVICES FURNISHED ON [...] MAINTAIN SITUATIONAL AWARENESS AND WILL NOTIFY CLINICAL ETHNIC STUDIES PROFESSOR AND PHYSICIAN/PROVIDER WITH ANY CHANGE IN CONDITION. [code = SKILLED NURSE TO PERFORM ENVIRONMENTAL SAFETY RISK ASSESSMENT AND FALL RISK ASSESSMENT AND PROVIDE INSTRUCTION TO IMPLEMENT ENVIRONMENTAL SAFETY AND FALL PREVENTION STRATEGIES THROUGHOUT THE CERTIFICATION PERIOD. SKILLED NURSE WILL MAINTAIN SITUATIONAL AWARENESS AND WILL NOTIFY CLINICAL ETHNIC STUDIES PROFESSOR AND PHYSICIAN/PROVIDER WITH ANY CHANGE IN CONDITION.] [...] CARE WILL BE ESTABLISHED THAT MEETS PATIENT'S SNF NEEDS AND INCLUDES PATIENT GOAL FOR HOME [...] End Date/Time Encounter Type Admission Type Attending [facility] Care Facility Care Department Encounter ID Discharge Date Discharge Status Discharge Condition Discharge Reason Percent Goals Met 2025-06-27 00:00:00 2025-08-25 00:00:00 Outpatient NEW ADMISSION [facility] [id number] 29.03
== END 2025-07-12 13:00 | disposition home or self-care (01) | DRG 309 ==
LOC: ER 20:54 → CSU 21:26
PROVIDERS: Internal Medicine Cardiovascular Disease; Admitting Provider Internal Medicine; Emergency Provider Emergency Medicine; PCP Nurse Practitioner; Visit Provider Internal Medicine
DX: I48.91 Unspecified atrial fibrillation (principal); J44.1 Chronic obstructive pulmonary disease with (acute) exacerbation; N17.9 Acute kidney failure, unspecified; J06.9 Acute upper respiratory infection, unspecified; N45.1 Epididymitis; E86.0 Dehydration; I25.10 Atherosclerotic heart disease of native coronary artery without angina pectoris; E78.2 Mixed hyperlipidemia; I10 Essential (primary) hypertension; Z87.891 Personal history of nicotine dependence; Z79.02 Long term (current) use of antithrombotics/antiplatelets; Z89.611 Acquired absence of right leg above knee; Z90.49 Acquired absence of other specified parts of digestive tract
CPT/HCPCS: 36415; 36569; 36600; 71045; 76870; 80048; 80051; 80053; 81001; 82330; 82805; 83605; 83735; 83880; 84100; 84484; 85025; 85730; 86140; 87040; 87086; 87486; 87581; 87633; 87637; 93005; 93312; 93320; 93325; 94640; 94664; 96365; 96366; 96367; 96372; 99285; A4222; C1751; J0283; J0744; J1644; J2270; J2704; J2919; J3490; J7030; J9999; Q0144

== ENCOUNTER 2025-07-21 18:11 | Emergency (ER) | payer MEDICARE, MEDICAID, SELFPAY ==
[2025-07-21 18:18] VITALS: BP 149/92; PULSE 63; RESP 18; TEMP 36.7; O2SAT 92
--- NOTE | 2025-07-21 18:22 | CTR_ITS ---
PROCEDURE INFORMATION: Exam: CT Lumbar Spine Without Contrast Exam date and time: 07/21/2025 6:37 PM Age: 70 years old Clinical indication: Injury or trauma; Blunt trauma (contusions or hematomas); Additional info: Fall, on eliquis TECHNIQUE: Imaging protocol: Computed tomography of the lumbar spine without contrast. Radiation optimization: All CT scans at this facility use at least one of these dose optimization techniques: automated exposure control; mA and/or kV adjustment per patient size (includes targeted exams where dose is matched to clinical indication); or iterative reconstruction. COMPARISON: CT abdomen pelvis w con* [id number] 06/18/2025 5:51 AM RADIATION DOSE METRICS: Total DLP (mGy-cm): 1256.5 FINDINGS: Bones/joints: Diffuse demineralization of the bones. Chronic compression fracture of L1 vertebra. No retropulsion. L1-L2: No significant disc bulge or herniation. No severe spinal canal stenosis. No significant neural foraminal narrowing. L2-L3: No significant disc bulge or herniation. No severe spinal canal stenosis. No significant neural foraminal narrowing. L3-L4: No significant disc bulge or herniation. No severe spinal canal stenosis. No significant neural foraminal narrowing. L4-L5: No significant disc bulge or herniation. No severe spinal canal stenosis. No significant neural foraminal narrowing. L5-S1: No significant disc bulge or herniation. No severe spinal canal stenosis. No significant neural foraminal narrowing. Soft tissues: Unremarkable. CT/CT lumbar spine wo con* [id number] IMPRESSION: No acute lumbar spine fracture.
--- NOTE | 2025-07-21 18:22 | XRR_ITS ---
PROCEDURE INFORMATION: Exam: XR Left Knee Exam date and time: 07/21/2025 6:50 PM Age: 70 years old Clinical indication: Injury or trauma; Fall; Blunt trauma; Knee; Left; Additional info: Fall, on eliquis, please do lateral view TECHNIQUE: Imaging protocol: Radiologic exam of the left knee. Views: 1 or 2 views. COMPARISON: CR XR knee LT 3V* [id number] 05/11/2021 3:09 PM FINDINGS: Bones/joints: Diffuse demineralization of the bones. Plate and pin fixation of the tibia . Acute fracture of the patella. Moderate-sized suprapatellar effusion. Soft tissues: Normal. Vasculature: Vascular calcifications. XR/XR knee LT 1-2V [id number] IMPRESSION: Acute fracture of the patella. Moderate-sized suprapatellar effusion.
--- NOTE | 2025-07-21 18:22 | CTR_ITS ---
PROCEDURE INFORMATION: Exam: CT Cervical Spine Without Contrast Exam date and time: 07/21/2025 6:37 PM Age: 70 years old Clinical indication: Injury or trauma; Fall; Blunt trauma; Additional info: Fall, on eliquis TECHNIQUE: Imaging protocol: Computed tomography of the cervical spine without contrast. Radiation optimization: All CT scans at this facility use at least one of these dose optimization techniques: automated exposure control; mA and/or kV adjustment per patient size (includes targeted exams where dose is matched to clinical indication); or iterative reconstruction. COMPARISON: CT chest wo con [id number] 05/05/2025 5:34 PM RADIATION DOSE METRICS: Total DLP (mGy-cm): 233.9 FINDINGS: Bones: Moderate to severe multilevel spine degenerative changes including degenerative disc disease, spondylosis and facet degenerative changes. Lungs: Lung apices are normal. Soft tissues: Unremarkable. Other findings: Ligamentum nuchae ossification/calcification. CT/CT cervical spin wo con* [id number] IMPRESSION: No acute cervical spine fracture.
--- NOTE | 2025-07-21 18:22 | XRR_ITS ---
PROCEDURE INFORMATION: Exam: XR Left Tibia and Fibula Exam date and time: 07/21/2025 6:52 PM Age: 70 years old Clinical indication: Injury or trauma; Fall; Blunt trauma; Lower leg; Left; Additional info: Fall, on eliquis TECHNIQUE: Imaging protocol: Radiologic exam of the left tibia and fibula. Views: 2 views. COMPARISON: CR XR ankle LT min 3V* [id number] 05/11/2021 3:09 PM FINDINGS: Bones/joints: Acute fracture of the patella. Hardware in the proximal tibia. Degenerative changes of the ankle joint. Soft tissues: Normal. XR/XR tibia fibula LT 2V [id number] IMPRESSION: Acute fracture of the patella.
--- NOTE | 2025-07-21 18:22 | XRR_ITS ---
PROCEDURE INFORMATION: Exam: XR Left Femur Exam date and time: 07/21/2025 6:45 PM Age: 70 years old Clinical indication: Injury or trauma; Fall; Blunt trauma; Thigh or upper leg; Left; Additional info: Fall, on eliquis TECHNIQUE: Imaging protocol: Radiologic exam of the left femur. Views: 2 views. COMPARISON: CT abdomen pelvis w con* [id number] 06/18/2025 5:51 AM FINDINGS: Bones/joints: Diffuse demineralization of the bones. Moderate to severe degenerative changes of the left hip joint. No acute fracture. No dislocation. Soft tissues: Unremarkable. Vasculature: Vascular calcifications. XR/XR femur LT min 2V* [id number] IMPRESSION: No acute findings.
--- NOTE | 2025-07-21 18:22 | CTR_ITS ---
PROCEDURE INFORMATION: Exam: CT Head Without Contrast Exam date and time: 07/21/2025 6:37 PM Age: 70 years old Clinical indication: Injury or trauma; Fall; Blunt trauma (contusions or hematomas); Without loss of consciousness; Additional info: Fall, on eliquis TECHNIQUE: Imaging protocol: Computed tomography of the head without contrast. Radiation optimization: All CT scans at this facility use at least one of these dose optimization techniques: automated exposure control; mA and/or kV adjustment per patient size (includes targeted exams where dose is matched to clinical indication); or iterative reconstruction. COMPARISON: CT cervical spin wo con* [id number] 07/21/2025 6:37 PM RADIATION DOSE METRICS: Total DLP (mGy-cm): 998.6 FINDINGS: Brain: Normal. No hemorrhage. Unremarkable white matter. No mass effect. Cerebral ventricles: No ventriculomegaly. Paranasal sinuses: Severe right maxillary paranasal sinus disease. Lytic bone destruction in portions of the anterior wall and lateral wall the right maxillary sinus consistent with infectious process versus neoplasm versus previous trauma/surgery. Nonemergent ENT consultation may be helpful. Mastoid air cells: Visualized mastoid air cells are well aerated. Bones: See Paranasal sinuses finding. Soft tissues: Unremarkable. CT/CT head wo con* [id number] IMPRESSION: 1. Severe right maxillary paranasal sinus disease. 2. Lytic bone destruction in portions of the anterior wall and lateral wall right maxillary sinus consistent with infectious process versus neoplasm versus previous trauma/surgery. Nonemergent ENT consultation may be helpful. 3. No acute intracranial findings.
--- NOTE | 2025-07-21 18:22 | CTR_ITS ---
PROCEDURE INFORMATION: Exam: CT Thoracic Spine Without Contrast Exam date and time: 07/21/2025 6:37 PM Age: 70 years old Clinical indication: Injury or trauma; Fall; Blunt trauma (contusions or hematomas); Additional info: Fall, on eliquis TECHNIQUE: Imaging protocol: Computed tomography of the thoracic spine without contrast. Radiation optimization: All CT scans at this facility use at least one of these dose optimization techniques: automated exposure control; mA and/or kV adjustment per patient size (includes targeted exams where dose is matched to clinical indication); or iterative reconstruction. COMPARISON: CT abdomen pelvis w con* [id number] 06/18/2025 5:51 AM RADIATION DOSE METRICS: Total DLP (mGy-cm): 1079.2 FINDINGS: Bones/joints: Chronic compression fracture of T12 vertebra with approximately 50% vertebral height loss. Diffuse demineralization of the bones. Chronic compression of T6 vertebra. T1-T2: No significant disc bulge or herniation. No severe spinal canal stenosis. No significant neural foraminal narrowing. T2-T3: No significant disc bulge or herniation. No severe spinal canal stenosis. No significant neural foraminal narrowing. T3-T4: No significant disc bulge or herniation. No severe spinal canal stenosis. No significant neural foraminal narrowing. T4-T5: No significant disc bulge or herniation. No severe spinal canal stenosis. No significant neural foraminal narrowing. T5-T6: No significant disc bulge or herniation. No severe spinal canal stenosis. No significant neural foraminal narrowing. T6-T7: No significant disc bulge or herniation. No severe spinal canal stenosis. No significant neural foraminal narrowing. T7-T8: No significant disc bulge or herniation. No severe spinal canal stenosis. No significant neural foraminal narrowing. T8-T9: No significant disc bulge or herniation. No severe spinal canal stenosis. No significant neural foraminal narrowing. T9-T10: No significant disc bulge or herniation. No severe spinal canal stenosis. No significant neural foraminal narrowing. T10-T11: No significant disc bulge or herniation. No severe spinal canal stenosis. No significant neural foraminal narrowing. T11-T12: No significant disc bulge or herniation. No severe spinal canal stenosis. No significant neural foraminal narrowing. T12-L1: No significant disc bulge or herniation. No severe spinal canal stenosis. No significant neural foraminal narrowing. Lungs: Emphysematous changes. Soft tissues: Unremarkable. CT/CT thoracic spin wo con* [id number] IMPRESSION: No acute thoracic spine fracture.
--- NOTE | 2025-07-21 18:24 | W.ED.BACK ---
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 He complains of severe back, left leg pain. EMS gave him fentanyl 150 mg IM. They were unable to place saline lock. Patient is moaning in pain. He points to his left knee, distal femur, proximal tib-fib, low back which is thoracic, and lumbar. Denies any flank pain, abdominal pain, chest discomfort. No shortness of breath. Denies hitting his head or neck. Associated symptoms: Deny abdominal pain, chills, fever(s), nausea or vomiting Related Data Home Medications ?Medication ?Instructions ?Recorded ?Confirmed oxycodone 20 mg tablet 20 mg PO Q8H PRN Pain 06/23/25 07/21/25 Previous Rx's ?Medication ?Instructions ?Recorded E2622 : Skin protection #1 ea 04/26/21 wheelchair seat cushion, adjustable, width less than 22 inches, any depth. K0822 Power wheelchair, group 2 #1 ea 04/26/21 standard, sling/solid E0143 front wheeled walker #1 ea 04/23/24 wheelchair #1 ea 04/23/24 albuterol sulfate 2.5 mg/3 mL 2.5 mg (3 mL) inhalation Q4H PRN 04/28/25 (0.083 %) solution for nebulization shortness of breath or wheezing #300 mL evolocumab 140 mg/mL subcutaneous 140 mg SUBCUT .every 14 days #2 mL 04/28/25 pen injector (Repatha SureClick) tamsulosin 0.4 mg capsule (Flomax) 0.4 mg PO DAILY #90 caps 04/28/25 Oxygen concentrator and portable #1 ea 05/20/25 NC 2L isosorbide mononitrate 60 mg 60 mg PO DAILY #90 tabs 06/16/25 tablet,extended release 24 hr atorvastatin 80 mg tablet See Rx Instructions .Route 06/27/25 .COMPLEX #90 tabs carvedilol 12.5 mg tablet 12.5 mg PO BID #90 tabs 06/27/25 clopidogrel 75 mg tablet See Rx Instructions .Route 06/27/25 .COMPLEX #90 tabs losartan 25 mg tablet 25 mg PO DAILY #90 tabs 06/27/25 amiodarone 200 mg tablet (Pacerone) See Rx Instructions .Route 07/12/25 .COMPLEX #60 tabs apixaban 5 mg tablet (Eliquis) 5 mg PO BID #60 tabs 07/12/25 Ostomy Belt 4 XL #1 ea 07/21/25 Allergies Allergy/AdvReac Type Severity Reaction Status Date / Time ketorolac (From Toradol) Allergy Unknown Verified 07/21/25 14:23 nalbuphine (From Nubain) Allergy Unknown Verified 07/21/25 14:23 tizanidine Allergy ADR-Halluci Verified 07/21/25 14:23 nating Review of Systems General: Reports: 10 or more systems reviewed and unremarkable except in HPI and below Const: Denies: fever(s) or chills Eyes: Denies: change in vision or blurry vision ENMT: Denies: throat pain or odynophagia Card: Denies: chest pain or palpitations Resp: Denies: dyspnea or non-productive cough GI: Denies: abdominal pain, nausea or vomiting : Denies: flank pain or difficulty urinating Musc: Reports: back pain, extremity pain, extremity swelling, joint pain, joint swelling, joint stiffness, limited range of motion, muscle cramps and muscle weakness; Denies: neck pain, joint redness or joint warmth Skin/Breast: Denies: rash or pruritus Neuro: Denies: headache(s) or numbness in extremities Psych: Denies: anxiety or depression Endo: Denies: polyuria or polydipsia Logan/Lymph: Denies: easy bruising or easy bleeding [facility] ED PFSH: Medical History (Updated 07/21/25 @ 19:18 by GEORGE Flores) Supplemental oxygen dependent 3L NC since June,. Bladder distension Neuropathic pain Osteoarthritis of left hip LAU (dyspnea on exertion) Benign essential HTN Osteoporosis Anemia Central spinal stenosis Mixed hyperlipidemia COPD (chronic obstructive pulmonary disease) ASHD (arteriosclerotic heart disease) Surgical History Hx of leg amputation Right side History of right lower limb amputation History of abdominal surgery History of appendectomy History of hernia repair H/O shoulder surgery H/O knee surgery Family History Mother CAD (coronary artery disease) Father Cancer Family/Other Cancer Denies family history of Diabetes Clotting disorder Dementia Chronic kidney disease (CKD) Suicide Anesthesia complication Bleeding disorder Lung disease Stroke Social History Smoking and tobacco/nicotine status: former use of tobacco/nicotine Quit status (tobacco/nicotine): has quit using Year quit tobacco: 2020 Former quit date comment: 2 PPD X 45 YEARS Second hand smoke exposure: No Alcohol intake: never Substance/Drug Use: never Adopted: No Caregiver/support person: No Lives independently: Yes Household members: significant other Housing: House Marital status: Number of children: 2 service: No Current occupational status: retired Current occupational exposures/hazards: No Do you think of yourself as: Straight/Heterosexual Current gender identity: Male Physical Exam Const: COMMON NORMALS: patient oriented x3 and alert GENERAL APPEARANCE: anxious and other (in pain) ORIENTATION/CONSCIOUSNESS: Yes awake HENMT: COMMON NORMALS: normocephalic and atraumatic HEAD & SCALP: normocephalic and atraumatic Eye: COMMON NORMALS: Equal, round and reactive pupils present, EOMs intact bilaterally and conjunctivae normal CONJUNCTIVA: Yes conjunctivae normal PUPIL: Yes Equal, round and reactive pupils present Neck/C-Spine: COMMON NORMALS: full ROM, no lymphadenopathy, supple and no meningeal signs Lymph: LYMPHATIC: no lymphadenopathy noted Chest: COMMONS NORMALS: normal inspection of the chest and normal palpation of entire chest wall Resp: COMMON NORMALS: normal respiratory effort, No retractions and No use of accessory muscles Cardio: COMMON NORMALS: regular rate and regular rhythm RATE: regular rate RHYTHM: regular rhythm GI: COMMON NORMALS: Normal to inspection, nondistended, normoactive bowel sounds present and Soft to palpation PALPATION: Yes Soft to palpation : COMMON NORMALS: Yes no CVA tenderness BLADDER/KIDNEY EXAM: Yes no CVA tenderness Back/Pelvis: COMMON NORMALS: no CVA tenderness and thoracic and lumbar spine normal to inspection Neuro: COMMON NORMALS: patient oriented x3 SENSORIUM/ORIENTATION: Yes alert MENINGEAL SIGNS: Yes no meningeal signs Course Vital Signs: Vital signs: Vital Signs Temperature 98.1 F 07/21/25 18:18 Pulse Rate 57 L 07/21/25 23:14 Respiratory Rate 18 07/21/25 20:20 Blood Pressure 169/79 07/21/25 23:14 Pulse Oximetry 96 07/21/25 23:14 Oxygen Delivery Me thod Nasal Cannula 07/21/25 20:21 Oxygen Flow Rate 2 07/21/25 20:21 MDM - Back Pain/Injury Medical Decision Making Patient is a 70-year-old male with history of A-fib on amiodarone, and Eliquis that reports after his foot was stuck in the rail of his truck getting out, twisted, fell forward into his back. He does not have any acute compression fractures, however he does have a patella fracture that is dislocated slightly, and a horizontal fracture formation. He will follow-up with orthopedist. This is a nonweightbearing fracture. Labs 07/21/25 19:25 07/21/25 19:25 Radiology Impressions Cervical Spine CT 07/21/25 18:22 IMPRESSION: No acute cervical spine fracture. Femur X-Ray 07/21/25 18:22 IMPRESSION: No acute findings. Head CT 07/21/25 18:22 IMPRESSION: 1. Severe right maxillary paranasal sinus disease. 2. Lytic bone destruction in portions of the anterior wall and lateral wall right maxillary sinus consistent with infectious process versus neoplasm versus previous trauma/surgery. Nonemergent ENT consultation may be helpful. 3. No acute intracranial findings. Knee X-Ray 07/21/25 18:22 IMPRESSION: Acute fracture of the patella. Moderate-sized suprapatellar effusion. Lumbar Spine CT 07/21/25 18:22 IMPRESSION: No acute lumbar spine fracture. Thoracic Spine CT 07/21/25 18:22 IMPRESSION: No acute thoracic spine fracture. Tibia/Fibula X-Ray 07/21/25 18:22 IMPRESSION: Acute fracture of the patella. Laboratory Results WBC 10.16 10^3/uL (3.29-11.43) 07/21/25 19:25 RBC 3.79 10^6/uL (3.85-5.65) L 07/21/25: Hgb 10.90 g/dL (11.27-16.99) L 07/21/25: Hct 36.1 % (37-53) L 07/21/25: MCV 95.3 fl (82-101) 07/21/25: MCH 28.8 pg (27-33) 07/21/25: MCHC 30.2 g/dL (30-55) 07/21/25: RDW 14.3 % (12.1-15.1) 07/21/25: Plt Count 122 10^3/cmm (157-399) L 07/21/25: MPV 9.3 fL (7.4-10.4) 07/21/25 19: Neut % (Auto) 70.2 % 07/21/25: Lymph % (Auto) 17.8 % 07/21/25: Desha % (Auto) 9.7 % 07/21/25: Eos % (Auto) 1.5 % 07/21/25: Baso % (Auto) 0.3 % 07/21/25: Neut # (Auto) 7.13 10^3/uL (1.8-7.7) 07/21/25: Lymph # (Auto) 1.8 10^3/uL (0.8-4.8) 07/21/25: Desha # (Auto) 1.0 10^3/uL (0.2-0.9) H 07/21/25: Eos # (Auto) 0.2 10^3/uL (0.0-0.8) 07/21/25: Baso # (Auto) 0.0 10^3/uL (0.0-0.1) 07/21/25: Nucleated RBC % (auto) 0 % 07/21/25: Nucleated RBCs # 0.0 /100WBC 07/21/25: Sodium 130 mmol/L (136-145) L 07/21/25: Potassium 4.8 mmol/L (3.5-5.1) 07/21/25 19:25 Chloride 97 mmol/L (98-107) L 07/21/25 19:25 Carbon Dioxide 27 mmol/L (22-29) 07/21/25 19:25 Anion Gap 10.8 (5-19) 07/21/25 19:25 BUN 13 mg/dL (8-23) 07/21/25 19:25 Creatinine 1.1 mg/dL (0.7-1.2) 07/21/25 19:25 GFR Calculation 66.4 mL/min (90-130) L 07/21/25 19:25 Glucose 103 mg/dL (65-115) 07/21/25 19:25 Calculated Osmolality 270 mOsm/kg (285-295) L 07/21/25 19:25 Calcium 8.5 mg/dL (8.5-10.5) 07/21/25 19:25 Total Bilirubin 0.6 mg/dL (0.15-1.2) 07/21/25 19:25 AST 20 U/L (0-40) 07/21/25 19:25 ALT 16 U/L (0-41) 07/21/25 19:25 Alkaline Phosphatase 66 U/L (40-130) 07/21/25 19:25 Total Protein 6.7 g/dL (6.6-8.7) 07/21/25 19:25 Albumin 3.1 g/dL (3.5-5.2) L 07/21/25 19:25 Globulin 3.6 g/dL (1.3-4.6) 07/21/25 19:25 XR interpretation done by ED provider, pending radiology final review EKG Data EKG 1: Interpretation: Normal sinus rhythm, normal axis, QTc 441, rate 60 Discharge Plan Discharge Patient Disposition: Home Clinical Impression: Closed fracture of left patella Condition: Stable Prescriptions: No Action (DME) E2622 : Skin protection wheelchair seat cushion, adjustable, width less than 22 inches, any depth. See Rx Instructions .Route .MEDSUPPLY Qty: 1 0RF Rx Instructions: As directed (DME) K0822 Power wheelchair, group 2 standard, sling/solid See Rx Instructions .Route .MEDSUPPLY Qty: 1 0RF Rx Instructions: As directed (DME) wheelchair See Rx Instructions .Route .MEDSUPPLY Qty: 1 0RF Rx Instructions: As directed ([facility]) E0143 front wheeled walker See Rx Instructions .Route .MEDSUPPLY Qty: 1 0RF Rx Instructions: As directed ([facility]) Ostomy Belt 4 XL See Rx Instructions .Route .MEDSUPPLY Qty: 1 0RF Rx Instructions: For support abdomen hernia at ostomy Repatha SureClick 140 mg/mL pen injector 140 mg SUBCUT .every 14 days Qty: 2 5RF tamsulosin [Flomax] 0.4 mg capsule 0.4 mg PO DAILY Qty: 90 1RF albuterol sulfate 2.5 mg /3 mL (0.083 %) solution for nebulization 2.5 mg inhalation Q4H PRN (Reason: shortness of breath or wheezing) Qty: 300 5RF isosorbide mononitrate 60 mg tablet extended release 24 hr 60 mg PO DAILY Qty: 90 3RF (DME) Oxygen concentrator and portable NC 2L See Rx Instructions .ROUTE .MEDSUPPLY Qty: 1 0RF Rx Instructions: Use 3L NC 24 hours for 99 months losartan 25 mg tablet 25 mg PO DAILY Qty: 90 3RF Rx Instructions: FOR 14 DAYS carvedilol 12.5 mg tablet 12.5 mg PO BID Qty: 90 0RF Rx Instructions: Decrease due to heart rate in 50's atorvastatin 80 mg tablet See Rx Instructions .ROUTE .COMPLEX Qty: 90 3RF Dose Instruction: TAKE ONE TABLET BY MOUTH ONCE DAILY Rx Instructions: TAKE ONE TABLET BY MOUTH ONCE DAILY clopidogrel 75 mg tablet See Rx Instructions .ROUTE .COMPLEX Qty: 90 3RF Dose Instruction: TAKE ONE TABLET BY MOUTH DAILY Rx Instructions: TAKE ONE TABLET BY MOUTH DAILY oxycodone 20 mg Tablet 20 mg PO Q8H PRN (Reason: Pain) Rx Instructions: Take 3 and a half tablets a day. amiodarone [Pacerone] 200 mg Tablet See Rx Instructions .ROUTE .COMPLEX Qty: 60 0RF Rx Instructions: 200 mg BID x 7 days then 200 mg daily thereafter Eliquis 5 mg tablet 5 mg PO BID Qty: 60 0RF Discharge Orders: Discharge ED (Routine); Ordered 07/21/25 Ordered By: Cecy Terrazas Referrals: Cornelius,Glennette R, WORM SORTER-C [Primary Care Provider, Family Practice] Tj Aguirre DO [Physician, Orthopedics] - 4-7 days Discharge Diet: Low Salt Discharge Activity: Wheelchair as instructed Patient Instructions: Patellar Fracture (ED), Patient Portal & Agnes Instructions, Opioid Safety, Pain Management Activity Restrictions/Additional Instructions: You will need to use a wheelchair. This is a nonweightbearing fracture. Caution on opioids due to sedation. Utilize your brace for pain control. This does not mean you utilize it to walk. Again, this is a nonweightbearing fracture. Icing the knee Will help with the pain. No other fractures were noted. Continue your oxycodone for pain. Return to ED with redness, fever greater than 100.4 ?F Call orthopedist tomorrow that you have been referred to for follow-up and possible repair. Print Language: Estonian Coding Level of Care Code ED Ssis Ssrs Developer for Ephraim Badillo
--- OUTSIDE RECORDS SUMMARY | 2025-07-21 18:34 | XMS_ITS | Clinical Summary ---
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 Gender Identity Not on file Sexual Orientation [...] 2025 08/13/2013 Medical Devices Implanted Type Area Senior Oracle Soa Developer Device Identifier Shelf Expiration Date Model / Serial / Lot Mesh Ventralight St 6x8in [id number] - [id number] Implanted:Qty: 1 on 03/05/2014 by Dameon Ramírez MD at [facility] Mesh N/A: Abdomen CR [employer]ARD[employer] 01/12/2016 [id number] / / [id number] 4x6in [id number] - Sna Implanted:Qty: 1 on 03/05/2014 by Dameon Ramírez MD at [facility] Mesh N/A: Abdomen CR [employer]ARD[employer] 01/12/2016 [id number] / NA / [id number] Insurance MEDICARE PART A AND B MEDICAID [place] Advance Directives For more information, please contact: [phone] * Full Code (Latest Code Status on File) Date Activated Date Inactivated Comments 03/05/2014 7:32 PM 03/11/2014 1:46 PM * Full Code Date Activated Date Inactivated Comments 03/05/2014 11:18 AM 03/05/2014 7:32 PM * Full Code Date Activated Date Inactivated Comments 03/04/2014 2:22 PM 03/05/2014 11:18 AM * Full Code Date Activated Date Inactivated Comments 02/26/2014 3:36 AM 02/27/2014 6:27 PM Care Teams Paradi Operator Relationship Specialty Start Date End Date Peter Cevallos DO [address] [place] [address] PCP - General Family Practice 12/15/12
--- OUTSIDE RECORDS SUMMARY | 2025-07-21 18:34 | XMS_ITS | Encounter Summary ---
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
--- OUTSIDE RECORDS SUMMARY | 2025-07-21 18:34 | XMS_ITS | Clinical Summary ---
Author Organization [facility] Address [address] [place] [address] Care Team Providers Care Telephone Sterilizer Name Role Phone Unavailable Primary Care Provider [...] COVID-19 Vaccine (1 - 2023-2 5 season) 2025 Influenza Series (#1) 2025 Respiratory Syncytial Virus (RSV) Immunization - pts and pts aged 60 yrs+ (1 - 1-dose 75+ series) 2031 Hepatitis B Vaccine Aged Out No longe r eligible based on patient's age to complete this topic Meningococcal B Vaccine Aged Out No l onger eligible based on patient's age to complete this topic Medical Devices Implanted Type Area Procedural Nurse Device Identifier Shelf Expiration Date Model / Serial / Lot Tissue Biologic Matrix Xcm [id number] - [id number] Implanted:Qty: 1 on 04/13/2015 by Schuyler Banegas MD at [facility] N/A: Abdomen [id number] (DO NOT USE) 04/12/2017 [id number] / / [id number] Insurance * Guarantor: Rocio Rivera Account Type Relation to Patient Date of Phone Billing Address Personal/Family Self 1955 [phone] x: nithya rivera (sister) (Work) [address] [place] [id number] MEDICARE PART A & B Advance Directives * Full Code (Latest Code Status on File) Date Activated Date Inactivated Comments 04/13/2015 4:01 PM 04/22/2015 10:55 PM * Full Code Date Activated Date Inactivated Comments 04/13/2015 7:16 AM 04/13/2015 4:01 PM
--- OUTSIDE RECORDS SUMMARY | 2025-07-21 18:34 | XMS_ITS | Encounter Summary ---
Author Organization [facility] Address [address] [place] [address] Care Team Providers Care Pattern Perforating Machine Operator Name Role Phone Peter Cevallos DO Primary Care Provider [phone] Encounter Details Date Type Department Care Team (Late st Contact Info) Description 01/15/1999 Outpatient Historical [facility] General and Trauma Surgery-[address] [place] [id number] Social History Tobacco Use Types Packs/Day Years Used Date Smoking Tobacco: Never Assessed Sex and Gender Information Value Date Recorded Sex Assigned at Not on file 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
--- OUTSIDE RECORDS SUMMARY | 2025-07-21 18:34 | XMS_ITS | Clinical Summary ---
Author Organization [facility] Address [address] Attn: Epic Prelude ADT [place] [address] Care Team Providers Care Fuse Cutter Name Role Phone Peter Cevallos DO Primary Care Provider Allergies Active Allergy Reactions Criticality Noted Date Comments Nalbuphine Hallucination High 05/29/2014 Active Problems Problem Noted Date Diagnosed Date Old myocardial infarction 05/20/2014 S/P exploratory laparotomy 03/16/2014 Wound dehiscence, surgical 03/16/2014 S/P laparoscopic hernia repair 03/16/2014 Hemorrhagic shock 03/05/2014 CAD (coronary artery disease) 02/26/2014 Overview (03/11/2021): 2013 - [facility] 03/06/2014 - ECHO: LEFT VENTRICLE: [...] on file 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 Gender Identity Not on file Sexual Orientation [...] series) 2031 Medical Devices Implanted Type Area Sheet Heater Helper Device Identifier Shelf Expiration Date Model / Serial / Lot Mesh Ventralight St 4x6in [id number] - Sna Implanted:Qty: 1 on 03/05/2014 by Dameon Ramírez MD Mesh N/A: Abdomen CR [employer]ARD[employer] 01/12/2016 [id number] / NA / [id number] Mesh [address]ralight [address] 6x8in [id number] - [id number] Implanted:Qty: 1 on 03/05/2014 by Dameon Ramírez MD Mesh N/A: Abdomen CR [employer] 01/12/2016 [id number] / / [id number] Care Teams Fuse Cutter Relationship Specialty Start Date End Date Peter Cevallos DO [address] [place] [address] PCP - General Family Practice 12/15/12
--- OUTSIDE RECORDS SUMMARY | 2025-07-21 18:34 | XMS_ITS | Encounter Summary ---
Author Organization [facility] Address [address] [place] [address] Care Team Providers Care Recovery Unit Operator Name Role Phone Peter Cevallos DO Primary Care Provider Encounter Details Date Type Department Care Team (Latest Contact Info) Description 01/09/1999 Outpatient [facility] Oral and Maxillo Surgery[address] [place] [address] Jam Potter, PhD NO ADDRESS ON FILE Closed fracture of condylar process of mandible (CMS/HCC) (Primary Dx) Social History Tobacco Use Types Packs/Day Years Used Date Smoking Tobacco: Never Assessed Sex and Gender Information Value Date Recorded Sex Assigned at Not on file 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
[2025-07-21 19:00] VITALS: BP 165/84; PULSE 60; O2SAT 93
--- NOTE | 2025-07-21 19:06 | ECG_ITS ---
[facility] Test Date: 2025-07-21 Pat Name: Rocio Rivera Department: Room: Gender: Male Eight Section Blower: : 1955 Requested By: Cecy Terrazas Order Number: [id number] Birdie MD: Jm Adam M.D. Measurements Intervals [place] Rate: 60 P: 89 FL: 192 QRS: 42 QRSD: 81 T: 70 QT: 440 QTc: 442 Interpretive Statements SINUS RHYTHM Compared to ECG 07/10/2025 21:13:00 Atrial fibrillation no longer present MINIMAL ST ELEVATION IN THE INFERIOR AND ANTEROLATERAL LEADS HAS DECREASED Electronically Signed On 07-23-2025 23:13:59 CDT by Jm Adam M.D. [email or web address]
[2025-07-21 19:37] LABS: Hematocrit 36.1 % (37-53); Hemoglobin 10.90 g/dL (11.27-16.99); Mean Corpuscular HGB Conc 30.2 g/dL (30-55); Mean Corpuscular Hemoglobin 28.8 pg (27-33); Mean Corpuscular Volume 95.3 fl (82-101); Nucleated Red Blood Cells % 0 %; Platelet Count 122 10^3/cmm (157-399); Red Blood Count 3.79 10^6/uL (3.85-5.65); White Blood Count 10.16 10^3/uL (3.29-11.43)
[2025-07-21 19:58] LABS: Alanine Aminotransferase 16 U/L (0-41); Albumin Level 3.1 g/dL (3.5-5.2); Alkaline Phosphatase 66 U/L (40-130); Blood Urea Nitrogen 13 mg/dL (8-23); Calcium 8.5 mg/dL (8.5-10.5); Carbon Dioxide 27 mmol/L (22-29); Chloride 97 mmol/L (98-107); Globulin 3.6 g/dL (1.3-4.6); Glucose 103 mg/dL (65-115); Osmolality Calculated 270 mOsm/kg (285-295); Sodium 130 mmol/L (136-145); Total Protein 6.7 g/dL (6.6-8.7)
[2025-07-21 20:02] LABS: Anion Gap 10.8 (5-19); Aspartate Amino Transferase 20 U/L (0-40); Potassium 4.8 mmol/L (3.5-5.1)
[2025-07-21 20:20] VITALS: RESP 18
[2025-07-21] MEDS: oxyCODONE 5 mg IR Tab/Cap 15 MG PO (20:20)
[2025-07-21 20:21] VITALS: BP 178/78; PULSE 59; O2SAT 95
[2025-07-21 23:14] VITALS: BP 169/79; PULSE 57; O2SAT 96
--- OUTSIDE RECORDS SUMMARY | 2025-08-24 19:00 | XMS_ITS | Clinical Summary ---
Author Organization Unknown Care Team Providers Care Rn Advice Name Role Phone NALINI HOU APRN Unavailable Unavailnabeel WORTHINGTON RN, JUAN J Unavailable Unavailable Payers Payer Name Policy Type Policy Number Effective Date Expira tion Date MEDICARE - S - PD [id number] Problems Condition Name Condition Details Condition Category Status Onset Date Resolution Date Last Treatment Date Treating Clinician Comments TUBULO-INTER STITIAL NEPHRITIS, NOT SPCF ACUTE OR CHRONIC Active 9 00:00: 00 CHRONIC OBSTRUCTIVE PULMONARY DISEASE, UNSPECIFIED Active 11-13 00:00: 00 ACQUIRED ABSENCE OF RIGHT LEG BELOW KNEE Active 11-13 00:00: 00 ATHSCL HEART DISEASE OF [place] CORONARY ARTERY W/O ANG PCTRS Active 11-13 00:00: 00 ESSENTIAL (PRIMARY) HYPERTENSION Active 11-13 00:00: 00 HYPO-OSMOLAL ITY AND HYPONATREMIA Active 11-13 00:00: 00 OTHER CHRONIC PAIN Active 11-13 00:00: 00 DORSALGIA, UNSPECIFIED Active 11-13 00:00: 00 DEPENDENCE ON SUPPLEMENTAL OXYGEN Active 11-13 00:00: 00 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 Active 11-13 00:00: 00 FDC (CURRENT) USE OF ANTITHROMBOT ICS/ANTIPLAT ELETS Active 11-13 00:00: 00 FDC (CURRENT) USE OF OPIATE ANALGESIC Active 11-13 00:00: 00 PERSONAL HISTORY OF NICOTINE DEPENDENCE Active 11-13 00:00: 00 Allergies, Adverse Reactions, Alerts Allergy Name Allergy Type Status Severity Reaction(s) Onset Date Inactive Date Treating Clinician Comments KETOROLAC Propensity to adverse reactions Active 818 08:03: 51 NALBUPHINE Propensity to adverse reactions Active 06-30 08:04: 00 TIZANIDINE Propensity to adverse reactions Active 06-30 08:04: 15 Medications Ordered Medication Name Filled Medication Name Start Date Stop Date Current Medication? Ordering Clinician Indication Dosage Frequency Signature (SIG) Comments Components acetaminoph en 500 mg tablet 06-27 00:00: 00 Yes [id number] 2 tablet DAILY 2 tablet DAILY (route: oral) Med Classific ation: Analgesic , Anti-infl ammatory or Antipyret ic amlodipine 5 mg tablet 06-27 00:00: 00 07-16 23:59 :00 No [id number] 1 tablet DAILY 1 tablet DAILY (route: oral) Med Classific ation: Cardiovas cular Therapy Agents atorvastati n 80 mg tablet 06-27 00:00: 00 Yes [id number] 1 tablet DAILY 1 tablet DAILY (route: oral) Med Classific ation: Cardiovas cular Therapy Agents carvedilol 12.5 mg tablet 06-27 00:00: 00 Yes [id number] 1 tablet 2 TIMES DAILY 1 tablet 2 TIMES DAILY (route: oral) Med Classific ation: Cardiovas cular Therapy Agents ciprofloxac in 500 mg tablet 06-27 00:00: 00 07-03 23:59 :00 No [id number] 1 tablet 2 TIMES DAILY 1 tablet 2 TIMES DAILY (route: oral) Med Classific ation: Anti-Infe ctive Agents clopidogrel 75 mg tablet 06-27 00:00: 00 Yes [id number] 1 tablet DAILY 1 tablet DAILY (route: oral) Med Classific ation: Hematolog ical Agents isosorbide mononitrate ER 60 mg tablet,exte nded release 24 hr 06-27 00:00: 00 Yes [id number] 1 tablet DAILY 1 tablet DAILY (route: oral) Med Classific ation: Cardiovas cular Therapy Agents losartan 25 mg tablet 06-27 00:00: 00 Yes [id number] 1 tablet DAILY 1 tablet DAILY (route: oral) Med Classific ation: Cardiovas cular Therapy Agents metronidazo le 500 mg tablet 06-27 00:00: 00 07-07 23:59 :00 No [id number] 1 tablet EVERY 8 HOURS 1 tablet EVERY 8 HOURS (route: oral) Med Classific ation: Anti-Infe ctive Agents oxycodone 20 mg tablet 06-27 00:00: 00 Yes [id number] 1 tablet 3 TIMES DAILY 1 tablet 3 TIMES DAILY (route: oral) Med Classific ation: Analgesic , Anti-infl ammatory or Antipyret ic tamsulosin 0.4 mg capsule 06-27 00:00: 00 Yes [id number] 1 capsule DAILY 1 capsule DAILY (route: oral) Med Classific ation: Genitouri nary Therapy albuterol sulfate 2.5 mg/3 mL (0.083 %) solution for nebulizatio n 06-27 00:00: 00 Yes [id number] 3 mL DAILY 3 mL CHELLY Y (route: inhalation ) Med Classific ation: Respirato ry Therapy Agents Breztri Aerosphere 160 mcg-9mcg-4. 8mcg/actuat ion HFA aerosol inhaler 06-27 00:00: 00 Yes [id number] 2 puff 2 TIMES DAILY 2 puff 2 TIMES DAILY (route: inhalation ) Med Classific ation: Respirato ry Therapy Agents budesonide 0.5 mg/2 mL suspension for nebulizatio n 06-27 00:00: 00 Yes [id number] 2 mL DAILY 2 mL CHELLY Y (route: inhalation ) Med Classific ation: Respirato ry Therapy Agents formoterol fumarate 20 mcg/2 mL solution for nebulizatio n 06-27 00:00: 00 Yes [id number] 2 mL 2 TIMES DAILY 2 mL 2 TIMES DAILY (route: inhalation ) Med Classific ation: Respirato ry Therapy Agents Repatha SureClick 140 mg/mL subcutaneou s pen injector 06-27 00:00: 00 Yes [id number] 140 mg DIRECTED 140 mg DIRECTED (route: subcutaneo us) Med Classific ation: Cardiovas cular Therapy Agents Yupelri 175 mcg/3 mL solution for nebulizatio n 06-27 00:00: 00 Yes [id number] 3 mL DAILY 3 mL CHELLY Y (route: inhalation ) Med Classific ation: Respirato ry Therapy Agents oxygen gas for inhalation 07-01 00:00: 00 Yes [id number] 3 Liter O2 - CONTINUOUS 3 Liter O2 - CONTINUOUS (route: inhalation ) Med Classific ation: Medical Supplies and Durable Medical Equipment (DME) amiodarone 200 mg tablet 07-16 00:00: 00 Yes [id number] 1 tablet DAILY 1 tablet DAILY (route: oral) Med Classific ation: Cardiovas cular Therapy Agents Eliquis 5 mg tablet 07-16 00:00: 00 Yes [id number] 1 tablet 2 TIMES DAILY 1 tablet 2 TIMES DAILY (route: oral) Med Classific ation: Hematolog ical Agents Vital Signs Vital Name Observation Time Observation Value Commen ts Temperature 2025-07-16 14:09:00.000 97.6 [degF] Temperature 2025-07-08 16:30:00.000 97.6 [degF] Temperature 2025-07-03 14:48:00.000 97.4 [degF] Temperature 2025-07-02 17:35:00.000 97.5 [degF] Temperature 2025-06-27 13:02:00.000 97.6 [degF] BMI (%) 2025-07-16 14:09:00.000 27 kg/m2 BMI (%) 2025-06-27 13:02:00.000 25 kg/m2 Height 2025-07-16 14:09:00.000 69 [in_us] Height 2025-06-27 13:02:00.000 69 [in_us] Pulse 2025-07-16 14:09:00.000 56 /min Pulse 2025-07-08 16:30:00.000 79 /min Pulse 2025-07-03 14:48:00.000 65 /min Pulse 2025-07-02 17:35:00.000 63 /min Pulse 2025-06-27 13:02:00.000 78 /min O2 Saturation (%) 2025-07-16 14:09:00.000 97 % O2 Saturation (%) 2025-07-03 14:48:00.000 96 % O2 Saturation (%) 2025-07-02 17:35:00.000 93 % O2 Saturation (%) 2025-06-27 13:02:00.000 98 % Respirations 2025-07-16 14:09:00.000 18 /min Respirations 2025-07-08 16:30:00.000 18 /min Respirations 2025-07-03 14:48:00.000 18 /min Respirations 2025-07-02 17:35:00.000 16 /min Respirations 2025-06-27 13:02:00.000 18 /min Weight (lbs) 2025-07-16 14:09:00.000 185 [lb_av] Weight (lbs) 2025-06-27 13:02:00.000 175 [lb_av] Systolic Blood Pressure 2025-07-16 14:09:00.000 120 mm [Hg] Systolic Blood Pressure 2025-07-08 16:30:00.000 136 mm [Hg] Systolic Blood Pressure 2025-07-03 14:48:00.000 146 mm [Hg] Systolic Blood Pressure 2025-07-02 17:35:00.000 119 mm [Hg] Systolic Blood Pressure 2025-06-27 13:02:00.000 160 mm [Hg] Diastolic Blood Pressure 2025-07-16 14:09:00.000 76 mm [Hg] Diastolic Blood Pressure 2025-07-08 16:30:00.000 67 mm [Hg] Diastolic Blood Pressure 2025-07-03 14:48:00.000 [...] PULMONARY DISEASE, UNSPECIFIED, ATHSCL HEART DISEASE OF [place] CORONARY ARTERY W/O ANG PCTRS, ESSENTIAL (PRIMARY) [...] PULMONARY DISEASE, UNSPECIFIED, ATHSCL HEART DISEASE OF [place] CORONARY ARTERY W/O ANG PCTRS, ESSENTIAL (PRIMARY) [...] THE FOLLOWING PHYSICIANS: ALL PROVIDERS INVOLVED IN CARE] Future Scheduled Test OXYGEN VIA NASAL CANNULA [...] MAINTAIN SITUATIONAL AWARENESS AND WILL NOTIFY CLINICAL INVESTMENT RECOVERY TECHNICIAN AND PHYSICIAN/PROVIDER WITH ANY CHANGE IN CONDITION. [code = SKILLED NURSE TO PERFORM ENVIRONMENTAL SAFETY RISK ASSESSMENT AND FALL RISK ASSESSMENT AND PROVIDE INSTRUCTION TO IMPLEMENT ENVIRONMENTAL SAFETY AND FALL PREVENTION STRATEGIES THROUGHOUT THE CERTIFICATION PERIOD. SKILLED NURSE WILL MAINTAIN SITUATIONAL AWARENESS AND WILL NOTIFY CLINICAL INVESTMENT RECOVERY TECHNICIAN AND PHYSICIAN/PROVIDER WITH ANY CHANGE IN CONDITION.] Future Scheduled Test SKILLED NU RSE FOR OBSERVATION AND ASSESSMENT OF PATIENT S PAIN LEVEL AND EFFECTIVENESS OF PAIN MANAGEMENT REGIMEN. SKILLED NURSE TO INSTRUCT PATIENT/CAREGIVER REGARDING PHARMACOLOGIC AND NON-PHARMACOLOGIC PAIN CONTROL MEASURES. SKILLED NURSE TO REPORT TO PHYSICIAN IF PAIN LEVEL IS OUTSIDE OF ESTABLISHED PARAMETERS. [code = SKILLED NURSE FOR OBSERVATION AND ASSESSMENT OF PATIENT S PAIN LEVEL AND EFFECTIVENESS OF PAIN MANAGEMENT [...] REDUCE RISK FOR FALL AND INJURY] Goal 2025-07-16 Patient Goal - GET STRONGER Goal Patient Goal - GET STRONGER Goal Provider Goal - A PLAN OF CARE WILL BE ESTABLISHED THAT MEETS PATIENT'S SHELTER NEEDS AND INCLUDES PATIENT GOAL FOR HOME [...] TREATMENT PLAN OF CARE ESTABLISHED FOR THE PHYSICIAN S SIGNATURE PATIENT/CAREGIVER WILL PERFORM THERAPEUTIC EXERCISE/S AND DEMONSTRATE PARTICIPATION IN A HOME PROGRAM. PATIENT/CAREGIVER WILL DEMONSTRATE SAFE TRANSFERS USING APPROPRIATE ASSISTIVE DEVICE, BODY MECHANICS AND EQUIPMENT. PATIENT/CAREGIVER WILL DEMONSTRATE IMPROVED GAIT TECHNIQUES TO MINIMIZE RISK OF INJURY. PATIENT/CAREGIVER WILL DEMONSTRATE IMPROVED BALANCE AND REDUCE THE RISK OF FALLS AND INJURY. Encounters Start Date/Time End Date/Time Encounter Type Admission Type Attending [facility] Facility Care Department Encounter ID Discharge Date Discharge Status Discharge Condition Discharge Reason Percent Goals Met 2025-06-27 00:00:00 2025-08-25 00:00:00 Outpatient NEW ADMISSION [facility] [id number] 25.00
--- OUTSIDE RECORDS SUMMARY | 2025-08-24 19:00 | XMS_ITS | Clinical Summary ---
Author Organization Unknown Care Team Providers Care Animal Therapist Name Role Phone NALINI HOU APRN Unavailable Unavailnabeel WORTHINGTON RN, JUAN J Unavailable Unavailable Payers Payer Name Policy Type Policy Number Effective Date Expira tion Date MEDICARE - S - PD [id number] Problems Condition Name Condition Details Condition Category Status Onset Date Resolution Date Last Treatment Date Treating Clinician Comments TUBULO-INTER STITIAL NEPHRITIS, NOT SPCF ACUTE OR CHRONIC Active 9 00:00: 00 CHRONIC OBSTRUCTIVE PULMONARY DISEASE, UNSPECIFIED Active 11-13 00:00: 00 ACQUIRED ABSENCE OF RIGHT LEG BELOW KNEE Active 11-13 00:00: 00 ATHSCL HEART DISEASE OF [place] CORONARY ARTERY W/O ANG PCTRS Active 11-13 00:00: 00 ESSENTIAL (PRIMARY) HYPERTENSION Active 11-13 00:00: 00 HYPO-OSMOLAL ITY AND HYPONATREMIA Active 11-13 00:00: 00 OTHER CHRONIC PAIN Active 11-13 00:00: 00 DORSALGIA, UNSPECIFIED Active 11-13 00:00: 00 DEPENDENCE ON SUPPLEMENTAL OXYGEN Active 11-13 00:00: 00 CHEMICAL TESTER (CURRENT) USE OF INHALED STEROIDS Active 11-13 00:00: 00 SENIOR CARE (CURRENT) USE OF ANTITHROMBOT ICS/ANTIPLAT ELETS Active 11-13 00:00: 00 SENIOR CARE (CURRENT) USE OF OPIATE ANALGESIC Active 11-13 [...] 500 mg tablet 06-27 00:00: 00 Yes [id number] 2 tablet DAILY 2 tablet DAILY (route: oral) Med Classific ation: Analgesic , Anti-infl ammatory or Antipyret ic amlodipine 5 mg tablet 06-27 00:00: 00 07-16 23:59 :00 No [id number] 1 tablet DAILY 1 tablet DAILY (route: oral) Med Classific ation: Cardiovas cular Therapy Agents atorvastati n 80 mg tablet 06-27 00:00: 00 Yes [id number] 1 tablet DAILY 1 tablet DAILY (route: oral) Med Classific ation: Cardiovas cular Therapy Agents carvedilol 12.5 mg tablet 06-27 00:00: 00 Yes [id number] 1 tablet 2 TIMES DAILY 1 tablet 2 TIMES DAILY (route: oral) Med Classific ation: Cardiovas cular Therapy Agents ciprofloxac in 500 mg tablet 06-27 00:00: 00 07-03 23:59 :00 No [id number] 1 tablet 2 TIMES DAILY 1 tablet 2 TIMES DAILY (route: oral) Med Classific ation: Anti-Infe ctive Agents clopidogrel 75 mg tablet 06-27 00:00: 00 Yes [id number] 1 tablet DAILY 1 tablet DAILY (route: oral) Med Classific ation: Hematolog ical Agents isosorbide mononitrate ER 60 mg tablet,exte nded release 24 hr 06-27 00:00: 00 Yes [id number] 1 tablet DAILY 1 tablet DAILY (route: oral) Med Classific ation: Cardiovas cular Therapy Agents losartan 25 mg tablet 06-27 00:00: 00 Yes [id number] 1 tablet DAILY 1 tablet DAILY (route: oral) Med Classific ation: Cardiovas cular Therapy Agents metronidazo le 500 mg tablet 06-27 00:00: 00 07-07 23:59 :00 No [id number] 1 tablet EVERY 8 HOURS 1 tablet EVERY 8 HOURS (route: oral) Med Classific ation: Anti-Infe ctive Agents oxycodone 20 mg tablet 06-27 00:00: 00 Yes [id number] 1 tablet 3 TIMES DAILY 1 tablet 3 TIMES DAILY (route: oral) Med Classific ation: Analgesic , Anti-infl ammatory or Antipyret ic tamsulosin 0.4 mg capsule 06-27 00:00: 00 Yes [id number] 1 capsule DAILY 1 capsule DAILY (route: oral) Med Classific ation: Genitouri nary Therapy albuterol sulfate 2.5 mg/3 mL (0.083 %) solution for nebulizatio n 06-27 00:00: 00 Yes [id number] 3 mL DAILY 3 mL CHELLY Y (route: inhalation ) Med Classific ation: Respirato ry Therapy Agents Breztri Aerosphere 160 mcg-9mcg-4. 8mcg/actuat ion HFA aerosol inhaler 06-27 00:00: 00 Yes [id number] 2 puff 2 TIMES DAILY 2 puff 2 TIMES DAILY (route: inhalation ) Med Classific ation: Respirato ry Therapy Agents budesonide 0.5 mg/2 mL suspension for nebulizatio n 06-27 00:00: 00 Yes [id number] 2 mL DAILY 2 mL CHELLY Y (route: inhalation ) Med Classific ation: Respirato ry Therapy Agents formoterol fumarate 20 mcg/2 mL solution for nebulizatio n 06-27 00:00: 00 Yes [id number] 2 mL 2 TIMES DAILY 2 mL 2 TIMES DAILY (route: inhalation ) Med Classific ation: Respirato ry Therapy Agents Repatha SureClick 140 mg/mL subcutaneou s pen injector 06-27 00:00: 00 Yes [id number] 140 mg DIRECTED 140 mg DIRECTED (route: subcutaneo us) Med Classific ation: Cardiovas cular Therapy Agents Yupelri 175 mcg/3 mL solution for nebulizatio n 06-27 00:00: 00 Yes [id number] 3 mL DAILY 3 mL CHELLY Y (route: inhalation ) Med Classific ation: Respirato ry Therapy Agents oxygen gas for inhalation 07-01 00:00: 00 Yes [id number] 3 Liter O2 - CONTINUOUS 3 Liter O2 - CONTINUOUS (route: inhalation ) Med Classific ation: Medical Supplies and Durable Medical Equipment (DME) amiodarone 200 mg tablet 07-16 00:00: 00 Yes [id number] 1 tablet DAILY 1 tablet DAILY (route: oral) Med Classific ation: Cardiovas cular Therapy Agents Eliquis 5 mg tablet 07-16 00:00: 00 Yes [id number] 1 tablet 2 TIMES DAILY 1 tablet [...] PULMONARY DISEASE, UNSPECIFIED, ATHSCL HEART DISEASE OF [place] CORONARY ARTERY W/O ANG PCTRS, ESSENTIAL (PRIMARY) [...] PULMONARY DISEASE, UNSPECIFIED, ATHSCL HEART DISEASE OF [place] CORONARY ARTERY W/O ANG PCTRS, ESSENTIAL (PRIMARY) [...] MAINTAIN SITUATIONAL AWARENESS AND WILL NOTIFY CLINICAL MEDICAID SERVICE COORDINATOR AND PHYSICIAN/PROVIDER WITH ANY CHANGE IN CONDITION. [code = SKILLED NURSE TO PERFORM ENVIRONMENTAL SAFETY RISK ASSESSMENT AND FALL RISK ASSESSMENT AND PROVIDE INSTRUCTION TO IMPLEMENT ENVIRONMENTAL SAFETY AND FALL PREVENTION STRATEGIES THROUGHOUT THE CERTIFICATION PERIOD. SKILLED NURSE WILL MAINTAIN SITUATIONAL AWARENESS AND WILL NOTIFY CLINICAL MEDICAID SERVICE COORDINATOR AND PHYSICIAN/PROVIDER WITH ANY CHANGE IN CONDITION.] [...] CARE WILL BE ESTABLISHED THAT MEETS PATIENT'S LONGTERM NEEDS AND INCLUDES PATIENT GOAL FOR HOME [...] End Date/Time Encounter Type Admission Type Attending [facility] Facility Care Department Encounter ID Discharge Date Discharge Status Discharge Condition Discharge Reason Percent Goals Met 2025-06-27 00:00:00 2025-08-25 00:00:00 Outpatient NEW ADMISSION [facility] [id number] 25.00
== END 2025-07-21 23:00 | disposition home or self-care (01) ==
PROVIDERS: Emergency Provider Physician Assistant; PCP Nurse Practitioner
DX: S82.002A Unspecified fracture of left patella, initial encounter for closed fracture (principal); Z79.02 Long term (current) use of antithrombotics/antiplatelets; Z79.01 Long term (current) use of anticoagulants; Z87.891 Personal history of nicotine dependence; E78.2 Mixed hyperlipidemia; J44.9 Chronic obstructive pulmonary disease, unspecified; I10 Essential (primary) hypertension; W19.XXXA Unspecified fall, initial encounter
CPT/HCPCS: 29505; 36415; 70450; 72125; 72128; 72131; 73552; 73560; 73590; 80053; 85025; 93005; 99285; J9999

== ENCOUNTER → 2025-07-25 12:43 | Outpatient (BNVA) | payer MEDICARE, MEDICAID, SELFPAY | PROVIDERS: PCP Nurse Practitioner; Visit Provider Student in an Organized Health Care Education/Training Program | DX: S82.002A Unspecified fracture of left patella, initial encounter for closed fracture (principal); W18.49XA Other slipping, tripping and stumbling without falling, initial encounter; Z79.01 Long term (current) use of anticoagulants | CPT/HCPCS: 73562; 99204 ==

== ENCOUNTER 2025-08-01 15:28 | Observation (INO) | payer MEDICARE, MEDICAID, SELFPAY ==
[2025-08-01] VITALS (31 sets, daily range): BP systolic 128–182; BP diastolic 56–90; PULSE 47–84; RESP 12–21; TEMP 36.3–36.6; O2SAT 94–97; BMI 27.3
--- NOTE | 2025-08-01 | XR_ITS ---
WS: [email or web address] Exam: XR knee LT 3V* [id number] Date/Time of Exam: 08/01/2025 12:00 AM Reason For Exam: JARON PICS Intraoperative AP and lateral C-arm images of the LEFT knee are submitted. Images depict screw fixation involving a transverse fracture of the patella. Fracture alignment appears to be satisfactory for healing. Hardware also noted in the upper tibia.
--- NOTE | 2025-08-01 10:55 | ANES.PREANE2 ---
Pre-Anesthetic Assessment Height/Weight: Height 1.75 m Operation Date: 08/01/25 12:00 Proposed Procedures p LEFT Patella Open Reduction Internal Fixation(Left) - Tj Aguirre, Pulmonary Chronic Obstructive Pulmonary Disease (On oxygen) CV/HEM Atrial Fibrillation, Coronary Artery Disease and Hypertension echo CONCLUSIONS Normal left ventricular size, systolic function and wall thickness, with no regional wall motion abnormalities. Left ventricular ejection fraction is estimated at 55 %. The LA appendage is normal. No thrombus visualized in the left atrial appendage. Normal flow velocities in the left atrial appendage. Mild aortic valve calcification. Aortic valve sclerosis. Trace aortic valve regurgitation. There is no pericardial effusion. ekg SINUS RHYTHM Compared to ECG 07/10/2025 21:13:00 Atrial fibrillation no longer present MINIMAL ST ELEVATION IN THE INFERIOR AND ANTEROLATERAL LEADS HAS DECREASED stress test CONCLUSION: 1. No significant EKG changes with the LexiScan infusion 2. No LexiScan induced chest pain or cardiac arrhythmia 3. Normal blood pressure and heart rate response 4. Sestamibi/sestamibi perfusion scan pending; see separate report. perfusion scan IMPRESSIONS 1. Myocardial perfusion imaging revealing moderate area of moderately decreased tracer uptake involving the inferior, inferolateral and apical lateral regions with some reversibility, suggesting myocardial scarring in the distribution of the right coronary artery/circumflex artery with some ischemia in the right coronary artery territory. 2. Normal LV ejection fraction of 60%. 3. LV wall motion analysis revealing no gross wall motion abnormalities. 4. Normal LV volume No similar previous studies are available for comparison Chronic Renal Insufficiency Anesthetic Plan ASA status: 4 Anesthesia: General Other: Discussed higher risk of perioperative respiratory and cardiac complications d/t patient's baseline comorbidities - patient and family voiced understanding Risk of > 500 ml blood loss (7ml/kg in children): No Medications/Allergies Home Medications ?Medication ?Instructions ?Recorded ?Confirmed ?Last Taken ?Type E2622 : Skin protection #1 ea 04/26/21 07/25/25 Unknown Rx wheelchair seat cushion, adjustable, width less than 22 inches, any depth. [id number] Power wheelchair, group 2 #1 ea 04/26/21 07/25/25 Unknown Rx standard, sling/solid [id number] front wheeled walker #1 ea 04/23/24 07/25/25 Unknown Rx wheelchair #1 ea 04/23/24 07/25/25 Unknown Rx albuterol sulfate 2.5 mg/3 mL 2.5 mg (3 mL) inhalation Q4H PRN 04/28/25 07/29/25 07/31/25 Rx (0.083 %) solution for nebulization shortness of breath or wheezing #300 mL evolocumab 140 mg/mL subcutaneous 140 mg SUBCUT .every 14 days #2 mL 04/28/25 07/29/25 07/24/25 Rx pen injector (Miguel Brown) tamsulosin 0.4 mg capsule (Flomax) 0.4 mg PO DAILY #90 caps 04/28/25 07/29/25 08/01/25 Rx Oxygen concentrator and portable #1 ea 05/20/25 07/25/25 Unknown Rx NC 2L isosorbide mononitrate 60 mg 60 mg PO DAILY #90 tabs 06/16/25 07/29/25 08/01/25 Rx tablet,extended release 24 hr oxycodone 20 mg tablet 20 mg PO Q8H PRN Pain 06/23/25 07/29/25 08/01/25 History carvedilol 12.5 mg tablet 12.5 mg PO BID #90 tabs 06/27/25 07/29/25 08/01/25 Rx losartan 25 mg tablet 25 mg PO DAILY #90 tabs 06/27/25 07/29/25 08/01/25 Rx apixaban 5 mg tablet (Eliquis) 5 mg PO BID #60 tabs 07/12/25 07/29/25 07/29/25 Rx Ostomy Belt 4 XL #1 ea 07/21/25 07/25/25 Unknown Rx amiodarone 200 mg tablet (Pacerone) 200 mg PO DAILY 07/29/25 07/29/25 08/01/25 History clopidogrel 75 mg tablet 75 mg PO DAILY 07/29/25 07/29/25 07/29/25 History enoxaparin 80 mg/0.8 mL 80 mg (0.8 mL) SUBCUT Q12H #3.2 mL 07/29/25 08/01/25 07/31/25 06:00 Rx subcutaneous syringe (Lovenox) Allergies Allergy/AdvReac Type Severity Reaction Status Date / Time ketorolac (From Toradol) Allergy Unknown Verified 07/29/25 12:17 nalbuphine (From Nubain) Allergy Unknown Verified 07/29/25 12:17 tizanidine Allergy ADR-Halluci Verified 07/29/25 12:17 karen [facility] Anesthesia Medical History (Updated 07/29/25 @ 00:00 by NADINE Crane) Supplemental oxygen dependent 3L NC since June,. Bladder distension Neuropathic pain Osteoarthritis of left hip LAU (dyspnea on exertion) Benign essential HTN Osteoporosis Anemia Central spinal stenosis Mixed hyperlipidemia COPD (chronic obstructive pulmonary disease) ASHD (arteriosclerotic heart disease) Surgical History Hx of leg amputation Right side History of right lower limb amputation History of abdominal surgery History of appendectomy History of hernia repair H/O shoulder surgery H/O knee surgery Family History Mother CAD (coronary artery disease) Father Cancer Family/Other Cancer Denies family history of Diabetes Clotting disorder Dementia Chronic kidney disease (CKD) Suicide Anesthesia complication Bleeding disorder Lung disease Stroke Social History Smoking and tobacco/nicotine status: former use of tobacco/nicotine Quit status (tobacco/nicotine): has quit using Year quit tobacco: 2020 Former quit date comment: 2 PPD X 45 YEARS Second hand smoke exposure: No Alcohol intake: never Substance/Drug Use: never Adopted: No Caregiver/support person: No Lives independently: Yes Household members: significant other Housing: House Marital status: Number of children: 2 service: No Current occupational status: retired Current occupational exposures/hazards: No Do you think of yourself as: Straight/Heterosexual Current gender identity: Male Data Anesthesia Cardiac Studies: Echocardiogram 12/05/23 Transesophageal Echocardiogram 07/11/25 Sestamibi Stress Test (Cardiology) 03/25/24
[2025-08-01] MEDS: acetaminophen 1,000 MG/100 ML PIGGYBACK 400 MG IV (11:26)
--- NOTE | 2025-08-01 11:45 | W.PM.OPSUD ---
Surgery/Procedure H&P Update DATE OF PROCEDURE: August 01, 2025 DATE H&P PERFORMED: 07/29/25 H&P UPDATE INFORMATION: I have reviewed H&P completed within last 30 days, I have examined patient prior to procedure and No changes to prior documentation CHANGES TO PREVIOUS DOCUMENTATION: Patient been in contact with cardiology and has discontinued and bridged the Lovenox and has been off of Eliquis for over 48 hours. Patient at this point time is ready to proceed with surgical invention given he is a right hip/disarticulation amputation on the right side and only a single leg were performed in the procedure on his left leg as well as given his cardiac history we will plan on observation postop from surgery with his discharging home tomorrow. Patient and understand agree with current plan. Questions answered. PREOP DIAGNOSIS: Left patella displaced fracture PRIMARY INDICATION FOR PROCEDURE: Left patella displaced fracture PLANNED PROCEDURE: Operation Date: 08/01/25 12:00 Proposed Procedures p LEFT Patella Open Reduction Internal Fixation(Left) - Tj Aguirre DO
[2025-08-01 11:47] LABS: Hematocrit 33.3 % (37-53); Hemoglobin 10.10 g/dL (11.27-16.99); Mean Corpuscular HGB Conc 30.3 g/dL (30-55); Mean Corpuscular Hemoglobin 28.7 pg (27-33); Mean Corpuscular Volume 94.6 fl (82-101); Nucleated Red Blood Cells % 0 %; Platelet Count 175 10^3/cmm (157-399); Red Blood Count 3.52 10^6/uL (3.85-5.65); White Blood Count 5.06 10^3/uL (3.29-11.43)
--- NOTE | 2025-08-01 11:50 | ANES.PROC ---
Anesthesia Procedures Procedure/Date: 08/01/25 Nerve Block ^: Nerve Block 1: Main Anesthesia: general anesthesia Time Out Performed: Yes Consent: requested by attending/covering physician, from patient, from other, risks and benefits reviewed and patient agrees to proceed Laterality: Left Nerve block location: adductor canal (20 ml) Anesthesia monitors applied: pulse oximetry, EKG, BP cuff and oxygen Nerve block position: supine Anesthetic Used: ropivicaine 0.5% (20 ml) and with decadron (4 mg) Ultrasound used to: recognize landmarks and visualize and ID femerol nerve Interscalene/Femoral BLK: 4 stimuplex 21 g needle used for position and inplane approach, visualize local anesthetic spread and no vascular puncture identified Injection: neg aspiration of heme Patient Tolerated Procedure: well Complications: none
--- NOTE | 2025-08-01 12:08 | PC.NURSE ---
After time out by staff and Dr Reynoso. Placed 20cc of Ropivacaine and 4 mg of Decadron in Left inner thigh. Pt tolerated well.
[2025-08-01 12:11] LABS: Anion Gap 11.2 (5-19); Blood Urea Nitrogen 9 mg/dL (8-23); Calcium 8.5 mg/dL (8.5-10.5); Carbon Dioxide 28 mmol/L (22-29); Chloride 98 mmol/L (98-107); Creatinine Clr Calc Pharmacy 68.1188; Glucose 103 mg/dL (65-115); Osmolality Calculated 275 mOsm/kg (285-295); Potassium 4.2 mmol/L (3.5-5.1); Sodium 133 mmol/L (136-145)
[2025-08-01] MEDS: ceFAZolin 2,000 MG in sodium chloride 0.9% (plus) 50 ML 100 MG IV (12:49)
--- NOTE | 2025-08-01 14:11 | W.PM.BPON ---
Date of Procedure: 08/01/2025 Surgeon: Tj Aguirre DO Agronomy Supervisor(s): None Procedure(s) performed: left patella open reduction internal fixation Findings of the procedure(s): Underwent procedure as planned without issues or complications taken recovery in stable condition. Will be admitted for observation postoperatively. Estimated blood loss: 25 mL Specimen(s) removed: None Post-operative diagnosis: Left patella fracture displaced
--- NOTE | 2025-08-01 14:12 | P.OP_ITS ---
Operative Report Date of procedure: August 01, 2025 Surgeon: Tj Aguirre DO Procedure: Pre-op diagnosis: Displaced left patella fracture Post-op diagnosis: Same Post-op findings: See operative report narrative Procedure done: Left patella fracture open reduction internal fixation Implants: Arthrex 4.0 mm cannulated screws x 2 (28 & 30mm) Arthrex cerclage tape Arthrex suture tape Surgeon: Tj Aguirre DO [employer] Head: Schuyler Aguirre PA-C: PA was necessary for assistance in this case with leg positioning retraction and protection of neurovascular structures as well as assistance with fracture reduction and fixation with implantation wound closure and dressing application. Anesthesia: General Estimated blood loss: 25mL Tourniquet time 53min IV fluids: 900mL Urine output: 650 mL Complications: None Findings: See operative report narrative Condition: stable Disposition: Observation Brief History: Patient is a pleasant 70-year-old male who sustained a fall onto left knee and has a displaced left patella fracture with a loss extensor mechanism , patient sent to the outpatient follow-up with orthopedics was seen evaluated discussed pt treatment options through shared decision making pt elects proceed with surgical invention for left patella ORIF given pt is in significant pain would like to have this fixed this will allow for obvious fracture reduction and will begin mobilization with patient utilizing knee immobilizer. We talked about pt options in detail and through shared decision making pt elects proceed with surgical intervention all questions answered at this time. pt is appropriately stopped pt anticoagulant medications per recommendations by cardiology and cleared to proceed with surgical invention by anesthesia. Patient consent signed in the preoperative holding area. All questions answered at this time. Procedure: Patient seen eval in the preoperative holding area. Consent was reviewed and signed with patient correct extremities and subsequently marked. At this point in time patient was then seen evaluated by anesthesia was cleared for surgery patient was taken back to the operative suite patient was transported onto the OR table all bony prominences well-padded patient appropriate care to bed. Then patient subsequent underwent anesthesia per the anesthesia department once appropriate anesthetized a nonsterile tourniquet was applied to the left thigh. The left lower extremity is then prepped and draped in standard orthopedic fashion. Final timeout performed. Patient received appropriate preoperative antibiotics. Esmarch tourniquet was used exsanguinate the left lower extremity tourniquet was insufflated to 250 mmHg. I started with a standard midline approach to the anterior aspect of the knee this was centering over the patella fracture. Sharp scalpel excision was made through skin and subcutaneous tissue I then subsequently performed full- thickness skin flaps came down directly over the extensor mechanism. At this point in time I encountered fracture hematoma communicating at the mid substance at the fracture site of the patella I then incised the periosteum longitudinally at the fracture site and then subperiosteally elevated around the fracture site to get appropriate cortical reads. At this point in time I encountered the fracture hematoma and immature callus that was starting to form. I utilized a curette rongeur and sharp scalpel excision to debride all interposed soft tissue to have appropriate satisfactory reduction. This point time thorough irrigation performed I then utilized a tenaculum clip and under fluoroscopic guidance confirmed to being satisfactory on my reduction in the AP and lateral views. Once I was satisfied with the reduction I then subsequently advanced to K wires in parallel fashion for cannulated screw fixationthese were advanced in parallel fashion transversing across the fracture site care being extra-articular and subsequently this was confirmed to being under fluoroscopic imaging these were advanced just up to the tip of the bone on the more proximal cortices and I subsequently had satisfactory measurements of these I then subsequently drilled the near cortex with the cannulated drill bit on all 3 of these and then subsequently advanced 2 cannulated screws across the fracture site would have excellent fixation these were for 4.0 mm Arthrex and blunted tip patella cannulated screws the screws measured 28 mm and 30 mm. Once these were advanced I then subsequently advanced out the K wires proximally which utilized by my pediatric medical assistant and then subsequently utilizing a fiber loop suture loaded Arthrex suture tape and weaved this through the medial screw and the lateral screw in a [id number] fashion and then subsequently tied this on the superior lateral aspect with excellent fracture reduction and fixation this was tied and then confirming of being satisfactory and then excess suture was then cut. At this point in time to augment my fixation I subsequently performed a standard Arthrex suture tape cerclage with third cerclage tape mechanism. This was then passed circumferentially around the retinaculum and soft tissue from the superior medial circumferentially around patella and then was subsequently utilizing the cerclage system tied this on the superior medial which had once again back up fixation circumferentially around the patella to continue to aid in its fixation and stability. This was then tied and excess sutures were then cut. The knee was then gently taken through range of motion and confirmed being satisfactory reduction on both multiple orthogonal images. Once this was completed thoroughly irrigation performed vancomycin powder was placed in wound bed hemostasis was satisfactory after tourniquet was deflated. I then closed in layered fashion of 0 Vicryl 2-0 Vicryl and abhijeet for skin this was then dressed with Xeroform 4 x 4's ABD Curlex soft roll Obinna wrap and then a new knee immobilizer was placed. Patient was then awakened from anesthesia transported onto the hospital bed and taken back to the PACU in stable condition. Disposition: Patient taken to the PACU in stable condition recovering well will discharge home receive appropriate discharge directions as well as pain medication postoperatively instructed on resumption of pt anticoagulant medications tomorrow and plan for follow-up in 2 weeks. pt will admit postop for observation and hospitalist will be consulted for medical managment. Patient understands any issues questions or concerns pt can contact the office. Patient understands pt can weight-bear as tolerated while in the immobilizer strict no knee range of motion at this time. Patient & family understand agree with current plan. Questions answered.
--- NOTE | 2025-08-01 14:21 | XR_ITS ---
WS: [id number] KNEE LEFT TECHNIQUE: 2 views of the left knee CLINICAL INFORMATION: patella orif left FINDINGS: Postoperative change and screw fixation across the patella. Postoperative prior plate and screw fixation across the tibial plateau and proximal tibia. Postoperative soft tissue edema. Suprapatellar effusion. Vascular calcification. XR/XR knee LT 1-2V [id number] IMPRESSION: Normal for postoperative purposes
[2025-08-01] MEDS: fentaNYL 50 mcg/mL INJ 2mL IVP ×2 (14:25→14:31)
[2025-08-01] MEDS: HYDROmorphone 1 mg/mL INJ 1ml 0.5 MG IVP ×2 (14:42→14:55)
[2025-08-01] MEDS: hyDRALAzine 20 mg/mL INJ 1 mL 5 MG IVP ×2 (14:54→15:08)
--- NOTE | 2025-08-01 15:12 | PM.CONSULT ---
Providers/Reason For Consult Consulting Physician/Specialty*: Ruth Bush MD / Hospitalist Reason for Consult*: medical comorbidity management Requesting Physician: Tj Aguirre DO Attending Physician: Tj Aguirre DO Primary Care Provider: BERNARD Villa History of Present Illness History of Present Illness Rocio Rivera is a 70 year old male With a past medical history of CAD, hypertension, dyslipidemia, right leg [id number] amputation, COPD, history of subtotal colectomy with ileostomy, recent treatment for epididymitis and recent new diagnosis of A fib needing cardioversion 06/2025. He is on amiodarone, carvedilol and Eliquis. He is currently admitted this afternoon for left patellar fracture and has undergone ORIF with Dr. Aguirre today. Eliquis was on hold preoperatively with Lovenox bridging. Most recent echocardiogram last year revealed LVEF 56% with no significant valvular abnormalities, mild right atrium dilation. Recent Lexiscan stress test was abnormal with moderate area of moderately decreased tracer uptake with some reversibility suggesting ischemia in the distribution of the RCA/circumflex territory. However at that time it was felt due to the risk of contrast-induced nephropathy, shared decision making was to defer coronary angiogram. HE has a recent h/o being treated for epididymorchitis with Zosyn--> Ciprofloxacin. Review of Systems General: Reports: 10 or more systems reviewed and unremarkable except in HPI and below Const: Denies: fever(s), chills or body aches Eyes: Denies: change in vision, blurry vision or photophobia ENMT: Reports: hoarseness; Denies: throat pain, enlarged tonsils, odynophagia or nasal congestion Card: Denies: chest pain, palpitations, irregular heart rhythm, edema, swelling of feet/ankles, lightheadedness, pre-syncope, dyspnea on exertion or orthopnea Resp: Denies: dyspnea, productive cough, non-productive cough, wheezing, stridor, pain on inspiration, change in phlegm color, hemoptysis or chest congestion GI: Denies: abdominal pain, nausea, vomiting, hematemesis, coffee ground emesis, dysphagia, heartburn, diarrhea, constipation, GI cramping, change in stool character, hematochezia or melena : Denies: flank pain, dysuria, urinary frequency, urinary urgency, urinary hesitancy or hematuria Musc: Denies: neck pain, back pain, extremity pain, joint swelling, joint warmth or deformity Neuro: Denies: headache(s), numbness in extremities, weakness in extremities, sensory changes, difficulty walking, frequent falls, dizziness, vertigo, behavioral changes, Slurred speech present or seizure-like activity Psych: Denies: anxiety, depression, suicidal ideation or homicidal ideation Endo: Denies: polyuria, polydipsia, tired all the time, cold intolerance or hot flashes Logan/Lymph: Denies: easy bruising or easy bleeding Medications/Allergies Home Medications ?Medication ?Instructions ?Recorded ?Confirmed ?Last Taken ?Type E2622 : Skin protection #1 04/26/21 07/25/25 Unknown Rx wheelchair seat cushion, adjustable, width less than 22 inches, any depth. [id number] Power wheelchair, group 2 #1 ea 04/26/21 07/25/25 Unknown Rx standard, sling/solid [id number] front wheeled walker #1 ea 04/23/24 07/25/25 Unknown Rx wheelchair #1 ea 04/23/24 07/25/25 Unknown Rx albuterol sulfate 2.5 mg/3 mL 2.5 mg (3 mL) inhalation Q4H PRN 04/28/25 07/29/25 07/31/25 Rx (0.083 %) solution for nebulization shortness of breath or wheezing #300 mL evolocumab 140 mg/mL subcutaneous 140 mg SUBCUT .every 14 days #2 mL 04/28/25 07/29/25 07/24/25 Rx pen injector (Miguel Brown) tamsulosin 0.4 mg capsule (Flomax) 0.4 mg PO DAILY #90 caps 04/28/25 07/29/25 08/01/25 Rx Oxygen concentrator and portable #1 ea 05/20/25 07/25/25 Unknown Rx NC 2L isosorbide mononitrate 60 mg 60 mg PO DAILY #90 tabs 06/16/25 07/29/25 08/01/25 Rx tablet,extended release 24 hr oxycodone 20 mg tablet 20 mg PO Q8H PRN Pain 06/23/25 07/29/25 08/01/25 History carvedilol 12.5 mg tablet 12.5 mg PO BID #90 tabs 06/27/25 07/29/25 08/01/25 Rx losartan 25 mg tablet 25 mg PO DAILY #90 tabs 06/27/25 07/29/25 08/01/25 Rx apixaban 5 mg tablet (Eliquis) 5 mg PO BID #60 tabs 07/12/25 07/29/25 07/29/25 Rx Ostomy Belt 4 XL #1 ea 07/21/25 07/25/25 Unknown Rx amiodarone 200 mg tablet (Pacerone) 200 mg PO DAILY 07/29/25 07/29/25 08/01/25 History clopidogrel 75 mg tablet 75 mg PO DAILY 07/29/25 07/29/25 07/29/25 History enoxaparin 80 mg/0.8 mL 80 mg (0.8 mL) SUBCUT Q12H #3.2 mL 07/29/25 08/01/25 07/31/25 06:00 Rx subcutaneous syringe (Lovenox) Allergies Allergy/AdvReac Type Severity Reaction Status Date / Time ketorolac (From Toradol) Allergy Unknown Verified 07/29/25 12:17 nalbuphine (From Nubain) Allergy Unknown Verified 07/29/25 12:17 tizanidine Allergy ADR-Halluci Verified 07/29/25 12:17 nating Current Medications Generic Name Dose Route Start Last Admin Trade Name Freq PRN Reason Stop Dose Admin Hydromorphone HCl 0.5 mg 08/01/25 13:56 08/01/25 14:55 Hydromorphone 1 Mg/Ml Inj 1ml IVP 08/02/25 13:56 0.5 mg Q10M PRN Administration Pain level 7-10 PACU Phase I Sodium Chloride 1,000 mls @ 30 mls/hr 08/01/25 10:45 08/01/25 14:49 Sodium Chloride 0.9% IV 08/02/25 10:44 Infused .Q24H CONCEPCION Infusion PFSH Acute PFSH: Medical History Supplemental oxygen dependent 3L NC since June,. Bladder distension Neuropathic pain Osteoarthritis of left hip LAU (dyspnea on exertion) Benign essential HTN Osteoporosis Anemia Central spinal stenosis Mixed hyperlipidemia COPD (chronic obstructive pulmonary disease) ASHD (arteriosclerotic heart disease) Surgical History Hx of leg amputation Right side History of right lower limb amputation History of abdominal surgery History of appendectomy History of hernia repair H/O shoulder surgery H/O knee surgery Family History Mother CAD (coronary artery disease) Father Cancer Family/Other Cancer Denies family history of Diabetes Clotting disorder Dementia Chronic kidney disease (CKD) Suicide Anesthesia complication Bleeding disorder Lung disease Stroke Social History Smoking and tobacco/nicotine status: former use of tobacco/nicotine Quit status (tobacco/nicotine): has quit using Year quit tobacco: 2020 Former quit date comment: 2 PPD X 45 YEARS Second hand smoke exposure: No Alcohol intake: never Substance/Drug Use: never Adopted: No Caregiver/support person: No Lives independently: Yes Household members: significant other Housing: House Marital status: Number of children: 2 service: No Current occupational status: retired Current occupational exposures/hazards: No Do you think of yourself as: Straight/Heterosexual Current gender identity: Male Vitals/I&O/Wt Last Vital Signs Temp 97.3 F L 08/01/25 15:02 Pulse 61 08/01/25 15:07 Resp 14 08/01/25 15:07 BP 182/79 08/01/25 15:07 Pulse Ox 95 08/01/25 15:07 O2 Del Method Nasal Cannula 08/01/25 15:07 O2 Flow Rate 3 08/01/25 15:07 08/01/25 08/01/25 08/01/25 06:59 14:59 22:59 Intake Total 1150 / 1150 Output Total Balance 1125 / 1125 Weight last 48 hrs Weight 83.915 kg Physical Exam Urinary Catheter Management: Abbasi: Cath Placed During This Visit: yes Urinary Catheter Date of Insertion: 08/01/25 Urinary Catheter Time of Insertion: 12:45 Data 08/01/25 11:20 08/01/25 11:20 Other Labs: Radiology Impressions Knee X-Ray 08/01/25 14:21 IMPRESSION: Normal for postoperative purposes Laboratory Results WBC 5.06 10^3/uL (3.29-11.43) 08/01/25 11:20 RBC 3.52 10^6/uL (3.85-5.65) L 08/01/25 11:20 Hgb 10.10 g/dL (11.27-16.99) L 08/01/25 11:20 Hct 33.3 % (37-53) L 08/01/25 11:20 MCV 94.6 fl (82-101) 08/01/25 11:20 MCH 28.7 pg (27-33) 08/01/25 11:20 MCHC 30.3 g/dL (30-55) 08/01/25 11:20 RDW 13.6 % (12.1-15.1) 08/01/25 11:20 Plt Count 175 10^3/cmm (157-399) 08/01/25 11:20 MPV 9.0 fL (7.4-10.4) 08/01/25 11:20 Neut % (Auto) 59.4 % 08/01/25 11:20 Lymph % (Auto) 25.7 % 08/01/25 11:20 Hughes % (Auto) 10.7 % 08/01/25 11:20 Eos % (Auto) 3.2 % 08/01/25 11:20 Baso % (Auto) 0.8 % 08/01/25 11:20 Neut # (Auto) 3.01 10^3/uL (1.8-7.7) 08/01/25 11:20 Lymph # (Auto) 1.3 10^3/uL (0.8-4.8) 08/01/25 11:20 Hughes # (Auto) 0.5 10^3/uL (0.2-0.9) 08/01/25 11:20 Eos # (Auto) 0.2 10^3/uL (0.0-0.8) 08/01/25 11:20 Baso # (Auto) 0.0 10^3/uL (0.0-0.1) 08/01/25 11:20 Nucleated RBC % (auto) 0 % 08/01/25 11:20 Nucleated RBCs # 0.0 /100WBC 08/01/25 11:20 Sodium 133 mmol/L (136-145) L 08/01/25 11:20 Potassium 4.2 mmol/L (3.5-5.1) 08/01/25 11:20 Chloride 98 mmol/L (98-107) 08/01/25 11:20 Carbon Dioxide 28 mmol/L (22-29) 08/01/25 11:20 Anion Gap 11.2 (5-19) 08/01/25 11:20 BUN 9 mg/dL (8-23) 08/01/25 11:20 Creatinine 1.1 mg/dL (0.7-1.2) 08/01/25 11:20 GFR Calculation 66.4 mL/min (90-130) L 08/01/25 11:20 Glucose 103 mg/dL (65-115) 08/01/25 11:20 Calculated Osmolality 275 mOsm/kg (285-295) L 08/01/25 11:20 Calcium 8.5 mg/dL (8.5-10.5) 08/01/25 11:20 A&P Assessment and plan 1. Patellar fracture: Admited with left patellar fracture s/p ORIF today with orthopedics pain control per primary team 2. Atrial fibrillation with controlled ventricular rate: A fib, currently with controlled HR Continue Amiodarone 200mg daily Reduce carvedilol to 6.25mg BID as HR raging 62-65 bpm currently obtain baseline EKG Hold anticogulation today post op to minimize risk of bleeding. Aim to resume ~24 hrs post op 3. HTN (hypertension): continue home antihypertensive regimen with losartan, imdur and reduced dose carvedilol prn hydralazine for SBP > 160 4. ASHD (arteriosclerotic heart disease): h/o CAD, recent abnormal stress test, no recent stents. Can hold Plavix for now with aim to resume as soon as feasible 5. COPD (chronic obstructive pulmonary disease): Duoneb q6h prn Supplemental 02 to maintain 02 sa at 90% PDMP PDMP Reviewed: Not Reviewed Consult Attestations Medical Necessity Statement: per admitting Coding Level of Care Code Acute Code for Chg Fwd Diagnoses Patellar fracture S82.009A Atrial fibrillation with controlled ventricular rate I48.91 HTN (hypertension) I10 ASHD (arteriosclerotic heart disease) I25.10 COPD (chronic obstructive pulmonary disease) J44.9
[2025-08-01] MEDS: morphine 4 mg/mL SDV 1 mL 2 MG IVP ×2 (15:19→15:32)
--- NOTE | 2025-08-01 15:45 | ANE.PACU2 ---
Inpatient post-anesthesia follow up: Airway intact: Yes Vital signs: Temperature 97.4 F Pulse Rate 63 Respiratory Rate 16 Blood Pressure 158/64 Pulse Oximetry 95 Oxygen Delivery Me thod Nasal Cannula Oxygen Flow Rate 3 Fraction of Inspir ed Oxygen Hydration adequate: Yes Nausea and vomiting: No Pain level: 1 Mental status: Baseline
--- NOTE | 2025-08-01 16:02 | PC.NURSE ---
no SCD. amputee on right leg
--- NOTE | 2025-08-01 16:05 | PC.NURSE ---
Tp floor t = 97.6 p 60 bp 162/56 sat 96%
[2025-08-01] MEDS: sennosides-docusate Tablet 2 TAB PO (17:30)
[2025-08-01] MEDS: calcium carb-vit d 600mg/400unit 1 Tablet 1 EACH PO (17:30)
[2025-08-01] MEDS: oxyCODONE 5 mg IR Tab/Cap 20 MG PO (17:31)
--- NOTE | 2025-08-01 18:21 | ECG_ITS ---
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 Measurements Intervals [place] Rate: 58 P: 72 VA: 196 QRS: 17 QRSD: 95 T: 48 QT: 488 QTc: 481 Interpretive Statements SINUS BRADYCARDIA PROLONGED QT INTERVAL Compared to ECG 07/21/2025 19:06:04 Prolonged QT interval now present Sinus rhythm no longer present Electronically Signed On 08-02-2025 13:16:33 CDT by Mayo Ortega M.D. [email or web address]
[2025-08-01] MEDS: HYDROmorphone 0.5 MG/0.5 ML INJ IVP (19:59)
[2025-08-01] MEDS: ceFAZolin 2,000 mg SDV 2000 MG IVP (20:02)
[2025-08-02] VITALS (10 sets, daily range): BP systolic 158–192; BP diastolic 64–75; PULSE 61–73; RESP 15–18; TEMP 36.3–36.4; O2SAT 95–97
[2025-08-02] MEDS: HYDROmorphone 0.5 MG/0.5 ML INJ IVP ×2 (00:08→09:59)
[2025-08-02] MEDS: ceFAZolin 2,000 mg SDV 2000 MG IVP ×2 (03:34→14:00)
[2025-08-02 04:58] LABS: Anion Gap 14.7 (5-19); Blood Urea Nitrogen 9 mg/dL (8-23); Calcium 8.4 mg/dL (8.5-10.5); Carbon Dioxide 25 mmol/L (22-29); Chloride 96 mmol/L (98-107); Creatinine Clr Calc Pharmacy 68.1188; Glucose 132 mg/dL (65-115); Osmolality Calculated 273 mOsm/kg (285-295); Potassium 4.7 mmol/L (3.5-5.1); Sodium 131 mmol/L (136-145)
[2025-08-02] MEDS: oxyCODONE 5 mg IR Tab/Cap 20 MG PO ×2 (05:16→14:35)
[2025-08-02] MEDS: hyDRALAzine 20 mg/mL INJ 1 mL 10 MG IVP ×2 (05:30→09:59)
[2025-08-02 08:16] LABS: Hematocrit 30.5 % (37-53); Hemoglobin 9.60 g/dL (11.27-16.99); Mean Corpuscular HGB Conc 31.5 g/dL (30-55); Mean Corpuscular Hemoglobin 29.0 pg (27-33); Mean Corpuscular Volume 92.1 fl (82-101); Nucleated Red Blood Cells % 0 %; Platelet Count 160 10^3/cmm (157-399); Red Blood Count 3.31 10^6/uL (3.85-5.65); White Blood Count 9.33 10^3/uL (3.29-11.43)
[2025-08-02] MEDS: calcium carb-vit d 600mg/400unit 1 Tablet 1 EACH PO (08:53)
[2025-08-02] MEDS: sennosides-docusate Tablet 2 TAB PO (08:53)
[2025-08-02] MEDS: multivitamin therapeutic Tablet 1 TAB PO (08:55)
--- NOTE | 2025-08-02 08:57 | PC.PHAR ---
Addendum entered by Kelsea Cyr 08/02/25 09:10: Pharmacy states they never filled these 2 medications. Removed from med list. is not accepting calls-left a message. Original Note: Pt states [facility] takes care of medication set up. Meds were verified by nursing staff but I located 2 other medications on pts current list. Will follow up with [facility] as to whether they have Atorvastatin 80mg daily 04/30/25 90ds or Spironolactone 25mg daily 04/28/25 90ds on their med list.
--- NOTE | 2025-08-02 09:44 | PC.NURSE ---
[id number], Spoke with Carla Harper on the phone, regarding pain relief options for patient. discussed that PO options are limited due to his current dose. ordered Tramadol, patient refused this medication.
--- NOTE | 2025-08-02 12:11 | XRR_ITS ---
PROCEDURE INFORMATION: Exam: XR Abdomen Exam date and time: 08/02/2025 1:58 PM Age: 70 years old Clinical indication: Abdominal pain; Prior surgery; Surgery date: 6+ months; Surgery type: Colectomy, ileostomy (2012), multiple hernia repairs with mesh per PT; Additional info: PT states they split open TECHNIQUE: Imaging protocol: Radiologic exam of the abdomen. Views: Frontal supine view of the abdomen. 1 View. COMPARISON: CT abdomen pelvis w con* [id number] 06/18/2025 5:51 AM FINDINGS: Lungs: Lung bases are clear. Gastrointestinal tract: Scattered mildly distended air-filled loops of small bowel are present throughout the midabdomen. Air partially distends the stomach. There is some air present within the colon. Findings could potentially correspond to changes of early small bowel obstruction or mild ileus. Lack of an upright view does somewhat limit evaluation. Intraperitoneal space: No free intraperitoneal air identified. Postsurgical changes are present at the right hemipelvis. Right femur has been resected. A portion of the right iliac wing, right acetabulum and periphery of the superior and inferior pubic ramus on the right have been resected. Inner margins appear indistinct. Evaluation for osteomyelitis is limited. Multilevel advanced degenerative changes are present throughout the spine. Bones/joints: See Intraperitoneal space finding. Other findings: Increased soft tissue density projecting over the previous position of the right hip joint is somewhat nonspecific and could correspond to underlying edema or artifact. XR/XR KUB portable [id number] IMPRESSION: 1. Scattered mildly distended air-filled loops of small bowel are present throughout the midabdomen. Lack of an upright view does slightly limit evaluation. There is no definitive evidence of a high-grade small bowel obstruction. Early changes of a small bowel obstruction or ileus are considered. No free intraperitoneal air is identified. 2. Postsurgical changes are present at the level of the right hip. Right femur has been resected. Partial resection of the right ilium and periphery of the right superior and inferior pubic ramus. Margins appear indistinct. Slight increase in soft tissue density overlies the region of the right hip. Evaluation for underlying osteomyelitis is limited on this exam. Clinical correlation is recommended.
--- NOTE | 2025-08-02 14:01 | P.DS_ITS ---
Discharge Providers Date of Admission: 08/01/25 15:28 Date of Discharge: August 02, 2025 Attending Provider at Admission: Tj Aguirre DO Attending Provider at Discharge: Tj Aguirre DO Consults: Dr. Bush?hospitalist Primary Care Provider: BERNARD Villa Diagnoses at Discharge Discharge Diagnosis 1. Patellar fracture: 2. Atrial fibrillation with controlled ventricular rate: 3. HTN (hypertension): 4. ASHD (arteriosclerotic heart disease): 5. Panlobular emphysema: Reason for Visit Reason for Visit: S82.002A Brief History: Status post left patella ORIF Hospital Course Hospital Course Patient sustained a fall in the outpatient setting and had a displaced left knee patellar fracture. At this point in time he was worked up in the outpatient setting talked about his treatment options given this is his only leg and utilized for transfers as well as his pain recommend for surgical intervention given the displacement to help with increasing his mobility. At this point in time we talked about his treatment options and through shared decision making elected proceed with surgical invention. He was seen evaluate in the preoperative holding area. Consent was reviewed and signed with patient correct extremity was then subsequently marked. Patient coordinated discontinuation and stopping of his anticoagulants per the benefits director. Patient then subsequently underwent anesthesia per the anesthesia apartment underwent the left knee patella ORIF without any issues or complications taken to recovery in stable condition. 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 He was admitted under observation for pain control as well as to coordinate getting set up for home discharge. Patient recovered in PACU in stable condition was taken to the floor in stable condition. He then subsequently was seen evaluated and hospitalist was consulted for medical management. Please refer to their detailed daily progress notes for details on medical management. Patient received appropriate instructions and was allowed to be weight-bear as tolerated for transfers to the left lower extremity with knee immobilizer in place knee immobilizer was kept in place strict no range of motion of the knee. Received appropriate perioperative antibiotics. Patient also resumed DVT/into home anticoagulant medications. Daily labs were monitored. He was deemed on postoperative day 1 patient was stable for discharge from orthopedic standpoint internal medicine standpoint he received appropriate discharge structures as well as pain medication and resumption of anticoagulant medication postoperatively. Will follow-up in orthopedic office in 2 weeks maintain knee immobilizer. Can contact the office for any questions or concerns will discharge home with home health. Patient understand agree with current plan. Questions answered. Physical Exam Narrative: Left lower extremity examination patient able to wiggle toes plantarflex and dorsiflex ankle distal pulses palpable compartments soft compressible knee immobilizer brace on in place dressings on in place left in place and no range of motion tested. Urinary Catheter Management: Abbasi: Cath Placed During This Visit: yes Urinary Catheter Date of Insertion: 08/01/25 Urinary Catheter Time of Insertion: 12:45 Discharge Data Studies Completed and Pending Completed Studies During Hospitalization Category Date Time Status XR knee LT 1-2V [id number] Routine Exams 08/01/25 14:21 Completed Pending at discharge Category Date Time Status C-arm Fluoroscopy [id number] Routine Exams 08/01/25 10:30 Taken XR KUB portable [id number] Stat Exams 08/02/25 12:11 Ordered Radiology Impressions Knee X-Ray 08/01/25 14:21 IMPRESSION: Normal for postoperative purposes Laboratory Results WBC 9.33 10^3/uL (3.29-11.43) 08/02/25 07:59 Corrected WBC Cancelled 08/02/25 04:05 RBC 3.31 10^6/uL (3.85-5.65) L 08/02/25 07:59 Hgb 9.60 g/dL (11.27-16.99) L 08/02/25 07:59 Hct 30.5 % (37-53) L 08/02/25 07:59 MCV 92.1 fl (82-101) 08/02/25 07:59 MCH 29.0 pg (27-33) 08/02/25 07:59 MCHC 31.5 g/dL (30-55) 08/02/25 07:59 RDW 13.2 % (12.1-15.1) 08/02/25 07:59 Plt Count 160 10^3/cmm (157-399) 08/02/25 07:59 MPV 9.1 fL (7.4-10.4) 08/02/25 07:59 Gran % Cancelled 08/02/25 04:05 Neut % (Auto) 85.7 % 08/02/25 07:59 Lymph % (Auto) 9.5 % 08/02/25 07:59 Pershing % (Auto) 4.4 % 08/02/25 07:59 Eos % (Auto) 0.0 % 08/02/25 07:59 Baso % (Auto) 0.1 % 08/02/25 07:59 Neut # (Auto) 7.99 10^3/uL (1.8-7.7) H 08/02/25 07:59 Lymph # (Auto) 0.9 10^3/uL (0.8-4.8) 08/02/25 07:59 Pershing # (Auto) 0.4 10^3/uL (0.2-0.9) 08/02/25 07:59 Eos # (Auto) 0.0 10^3/uL (0.0-0.8) 08/02/25 07:59 Baso # (Auto) 0.0 10^3/uL (0.0-0.1) 08/02/25 07:59 Absolute Gran (auto) Cancelled 08/02/25 04:05 Nucleated RBC % (auto) 0 % 08/02/25 07:59 Nucleated RBCs # 0.0 /100WBC 08/02/25 07:59 Sodium 131 mmol/L (136-145) L 08/02/25 04:05 Potassium 4.7 mmol/L (3.5-5.1) 08/02/25 04:05 Chloride 96 mmol/L (98-107) L 08/02/25 04:05 Carbon Dioxide 25 mmol/L (22-29) 08/02/25 04:05 Anion Gap 14.7 (5-19) 08/02/25 04:05 BUN 9 mg/dL (8-23) 08/02/25 04:05 Creatinine 1.1 mg/dL (0.7-1.2) 08/02/25 04:05 GFR Calculation 66.4 mL/min (90-130) L 08/02/25 04:05 Glucose 132 mg/dL (65-115) H 08/02/25 04:05 Calculated Osmolality 273 mOsm/kg (285-295) L 08/02/25 04:05 Calcium 8.4 mg/dL (8.5-10.5) L 08/02/25 04:05 Vitals Last Vital Signs Temp 97.4 F L 08/02/25 11:09 Pulse 63 09/20/25 11:09 Resp 15 08/02/25 11:09 BP 158/64 08/02/25 13:12 Pulse Ox 97 08/02/25 11:09 O2 Del Method Nasal Cannula 08/02/25 11:09 O2 Flow Rate 3 08/02/25 11:09 Discharge Plan Discharge Patient Disposition: Home Condition: Stable Prescriptions: Continued (DME) [id number] : Skin protection wheelchair seat cushion, adjustable, width less than 22 inches, any depth. See Rx Instructions .Route .MEDSUPPLY Qty: 1 0RF Rx Instructions: As directed (DME) [id number] Power wheelchair, group 2 standard, sling/solid See Rx Instructions .Route .MEDSUPPLY Qty: 1 0RF Rx Instructions: As directed (DME) wheelchair See Rx Instructions .Route .MEDSUPPLY Qty: 1 0RF Rx Instructions: As directed (DME) [id number] front wheeled walker See Rx Instructions .Route .MEDSUPPLY Qty: 1 0RF Rx Instructions: As directed (DME) Ostomy Belt 4 XL See Rx Instructions .Route .MEDSUPPLY Qty: 1 0RF Rx Instructions: For support abdomen hernia at ostomy Repatha SureClick 140 mg/mL pen injector 140 mg SUBCUT .every 14 days Qty: 2 5RF tamsulosin [Flomax] 0.4 mg capsule 0.4 mg PO DAILY Qty: 90 1RF albuterol sulfate 2.5 mg /3 mL (0.083 %) solution for nebulization 2.5 mg inhalation Q4H PRN (Reason: shortness of breath or wheezing) Qty: 300 5RF isosorbide mononitrate 60 mg tablet extended release 24 hr 60 mg PO DAILY Qty: 90 3RF (DME) Oxygen concentrator and portable NC 2L See Rx Instructions .ROUTE .MEDSUPPLY Qty: 1 0RF Rx Instructions: Use 3L NC 24 hours for 99 months losartan 25 mg tablet 25 mg PO DAILY Qty: 90 3RF Rx Instructions: FOR 14 DAYS carvedilol 12.5 mg tablet 12.5 mg PO BID Qty: 90 0RF Rx Instructions: Decrease due to heart rate in 50's amiodarone [Pacerone] 200 mg tablet 200 mg PO DAILY Rx Instructions: 200 mg BID x 7 days then 200 mg daily thereafter clopidogrel 75 mg tablet 75 mg PO DAILY Rx Instructions: TAKE ONE TABLET BY MOUTH DAILY oxycodone 20 mg Tablet 20 mg PO Q8H PRN (Reason: Pain) 7 Days Qty: 21 0RF Rx Instructions: Take 3 and a half tablets a day. Eliquis 5 mg tablet 5 mg PO BID Qty: 60 0RF Discontinued enoxaparin [Lovenox] 80 mg/0.8 mL syringe 80 mg SUBCUT Q12H Qty: 3.2 0RF Rx Instructions: 07/29/25 - 1 injection in PM 07/30/25 - 1 injection in AM & PM. 07/31/25 - 1 injection in AM & nothing in the PM. 08/01/25 - nothing prior to procedure. Orthotic Assistant OK for DC: Orthopedics and Hospitalist Discharge Order = DC NOW: Discharge Order (Routine); Ordered 08/02/25 Ordered By: Tj Aguirre Referrals: Tj Aguirre DO [Physician, Orthopedics] Referral Note: We have notified your physician's clinic of the need for a follow-up appointment to be scheduled. If you have not heard from them within the next 2 business days, please call them directly. Discharge Diet: Advance as tolerated Discharge Activity: Limit activity as instructed, Use walker/crutches as instructed, Wheelchair as instructed and As per PT/OT instructions Patient Instructions: Oxycodone, Rapid Release (By mouth), Acute Wound Care (DC), Patellar Fracture (DC), Post Anesthesia Care Activity Restrictions/Additional Instructions: Patella fracture ORIF postop Orthopedic discharge instructions: Keep dressing clean dry and intact Leave splint on and in place Strict no range of motion of the knee Maintain knee immobilizer at all times Do not get splint wet, if it does contact the office for a office visit to have it changed No baths or soaks Okay to take down [place] bandage and knee dressing after 72 hours from surgery ( on) remove down to the incision clean with warm soapy water and then pat dry and redress with a sterile dry dressing (Silverlon) Patient may weight-bear as tolerated to the operative extremity for transfers strictly only with knee immobilizer brace on in place Utilize crutches/walker as tolerated to continue with ambulation while maintaining restrictions Ice and elevate as needed for pain and swelling Take pain medication as prescribed Take antinausea medication as needed Take/resume home blood thinner medication as prescribed by cardiology for blood clot prevention Supplement with Citracal/vitamin D for bone health and healing Take [id number] Colace as needed for constipation postoperatively Follow-up with Dr. Aguirre in the office in 2 weeks Contact the office for any questions or concerns(i.e. fevers, increased drainage or redness around the incision site etc.) Discharge Attestations Time Spent in Discharge Care*: less than 30 min Status at Discharge: Cognitive status at discharge: cognitively intact , Behavioral status at discharge: [facility] , Quality Metrics Clinical Quality Measures [ No reported AMI, CVA or VTE this stay] Coding Level of Care Code Acute Code for Chg Fwd Diagnoses Patellar fracture S82.009A Atrial fibrillation with controlled ventricular rate I48.91 HTN (hypertension) I10 ASHD (arteriosclerotic heart disease) I25.10 Panlobular emphysema J43.1 COPD type: emphysema Emphysema type: panlobular Time Spent (min) 35
--- NOTE | 2025-08-02 17:34 | P.PN_ITS ---
Subjective 2 Subjective: No new complaints today. Patient states pain is better controlled this afternoon. This morning his blood pressure was noted to be 190 systolic. This is improved after being given hydralazine and opiates for pain management. At the time of this assessment blood pressure is 155/64 mmHg. Medications: Reviewed: Yes Vitals/I&O/Wt Last Vital Signs Temp 97.4 F L 08/02/25 15:38 Pulse 63 08/02/25 15:38 Resp 16 08/02/25 15:38 BP 158/64 08/02/25 15:38 Pulse Ox 95 08/02/25 15:38 O2 Del Method Nasal Cannula 08/02/25 11:09 O2 Flow Rate 3 08/02/25 11:09 08/02/25 08/02/25 08/02/25 06:59 14:59 22:59 Intake Total 540 / 1930 238 / 238 Output Total 800 / 1525 Balance -260 / 405 238 / 238 Weight last 48 hrs Weight 83.915 kg Weight 83.915 kg Weight 83.915 kg Physical Exam 2 Narrative: General: No acute distress, AO x3 HEENT: PERRLA, pupils bilaterally equal and reactive, pallors not present Chest: Normal vesicular breath sounds, no added sounds, equal good air entry bilaterally CVS: S1-S2 regular, no murmurs, no tachycardia, no gallops, no rubs Abdomen: Soft, nontender, colostomy in place Neuro: No focal deficits, no facial deformity, AO x3, power 5/5 in all limbs Ext : Right side BKA Urinary Catheter Management: Abbasi: Cath Placed During This Visit: yes Urinary Catheter Date of Insertion: 08/01/25 Urinary Catheter Time of Insertion: 12:45 Data 08/02/25 07:59 08/02/25 04:05 A&P Assessment and plan 1. Patellar fracture: Admited with left patellar fracture s/p ORIF today with orthopedics pain control per primary team 2. Atrial fibrillation with controlled ventricular rate: A fib, currently with controlled HR Continue Amiodarone 200mg daily Reduce carvedilol to 6.25mg BID as HR raging 62-65 bpm currently obtain baseline EKG Hold anticogulation today post op to minimize risk of bleeding. Aim to resume ~24 hrs post op 3. HTN (hypertension): continue home antihypertensive regimen with losartan, imdur and reduced dose carvedilol prn hydralazine for SBP > 160 4. ASHD (arteriosclerotic heart disease): h/o CAD, recent abnormal stress test, no recent stents. Can hold Plavix for now with aim to resume as soon as feasible 5. Panlobular emphysema: Duoneb q6h prn Supplemental 02 to maintain 02 sa at 90% Plan: Patient blood pressure was noted to be elevated this morning. Systolic blood pressure of 192. He received IV pain management and additionally IV hydralazine following which blood pressure is improved at 155/72 at the time of this assessment. He can continue his home medications including carvedilol 12.5 twice daily, Imdur 60 mg p.o. daily, losartan 25 mg p.o. daily upon returning home. Suspect that currently blood pressure elevation is additionally contributed by postoperative pain which is expected to improve in the coming days. Can discontinue Lovenox at discharge. Resume Eliquis 5 mg twice daily for anticoagulation when cleared by surgery. No contraindication for discharge from medicine standpoint. Patient complained of abdominal discomfort shortly after eating today. X-ray of the abdomen was performed to evaluate for intraperitoneal air. Study was negative for this however note made of small bowel ileus. There is currently no clinical correlate for the same. Patient has no vomiting. He is status post ileostomy which is noted to have a good amount of stool. Status post right BKA without any clinical concern for osteomyelitis. PDMP PDMP Reviewed: Not Reviewed Attestations 2 Medical Necessity Statement*: Per admitting Coding Level of Care Code Acute Code for Chg Fwd Diagnoses Patellar fracture S82.009A Atrial fibrillation with controlled ventricular rate I48.91 HTN (hypertension) I10 ASHD (arteriosclerotic heart disease) I25.10 Panlobular emphysema J43.1 COPD type: emphysema Emphysema type: panlobular
== END 2025-08-02 15:15 | disposition home or self-care (01) ==
LOC: MEDSURG 15:29
PROVIDERS: Anesthesiology; Admitting Provider Student in an Organized Health Care Education/Training Program; PCP Nurse Practitioner; Visit Provider Student in an Organized Health Care Education/Training Program
PROC: (CPT 27524; principal; 2025-08-01 12:00)
DX: S82.002A Unspecified fracture of left patella, initial encounter for closed fracture (principal); W17.89XA Other fall from one level to another, initial encounter; I48.91 Unspecified atrial fibrillation; J44.9 Chronic obstructive pulmonary disease, unspecified; I25.10 Atherosclerotic heart disease of native coronary artery without angina pectoris; Z79.01 Long term (current) use of anticoagulants; Z79.891 Long term (current) use of opiate analgesic; Z99.81 Dependence on supplemental oxygen; Z89.611 Acquired absence of right leg above knee; E78.2 Mixed hyperlipidemia; Z87.891 Personal history of nicotine dependence; I12.9 Hypertensive chronic kidney disease with stage 1 through stage 4 chronic kidney disease, or unspecified chronic kidney disease; N18.9 Chronic kidney disease, unspecified
CPT/HCPCS: 27524; 36415; 51702; 73560; 73562; 74018; 76000; 80048; 85025; 93005; 97161; 97166; C1713; G0378; J0131; J0360; J0690; J1100; J1171; J2270; J2405; J2704; J2795; J3010; J3373; J3490; J7030; J9999

== ENCOUNTER → 2025-08-15 09:46 | Outpatient (BNVA) | payer MEDICARE, MEDICAID, SELFPAY | PROVIDERS: PCP Nurse Practitioner; Visit Provider Physician Assistant | DX: Z98.890 Other specified postprocedural states (principal) | CPT/HCPCS: 73562; 99024 ==

== ENCOUNTER → 2025-09-16 10:52 | Outpatient (BNVA) | payer MEDICARE, MEDICAID, SELFPAY | PROVIDERS: PCP Nurse Practitioner; Visit Provider Physician Assistant | DX: Z98.890 Other specified postprocedural states (principal); Z46.89 Encounter for fitting and adjustment of other specified devices; S82.032D Displaced transverse fracture of left patella, subsequent encounter for closed fracture with routine healing; X58.XXXD Exposure to other specified factors, subsequent encounter | CPT/HCPCS: 73562 ==

== ENCOUNTER 2025-09-16 15:11 | Outpatient (CLI) | payer MEDICARE, MEDICAID, SELFPAY | END 2025-09-16 15:12 | disposition home or self-care (01) | LOC: SPT 15:12 | PROVIDERS: PCP Nurse Practitioner; Visit Provider Physician Assistant | DX: Z46.89 Encounter for fitting and adjustment of other specified devices (principal); S82.032D Displaced transverse fracture of left patella, subsequent encounter for closed fracture with routine healing; X58.XXXD Exposure to other specified factors, subsequent encounter | CPT/HCPCS: L1832 ==

== ENCOUNTER → 2025-10-13 14:53 | Outpatient (BNVA) | payer MEDICARE, MEDICAID, SELFPAY | PROVIDERS: PCP Nurse Practitioner; Visit Provider Nurse Practitioner | DX: N18.2 Chronic kidney disease, stage 2 (mild) (principal); R53.83 Other fatigue; N39.0 Urinary tract infection, site not specified | CPT/HCPCS: 81000; 87086 ==

== ENCOUNTER 2025-10-16 16:08 | Outpatient (CLI) | payer MEDICARE, MEDICAID, SELFPAY ==
--- NOTE | 2025-10-16 16:00 | CT_ITS ---
WS: [email or web address] CT chest wo con [id number] HISTORY: R91.1 - Solitary pulmonary nodule TECHNIQUE: Axial imaging performed through the thorax. Coronal and sagittal reformats are submitted. All CT scans at [facility] use at least one of these dose optimization techniques: automated exposure control; mA and/or kV adjustment per patient size (includes targeted exams where dose is matched to clinical indication); or iterative reconstruction. CONTRAST: None DLP: 555.33 mGy.cm COMPARISON: 05/05/2025, 12/07/2023, 04/04/2023 Lungs and central airway: Centrilobular emphysema. Lungs are hyperexpanded. Reidentified is bilateral bronchial wall thickening and tree-in-bud airspace disease noted bilaterally. There are few small reticular nodules also associated with the interstitial thickening greatest in the RIGHT upper and RIGHT lower lobes. Mild bronchiectasis RIGHT lower lobe. Curvilinear atelectasis at the lingula. Additional linear atelectasis LEFT upper lobe. Pleura: Normal. No pleural effusion. Heart and pericardium: Normal size heart with no pericardial effusion. Mediastinum and chloe: Mediastinal and hilar lymph nodes are very similar to the prior study. The largest lymph node is RIGHT paratracheal measuring 1.5 cm Vessels: Moderate atherosclerosis aorta. Calcified plaque extends into the great vessels. Normal size pulmonary artery. Coronary artery calcifications. Chest wall and lower neck: No soft tissue masses. Upper abdomen: Small hiatal hernia. Small lymph nodes noted near the gastroesophageal junction and isidro hepatis are stable. Liver appears cirrhotic. No adrenal mass. Cortical thinning and atrophy and stranding involving the upper poles of each kidney. There are a few small hyperdense and hypodense nodules which are stable. Osseous structures: Prior plate and screw fixation proximal LEFT humerus. CT/CT chest wo con [id number] IMPRESSION: 1. Chronic and stable appearing tree-in-bud airspace disease, nodular reticula tions and bronchial wall thickening noted bilaterally but greatest on the RIGHT . No significant progression. There is also associated mild developing bronchie ctasis in the RIGHT upper and RIGHT lower lobes. 2. Centrilobular emphysema. 3. Cirrhotic appearing liver. 4. Stable mediastinal lymph nodes. 5. No change in the upper pole of each kidney. There is cortical thinning and hyperdense and hypodense nodules.
== END 2025-10-16 16:09 | disposition home or self-care (01) ==
LOC: RAD 16:09
PROVIDERS: PCP Nurse Practitioner; Visit Provider Nurse Practitioner
DX: R91.1 Solitary pulmonary nodule (principal)
CPT/HCPCS: 71250